=== PATIENT | female | born 1965 | race Caucasian/White ===

== ENCOUNTER 2018-02-12 18:48 | Emergency (ER) | payer MEDICAID, SELFPAY ==
[2018-02-12 18:52] VITALS: BP 155/86; PULSE 90; RESP 16; TEMP 36.7; O2SAT 98
[2018-02-12] MEDS: Tetanus & Diphtheria Tox,ADULT 0.5 ML VIAL IM (19:10)
--- NOTE | 2018-02-12 19:10 | ED.GENADUL_ITS ---
Discharge Plan Disposition Patient Disposition: HOME Condition: Improving Discharge Details Chief Complaint: Laceration Clinical Impression: Laceration of forearm, right Primary Care Provider: Debo Talamantes V ED Provider: Rios Bucio Home Meds and New Rx's Prescriptions: Continue metformin 500 MG tablet 1,000 mg PO BID RF: 0 buprenorphine-naloxone [Suboxone] 1 EACH film 6 mg Sublingual DAILY RF: 0 bupropion HCl 150 MG tablet extended release 12 hr 1 tab PO BID RF: 0 ibuprofen 800 MG tablet 1 tab PO BID PRNRF: 0 gabapentin 300 MG capsule 300 mg PO TID RF: 0 losartan-hydrochlorothiazide 1 TAB tablet 1 tab PO DAILY RF: 0 oxybutynin chloride 5 MG tablet 1 tab PO BID RF: 0 Discharge Instructions Instructions: Laceration (ED) Additional Instructions: You had 4 sutures placed. They should be removed in 7-10 days time. Return to the emergency department make appoint with regular doctors office for removal. Return for fever, redness, discharge from the wound or any other concerns. Continue regular medications. Gentle soap and water cleanse, pat dry daily and replace bandage Medical Decision Making 52-year-old female with right forearm laceration from pruning maurice at home. Her tetanus status is updated, the wound anesthetized, irrigated, examined in a bloodless field without evidence of foreign body. Repaired with 4 interrupted sutures. Discussed home management as well as return precautions. HPI General Mode of arrival: ambulatory . Date/Time Provider Initiated Documentation: 02/12/18 18:48 . Limitations to Documentation: no limitations . Information obtained by: patient . History of Present Illness described as mild, Quality is described as aching, and is localized to the right and upper extremity. Patient started experiencing this minute(s) and it has been constant. No relieving factors improve symptom(s), No exacerbating factors reported . Patient notes no other symptoms.. HPI Narrative: Laceration to right forearm from pruning maurice, hemostasis applied with pressure. No other complaints. Tetanus out of date. Related Data Home Medications Medication Instructions Recorded Confirmed buprenorphine-naloxone [Suboxone] 6 mg SUBLINGUAL DAILY 04/17/13 02/12/18 metformin 1,000 mg PO BID 04/17/13 02/12/18 bupropion HCl 1 tab PO BID 12/17/16 02/12/18 gabapentin 300 mg PO TID 12/17/16 02/12/18 ibuprofen 1 tab PO BID PRN 12/17/16 02/12/18 losartan-hydrochlorothiazide 1 tab PO DAILY 12/17/16 02/12/18 oxybutynin chloride 1 tab PO BID 12/17/16 02/12/18 Allergies Allergy/AdvReac Type Severity Reaction Status Date / Time No Known Allergies Allergy Unverified 02/12/18 18:55 General Stated Complaint: Laceration YASMINE: 4 Review of Systems Review of Systems For systems reviewed and otherwise neg PFSH Social History Smoking/Tobacco Use Status: Current every day Exam Narrative Exam Narrative: GEN: awake, alert.. Pleasant, well groomed, interactive. HEAD: Normocephalic, atraumatic ENT: Mucous membranes moist, oropharynx unremarkable, External ear exam unremarkable EYES: PERRL, EOMI NECK: Full ROM, no POLO, no menigismus EXT: Full ROM, no edema, no rash. Right forearm with 2 cm laceration that is linear, through the dermis of the skin, located mid forearm on the ulnar aspect. No foreign body seen. 2+ radial pulse bilateral upper extremity Neuro: Grossly normal neurologic exam, conversant, interactive. Psych: Speech fluent, thoughts congruent, affect normal Course Vital Signs Temperature 36.7 C 02/12/18 18:52 Pulse 90 02/12/18 18:52 Respiratory Rate 16 02/12/18 18:52 Blood Pressure 155/86 H 02/12/18 18:52 Pulse Oximetry 98 02/12/18 18:52 Temperature 36.7 C 02/12/18 18:52 Temperature Source Temporal Artery Scan 02/12/18 18:52 Pulse 90 02/12/18 18:52 Respiratory Rate 16 02/12/18 18:52 Respiratory Effort 02/12/18 18:52 Blood Pressure 155/86 H 02/12/18 18:52 Blood Pressure Position Sitting 02/12/18 18:52 Pulse Oximetry 98 02/12/18 18:52 Oxygen Delivery Method Room Air 02/12/18 18:52 Oxygen Flow Rate 0 02/12/18 18:52 Procedures Laceration Laceration 1: Site: upper extremity Side (If applicable): right Size (cm): 2 Depth: simple, single layer Local Anesthetic: Lidocaine 1% Amount of anesthesia used (mL): 2 Pre-repair: irrigated extensively and deep structures intact Skin layer closed with: nylon Size (cm): 4-0 Number of sutures: 4
[2018-02-12] MEDS: Lidocaine 1% Multi-Dose 50 ML VIAL (19:12)
== END 2018-02-12 19:27 | disposition home or self-care (01) ==
PROVIDERS: Emergency Provider Emergency Medicine; PCP Family Medicine
DX: S51.811A Laceration without foreign body of right forearm, initial encounter (principal); W27.1XXA Contact with garden tool, initial encounter; D11.9 Benign neoplasm of major salivary gland, unspecified; Z79.84 Long term (current) use of oral hypoglycemic drugs
CPT/HCPCS: 12001; 90471

== ENCOUNTER 2018-02-19 16:09 | Emergency (ER) | payer MEDICAID, SELFPAY ==
[2018-02-19 16:33] VITALS: BP 161/84; PULSE 69; RESP 16; TEMP 36.6; O2SAT 96
--- NOTE | 2018-02-19 16:50 | ED.GENADUL_ITS ---
Discharge Plan Discharge Details Chief Complaint: SutureRem Primary Care Provider: Debo Talamantes V ED Provider: Marcelo Heránndez Home Meds and New Rx's Prescriptions: No Action metformin 500 MG tablet 1,000 mg PO BID RF: 0 buprenorphine-naloxone [Suboxone] 1 EACH film 6 mg Sublingual DAILY RF: 0 bupropion HCl 150 MG tablet extended release 12 hr 1 tab PO BID RF: 0 ibuprofen 800 MG tablet 1 tab PO BID PRNRF: 0 gabapentin 300 MG capsule 300 mg PO TID RF: 0 losartan-hydrochlorothiazide 1 TAB tablet 1 tab PO DAILY RF: 0 oxybutynin chloride 5 MG tablet 1 tab PO BID RF: 0 Discharge Data Discharge Date/Time-TO BE ENTERED AT DEPARTURE: 02/19/18 16:49 Medical Decision Making I removed four sutures without incident. Three steri strips applied. Advised to keep clean and dry. Return to ED if signs of infection develop otherwise with pcp as previously scheduled. HPI General Date/Time Provider Initiated Documentation: 02/19/18 16:35 . Limitations to Documentation: no limitations . Information obtained by: patient and old records reviewed . HPI Narrative: 52 y/o female here to have four sutures removed. Denies any complications. Four sutures placed seven days ago to the right FA. She has kept it clean and dry. Related Data Home Medications Medication Instructions Recorded Confirmed buprenorphine-naloxone [Suboxone] 6 mg SUBLINGUAL DAILY 04/17/13 02/19/18 metformin 1,000 mg PO BID 04/17/13 02/19/18 bupropion HCl 1 tab PO BID 12/17/16 02/19/18 gabapentin 300 mg PO TID 12/17/16 02/19/18 ibuprofen 1 tab PO BID PRN 12/17/16 02/19/18 losartan-hydrochlorothiazide 1 tab PO DAILY 12/17/16 02/19/18 oxybutynin chloride 1 tab PO BID 12/17/16 02/19/18 Allergies Allergy/AdvReac Type Severity Reaction Status Date / Time No Known Allergies Allergy Unverified 02/12/18 18:55 General Stated Complaint: SutureRem YASMINE: 5 Review of Systems Constitutional Reports as per HPI Exam Skin Full body images: 2 1. edges slightly elevated and 1-2mm gaped. No drainage. Inflammatory redness around the wound. No drainage or ascending redness. Edges look to superficial to approximate. However 3 steri strips applied. Course Vital Signs Temperature 36.6 C 02/19/18 16:33 Pulse 69 02/19/18 16:33 Respiratory Rate 16 02/19/18 16:33 Blood Pressure 161/84 H 02/19/18 16:33 Pulse Oximetry 96 02/19/18 16:33 Temperature 36.6 C 02/19/18 16:33 Temperature Source Skin 02/19/18 16:33 Pulse 69 02/19/18 16:33 Respiratory Rate 16 02/19/18 16:33 Respiratory Effort Non-Labored 02/19/18 16:33 Blood Pressure 161/84 H 02/19/18 16:33 Blood Pressure Position Sitting 02/19/18 16:33 Pulse Oximetry 96 02/19/18 16:33 Oxygen Delivery Method Room Air 02/19/18 16:33 Oxygen Flow Rate 0 02/19/18 16:33 Pain Level 0 02/19/18 16:33
== END 2018-02-19 16:49 ==
LOC: ER 16:52
PROVIDERS: Emergency Provider Nurse Practitioner Family; PCP Family Medicine
DX: S51.811D Laceration without foreign body of right forearm, subsequent encounter (principal); W27.1XXD Contact with garden tool, subsequent encounter; Z48.02 Encounter for removal of sutures; E11.9 Type 2 diabetes mellitus without complications; Z79.84 Long term (current) use of oral hypoglycemic drugs

== ENCOUNTER 2018-03-05 00:40 | Outpatient (CLI) | payer MEDICAID, SELFPAY ==
--- NOTE | 2018-03-05 14:55 | DI.MAMMO_ITS ---
SYMPTOM/DIAGNOSIS: SCREENING, Z12.31, FAMILY HX, Z80.3 MAMMOGRAMS: Mammograms were interpreted according to the usual protocol including computer analysis with CAD system, tomosynthesis and C view imaging. Comparison with prior examinations. Breast density B. No masses or microcalcifications are seen. There is nothing to suggest malignancy. IMPRESSION: Negative mammogram. Routine screening is recommended. Category I. MQSA ASSESSMENT OF FINDINGS: Negative. Category 1. Patient will receive a letter notifying them of these results. BI-RADS category B. There are scattered areas of fibroglandular density.
== END 2018-03-05 01:00 ==
PROVIDERS: PCP Family Medicine; Visit Provider Family Medicine
DX: Z12.31 Encounter for screening mammogram for malignant neoplasm of breast (principal); Z80.3 Family history of malignant neoplasm of breast
CPT/HCPCS: 77063; 77067

== ENCOUNTER 2018-05-06 07:57 | Inpatient (IN) | payer MEDICAID, SELFPAY ==
[2018-05-06] VITALS (43 sets, daily range): BP systolic 86–146; BP diastolic 44–98; PULSE 69–120; RESP 16–20; TEMP 35.8–38.5; O2SAT 90–98
[2018-05-06 08:10] LABS: Bilirubin Negative (Negative); Blood Moderate (Negative); Clarity Sl Cloudy; Glucose >=1000 mg/dL (Negative); Ketones Trace mg/dL (Negative); Leukocyte Esterase Small (Negative); Nitrite Positive (Negative); Urobilinogen 0.2 EU/dL (Up TO 0.2); pH 5.5 (5-8)
[2018-05-06 08:19] LABS: Bacteria Moderate HPF (Negative); C & S Indicated? Yes; Crystals Negative HPF (Negative); Epithelial Cells Few HPF (Negative); Mucus Negative (Negative); WBC >50 HPF (0-5)
--- NOTE | 2018-05-06 08:27 | W.ED.GENAD ---
Discharge Plan Disposition Patient Disposition: [facility] INPATIENT Condition: Serious Discharge Details Chief Complaint: Urinary Clinical Impression: Pyelonephritis, Poorly controlled diabetes mellitus Primary Care Provider: Debo Talamantes V ED Provider: Blair Hunter Home Meds and New Rx's Prescriptions: No Action buprenorphine-naloxone [Suboxone] 1 EACH film 6 mg Sublingual DAILY RF: 0 losartan-hydrochlorothiazide 1 TAB tablet 1 tab PO DAILY RF: 0 oxybutynin chloride 5 MG tablet 1 tab PO BID RF: 0 gabapentin 400 mg Capsule 400 mg PO TID RF: 0 ibuprofen [Ibuprofen IB] 200 mg Tablet 800 mg PO QID PRNRF: 0 metformin [Glucophage XR] 500 mg Tablet Extended Release 24 Hr 1,000 mg PO DAILY RF: 0 bupropion HCl [Wellbutrin XL] 300 mg Tablet Extended Release 24 Hr 300 mg PO QAM RF: 0 Chantix Starting Month Box 0.5 mg (11)- 1 mg (42) Tablets,Dose Pack DAILY RF: 0 Victoza 2-Preston 0.6 mg/0.1 mL (18 mg/3 mL) Pen Injector 1.2 mg subcut DAILY RF: 0 Chantix Continuing Month Box 1 mg Tablet DAILY RF: 0 Medical Decision Making 8:30 -- 52yo f with non insulin dep DM here with freq urination, subjective fever, nausea/vomiting and left flank pain. She is noncompliant with diabetic regimen and has not been taking her thiazolidinedione as prescribed. Tachcardic and borderline hypotensive. Concern for pyelonephritis. Consider DKA. UA reviewed and consistent with UTI - trace ketones noted. Will give ceftriaxone 1 g IV. IVF bolus. Check chemistry. Plan to reassess. 9:35 -- Labs reviewed. Leukocytosis 17K noted. Lactate nl. Hyperglycemia noted, no anion gap. Patient reassessed: BP and HR improved. Will continue IVF and repeat 1L bolus. Plan to admit for continued IV abx and DM management. Nicotine patch ordered. 10:30 -- Dr. Loco to admit patient. Care transitioned to Dr. Loco. HPI General Mode of arrival: ambulatory. Date/Time Provider Initiated Documentation: 05/06/18 08:09. Limitations to Documentation: no limitations. Information obtained by: patient. HPI Narrative: 52-year-old female with history of diabetes, presents with chief complaint of frequent urination. Patient notes that she is having to run to the bathroom frequently over the past 3 days. She has had some urinary incontinence. No hematuria. Symptoms are severe. No modifiers. She has associated subjective fever last night as well as some nausea and vomiting and left flank pain. No abdominal pain. She has not been taking her actos as prescribed. Related Data Home Medications Medication Instructions Recorded Confirmed buprenorphine-naloxone [Suboxone] 6 mg SUBLINGUAL DAILY 04/17/13 05/06/18 losartan-hydrochlorothiazide 1 tab PO DAILY 12/17/16 05/06/18 oxybutynin chloride 1 tab PO BID 12/17/16 05/06/18 bupropion HCl [Wellbutrin XL] 300 mg PO QAM 05/06/18 05/06/18 gabapentin 400 mg PO TID 05/06/18 05/06/18 ibuprofen [Ibuprofen IB] 800 mg PO QID PRN 05/06/18 05/06/18 liraglutide [Victoza 2-Preston] 1.2 mg SUBCUT DAILY 05/06/18 05/06/18 metformin [Glucophage XR] 1,000 mg PO DAILY 05/06/18 05/06/18 varenicline [Chantix Continuing DAILY 05/06/18 Month Box] varenicline [Chantix Starting DAILY 05/06/18 Month Box] Allergies Allergy/AdvReac Type Severity Reaction Status Date / Time No Known Allergies Allergy Unverified 05/06/18 08:17 General Stated Complaint: Urinary YASMINE: 3 Review of Systems Review of Systems All systems reviewed & are unremarkable except as noted in HPI and below Constitutional Reports fever(s) Genitourinary Reports urinary frequency, Reports urinary incontinence and Reports urinary urgency PFSH Medical History Diabetes (Chronic) Hypertension (Chronic) Social History Smoking/Tobacco Use Status: Current every day Exam Const General: cooperative and no acute distress HENVT Head: normocephalic and atraumatic Mouth: moist mucous membranes Eyes Conjunctivae: normal conjunctivae Sclera: normal sclerae EOM: EOM intact bilaterally Neck Neck: no JVD Resp Auscultation: clear to auscultation bilaterally, no rales, no rhonchi and no wheezes Cardio Jugular venous pressure: no JVD Rate: regular rate and not tachycardic Rhythm: regular rhythm GI Palpation: soft, not firm, no guarding, no masses, not rigid and nontender General: No CVA tenderness Skin General skin exam: no rashes or lesions noted Neuro General: alert, awake, oriented x3 and tone normal Extrem General: no edema Psych Appearance: grossly normal Mental Status: mental status grossly normal Speech and Movement: speech and movement normal Course Vital Signs Temperature 36.8 C 05/06/18 08:11 Pulse 104 H 05/06/18 08:11 Respiratory Rate 18 05/06/18 08:11 Blood Pressure 95/64 L 05/06/18 08:11 Pulse Oximetry 95 05/06/18 08:11 Temperature 36.8 C 05/06/18 08:11 Temperature Source Temporal Artery Scan 05/06/18 08:11 Pulse 104 H 05/06/18 08:11 Respiratory Rate 18 05/06/18 08:11 Respiratory Effort 05/06/18 08:16 Blood Pressure 95/64 L 05/06/18 08:11 Blood Pressure Position Sitting 05/06/18 08:11 Pulse Oximetry 95 05/06/18 08:11 Oxygen Delivery Method Room Air 05/06/18 08:11 Oxygen Flow Rate 0 05/06/18 08:11 Pain Level 0 05/06/18 08:15 Lab/Test Results Lab/Test Results: 05/06/18 08:05 Urine - Reflex from Ua Urine Culture - Pending Laboratory Tests Range/Units 05/06/18 08:05 Urine Color (Yellow) Yellow Urine Clarity Sl cloudy Urine pH (5-8) 5.5 Ur Specific [place] (1.005-1.025) 1.010 Urine Protein (Negative) mg/dL 30 H Urine Ketones (Negative) mg/dL Trace H Urine Blood (Negative) Moderate H Urine Nitrite (Negative) Positive H Urine Bilirubin (Negative) Negative Urine Urobilinogen (Up TO 0.2) EU/dL 0.2 Ur Leukocyte Esterase (Negative) Small H Urine RBC Not Applicable Urine WBC (0-5) HPF >50 Ur Epithelial Cells (Negative) HPF Few Urine Crystals (Negative) HPF Negative Urine Bacteria (Negative) HPF Moderate Urine Mucus (Negative) Negative Ur Culture Indicated? Yes Urine Glucose (Negative) mg/dL >=1000 H
--- NOTE | 2018-05-06 08:37 | ED.GENADUL_ITS ---
Discharge Plan Disposition Patient Disposition: [facility] INPATIENT Condition: Serious Discharge Details Chief Complaint: Urinary Clinical Impression: Pyelonephritis, Poorly controlled diabetes mellitus Primary Care Provider: Debo Talamantes V ED Provider: Blair Hunter Home Meds and New Rx's Prescriptions: No Action buprenorphine-naloxone [Suboxone] 1 EACH film 6 mg Sublingual DAILY RF: 0 losartan-hydrochlorothiazide 1 TAB tablet 1 tab PO DAILY RF: 0 oxybutynin chloride 5 MG tablet 1 tab PO BID RF: 0 gabapentin 400 mg Capsule 400 mg PO TID RF: 0 ibuprofen [Ibuprofen IB] 200 mg Tablet 800 mg PO QID PRNRF: 0 metformin [Glucophage XR] 500 mg Tablet Extended Release 24 Hr 1,000 mg PO DAILY RF: 0 bupropion HCl [Wellbutrin XL] 300 mg Tablet Extended Release 24 Hr 300 mg PO QAM RF: 0 Chantix Starting Month Box 0.5 mg (11)- 1 mg (42) Tablets,Dose Pack DAILY RF: 0 Victoza 2-Preston 0.6 mg/0.1 mL (18 mg/3 mL) Pen Injector 1.2 mg subcut DAILY RF: 0 Chantix Continuing Month Box 1 mg Tablet DAILY RF: 0 Medical Decision Making 8:30 -- 52yo f with non insulin dep DM here with freq urination, subjective fever, nausea/vomiting and left flank pain. She is noncompliant with diabetic regimen and has not been taking her thiazolidinedione as prescribed. Tachcardic and borderline hypotensive. Concern for pyelonephritis. Consider DKA. UA reviewed and consistent with UTI - trace ketones noted. Will give ceftriaxone 1 g IV. IVF bolus. Check chemistry. Plan to reassess. 9:35 -- Labs reviewed. Leukocytosis 17K noted. Lactate nl. Hyperglycemia noted, no anion gap. Patient reassessed: BP and HR improved. Will continue IVF and repeat 1L bolus. Plan to admit for continued IV abx and DM management. Nicotine patch ordered. 10:30 -- Dr. Loco to admit patient. Care transitioned to Dr. Loco. HPI General Mode of arrival: ambulatory . Date/Time Provider Initiated Documentation: 05/06/18 08:09 . Limitations to Documentation: no limitations . Information obtained by: patient . HPI Narrative: 52-year-old female with history of diabetes, presents with chief complaint of frequent urination. Patient notes that she is having to run to the bathroom frequently over the past 3 days. She has had some urinary incontinence. No hematuria. Symptoms are severe. No modifiers. She has associated subjective fever last night as well as some nausea and vomiting and left flank pain. No abdominal pain. She has not been taking her actos as prescribed. Related Data Home Medications Medication Instructions Recorded Confirmed buprenorphine-naloxone [Suboxone] 6 mg SUBLINGUAL DAILY 04/17/13 05/06/18 losartan-hydrochlorothiazide 1 tab PO DAILY 12/17/16 05/06/18 oxybutynin chloride 1 tab PO BID 12/17/16 05/06/18 bupropion HCl [Wellbutrin XL] 300 mg PO QAM 05/06/18 05/06/18 gabapentin 400 mg PO TID 05/06/18 05/06/18 ibuprofen [Ibuprofen IB] 800 mg PO QID PRN 05/06/18 05/06/18 liraglutide [Victoza 2-Preston] 1.2 mg SUBCUT DAILY 05/06/18 05/06/18 metformin [Glucophage XR] 1,000 mg PO DAILY 05/06/18 05/06/18 varenicline [Chantix Continuing DAILY 05/06/18 Month Box] varenicline [Chantix Starting DAILY 05/06/18 Month Box] Allergies Allergy/AdvReac Type Severity Reaction Status Date / Time No Known Allergies Allergy Unverified 05/06/18 08:17 General Stated Complaint: Urinary YASMINE: 3 Review of Systems Review of Systems All systems reviewed & are unremarkable except as noted in HPI and below Constitutional Reports fever(s) Genitourinary Reports urinary frequency, Reports urinary incontinence and Reports urinary urgency PFSH Medical History Diabetes (Chronic) Hypertension (Chronic) Social History Smoking/Tobacco Use Status: Current every day Exam Const General: cooperative and no acute distress HENWI Head: normocephalic and atraumatic Mouth: moist mucous membranes Eyes Conjunctivae: normal conjunctivae Sclera: normal sclerae EOM: EOM intact bilaterally Neck Neck: no JVD Resp Auscultation: clear to auscultation bilaterally, no rales, no rhonchi and no wheezes Cardio Jugular venous pressure: no JVD Rate: regular rate and not tachycardic Rhythm: regular rhythm GI Palpation: soft, not firm, no guarding, no masses, not rigid and nontender General: No CVA tenderness Skin General skin exam: no rashes or lesions noted Neuro General: alert, awake, oriented x3 and tone normal Extrem General: no edema Psych Appearance: grossly normal Mental Status: mental status grossly normal Speech and Movement: speech and movement normal Course Vital Signs Temperature 36.8 C 05/06/18 08:11 Pulse 104 H 05/06/18 08:11 Respiratory Rate 18 05/06/18 08:11 Blood Pressure 95/64 L 05/06/18 08:11 Pulse Oximetry 95 05/06/18 08:11 Temperature 36.8 C 05/06/18 08:11 Temperature Source Temporal Artery Scan 05/06/18 08:11 Pulse 104 H 05/06/18 08:11 Respiratory Rate 18 05/06/18 08:11 Respiratory Effort 05/06/18 08:16 Blood Pressure 95/64 L 05/06/18 08:11 Blood Pressure Position Sitting 05/06/18 08:11 Pulse Oximetry 95 05/06/18 08:11 Oxygen Delivery Method Room Air 05/06/18 08:11 Oxygen Flow Rate 0 05/06/18 08:11 Pain Level 0 05/06/18 08:15 Lab/Test Results Lab/Test Results: 05/06/18 08:05 Urine - Reflex from Ua Urine Culture - Pending Laboratory Tests Range/Units 05/06/18 08:05 Urine Color (Yellow) Yellow Urine Clarity Sl cloudy Urine pH (5-8) 5.5 Ur Specific [place] (1.005-1.025) 1.010 Urine Protein (Negative) mg/dL 30 H Urine Ketones (Negative) mg/dL Trace H Urine Blood (Negative) Moderate H Urine Nitrite (Negative) Positive H Urine Bilirubin (Negative) Negative Urine Urobilinogen (Up TO 0.2) EU/dL 0.2 Ur Leukocyte Esterase (Negative) Small H Urine RBC Not Applicable Urine WBC (0-5) HPF >50 Ur Epithelial Cells (Negative) HPF Few Urine Crystals (Negative) HPF Negative Urine Bacteria (Negative) HPF Moderate Urine Mucus (Negative) Negative Ur Culture Indicated? Yes Urine Glucose (Negative) mg/dL >=1000 H
[2018-05-06] MEDS: Normal Saline 1,000 ML 1000 ML IV ×3 (08:50→21:08)
[2018-05-06 08:58] LABS: Lactate-non-spesis 1.3 mmol/L (0.6-1.4)
[2018-05-06 09:00] LABS: Abs Immature Grans 0.09 k/cumm (0.0-0.09); HCT 43.2 % (36.0-46.0); HGB 14.5 g/dL (12.0-15.5); Mean Corp. HGB Concentration 33.6 g/dL (32.0-36.0); Mean Corpuscular Hemoglobin 28.3 pg (27.0-33.0); Mean Corpuscular Volume 84.4 fL (80-95); Mean Platelet Volume 10.1 fL (8.0-11.0); Platelet Count 201 x1000/uL (130-400); RBC 5.12 m/cumm (4.00-5.20); White Blood Cell Count 17.13 k/cumm (4.4-10.8)
[2018-05-06 09:13] LABS: Absolute Lymphocyte Count 0.51 k/cumm (1.2-3.4); Absolute Monocyte Count 1.54 k/cumm (0.11-0.7); Absolute Neutrophil Count 15.07 k/cumm (1.2-6.7)
[2018-05-06 09:14] LABS: Diff Comment Manual Differential; RBC Morphology Normal
[2018-05-06 09:21] LABS: ALT 27 U/L (12-78); AST 15 U/L (15-37); Albumin 3.4 g/dL (3.4-5.0); Alkaline Phosphatase 135 U/L (46-116); Anion Gap 8.7 mmol/L (3-11); BUN 20 mg/dL (7-18); Bilirubin, Total 0.5 mg/dL (0.2-1.0); CO2 27.3 mmol/L (21.0-32.0); CREATININE 0.95 mg/dL (0.55-1.02); Calcium 9.2 mg/dL (8.5-10.1); Chloride 95 mmol/L (98-107); Potassium 3.7 mmol/L (3.5-5.1); Sodium 131 mmol/L (136-145); Total Protein 7.4 g/dL (6.4-8.2)
[2018-05-06 09:23] LABS: Glucose 543 mg/dL (70-100)
[2018-05-06] MEDS: Nicotine 14 MG/24 HR PATCH TD (09:47)
[2018-05-06] MEDS: POTASSIUM CHLORIDE 20 MEQ, POTASSIUM CHLORIDE 10 MEQ 30 MEQ PO (10:57)
[2018-05-06] MEDS: Normal Saline 1,000 ML 175 ML IV (11:07)
--- NOTE | 2018-05-06 12:05 | DI.CT_ITS ---
SYMPTOMS/DIAGNOSIS: UTI, POTENTIAL PYELONEPHRITIS, ? STONE CT OF THE ABDOMEN AND PELVIS: Comparison is made with [id number]. No urinary tract calculi are seen. There is bilateral perinephritic stranding and some patchy areas of decreased attenuation which could indicate pyelonephritis. The bladder is unremarkable. The uterus and ovaries are within normal limits. There is no bowel dilatation or inflammatory changes. There is no free air or free fluid. There are diverticula. There is an area of scarring in the lower anterior abdominal wall. The liver again shows fatty infiltration. There is a stable small nodule of the left adrenal gland. The pancreas and gallbladder are unremarkable. The lung bases are clear. IMPRESSION: Bilateral perinephric stranding and patchy renal attenuation could indicate pyelonephritis. No obstructing or nonobstructing stones are seen.
[2018-05-06] MEDS: Insulin Aspart 300 UNITS/3 ML PEN SC ×2 (12:33→17:08)
[2018-05-06] MEDS: Omnipaque 350 MG/ML 100 ML BTL IJ (12:36)
--- NOTE | 2018-05-06 12:42 | DI.VRAD_ITS ---
Addendum created by Sangita Atkins MD on 05/06/2018 12:45:46 PM EST THIS REPORT CONTAINS FINDINGS THAT MAY BE CRITICAL TO PATIENT CARE. The findings were verbally communicated via telephone conference with JUAN CASTELLANOS at 12:45 PM EST on 05/06/2018. The findings were acknowledged and understood. Initial report created on 05/06/2018 12:42:20 PM EST EXAM: CT Abdomen and Pelvis Without and With Contrast EXAM DATE/TIME: 05/06/2018 11:23 AM CLINICAL HISTORY: 52 years old, female; Signs and symptoms; Other: Uti; Patient HX: Uti, potential pyelonephritis, R/O stone as well. TECHNIQUE: Axial computed tomography images of the abdomen and pelvis without and with intravenous contrast. All CT scans at this facility use at least one of these dose optimization techniques: automated exposure control; mA and/or kV adjustment per patient size (includes targeted exams where dose is matched to clinical indication); or iterative reconstruction. Coronal and sagittal reformatted images were created and reviewed. CONTRAST: 100 ml of OMNI-PAQUE 350 administered intravenously. COMPARISON: CT ABD PELVIS WITH CONTRAST 02/22/2017 1:17 AM FINDINGS: Lower thorax: No acute findings. ABDOMEN: Liver: Hepatic steatosis Gallbladder and bile ducts: Normal. No calcified stones. No ductal dilation. Pancreas: Normal. No ductal dilation. Spleen: Normal. No splenomegaly. Adrenals: Left adrenal nodule 3 x 2 cm. 13 Hounsfield units. Not adrenal adenoma. Kidneys and ureters: Mild dilatation of both collecting systems and both ureters. There are periureteral inflammatory changes. However no ureteral calculus . Both kidneys are edematous. Patchy hypoattenuation in both kidneys may represent pyelonephritis. 6 mm nodule in the left kidney 22 Hounsfield units. Stomach and bowel: Findings consistent with constipation. Appendix: No evidence of appendicitis. PELVIS: Bladder: Unremarkable as visualized. Reproductive: Unremarkable as visualized. ABDOMEN and PELVIS: Intraperitoneal space: Normal. No free air. No significant fluid collection. Bones/joints: No acute fracture. No dislocation. Soft tissues: Ventral hernia in the pelvis contains fat and inflammatory changes and fluid. 2 x 1.2 cm fluid collection within the hernia (4:70). Differential includes abscess, hematoma, seroma. Vasculature: Normal. No abdominal aortic aneurysm. Lymph nodes: Enlarged left retroperitoneal nodes. 2 x 1.3 cm and 1.2 x 1.2 cm. Additional smaller nodes are Other findings: Cysts in the beto bilaterally IMPRESSION: 1. Mild dilatation of both collecting systems and both ureters. There are periureteral inflammatory changes. However no ureteral calculus . Both kidneys are edematous. Patchy hypoattenuation in both kidneys may represent pyelonephritis. 2. Left adrenal nodule 3 x 2 cm. 13 Hounsfield units. Not adrenal adenoma. 3. 6 mm nodule in the left kidney 22 Hounsfield units. 4. Ventral hernia in the pelvis contains fat and inflammatory changes and fluid. 2 x 1.2 cm fluid collection within the hernia (4:70) . Differential includes abscess, hematoma, seroma. Dictated and Authenticated by: Sangita Atkins MD. Ordering:LUIS Soto MD
[2018-05-06] MEDS: Enoxaparin 40 MG/0.4 ML SYR SC (13:10)
[2018-05-06] MEDS: Gabapentin 400 MG CAP PO ×2 (13:10→20:48)
[2018-05-06] MEDS: ACETAMINOPHEN 1,000 MG/100 ML BTL 400 MG IVPB (14:28)
[2018-05-06] MEDS: MEROPENEM 1 GM in Normal Saline 100 ML IVPB ×2 (14:45→22:19)
[2018-05-06] MEDS: Ibuprofen 800 MG TAB PO (16:40)
--- NOTE | 2018-05-06 17:03 | HPE_ITS ---
Date of service: 05/06/18 Time of Service: 17:28 Assessment and Plan (1) Sepsis: Current visit: Yes Status: Acute Evidence of sepsis based on fever, tachycardia, tachypnea, and leukocytosis with urine as the likely source. Currently without evidence of endorgan damage, and with a normal lactate -maintaining blood pressure well. Continue aggressive IV fluids, and given evidence of pyelonephritis with sepsis will cover broadly with vancomycin and meropenem while awaiting both blood and urine cultures. Currently not at ICU level will need to be monitored. (2) Pyelonephritis: Current visit: Yes Status: Acute Evidence of pyelonephritis with treatment as above. (3) History of intravenous drug abuse: Current visit: Yes Status: Chronic In remission. (4) Anxiety: Current visit: Yes Status: Chronic Noted. Patient on is on chronic therapy with bupropion. (5) Diabetes mellitus: Current visit: Yes Status: Chronic Continue to hold metformin. Patient is also on Victoza. Sliding scale coverage initiated. Current significant hyperglycemia is in the setting of active infection and sepsis. Continue to monitor blood sugars carefully, and continue aggressive IV fluid. (6) Hepatitis C: Current visit: Yes Status: Chronic Noted. Noted hepatic steatosis without overt cirrhotic findings by imaging today. LFTs are normal. (7) Obesity: Current visit: Yes Status: Chronic (8) Tobacco abuse: Current visit: Yes Status: Chronic Approximate [id number] history of smoking. History is noted. Encourage abstinence. Nicotine replacement therapy on as-needed basis. (9) History of alcohol abuse: Current visit: Yes Status: Chronic Reportedly in remission for 16 years. (10) Hypertension: Current visit: Yes Status: Chronic Given current sepsis picture will hold combination ARB/HCTZ, and reinitiate when patient's clinical picture is improved. Monitor blood pressures carefully. Currently remains with aggressive IV fluid resuscitation (11) SHARAN (obstructive sleep apnea): Current visit: Yes Status: Chronic Continue home CPAP therapy. (12) Adrenal nodule: Current visit: Yes Status: Chronic Noted left 3 x 2 cm adrenal nodule, specifically noted not to be an adrenal adenoma, as well as a 6 mm nodule in the left kidney. These will need to be monitored and further worked up as an outpatient. (13) Ventral hernia: Current visit: Yes Status: Chronic Evidence of a ventral hernia in the pelvis that contains fat but no bowel, with inflammatory changes and a fluid collection approximately 2 x 1 cm, uncertain whether this represents an abscess, seroma, or hematoma. Unsure the clinical significance of this. Requested further evaluation by surgery -input is appreciated. (14) DVT prophylaxis: Current visit: Yes Status: Chronic SC Lovenox. History of Present Illness Chief Complaint: Dysuria Narrative: Very pleasant 52-year-old woman with a past medical history significant for diabetes and obesity, presented to [facility] emergency department with complaints of dysuria. Mrs. Srivastava has a past medical history significant for diabetes, ongoing tobacco use, hypertension, obesity, and SHARAN on CPAP therapy. She has a remote history of IVDA as well as alcohol abuse now in remission for 16 years. She carries a diagnosis of hepatitis C as well. The patient reports onset of a suprapubic pressure sensation with urination approximately 5-6 days ago, accompanied by urinary frequency and urgency. Following this she had development of left flank pain 2-3 days ago. Last evening she describes onset of Rigors while in bed, with subjective fevers, urinary incontinence, one-time episode of vomiting. Upon presentation to the emergency department she was noted to have fevers, and tachycardia without overt hypotension, and was also noted to have a leukocytosis with a left shift and mild bandemia. Her lactate was checked and normal. Her urinalysis was positive for likely infection. . She was also significantly hyperglycemic but with a normal anion gap. Following her admission a CT scan was obtained showing evidence of pyelonephritis. Is initiated on broad-spectrum antibiotics and aggressive IV fluid resuscitation. Review of Systems Review of Systems All systems reviewed & are unremarkable except as noted in HPI and below [facility] Medical History Sepsis (Acute) Ventral hernia (Chronic) Adrenal nodule (Chronic) Pyelonephritis (Acute) DVT prophylaxis (Chronic) SHARAN (obstructive sleep apnea) (Chronic) HPV (human papilloma virus) infection (Chronic) Hypertension (Chronic) History of alcohol abuse (Chronic) Tobacco abuse (Chronic) Obesity (Chronic) Hepatitis C (Chronic) Diabetes mellitus (Chronic) Anxiety (Chronic) History of intravenous drug abuse (Chronic) Diabetes (Chronic) Hypertension (Chronic) Surgical History History of hernia repair (Chronic) History of (Chronic) History of appendectomy (Chronic) Social History Smoking/Tobacco Use Status: Current every day additional social history: Patient is . She has 2 children, and one grandson. 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 Reports daily tobacco use, with an approximate 53-[id number]-sces history of smoking. Reports both alcohol and illicit drug use in remission. Meds Home Medications Medication Instructions Recorded Confirmed Type buprenorphine-naloxone [Suboxone] 6 mg SUBLINGUAL DAILY 04/17/13 05/06/18 History losartan-hydrochlorothiazide 1 tab PO DAILY 12/17/16 05/06/18 History oxybutynin chloride 1 tab PO BID 12/17/16 05/06/18 History bupropion HCl [Wellbutrin XL] 300 mg PO QAM 05/06/18 05/06/18 History gabapentin 400 mg PO TID 05/06/18 05/06/18 History ibuprofen [Ibuprofen IB] 800 mg PO QID PRN 05/06/18 05/06/18 History liraglutide [Victoza 2-Preston] 1.2 mg SUBCUT DAILY 05/06/18 05/06/18 History metformin [Glucophage XR] 1,000 mg PO DAILY 05/06/18 05/06/18 History varenicline [Chantix Continuing DAILY 05/06/18 History Month Box] varenicline [Chantix Starting DAILY 05/06/18 History Month Box] Allergies Allergy/AdvReac Type Severity Reaction Status Date / Time exenatide [From Byetta] AdvReac Mild Unverified 05/06/18 11:15 lisinopril AdvReac Mild Unverified 05/06/18 11:15 Exam Narrative Exam Narrative: General: Patient appears comfortable, AAOX3, NAD - not toxic appearing Neck: Supple CV: Regular, tachycardic, S1S2. 3/6 LLSB murmur appreciated. Pulmonary: Clear to auscultation bilaterally, no crackles, wheezing, or rhonchi Abdomen: + Bowel Sounds, soft, nontender, nondistended, obese in contour Vascular: No lower extremity edema Neurologic: CN II-XII grossly intact. No focal deficits. Psych: Normal mood and affect. Results Imaging Additional studies: Exam(s) Addendum created by Sangita Atkins MD on 05/06/2018 12:45:46 PM EST THIS REPORT CONTAINS FINDINGS THAT MAY BE CRITICAL TO PATIENT CARE. The findings were verbally communicated via telephone conference with CHARLES CASTELLANOS at 12:45 PM EST on 05/06/2018. The findings were acknowledged and understood. Initial report created on 05/06/2018 12:42:20 PM EST EXAM: CT Abdomen and Pelvis Without and With Contrast EXAM DATE/TIME: 05/06/2018 11:23 AM CLINICAL HISTORY: 52 years old, female; Signs and symptoms; Other: Uti; Patient HX: Uti, potential pyelonephritis, R/O stone as well. TECHNIQUE: Axial computed tomography images of the abdomen and pelvis without and with intravenous contrast. All CT scans at this facility use at least one of these dose optimization techniques: automated exposure control; mA and/or kV adjustment per patient size (includes targeted exams where dose is matched to clinical indication); or iterative reconstruction. Coronal and sagittal reformatted images were created and reviewed. CONTRAST: 100 ml of OMNI-PAQUE 350 administered intravenously. COMPARISON: CT ABD PELVIS WITH CONTRAST 02/22/2017 1:17 AM FINDINGS: Lower thorax: No acute findings. ABDOMEN: Liver: Hepatic steatosis Gallbladder and bile ducts: Normal. No calcified stones. No ductal dilation. Pancreas: Normal. No ductal dilation. Spleen: Normal. No splenomegaly. Adrenals: Left adrenal nodule 3 x 2 cm. 13 Hounsfield units. Not adrenal adenoma. Kidneys and ureters: Mild dilatation of both collecting systems and both ureters. There are periureteral inflammatory changes. However no ureteral calculus . Both kidneys are edematous. Patchy hypoattenuation in both kidneys may represent pyelonephritis. 6 mm nodule in the left kidney 22 Hounsfield units. Stomach and bowel: Findings consistent with constipation. Appendix: No evidence of appendicitis. PELVIS: Bladder: Unremarkable as visualized. Reproductive: Unremarkable as visualized. ABDOMEN and PELVIS: Intraperitoneal space: Normal. No free air. No significant fluid collection. Bones/joints: No acute fracture. No dislocation. Soft tissues: Ventral hernia in the pelvis contains fat and inflammatory changes and fluid. 2 x 1.2 cm fluid collection within the hernia (4:70). Differential includes abscess, hematoma, seroma. Vasculature: Normal. No abdominal aortic aneurysm. Lymph nodes: Enlarged left retroperitoneal nodes. 2 x 1.3 cm and 1.2 x 1.2 cm. Additional smaller nodes are Other findings: Cysts in the beto bilaterally IMPRESSION: 1. Mild dilatation of both collecting systems and both ureters. There are periureteral inflammatory changes. However no ureteral calculus . Both kidneys are edematous. Patchy hypoattenuation in both kidneys may represent pyelonephritis. 2. Left adrenal nodule 3 x 2 cm. 13 Hounsfield units. Not adrenal adenoma. 3. 6 mm nodule in the left kidney 22 Hounsfield units. 4. Ventral hernia in the pelvis contains fat and inflammatory changes and fluid. 2 x 1.2 cm fluid collection within the hernia (4:70). Differential includes abscess, hematoma, seroma. Labs : 05/06/18 08:50 05/06/18 08:50 Laboratory Results - last 24 hr 05/06/18 05/06/18 05/06/18 08:05 08:50 08:50 WBC 17.13 H RBC 5.12 Hgb 14.5 Hct 43.2 MCV 84.4 MCH 28.3 MCHC 33.6 RDW 14.0 Plt Count 201 MPV 10.1 Immature Gran % 0.0 Neutrophils % 85.0 Lymphocytes % 3.0 Monocytes % 9.0 Eosinophils % 0.0 Basophils % 0.0 Absolute Neutrophils 15.07 H Band Neutrophils 3.0 Absolute Lymphocytes 0.51 L Absolute Monocytes 1.54 H Absolute Eosinophils 0.00 Absolute Basophils 0.00 Differential Comment Manual differential RBC Morphology Normal Sodium 131 L Potassium 3.7 Chloride 95 L Carbon Dioxide 27.3 Anion Gap 8.7 BUN 20 H Creatinine 0.95 Estimated GFR/1.73 m2 >= 60.00 Glucose 543 H* Lactate Calcium 9.2 Total Bilirubin 0.5 AST 15 ALT 27 Alkaline Phosphatase 135 H Total Protein 7.4 Albumin 3.4 Urine Color Yellow Urine Clarity Sl cloudy Urine pH 5.5 Ur Specific [place] 1.010 Urine Protein 30 H Urine Ketones Trace H Urine Blood Moderate H Urine Nitrite Positive H Urine Bilirubin Negative Urine Urobilinogen 0.2 Ur Leukocyte Esterase Small H Urine RBC Not Applicable Urine WBC >50 Ur Epithelial Cells Few Urine Crystals Negative Urine Bacteria Moderate Urine Mucus Negative Ur Culture Indicated? Yes Urine Glucose >=1000 H 05/06/18 08:50 WBC RBC Hgb Hct MCV MCH MCHC RDW Plt Count MPV Immature Gran % Neutrophils % Lymphocytes % Monocytes % Eosinophils % Basophils % Absolute Neutrophils Band Neutrophils Absolute Lymphocytes Absolute Monocytes Absolute Eosinophils Absolute Basophils Differential Comment RBC Morphology Sodium Potassium Chloride Carbon Dioxide Anion Gap BUN Creatinine Estimated GFR/1.73 m2 Glucose Lactate 1.3 Calcium Total Bilirubin AST ALT Alkaline Phosphatase Total Protein Albumin Urine Color Urine Clarity Urine pH Ur Specific [place] Urine Protein Urine Ketones Urine Blood Urine Nitrite Urine Bilirubin Urine Urobilinogen Ur Leukocyte Esterase Urine RBC Urine WBC Ur Epithelial Cells Urine Crystals Urine Bacteria Urine Mucus Ur Culture Indicated? Urine Glucose Last Vital Signs Temp 38.5 C H 05/06/18 16:00 Pulse 100 H 05/06/18 16:00 Resp 18 05/06/18 16:00 BP 112/65 05/06/18 16:00 Pulse Ox 96 05/06/18 16:00
[2018-05-06] MEDS: Normal Saline 1,000 ML 250 ML IV (17:59)
[2018-05-06] MEDS: Oxybutynin 5 MG TAB PO (20:47)
[2018-05-06] MEDS: Normal Saline 500 ML IV (22:21)
[2018-05-07] VITALS (9 sets, daily range): BP systolic 82–155; BP diastolic 44–85; PULSE 73–89; RESP 16–20; TEMP 36.1–39.1; O2SAT 95–99
[2018-05-07] MEDS: Nicotine 14 MG/24 HR PATCH TD ×2 (00:26→21:20)
[2018-05-07] MEDS: Ibuprofen 800 MG TAB PO (00:28)
[2018-05-07] MEDS: Normal Saline 1,000 ML 250 ML IV ×3 (03:24→12:04)
[2018-05-07] MEDS: MEROPENEM 1 GM in Normal Saline 100 ML IVPB ×3 (05:52→21:19)
[2018-05-07 07:36] LABS: Abs Immature Grans 0.04 k/cumm (0.0-0.09); Absolute Basophil Count 0.01 k/cumm (0.0-0.2); Absolute Eosinophil Count 0.14 k/cumm (0.0-0.7); Absolute Monocyte Count 1.02 k/cumm (0.11-0.7); Absolute Neutrophil Count 9.28 k/cumm (1.2-6.7); Basophils % 0.1; Eosinophils % 1.2; HCT 37.1 % (36.0-46.0); Immature Grans % 0.3; Lymphocytes % 10.3; Mean Corp. HGB Concentration 32.3 g/dL (32.0-36.0); Mean Corpuscular Volume 86.7 fL (80-95); Mean Platelet Volume 10.1 fL (8.0-11.0); Monocytes % 8.7; Neutrophils % 79.4; Platelet Count 171 x1000/uL (130-400); RBC 4.28 m/cumm (4.00-5.20); RBC Distribution Width 14.1 % (11.7-14.6); White Blood Cell Count 11.69 k/cumm (4.4-10.8)
[2018-05-07 07:45] LABS: BUN 15 mg/dL (7-18); CREATININE 0.64 mg/dL (0.55-1.02); Chloride 107 mmol/L (98-107); Glucose 256 mg/dL (70-100); Magnesium 1.9 mg/dL (1.8-2.4); Potassium 3.8 mmol/L (3.5-5.1); Sodium 140 mmol/L (136-145)
[2018-05-07] MEDS: VANCOMYCIN 1,000 MG in Normal Saline 250 ML 166.667 MG IVPB ×2 (08:24→17:42)
[2018-05-07] MEDS: Oxybutynin 5 MG TAB PO ×2 (08:25→19:38)
[2018-05-07] MEDS: Insulin Aspart 300 UNITS/3 ML PEN SC ×3 (08:25→16:47)
[2018-05-07] MEDS: Gabapentin 400 MG CAP PO ×3 (08:25→19:38)
[2018-05-07] MEDS: buPROPion-XL 150 MG TABCR 300 MG PO (08:25)
[2018-05-07] MEDS: Acetaminophen 325 MG TAB PO ×3 (08:46→19:38)
[2018-05-07] MEDS: Potassium Chloride 20 MEQ TABCR PO (08:46)
[2018-05-07] MEDS: Magnesium Oxide 400 MG TAB PO (10:17)
[2018-05-07] MEDS: Enoxaparin 40 MG/0.4 ML SYR SC (12:03)
--- NOTE | 2018-05-07 13:29 | CHAPLAIN ---
Evi and I know each other from her work at the [employer] [facility]. Evi said her discomfort kept getting worse and her roommate suggested she come to the hospital, but she is feeling better know. Evi has been sober and drug free for more than 15 years. She is worried now about her diabetes and getting that under control. She said she had a talk with the man upstairs last night and she knows now that she needs to spend time caring for herself.
[2018-05-07] MEDS: Normal Saline Flush 10 ML SYR IVP (13:50)
--- NOTE | 2018-05-07 14:37 | PHARADMIT ---
Addendum entered by Hamzah Marion III 05/09/18 16:37: Pharmacy Note Subjective Patient continues to have intermittent fevers, delaying her discharge. noted patient has bad case of pyelo. Objective VS-OK BP-172/94 Labs-OK FSBS-279 BM today Assessment ABX- to PO Cipro for pansensitive e.coli, Home Hyzaar restarted (Losartan/hctz) Plan Still awaiting [employer] Victoza Original Note: Addendum entered by Kristin Mata 05/08/18 11:55: Pharmacy Note Subjective improving per morning report Objective HR-97 Tmax-38.1 this morning other VS okay FSBG-299 WBC-5.90(down) Assessment urine culture sensitivities are back; meropenem and vanco changed to PO cipro (day#1 of cipro/day#3 abx) pt's own victoza has not been given/is not available Plan continue to watch VS, labs and for med changes Original Note: Admission Pharmacy Clinical Review UTI Code Status Full Code Current Weight 113.398 kg Renally Cleared and Narrow Therapeutic Index Meds Crcl ~123.5 mL/min using adjusted body weight QTc Value / Action Taken n/a BP Control, Fever BP 141/70 Tmax 39.1 Electrolytes reviewed within normal limits DVT Prophylaxis enoxaparin Opiate Usage / Scheduled Bowel Regimen Ordered no/prn Plt/SCr for Heparin / Enoxaparin plt 171 SCr 0.64 INR for Warfarin n/a H/H stable, WBC/Bands h/h 12.0/37.1 wbc 11.69 Antibiotic appropriateness vanco and meropenem Cultures and Sensitivities blood cultures pending urine culture growing gram negative rods Surgical ABX d/c within 24 hr n/a DM control / Insulin Dosing BG 256 sliding scale insulin aspart and scheduled victoza Heart Failure (Check EF%) (ROBERTO's, B-Block, Diuretics) losartan/HCTZ (home meds) IV to PO Switch n/a Home Meds Reviewed multiple PEER EDUCATOR depressants- buprenorphine, gabapentin Home Meds Not Ordered losartan/HCTZ, metformin, varenicline Comments watch for narrowing of abx with culture results, vanco trough ordered for 1300 tomorrow
--- NOTE | 2018-05-07 14:49 | PDOC.CMIN ---
- If Service Date Differs Date of service: 05/07/18 Time of Service: 14:49 Care Management Initial Assess REASON FOR HOSPITALIZATION:: Pylelonephritis PAST MEDICAL HISTORY/PAST SURGICAL HISTORY:: Medical hx, sepsis, ventral hernia, adrenal nodule, SHARAN, HPV, HTN, ETOH abuse, obesity, DM, anxiety, intravenous drug abuse. PREVIOUS FUNCTIONAL STATUS/SOCIAL/FAMILY SUPPORTS:: Evi lives in [place], [place] with her cousin in a house that she rents. She has two grown children her daughter is in [place] and her son is in the [employer]. 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 Evi is indepedent with ADL's and transportation. CURRENT FUNCTIONAL STATUS:: Evi is sitting up in bed she is alert and engaged. She does have a fever at this time of 39.1 which is being treated. She states she has not been taking care of herself well. She has not been managing her DM and knows that her blood sugars have been elevated. She reports a good relationship with her provider and states she would like to particpate in education related to DM management. ADVANCE DIRECTIVES:: None on file. CM offered to complete she would like the paperwork and will complete at home. CM reviewed instructions with the patient. Has patient been provided with information about the portal?: Yes Did the patient sign up for the portal?: No INSURANCE COVERAGE / FINANCIAL ISSUES:: Medicaid CURRENT HOME/COMMUNITY SERVICES/EQUIPMENT:: CPAP through [facility]. CM to refer lisha to [facility] for community case management, and community resource for DM education. PRIMARY CARE PHYSICIAN:: POTENTIAL DISCHARGE NEEDS:: Follow up appointment with PCP, referral sent to [facility] and referral to DM educator for next DM class in the community. PATIENT/FAMILY EDUCATION NEEDS:: Discharge education, limitaitons and follow up plan of care including ask me three education and self management. ANTICIPATED BARRIERS TO DISCHARGE:: None identified TRANSPORTATION:: Private car with family PLAN:: Evi is receiving IV antibiotics, she currently requires IV fluids and antibiotics. She will discharged home when medically ready per provider. CM faxed a referral to [facility] for community case management. CM to continue to provide support discharge planning and disposition.
--- NOTE | 2018-05-07 15:44 | INITIAL_ITS ---
- If Service Date Differs Date of service: 05/07/18 Time of Service: 14:49 Care Management Initial Assess REASON FOR HOSPITALIZATION:: Pylelonephritis PAST MEDICAL HISTORY/PAST SURGICAL HISTORY:: Medical hx, sepsis, ventral hernia, adrenal nodule, SHARAN, HPV, HTN, ETOH abuse, obesity, DM, anxiety, intravenous drug abuse. PREVIOUS FUNCTIONAL STATUS/SOCIAL/FAMILY SUPPORTS:: Evi lives in [place], [place] with her cousin in a house that she rents. She has two grown children her daughter is in [place] and her son is in the [employer]. 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 Evi is indepedent with ADL's and transportation. CURRENT FUNCTIONAL STATUS:: Evi is sitting up in bed she is alert and engaged. She does have a fever at this time of 39.1 which is being treated. She states she has not been taking care of herself well. She has not been managing her DM and knows that her blood sugars have been elevated. She reports a good relationship with her provider and states she would like to particpate in education related to DM management. ADVANCE DIRECTIVES:: None on file. CM offered to complete she would like the paperwork and will complete at home. CM reviewed instructions with the patient. Has patient been provided with information about the portal?: Yes Did the patient sign up for the portal?: No INSURANCE COVERAGE / FINANCIAL ISSUES:: Medicaid CURRENT HOME/COMMUNITY SERVICES/EQUIPMENT:: CPAP through [facility]. CM to refer lisha to [facility] for community case management, and community resource for DM education. PRIMARY CARE PHYSICIAN:: POTENTIAL DISCHARGE NEEDS:: Follow up appointment with PCP, referral sent to [facility] and referral to DM educator for next DM class in the community. PATIENT/FAMILY EDUCATION NEEDS:: Discharge education, limitaitons and follow up plan of care including ask me three education and self management. ANTICIPATED BARRIERS TO DISCHARGE:: None identified TRANSPORTATION:: Private car with family PLAN:: Evi is receiving IV antibiotics, she currently requires IV fluids and antibiotics. She will discharged home when medically ready per provider. CM faxed a referral to [facility] for community case management. CM to continue to provide support discharge planning and disposition.
--- NOTE | 2018-05-07 17:21 | DM INPTCON_ITS ---
Date of service: 05/07/18 Time of Service: 17:01 Diabetes Inpatient Consult DESCRIPTION/ASSESSMENT: Appreciate diabetes consult for Evi Srivastava who is hospitalized with pyelonephritis. She has type 2 diabetes treated with Victoza and Metformin. She self-reports her last and recent A1c 13. BMI 45 Blood sugars this hospitalization initially 320-423 today in the 200s. She is treated with moderate insulin correction which is keeping her blood sugars in a steady range eating 49-68 grams carbohydrate at a meal. At home she states she forgets her Victoza. She keeps it in the refrigerator. She eats 3 meals a day and attempts to avoid carbohydrates. She does love fruit and ice cream. SHe admits to poor self care. She puts others first and does not take time to care well for herself. She admits to high stress. She has enjoyed water aerobics but that ended. INTERVENTION: Evi states she would like help managing her diabetes. Discussed physical activity support at the pool and participating in Diabetes Exercise Program. Discussed stress management and she is interested in participating in the WRAP classes as one option. She is given phone contact for [employer] to get information on the next group. She knows deep breathing technique and states she will do this when she is aware of her stressors, and before bed. Regarding diabetes management as an inpatient, blood sugars are inadequately controlled. Given her A1c she may benefit from more than Victoza to manage blood sugars. She may need basal insulin for a short time period while she puts lifestyle changes in place. Even for here she may benefit form an introduction of basal insulin starting at an introductory dosage of 10units and assess the impact. PLAN: Will follow up tomorrow with Evi regarding resources and to initiate food discussion for managing diabetes. Suggest addition of basal insulin at 10units initially. Time Spent in Nutritional Counseling and Treatment: 25 minutes face to face inpatient/no charge
--- NOTE | 2018-05-07 19:24 | PGE_ITS ---
Date of Service Date of service: 05/07/18 Time of Service: 19:22 Assessment and Plan (1) Sepsis: Current visit: Yes Status: Acute Evidence of sepsis based on fever, tachycardia, tachypnea, and leukocytosis with urine as the likely source. Currently without evidence of end-organ damage, and with a normal lactate -blood pressure improved following aggressive fluid resuscitation. Continue IV fluids, and given evidence of pyelonephritis with sepsis will continue broad coverage with vancomycin and meropenem, now day #2, while awaiting both blood and urine cultures. Urine cultures with growth of gram-negative rods not yet speciated. (2) Pyelonephritis: Current visit: Yes Status: Acute Evidence of pyelonephritis with treatment as above. (3) History of intravenous drug abuse: Current visit: Yes Status: Chronic In remission. (4) Anxiety: Current visit: Yes Status: Chronic Noted. Patient on is on chronic therapy with bupropion. (5) Diabetes mellitus: Current visit: Yes Status: Chronic Continue to hold metformin. Patient is also on Victoza. Sliding scale coverage initiated. Current significant hyperglycemia is in the setting of active infection and sepsis -still with elevated blood sugars but improved. Continue to monitor blood sugars carefully, and continue aggressive IV fluid. (6) Hepatitis C: Current visit: Yes Status: Chronic Noted. Noted hepatic steatosis without overt cirrhotic findings by imaging. LFTs are normal. (7) Obesity: Current visit: Yes Status: Chronic (8) Tobacco abuse: Current visit: Yes Status: Chronic Approximate [id number] history of smoking. History is noted. Encourage abstinence. Nicotine replacement therapy on as-needed basis. (9) History of alcohol abuse: Current visit: Yes Status: Chronic Reportedly in remission for 16 years. (10) Hypertension: Current visit: Yes Status: Chronic Given current sepsis picture will hold combination ARB/HCTZ, and reinitiate when patient's clinical picture is improved. Monitor blood pressures carefully. Hypotension appears to be resolved. (11) SHARAN (obstructive sleep apnea): Current visit: Yes Status: Chronic Continue home CPAP therapy. (12) Adrenal nodule: Current visit: Yes Status: Chronic Noted left 3 x 2 cm adrenal nodule, specifically noted not to be an adrenal adenoma, as well as a 6 mm nodule in the left kidney. These will need to be monitored and further worked up as an outpatient. (13) Ventral hernia: Current visit: Yes Status: Chronic Evidence of a ventral hernia in the pelvis that contains fat but no bowel, with inflammatory changes and a fluid collection approximately 2 x 1 cm, uncertain whether this represents an abscess, seroma, or hematoma. Unsure the clinical significance of this. Requested further evaluation by surgery - input is appreciated. (14) DVT prophylaxis: Current visit: Yes Status: Chronic SC Lovenox. Subjective Interval history since last seen: Very pleasant 52-year-old woman with a past medical history significant for diabetes and obesity, admitted from [facility] emergency department with diagnosis of pyelonephritis. Mrs. Srivastava has a past medical history significant for diabetes, ongoing tobacco use, hypertension, obesity, and SHARAN on CPAP therapy. She has a remote history of IVDA as well as alcohol abuse now in remission for 16 years. She carries a diagnosis of hepatitis C as well. The patient reported onset of a suprapubic pressure sensation with urination approximately 5-6 days prior to admission, accompanied by urinary frequency and urgency. Following this she had development of left flank pain 2-3 days later. On evening prior to her presentation she described onset of Rigors while in bed, with subjective fevers, urinary incontinence, and a one-time episode of vomiting. Upon presentation to the emergency department she was noted to have fevers, and tachycardia without overt hypotension, and was also noted to have a leukocytosis with a left shift and mild bandemia. Her lactate was checked and normal. Her urinalysis was positive for likely infection She was also significantly hyperglycemic but with a normal anion gap. Following her admission a CT scan was obtained showing evidence of pyelonephritis. He also began displaying signs of hypotension and worsening tachycardia prompting significant increase in her IV fluids, and broadening of her antibiotic therapy. She has remained stable, with resolution of her tachycardia, but continued fevers. She reports overall improvement in her symptoms overall however, including improvement in her urinary symptoms, but still feeling ill. Exam Narrative Exam Narrative: General: Patient appears comfortable, AAOX3, NAD - not toxic appearing Neck: Supple CV: Regular, tachycardic, S1S2. 3/6 LLSB murmur appreciated. Pulmonary: Clear to auscultation bilaterally, no crackles, wheezing, or rhonchi Abdomen: + Bowel Sounds, soft, nontender, nondistended, obese in contour Vascular: No lower extremity edema Psych: Normal mood and affect. Objective Objective Clinical Data: Abnormal lab results 12/31/18 12/31/18 Range/Units 07:00 07:00 WBC 11.69 H D (4.4-10.8) k/cumm Absolute Neutrophils 9.28 H (1.2-6.7) k/cumm Absolute Monocytes 1.02 H (0.11-0.7) k/cumm Glucose 256 H D (70-100) mg/dL Calcium 8.0 L (8.5-10.1) mg/dL Vital Signs Temperature 37.9 C H 05/07/18 16:52 Temperature Source Tympanic 05/07/18 16:52 Pulse 88 05/07/18 16:52 Pulse Rhythm Regular 05/07/18 08:25 Respiratory Rate 20 05/07/18 16:52 Respiratory Effort Non-Labored 05/07/18 08:25 Respiratory Depth Normal 05/07/18 08:25 Respiratory Pattern Normal 05/07/18 08:25 Blood Pressure 131/84 05/07/18 16:52 Blood Pressure Mean 90 05/06/18 11:16 Blood Pressure Position Sitting 05/06/18 08:11 Pulse Oximetry 95 05/07/18 16:52 Oxygen Delivery Method Room Air 05/07/18 16:52 Oxygen Flow Rate 0 05/07/18 16:52 Pain Level 0 05/07/18 16:52 Comment 05/06/18 13:55 Intake & Output 05/06/18 05/07/18 05/07/18 23:59 11:59 23:59 Intake Total 5130.000 / 7180.000 4652.500 / 5410.000 757.5 / 5410.000 Output Total 750 / 750 1050 / 1050 Balance 4380.000 / 6430.000 3602.500 / 4360.000 757.5 / 4360.000 Weight 113.398 kg Intake: IV 4150.000 / 6200.000 3862.500 / 4140.000 277.5 / 4140.000 Oral 980 / 980 790 / 1270 480 / 1270 Output: Urine 750 / 750 1050 / 1050 Other: Urine Color Light Liliana Light Liliana Urine Appearance Clear Cloudy Urine Odor Normal Normal Comment Pt voiding independently in toilet. Voiding Methods Toilet Toilet Laboratory Results WBC 11.69 k/cumm (4.4-10.8) H D 05/07/18 07:00 RBC 4.28 m/cumm (4.00-5.20) 05/07/18 07:00 Hgb 12.0 g/dL (12.0-15.5) D 05/07/18 07:00 Hct 37.1 % (36.0-46.0) 05/07/18 07:00 MCV 86.7 fL (80-95) 05/07/18 07:00 MCH 28.0 pg (27.0-33.0) 05/07/18 07:00 MCHC 32.3 g/dL (32.0-36.0) 05/07/18 07:00 RDW 14.1 % (11.7-14.6) 05/07/18 07:00 Plt Count 171 x1000/uL (130-400) 05/07/18 07:00 MPV 10.1 fL (8.0-11.0) 05/07/18 07:00 Immature Gran % 0.3 05/07/18 07:00 Neutrophils % 79.4 05/07/18 07:00 Lymphocytes % 10.3 05/07/18 07:00 Monocytes % 8.7 05/07/18 07:00 Eosinophils % 1.2 05/07/18 07:00 Basophils % 0.1 05/07/18 07:00 Absolute Neutrophils 9.28 k/cumm (1.2-6.7) H 05/07/18 07:00 Band Neutrophils 3.0 % 05/06/18 08:50 Absolute Lymphocytes 1.20 k/cumm (1.2-3.4) 05/07/18 07:00 Absolute Monocytes 1.02 k/cumm (0.11-0.7) H 05/07/18 07:00 Absolute Eosinophils 0.14 k/cumm (0.0-0.7) 05/07/18 07:00 Absolute Basophils 0.01 k/cumm (0.0-0.2) 05/07/18 07:00 Differential Comment Manual differential 05/06/18 08:50 RBC Morphology Normal 05/06/18 08:50 Sodium 140 mmol/L (136-145) 05/07/18 07:00 Potassium 3.8 mmol/L (3.5-5.1) 05/07/18 07:00 Chloride 107 mmol/L (98-107) 05/07/18 07:00 Carbon Dioxide 25.0 mmol/L (21.0-32.0) 05/07/18 07:00 Anion Gap 8.0 mmol/L (3-11) 05/07/18 07:00 BUN 15 mg/dL (7-18) 05/07/18 07:00 Creatinine 0.64 mg/dL (0.55-1.02) 05/07/18 07:00 Estimated GFR/1.73 m2 >= 60.00 (mL/min/1.73m2) 05/07/18 07:00 Glucose 256 mg/dL (70-100) H D 05/07/18 07:00 Lactate 1.3 mmol/L (0.6-1.4) 05/06/18 08:50 Calcium 8.0 mg/dL (8.5-10.1) L 05/07/18 07:00 Magnesium 1.9 mg/dL (1.8-2.4) 05/07/18 07:00 Total Bilirubin 0.5 mg/dL (0.2-1.0) 05/06/18 08:50 AST 15 U/L (15-37) 05/06/18 08:50 ALT 27 U/L (12-78) 05/06/18 08:50 Alkaline Phosphatase 135 U/L (46-116) H 05/06/18 08:50 Total Protein 7.4 g/dL (6.4-8.2) 05/06/18 08:50 Albumin 3.4 g/dL (3.4-5.0) 05/06/18 08:50 Urine Color Yellow (Yellow) 05/06/18 08:05 Urine Clarity Sl cloudy 05/06/18 08:05 Urine pH 5.5 (5-8) 05/06/18 08:05 Ur Specific [place] 1.010 (1.005-1.025) 05/06/18 08:05 Urine Protein 30 mg/dL (Negative) H 05/06/18 08:05 Urine Ketones Trace mg/dL (Negative) H 05/06/18 08:05 Urine Blood Moderate (Negative) H 05/06/18 08:05 Urine Nitrite Positive (Negative) H 05/06/18 08:05 Urine Bilirubin Negative (Negative) 05/06/18 08:05 Urine Urobilinogen 0.2 EU/dL (Up TO 0.2) 05/06/18 08:05 Ur Leukocyte Esterase Small (Negative) H 05/06/18 08:05 Urine RBC Not Applicable 05/06/18 08:05 Urine WBC >50 HPF (0-5) 05/06/18 08:05 Ur Epithelial Cells Few HPF (Negative) 05/06/18 08:05 Urine Crystals Negative HPF (Negative) 05/06/18 08:05 Urine Bacteria Moderate HPF (Negative) 05/06/18 08:05 Urine Mucus Negative (Negative) 05/06/18 08:05 Ur Culture Indicated? Yes 05/06/18 08:05 Urine Glucose >=1000 mg/dL (Negative) H 05/06/18 08:05 Objective Narrative Objective Narrative: Urine Culture Preliminary 05/07/18-0959 Day 1 Result ISOLATES BELOW ISOLATE 1 COLONY COUNT >100,000 COLONIES/ML ISOLATE 1 APPEARANCE Gram Negative Joel ISOLATE 1 ACTION ID AND SUSCEPTIBILITY TO FOLLOW ISOLATE 2 COLONY COUNT 50,000 - 100,000 COLONIES/ML ISOLATE 2 APPEARANCE Gram Positive Susana ISOLATE 2 ACTION IDENTIFICATION TO FOLLOW Organism 1 GRAM NEGATIVE JOEL COLONY COUNT >100,000 COLONIES/ML Organism 2 GRAM POSITIVE SUSANA COLONY COUNT 50,000 - 100,000 COLONIES/ML
[2018-05-07] MEDS: Normal Saline 1,000 ML 150 ML IV (21:18)
[2018-05-08] VITALS (11 sets, daily range): BP systolic 118–183; BP diastolic 67–93; PULSE 73–97; RESP 18–24; TEMP 36.2–38.5; O2SAT 94–95
[2018-05-08] MEDS: Ibuprofen 800 MG TAB PO (00:37)
[2018-05-08] MEDS: VANCOMYCIN 1,000 MG in Normal Saline 250 ML 166.667 MG IVPB (03:47)
[2018-05-08] MEDS: Normal Saline Flush 10 ML SYR IVP (03:48)
[2018-05-08] MEDS: Normal Saline 1,000 ML 150 ML IV (03:51)
[2018-05-08] MEDS: MEROPENEM 1 GM in Normal Saline 100 ML IVPB (06:05)
[2018-05-08] MEDS: Insulin Aspart 300 UNITS/3 ML PEN SC ×3 (08:22→17:05)
[2018-05-08] MEDS: Gabapentin 400 MG CAP PO ×3 (08:23→20:12)
[2018-05-08] MEDS: buPROPion-XL 150 MG TABCR 300 MG PO (08:23)
[2018-05-08] MEDS: Oxybutynin 5 MG TAB PO ×2 (08:23→20:12)
[2018-05-08 08:27] LABS: Abs Immature Grans 0.03 k/cumm (0.0-0.09); Absolute Basophil Count 0.02 k/cumm (0.0-0.2); Absolute Eosinophil Count 0.14 k/cumm (0.0-0.7); Absolute Lymphocyte Count 1.09 k/cumm (1.2-3.4); Absolute Monocyte Count 0.75 k/cumm (0.11-0.7); Absolute Neutrophil Count 3.87 k/cumm (1.2-6.7); Basophils % 0.3; Eosinophils % 2.4; HCT 36.3 % (36.0-46.0); HGB 11.7 g/dL (12.0-15.5); Immature Grans % 0.5; Lymphocytes % 18.5; Mean Corp. HGB Concentration 32.2 g/dL (32.0-36.0); Mean Corpuscular Hemoglobin 28.1 pg (27.0-33.0); Mean Corpuscular Volume 87.3 fL (80-95); Monocytes % 12.7; Neutrophils % 65.6; Platelet Count 148 x1000/uL (130-400); RBC 4.16 m/cumm (4.00-5.20)
[2018-05-08 08:32] LABS: Anion Gap 10.4 mmol/L (3-11); BUN 10 mg/dL (7-18); CO2 22.6 mmol/L (21.0-32.0); CREATININE 0.54 mg/dL (0.55-1.02); Calcium 8.4 mg/dL (8.5-10.1); Chloride 107 mmol/L (98-107); Glucose 228 mg/dL (70-100); Magnesium 2.1 mg/dL (1.8-2.4); Sodium 140 mmol/L (136-145)
--- NOTE | 2018-05-08 11:47 | W.INDIABCONS ---
Date of service: 05/08/18 Time of Service: 11:48 Diabetes Inpatient Consult DESCRIPTION/ASSESSMENT: Follow up visit with Evi to focus on food choices to control diabetes with possible weight loss. INTERVENTION: Reviewed diabetes food guide, mindful eating including hunger/fullness, distracted eating, new possibilities to satisfy need for comfort. PLAN: Will f/u tomorrow. SHe has an outpatient appointment for 05/15/18. Time Spent in Nutritional Counseling and Treatment: 40 minutes face to face; inpatient
[2018-05-08] MEDS: Enoxaparin 40 MG/0.4 ML SYR SC (11:50)
[2018-05-08 12:07] LABS: Ferritin 242 ng/mL (8-388); Folate 19.1 ng/mL (8.6-20.0); TSH 1.17 uIU/mL (0.358-3.74); Vitamin B12 380 pg/mL (193-986)
[2018-05-08 12:22] LABS: Iron 23 ug/dL (50-175); Total Iron Binding Capacity 187 ug/dL (250-450); Transferrin Sat 12 % (15-50)
[2018-05-08] MEDS: Normal Saline 1,000 ML 100 ML IV ×2 (13:14→22:50)
[2018-05-08 13:34] LABS: Vancomycin, Trough 6.4 ug/mL (10.0-20.0)
--- NOTE | 2018-05-08 13:55 | CHAPLAIN ---
Evi asked me to stop in and visit with her. She is waiting for her daughter and daughter's boyfriend to arrive with Evi's son and his girlfriend. She hasn't seen her son in a year. He's in the [employer], stationed in [place]. Evi is open about her previous drug use and addiction and has many years of being clean behind her. She often helps out others who are dealing with addiction. She prays and easily discusses her relationship with God. It's a mix of trusting in God to help her, and also taking responsibility to help herself.
--- NOTE | 2018-05-08 14:59 | PDOC.CMPRO ---
- If Service Date Differs Date of service: 05/08/18 Time of Service: 14:59 Care Management Progress Note S/O: CM met with Evi at the bedside she is sitting up in the bed she states she is feeling better. She is transitioning to oral medication and hopes that she will be able to return home in the next day. CM faxed referral to [facility] and will provide community dietitian with discharge date once Pt goes home. DM educator met with patient and provided recommendations. CM reviewed advance directives with patient and provided the forms she does not want to complete today. A:Evi is a 52 year old female admitted with Pyelonephritis with a history of DM. P: Evi will transition to oral antibiotics today. She will discharge home with follow up with primary care and [facility] when medically ready. CM faxed a referral to [facility] for community case management. CM to continue to provide support discharge planning and disposition.
--- NOTE | 2018-05-08 15:07 | CMPROGNOTE_ITS ---
- If Service Date Differs Date of service: 05/08/18 Time of Service: 14:59 Care Management Progress Note S/O: CM met with Evi at the bedside she is sitting up in the bed she states she is feeling better. She is transitioning to oral medication and hopes that she will be able to return home in the next day. CM faxed referral to [facility] and will provide community relations advisor with discharge date once Pt goes home. DM educator met with patient and provided recommendations. CM reviewed advance directives with patient and provided the forms she does not want to complete today. A:Evi is a 52 year old female admitted with Pyelonephritis with a history of DM. P: Evi will transition to oral antibiotics today. She will discharge home with follow up with primary care and [facility] when medically ready. CM faxed a referral to [facility] for community case management. CM to continue to provide support discharge planning and disposition.
[2018-05-08] MEDS: Acetaminophen 325 MG TAB PO (18:19)
[2018-05-08] MEDS: Ciprofloxacin 500 MG TAB PO (20:12)
--- NOTE | 2018-05-08 20:41 | PGE_ITS ---
Date of Service Date of service: 05/08/18 Time of Service: 20:34 Assessment and Plan (1) Sepsis: Current visit: Yes Status: Acute Appears resolved. Continue IV fluids given continued fevers, but at a decreased rate. Given evidence of pyelonephritis with sepsis initially maintained on vancomycin and meropenem, for 2 days, will change to Cipro today. Urine culture showing pansensitive E. coli, and blood cultures with no growth X 48 hours. (2) Pyelonephritis: Current visit: Yes Status: Acute Evidence of pyelonephritis with treatment as above. (3) History of intravenous drug abuse: Current visit: Yes Status: Chronic In remission. (4) Anxiety: Current visit: Yes Status: Chronic Noted. Patient on is on chronic therapy with bupropion. (5) Diabetes mellitus: Current visit: Yes Status: Chronic Continue to hold metformin. Patient is also on Victoza. Sliding scale coverage initiated. Current significant hyperglycemia is in the setting of active infection and sepsis - still with elevated blood sugars but improved. Continue to monitor blood sugars carefully, and continue aggressive IV fluid. (6) Hepatitis C: Current visit: Yes Status: Chronic Noted. Noted hepatic steatosis without overt cirrhotic findings by imaging. LFTs are normal. (7) Obesity: Current visit: Yes Status: Chronic (8) Tobacco abuse: Current visit: Yes Status: Chronic Approximate [id number] history of smoking. History is noted. Encourage abstinence. Nicotine replacement therapy on as-needed basis. (9) History of alcohol abuse: Current visit: Yes Status: Chronic Reportedly in remission for 16 years. (10) Hypertension: Current visit: Yes Status: Chronic Given initial sepsis picture held combination ARB/HCTZ. Will reinitiate when patient's clinical picture is improved. Monitor blood pressures carefully. Hypotension appears to be resolved. (11) SHARAN (obstructive sleep apnea): Current visit: Yes Status: Chronic Continue home CPAP therapy. (12) Adrenal nodule: Current visit: Yes Status: Chronic Noted left 3 x 2 cm adrenal nodule, specifically noted not to be an adrenal adenoma, as well as a 6 mm nodule in the left kidney. These will need to be monitored and further worked up as an outpatient. (13) Ventral hernia: Current visit: Yes Status: Chronic Official CT read with evidence of a ventral hernia in the pelvis that contains fat but no bowel, with inflammatory changes and a fluid collection approximately 2 x 1 cm, uncertain whether this represents an abscess, seroma, or hematoma. Unsure the clinical significance of this. Requested further evaluation by surgery - no area of concern by review of films by Dr. Simeon and in detail. No intervention required. (14) DVT prophylaxis: Current visit: Yes Status: Chronic SC Lovenox. Subjective Interval history since last seen: Very pleasant 52-year-old woman with a past medical history significant for diabetes and obesity, admitted from [facility] emergency department with diagnosis of pyelonephritis. Ms. Srivastava has a past medical history significant for diabetes, ongoing tobacco use, hypertension, obesity, and SHARAN on CPAP therapy. She has a remote history of IVDA as well as alcohol abuse now in remission for 16 years. She carries a diagnosis of hepatitis C as well. The patient reported onset of a suprapubic pressure sensation with urination approximately 5-6 days prior to admission, accompanied by urinary frequency and urgency. Following this she had development of left flank pain 2-3 days later. On evening prior to her presentation she described onset of Rigors while in bed, with subjective fevers, urinary incontinence, and a one-time episode of vomiting. Upon presentation to the emergency department she was noted to have fevers, and tachycardia without overt hypotension, and was also noted to have a leukocytosis with a left shift and mild bandemia. Her lactate was checked and normal. Her urinalysis was positive for likely infection She was also significantly hyperglycemic but with a normal anion gap. Following her admission a CT scan was obtained showing evidence of pyelonephritis. He also began displaying signs of hypotension and worsening tachycardia prompting significant increase in her IV fluids, and broadening of her antibiotic therapy. She has remained stable, with resolution of her tachycardia, but continued fevers. Her urine culture shows an essentially pansensitive E. coli. Despite the fever she reports overall improvement in her symptoms, including improvement in her urinary symptoms. No overnight events reported. Exam Narrative Exam Narrative: General: Patient appears comfortable, AAOX3, NAD - not toxic appearing Neck: Supple CV: Regular, nontachycardic, S1S2. 3/6 LLSB murmur appreciated. Pulmonary: Clear to auscultation bilaterally, no crackles, wheezing, or rhonchi Abdomen: + Bowel Sounds, soft, nontender, nondistended, obese in contour Vascular: No lower extremity edema Psych: Normal mood and affect. Objective Objective Clinical Data: Abnormal lab results 01/01/19 01/01/19 01/01/19 Range/Units 07:45 07:45 11:15 Hgb 11.7 L (12.0-15.5) g/dL Absolute Lymphocytes 1.09 L (1.2-3.4) k/cumm Absolute Monocytes 0.75 H (0.11-0.7) k/cumm Creatinine 0.54 L (0.55-1.02) mg/dL Glucose 228 H (70-100) mg/dL Calcium 8.4 L (8.5-10.1) mg/dL Iron 23 L (50-175) ug/dL TIBC 187 L (250-450) ug/dL Transferrin % Sat 12 L (15-50) % Vancomycin Trough (10.0-20.0) ug/mL 05/08/18 Range/Units 13:09 Hgb (12.0-15.5) g/dL Absolute Lymphocytes (1.2-3.4) k/cumm Absolute Monocytes (0.11-0.7) k/cumm Creatinine (0.55-1.02) mg/dL Glucose (70-100) mg/dL Calcium (8.5-10.1) mg/dL Iron (50-175) ug/dL TIBC (250-450) ug/dL Transferrin % Sat (15-50) % Vancomycin Trough 6.4 L (10.0-20.0) ug/mL Vital Signs Temperature 38.5 C H 05/08/18 20:27 Temperature Source Tympanic 05/08/18 20:27 Pulse 80 05/08/18 20:27 Pulse Rhythm Regular 05/08/18 08:20 Respiratory Rate 20 05/08/18 20:27 Respiratory Effort Non-Labored 05/08/18 08:20 Respiratory Depth Normal 05/08/18 08:20 Respiratory Pattern Normal 05/08/18 08:20 Blood Pressure 141/71 H 05/08/18 20:27 Blood Pressure Mean 90 05/06/18 11:16 Blood Pressure Position Sitting 05/06/18 08:11 Pulse Oximetry 95 05/08/18 20:27 Oxygen Delivery Method Room Air 05/08/18 20:27 Oxygen Flow Rate 0 05/08/18 20:27 Pain Level 7 05/08/18 00:37 Comment 05/08/18 08:20 Intake & Output 05/07/18 05/08/18 05/08/18 23:59 11:59 23:59 Intake Total 2506.667 / 7159.167 3222.5 / 5290.833 2068.333 / 5290.833 Output Total 999 / 2900 1900 / 2900 Balance 1506.667 / 5109.167 2222.5 / 2390.833 168.333 / 2390.833 Intake: IV 1386.667 / 5249.167 2332.5 / 2870.833 538.333 / 2870.833 Oral 1120 / 1910 890 / 2420 1530 / 2420 Output: Urine 999 1000 / 2900 1900 / 2900 Other: Urine Color Dark Liliana Straw Yellow Urine Appearance Clear Clear Comment voiding independently in toilet. Pt voiding independently in toilet. Stool Size Moderate Stool Characteristics Formed Voiding Methods Toilet Toilet Laboratory Results WBC 5.90 k/cumm (4.4-10.8) D 05/08/18 07:45 RBC 4.16 m/cumm (4.00-5.20) 05/08/18 07:45 Hgb 11.7 g/dL (12.0-15.5) L 05/08/18 07:45 Hct 36.3 % (36.0-46.0) 05/08/18 07:45 MCV 87.3 fL (80-95) 05/08/18 07:45 MCH 28.1 pg (27.0-33.0) 05/08/18 07:45 MCHC 32.2 g/dL (32.0-36.0) 05/08/18 07:45 RDW 14.0 % (11.7-14.6) 05/08/18 07:45 Plt Count 148 x1000/uL (130-400) 05/08/18 07:45 MPV 10.0 fL (8.0-11.0) 05/08/18 07:45 Immature Gran % 0.5 05/08/18 07:45 Neutrophils % 65.6 05/08/18 07:45 Lymphocytes % 18.5 05/08/18 07:45 Monocytes % 12.7 05/08/18 07:45 Eosinophils % 2.4 05/08/18 07:45 Basophils % 0.3 05/08/18 07:45 Absolute Neutrophils 3.87 k/cumm (1.2-6.7) 05/08/18 07:45 Band Neutrophils 3.0 % 05/06/18 08:50 Absolute Lymphocytes 1.09 k/cumm (1.2-3.4) L 05/08/18 07:45 Absolute Monocytes 0.75 k/cumm (0.11-0.7) H 05/08/18 07:45 Absolute Eosinophils 0.14 k/cumm (0.0-0.7) 05/08/18 07:45 Absolute Basophils 0.02 k/cumm (0.0-0.2) 05/08/18 07:45 Differential Comment Manual differential 05/06/18 08:50 RBC Morphology Normal 05/06/18 08:50 Sodium 140 mmol/L (136-145) 05/08/18 07:45 Potassium 4.0 mmol/L (3.5-5.1) 05/08/18 07:45 Chloride 107 mmol/L (98-107) 05/08/18 07:45 Carbon Dioxide 22.6 mmol/L (21.0-32.0) 05/08/18 07:45 Anion Gap 10.4 mmol/L (3-11) 05/08/18 07:45 BUN 10 mg/dL (7-18) 05/08/18 07:45 Creatinine 0.54 mg/dL (0.55-1.02) L 05/08/18 07:45 Estimated GFR/1.73 m2 >= 60.00 (mL/min/1.73m2) 05/08/18 07:45 Glucose 228 mg/dL (70-100) H 05/08/18 07:45 Lactate 1.3 mmol/L (0.6-1.4) 05/06/18 08:50 Calcium 8.4 mg/dL (8.5-10.1) L 05/08/18 07:45 Magnesium 2.1 mg/dL (1.8-2.4) 05/08/18 07:45 Iron 23 ug/dL (50-175) L 05/08/18 11:15 TIBC 187 ug/dL (250-450) L 05/08/18 11:15 Transferrin % Sat 12 % (15-50) L 05/08/18 11:15 Ferritin 242 ng/mL (8-388) 05/08/18 11:15 Total Bilirubin 0.5 mg/dL (0.2-1.0) 05/06/18 08:50 AST 15 U/L (15-37) 05/06/18 08:50 ALT 27 U/L (12-78) 05/06/18 08:50 Alkaline Phosphatase 135 U/L (46-116) H 05/06/18 08:50 Total Protein 7.4 g/dL (6.4-8.2) 05/06/18 08:50 Albumin 3.4 g/dL (3.4-5.0) 05/06/18 08:50 Vitamin B12 380 pg/mL (193-986) 05/08/18 11:15 Folate 19.1 ng/mL (8.6-20.0) 05/08/18 11:15 TSH 1.17 uIU/mL (0.358-3.74) 05/08/18 11:15 Urine Color Yellow (Yellow) 05/06/18 08:05 Urine Clarity Sl cloudy 05/06/18 08:05 Urine pH 5.5 (5-8) 05/06/18 08:05 Ur Specific Alexander 1.010 (1.005-1.025) 05/06/18 08:05 Urine Protein 30 mg/dL (Negative) H 05/06/18 08:05 Urine Ketones Trace mg/dL (Negative) H 05/06/18 08:05 Urine Blood Moderate (Negative) H 05/06/18 08:05 Urine Nitrite Positive (Negative) H 05/06/18 08:05 Urine Bilirubin Negative (Negative) 05/06/18 08:05 Urine Urobilinogen 0.2 EU/dL (Up TO 0.2) 05/06/18 08:05 Ur Leukocyte Esterase Small (Negative) H 05/06/18 08:05 Urine RBC Not Applicable 05/06/18 08:05 Urine WBC >50 HPF (0-5) 05/06/18 08:05 Ur Epithelial Cells Few HPF (Negative) 05/06/18 08:05 Urine Crystals Negative HPF (Negative) 05/06/18 08:05 Urine Bacteria Moderate HPF (Negative) 05/06/18 08:05 Urine Mucus Negative (Negative) 05/06/18 08:05 Ur Culture Indicated? Yes 05/06/18 08:05 Urine Glucose >=1000 mg/dL (Negative) H 05/06/18 08:05 Vancomycin Trough 6.4 ug/mL (10.0-20.0) L 05/08/18 13:09 Objective Narrative Objective Narrative: Blood Culture ( Age => 10 Yrs) Preliminary 05/08/18 NO GROWTH 48 HOURS Urine Culture Final 05/08/18-08 Day 1 Result ISOLATES BELOW ISOLATE 1 COLONY COUNT >100,000 COLONIES/ML ISOLATE 1 APPEARANCE Gram Negative Ned ISOLATE 1 ACTION ID AND SUSCEPTIBILITY TO FOLLOW ISOLATE 2 COLONY COUNT 10,000 - 50,000 COLONIES/ML ISOLATE 2 APPEARANCE Gram Positive Susana Day 2 Result ISOLATES BELOW ISOLATE 1 COLONY COUNT >100,000 COLONIES/ML ISOLATE 1 APPEARANCE Gram Negative Ned ISOLATE 2 COLONY COUNT 10,000 - 50,000 COLONIES/ML ISOLATE 2 APPEARANCE Mixed Gram Positive Susana Organism 1 Escherichia coli COLONY COUNT >100,000 COLONIES/ML Organism 2 GRAM POSITIVE SUSANA,MIXED COLONY COUNT 10,000 - 50,000 COLONIES/ML Esch coli RESULT Ampicillin R Ampicillin/Sulbactam S Cefazolin S Ceftazidime S CEFTRIAXONE S Ciprofloxacin S Gentamicin S Nitrofurantoin S Imipenem S Levofloxacin S Tobramycin S Trimethoprim/Sulfamethoxazole S Piperacillin/Tazobactam S
[2018-05-08] MEDS: Nicotine 14 MG/24 HR PATCH TD (21:43)
[2018-05-09] VITALS (7 sets, daily range): BP systolic 149–191; BP diastolic 73–94; PULSE 64–82; RESP 18–20; TEMP 36.4–37.1; O2SAT 96–97
[2018-05-09] MEDS: Ibuprofen 800 MG TAB PO (00:12)
[2018-05-09 07:33] LABS: Abs Immature Grans 0.05 k/cumm (0.0-0.09); Absolute Basophil Count 0.03 k/cumm (0.0-0.2); Absolute Eosinophil Count 0.15 k/cumm (0.0-0.7); Absolute Lymphocyte Count 1.14 k/cumm (1.2-3.4); Absolute Monocyte Count 0.86 k/cumm (0.11-0.7); Absolute Neutrophil Count 4.24 k/cumm (1.2-6.7); Basophils % 0.5; Eosinophils % 2.3; HCT 37.2 % (36.0-46.0); HGB 12.3 g/dL (12.0-15.5); Immature Grans % 0.8; Lymphocytes % 17.6; Mean Corp. HGB Concentration 33.1 g/dL (32.0-36.0); Mean Corpuscular Hemoglobin 28.1 pg (27.0-33.0); Mean Corpuscular Volume 85.1 fL (80-95); Mean Platelet Volume 9.5 fL (8.0-11.0); Monocytes % 13.3; Neutrophils % 65.5; Platelet Count 175 x1000/uL (130-400); RBC 4.37 m/cumm (4.00-5.20); RBC Distribution Width 13.7 % (11.7-14.6); White Blood Cell Count 6.47 k/cumm (4.4-10.8)
[2018-05-09 07:50] LABS: Anion Gap 6.8 mmol/L (3-11); BUN 10 mg/dL (7-18); CO2 27.2 mmol/L (21.0-32.0); CREATININE 0.57 mg/dL (0.55-1.02); Calcium 8.7 mg/dL (8.5-10.1); Chloride 106 mmol/L (98-107); Glucose 235 mg/dL (70-100); Magnesium 1.9 mg/dL (1.8-2.4); Potassium 4.1 mmol/L (3.5-5.1); Sodium 140 mmol/L (136-145)
[2018-05-09] MEDS: Normal Saline 1,000 ML 100 ML IV (08:23)
[2018-05-09] MEDS: Insulin Aspart 300 UNITS/3 ML PEN SC ×3 (08:25→17:15)
[2018-05-09] MEDS: Ciprofloxacin 500 MG TAB PO ×2 (08:27→20:19)
[2018-05-09] MEDS: buPROPion-XL 150 MG TABCR 300 MG PO (08:27)
[2018-05-09] MEDS: Gabapentin 400 MG CAP PO ×3 (08:27→20:19)
[2018-05-09] MEDS: Oxybutynin 5 MG TAB PO ×2 (08:27→20:19)
[2018-05-09] MEDS: Enoxaparin 40 MG/0.4 ML SYR SC (11:45)
[2018-05-09] MEDS: Losartan 25 MG TAB 50 MG PO (11:45)
[2018-05-09] MEDS: Acetaminophen 325 MG TAB PO ×2 (13:21→20:18)
[2018-05-09] MEDS: Normal Saline Flush 10 ML SYR IVP (13:21)
--- NOTE | 2018-05-09 15:38 | CHAPLAIN ---
Evi had a good visit with her son and his girlfriend yesterday. They are staying at her house and she hopes to be discharged soon so she can spend time with them. Evi asked for a daily devotional book and I was able to give her a couple. She is involved in the recovery community in [facility] and has been drug free for several years. After this hospitalization she is hoping to take better care of herself by following a more healthy , and eventually stopping smoking.
--- NOTE | 2018-05-09 16:14 | PDOC.CMPRO ---
- If Service Date Differs Date of service: 05/09/18 Time of Service: 16:14 Care Management Progress Note S/O: Evi is not ready for discharge today she continues to have intermittent fevers. She was transition to oral antibiotics yesterday.CM was contacted by CI today Evi is not eligible for VCCI through Medicaid. Evi is part of the ACO and will need to receive supports through Chronic respite care provider at [facility] and outpatient DM educator. Evi is considering participating with [facility] group and DM support group. A:Evi is a 52 year old female admitted with Pyelonephritis with a history of DM. P: Evi will transition to oral antibiotics today. She will discharge home with follow up with primary care and DM educator as outpatient. CM to continue to provide support discharge planning and disposition.
--- NOTE | 2018-05-09 16:21 | CMPROGNOTE_ITS ---
- If Service Date Differs Date of service: 05/09/18 Time of Service: 16:14 Care Management Progress Note S/O: Evi is not ready for discharge today she continues to have intermittent fevers. She was transition to oral antibiotics yesterday.CM was contacted by CI today Evi is not eligible for VCCI through Medicaid. Evi is part of the ACO and will need to receive supports through Chronic senior care provider at [facility] and outpatient DM educator. Evi is considering participating with [facility] group and DM support group. A:Evi is a 52 year old female admitted with Pyelonephritis with a history of DM. P: Evi will transition to oral antibiotics today. She will discharge home with follow up with primary care and DM educator as outpatient. CM to continue to provide support discharge planning and disposition.
--- NOTE | 2018-05-09 18:50 | PGE_ITS ---
Date of Service Date of service: 05/09/18 Time of Service: 18:46 Assessment and Plan (1) Sepsis: Current visit: Yes Status: Acute Appears resolved. Discontinue IV fluids given apparent resolution of fevers. Given evidence of pyelonephritis with sepsis initially maintained on vancomycin and meropenem, for 2 days, changed to Cipro yesterday. Urine culture showing pansensitive E. coli, and blood cultures with no growth X 72 hours. Given planned use of Fluoroquinolone therapy, lack of stone or other apparent nidus, and negative blood cultures plan on 5-7 total days of therapy with Cipro. (2) Pyelonephritis: Current visit: Yes Status: Acute Evidence of pyelonephritis with treatment as above. (3) History of intravenous drug abuse: Current visit: Yes Status: Chronic In remission. (4) Anxiety: Current visit: Yes Status: Chronic Noted. Patient on is on chronic therapy with bupropion. (5) Diabetes mellitus: Current visit: Yes Status: Chronic Continue to hold metformin. Patient is also on Victoza. Sliding scale coverage initiated. Current significant hyperglycemia is in the setting of active infection and sepsis - still with elevated blood sugars but improved. Continue to monitor blood sugars. (6) Hepatitis C: Current visit: Yes Status: Chronic Noted. Noted hepatic steatosis without overt cirrhotic findings by imaging. LFTs are normal. (7) Obesity: Current visit: Yes Status: Chronic (8) Tobacco abuse: Current visit: Yes Status: Chronic Approximate [id number] history of smoking. History is noted. Encourage abstinence. Nicotine replacement therapy on as-needed basis. (9) History of alcohol abuse: Current visit: Yes Status: Chronic Reportedly in remission for 16 years. (10) Hypertension: Current visit: Yes Status: Chronic Given initial sepsis picture held combination ARB/HCTZ. Restart today. (11) SHARAN (obstructive sleep apnea): Current visit: Yes Status: Chronic Continue home CPAP therapy. (12) Adrenal nodule: Current visit: Yes Status: Chronic Noted left 3 x 2 cm adrenal nodule, specifically noted not to be an adrenal adenoma, as well as a 6 mm nodule in the left kidney. These will need to be monitored and further worked up as an outpatient. (13) Ventral hernia: Current visit: Yes Status: Chronic Official CT read with evidence of a ventral hernia in the pelvis that contains fat but no bowel, with inflammatory changes and a fluid collection approximately 2 x 1 cm, uncertain whether this represents an abscess, seroma, or hematoma. Unsure the clinical significance of this. Requested further evaluation by surgery - no area of concern by review of films by Dr. Simeon and in detail. No intervention required. (14) DVT prophylaxis: Current visit: Yes Status: Chronic SC Lovenox. Subjective Interval history since last seen: Very pleasant 52-year-old woman with a past medical history significant for diabetes and obesity, admitted from [facility] emergency department with diagnosis of pyelonephritis. Ms. Srivastava has a past medical history significant for diabetes, ongoing tobacco use, hypertension, obesity, and SHARAN on CPAP therapy. She has a remote history of IVDA as well as alcohol abuse now in remission for 16 years. She carries a diagnosis of hepatitis C as well. The patient reported onset of a suprapubic pressure sensation with urination approximately 5-6 days prior to admission, accompanied by urinary frequency and urgency. Following this she had development of left flank pain 2-3 days later. On evening prior to her presentation she described onset of Rigors while in bed, with subjective fevers, urinary incontinence, and a one-time episode of vomiting. Upon presentation to the emergency department she was noted to have fevers, and tachycardia without overt hypotension, and was also noted to have a leukocytosis with a left shift and mild bandemia. Her lactate was checked and normal. Her urinalysis was positive for likely infection She was also significantly hyperglycemic but with a normal anion gap. Following her admission a CT scan was obtained showing evidence of pyelonephritis. He also began displaying signs of hypotension and worsening tachycardia prompting significant increase in her IV fluids, and broadening of her antibiotic therapy. She has remained stable, with resolution of her tachycardia and hypotension. She has now been afebrile for approximately 24 hours. Her urine culture shows an essentially pansensitive E. coli. She reports overall improvement in her symptoms, including resolution of her urinary symptoms. No overnight events reported. Exam Narrative Exam Narrative: General: Patient appears comfortable, AAOX3, NAD - not toxic appearing Neck: Supple CV: Regular, nontachycardic, S1S2. 3/6 LLSB murmur appreciated. Pulmonary: Clear to auscultation bilaterally, no crackles, wheezing, or rhonchi Abdomen: + Bowel Sounds, soft, nontender, nondistended, obese in contour Vascular: No lower extremity edema Psych: Normal mood and affect. Objective Objective Clinical Data: Abnormal lab results 05/09/18 05/09/18 Range/Units 07:05 07:05 Absolute Lymphocytes 1.14 L (1.2-3.4) k/cumm Absolute Monocytes 0.86 H (0.11-0.7) k/cumm Glucose 235 H (70-100) mg/dL Vital Signs Temperature 36.4 C L 05/09/18 16:17 Temperature Source Tympanic 05/09/18 16:17 Pulse 82 05/09/18 16:17 Pulse Rhythm Regular 05/09/18 08:30 Respiratory Rate 20 05/09/18 16:17 Respiratory Effort 05/09/18 08:30 Respiratory Depth Normal 05/09/18 08:30 Respiratory Pattern Normal 05/09/18 08:30 Blood Pressure 172/94 H 05/09/18 16:17 Blood Pressure Mean 90 05/06/18 11:16 Blood Pressure Position Sitting 05/06/18 08:11 Pulse Oximetry 96 05/09/18 16:17 Oxygen Delivery Method Room Air 05/09/18 16:17 Oxygen Flow Rate 0 05/09/18 16:17 Pain Level 3 05/09/18 13:21 Comment 05/09/18 14:51 Intake & Output 05/08/18 05/09/18 05/09/18 23:59 11:59 23:59 Intake Total 2490.000 / 5712.500 1555 / 2395 840 / 2395 Output Total 1900 / 2900 450 / 1350 900 / 1350 Balance 590.000 / 2812.500 1105 / 1045 -60 / 1045 Intake: IV 960.000 / 3292.500 955 / 955 Oral 1530 / 2420 600 / 1440 840 / 1440 Output: Urine 1900 / 2900 450 / 1350 900 / 1350 Other: Urine Color Yellow Yellow Yellow Urine Appearance Clear Urine Odor Normal Comment pt reports voiding 3-4 tmes this shift. hat taken out earlier because per pt it was full. Stool Size Moderate Large Stool Characteristics Formed Soft Formed Voiding Methods Toilet Toilet Toilet Laboratory Results WBC 6.47 k/cumm (4.4-10.8) 05/09/18 07:05 RBC 4.37 m/cumm (4.00-5.20) 05/09/18 07:05 Hgb 12.3 g/dL (12.0-15.5) 05/09/18 07:05 Hct 37.2 % (36.0-46.0) 05/09/18 07:05 MCV 85.1 fL (80-95) 05/09/18 07:05 MCH 28.1 pg (27.0-33.0) 05/09/18 07:05 MCHC 33.1 g/dL (32.0-36.0) 05/09/18 07:05 RDW 13.7 % (11.7-14.6) 05/09/18 07:05 Plt Count 175 x1000/uL (130-400) 05/09/18 07:05 MPV 9.5 fL (8.0-11.0) 05/09/18 07:05 Immature Gran % 0.8 05/09/18 07:05 Neutrophils % 65.5 05/09/18 07:05 Lymphocytes % 17.6 05/09/18 07:05 Monocytes % 13.3 05/09/18 07:05 Eosinophils % 2.3 05/09/18 07:05 Basophils % 0.5 05/09/18 07:05 Absolute Neutrophils 4.24 k/cumm (1.2-6.7) 05/09/18 07:05 Band Neutrophils 3.0 % 05/06/18 08:50 Absolute Lymphocytes 1.14 k/cumm (1.2-3.4) L 05/09/18 07:05 Absolute Monocytes 0.86 k/cumm (0.11-0.7) H 05/09/18 07:05 Absolute Eosinophils 0.15 k/cumm (0.0-0.7) 05/09/18 07:05 Absolute Basophils 0.03 k/cumm (0.0-0.2) 05/09/18 07:05 Differential Comment Manual differential 05/06/18 08:50 RBC Morphology Normal 05/06/18 08:50 Sodium 140 mmol/L (136-145) 05/09/18 07:05 Potassium 4.1 mmol/L (3.5-5.1) 05/09/18 07:05 Chloride 106 mmol/L (98-107) 05/09/18 07:05 Carbon Dioxide 27.2 mmol/L (21.0-32.0) 05/09/18 07:05 Anion Gap 6.8 mmol/L (3-11) 05/09/18 07:05 BUN 10 mg/dL (7-18) 05/09/18 07:05 Creatinine 0.57 mg/dL (0.55-1.02) 05/09/18 07:05 Estimated GFR/1.73 m2 >= 60.00 (mL/min/1.73m2) 05/09/18 07:05 Glucose 235 mg/dL (70-100) H 05/09/18 07:05 Lactate 1.3 mmol/L (0.6-1.4) 05/06/18 08:50 Calcium 8.7 mg/dL (8.5-10.1) 05/09/18 07:05 Magnesium 1.9 mg/dL (1.8-2.4) 05/09/18 07:05 Iron 23 ug/dL (50-175) L 05/08/18 11:15 TIBC 187 ug/dL (250-450) L 05/08/18 11:15 Transferrin % Sat 12 % (15-50) L 05/08/18 11:15 Ferritin 242 ng/mL (8-388) 05/08/18 11:15 Total Bilirubin 0.5 mg/dL (0.2-1.0) 05/06/18 08:50 AST 15 U/L (15-37) 05/06/18 08:50 ALT 27 U/L (12-78) 05/06/18 08:50 Alkaline Phosphatase 135 U/L (46-116) H 05/06/18 08:50 Total Protein 7.4 g/dL (6.4-8.2) 05/06/18 08:50 Albumin 3.4 g/dL (3.4-5.0) 05/06/18 08:50 Vitamin B12 380 pg/mL (193-986) 05/08/18 11:15 Folate 19.1 ng/mL (8.6-20.0) 05/08/18 11:15 TSH 1.17 uIU/mL (0.358-3.74) 05/08/18 11:15 Urine Color Yellow (Yellow) 05/06/18 08:05 Urine Clarity Sl cloudy 05/06/18 08:05 Urine pH 5.5 (5-8) 05/06/18 08:05 Ur Specific [place] 1.010 (1.005-1.025) 05/06/18 08:05 Urine Protein 30 mg/dL (Negative) H 05/06/18 08:05 Urine Ketones Trace mg/dL (Negative) H 05/06/18 08:05 Urine Blood Moderate (Negative) H 05/06/18 08:05 Urine Nitrite Positive (Negative) H 05/06/18 08:05 Urine Bilirubin Negative (Negative) 05/06/18 08:05 Urine Urobilinogen 0.2 EU/dL (Up TO 0.2) 05/06/18 08:05 Ur Leukocyte Esterase Small (Negative) H 05/06/18 08:05 Urine RBC Not Applicable 05/06/18 08:05 Urine WBC >50 HPF (0-5) 05/06/18 08:05 Ur Epithelial Cells Few HPF (Negative) 05/06/18 08:05 Urine Crystals Negative HPF (Negative) 05/06/18 08:05 Urine Bacteria Moderate HPF (Negative) 05/06/18 08:05 Urine Mucus Negative (Negative) 05/06/18 08:05 Ur Culture Indicated? Yes 05/06/18 08:05 Urine Glucose >=1000 mg/dL (Negative) H 05/06/18 08:05 Vancomycin Trough 6.4 ug/mL (10.0-20.0) L 05/08/18 13:09
[2018-05-09] MEDS: Nicotine 14 MG/24 HR PATCH TD (22:02)
[2018-05-10] MEDS: Acetaminophen 325 MG TAB PO ×2 (03:39→08:22)
[2018-05-10] MEDS: Ibuprofen 800 MG TAB PO (07:01)
[2018-05-10 08:15] LABS: Anion Gap 7.6 mmol/L (3-11); BUN 9 mg/dL (7-18); CO2 30.4 mmol/L (21.0-32.0); Chloride 103 mmol/L (98-107); Glucose 259 mg/dL (70-100); Magnesium 1.8 mg/dL (1.8-2.4); Potassium 4.1 mmol/L (3.5-5.1); Sodium 141 mmol/L (136-145)
[2018-05-10] MEDS: Insulin Aspart 300 UNITS/3 ML PEN SC (08:17)
[2018-05-10] MEDS: buPROPion-XL 150 MG TABCR 300 MG PO (08:19)
[2018-05-10] MEDS: Gabapentin 400 MG CAP PO (08:21)
[2018-05-10] MEDS: Losartan 25 MG TAB 50 MG PO (08:21)
[2018-05-10] MEDS: Ciprofloxacin 500 MG TAB PO (08:21)
[2018-05-10] MEDS: Oxybutynin 5 MG TAB PO (08:21)
[2018-05-10 08:26] VITALS: BP 102/82; PULSE 64; RESP 20; TEMP 36; O2SAT 94
[2018-05-10 08:27] LABS: Absolute Basophil Count 0.03 k/cumm (0.0-0.2); Absolute Eosinophil Count 0.15 k/cumm (0.0-0.7); Absolute Lymphocyte Count 1.24 k/cumm (1.2-3.4); Absolute Monocyte Count 1.16 k/cumm (0.11-0.7); Absolute Neutrophil Count 4.86 k/cumm (1.2-6.7); Basophils % 0.4; HCT 39.4 % (36.0-46.0); HGB 12.7 g/dL (12.0-15.5); Immature Grans % 1.3; Lymphocytes % 16.4; Mean Corp. HGB Concentration 32.2 g/dL (32.0-36.0); Mean Corpuscular Hemoglobin 27.4 pg (27.0-33.0); Mean Corpuscular Volume 85.1 fL (80-95); Mean Platelet Volume 9.8 fL (8.0-11.0); Monocytes % 15.4; Neutrophils % 64.5; Platelet Count 202 x1000/uL (130-400); RBC 4.63 m/cumm (4.00-5.20); RBC Distribution Width 13.8 % (11.7-14.6); White Blood Cell Count 7.54 k/cumm (4.4-10.8)
--- NOTE | 2018-05-10 11:19 | DSE_ITS ---
Date of service: 05/10/18 Time of Service: 11:13 DS: Diagnosis Discharge Diagnosis (1) Sepsis: Status: Acute (2) Pyelonephritis: Status: Acute (3) Hypertension: Status: Chronic (4) SHARAN (obstructive sleep apnea): Status: Chronic (5) Adrenal nodule: Status: Chronic (6) Ventral hernia: Status: Chronic Discharge Plan Disposition Patient Disposition: HOME Condition: Serious Discharge Details Reason For Visit: UTI Admit Date/Time: 05/06/18 10:32 Admit Provider: Charles Loco Attending Provider: Charles Loco Primary Care Provider: Debo Talamantes V Hospital Course Hospital Course: CC: Fever, dysuria HPI: Very pleasant 52-year-old woman with a past medical history significant for diabetes and obesity, admitted from [facility] emergency department with diagnosis of pyelonephritis. Ms. Srivastava has a past medical history significant for diabetes, ongoing tobacco use, hypertension, obesity, and SHARAN on CPAP therapy. She has a remote history of IVDA as well as alcohol abuse now in remission for 16 years. She carries a diagnosis of hepatitis C as well. The patient reported onset of a suprapubic pressure sensation with urination approximately 5-6 days prior to admission, accompanied by urinary frequency and urgency. Following this she had development of left flank pain 2-3 days later. On evening prior to her presentation she described onset of Rigors while in bed, with subjective fevers, urinary incontinence, and a one-time episode of vomiting. Upon presentation to the emergency department she was noted to have fevers, and tachycardia without overt hypotension, and was also noted to have a leukocytosis with a left shift and mild bandemia. Her lactate was checked and normal. Her urinalysis was positive for likely infection. She was also significantly hyperglycemic but with a normal anion gap. Following her admission a CT scan was obtained showing evidence of pyelonephritis. He also began displaying signs of hypotension and worsening tachycardia prompting significant increase in her IV fluids, and broadening of her antibiotic therapy. She has remained stable, with resolution of her tachycardia and hypotension. She has now been afebrile for over 24 hours. Her urine culture shows an essentially pansensitive E. coli. She reports overall improvement in her symptoms, including resolution of her urinary symptoms. No overnight events reported. Hospital Course: Assessment and Plan (1) Sepsis: Resolved. Pyelonephritis initially maintained on vancomycin and meropenem for 2 days, changed to Cipro 2 days ago. Urine culture showing pansensitive E. coli, and blood cultures with no growth X 72 hours. Given planned use of Fluoroquinolone therapy, lack of stone or other apparent nidus, and negative blood cultures plan on 5-7 total days of therapy with Cipro. (2) Pyelonephritis: Evidence of pyelonephritis with treatment as above. (3) History of intravenous drug abuse: In remission. (4) Anxiety: Noted. Patient on is on chronic therapy with bupropion. (5) Diabetes mellitus: Restart metformin. Patient is also on Victoza. Sliding scale coverage provided as inpatient - Ms. Srivastava's blood sugars displayed significant hyperglycemia is in the setting of active infection and sepsis - still with elevated blood sugars but improved. Continue to monitor blood sugars at home. (6) Hepatitis C: Noted. Noted hepatic steatosis without overt cirrhotic findings by imaging. LFTs are normal. (7) Obesity: (8) Tobacco abuse: Approximate [id number] history of smoking. History is noted. Encourage abstinence. Nicotine replacement therapy on as-needed basis. (9) History of alcohol abuse: Reportedly in remission for 16 years. (10) Hypertension: Given initial sepsis picture held combination ARB/HCTZ, restarted later in hospitalization. She will continue this medication upon discharge. (11) SHARAN (obstructive sleep apnea): Continue home CPAP therapy. (12) Adrenal nodule: Noted left 3 x 2 cm adrenal nodule, specifically noted not to be an adrenal adenoma, as well as a 6 mm nodule in the left kidney by virtual radiology read - confirmed by in-house radiology to be 'stable' small nodule of left adrenal gland. Monitor. (13) Ventral hernia: Official CT read with evidence of a ventral hernia in the pelvis that contains fat but no bowel, with inflammatory changes and a fluid collection approximately 2 x 1 cm, uncertain whether this represents an abscess, seroma, or hematoma. Unsure the clinical significance of this. Requested further evaluation by surgery - no area of concern by review of films by surgery in detail. No intervention required. Home Meds and New Rx's Prescriptions: New ciprofloxacin HCl 500 mg Tablet 500 mg PO BID Qty: 10 RF: 0 Continued buprenorphine-naloxone [Suboxone] 1 EACH film 6 mg Sublingual DAILY RF: 0 losartan-hydrochlorothiazide 1 TAB tablet 1 tab PO DAILY RF: 0 oxybutynin chloride 5 MG tablet 1 tab PO BID RF: 0 gabapentin 400 mg Capsule 400 mg PO TID RF: 0 ibuprofen [Ibuprofen IB] 200 mg Tablet 800 mg PO QID PRNRF: 0 metformin [Glucophage XR] 500 mg Tablet Extended Release 24 Hr 1,000 mg PO DAILY RF: 0 bupropion HCl [Wellbutrin XL] 300 mg Tablet Extended Release 24 Hr 300 mg PO QAM RF: 0 Chantix Starting Month Box 0.5 mg (11)- 1 mg (42) Tablets,Dose Pack DAILY RF: 0 Victoza 2-Preston 0.6 mg/0.1 mL (18 mg/3 mL) Pen Injector 1.2 mg subcut DAILY RF: 0 Chantix Continuing Month Box 1 mg Tablet DAILY RF: 0 Discharge Instructions Instructions: Urinary Tract Infection in Women (DC) Additional Instructions: Please see your doctor within 1 week of discharge Stand Alone Forms: Nursing Discharge Form Referrals: Debo Talamantes MD [Primary Care Provider] - 05/17/18 3:15 pm Activity:: No Strenuous Activity Equipment/Supplies:: No Equipment Needed Diet:: Carb Counting Discharge Orders Discharge Orders: Discharge Order (Routine); Ordered 05/10/18 Ordered By: Charles Loco Exam Narrative Exam Narrative: General: Patient appears comfortable, AAOX3, NAD - not toxic appearing Neck: Supple CV: Regular, nontachycardic, S1S2. 3/6 LLSB murmur appreciated. Pulmonary: Clear to auscultation bilaterally, no crackles, wheezing, or rhonchi Abdomen: + Bowel Sounds, soft, nontender, nondistended, obese in contour Vascular: No lower extremity edema Psych: Normal mood and affect. DS: Data Vitals/I&O Vitals and I&O: Vital Signs Temperature 36 C L 05/10/18 08:26 Temperature Source Tympanic 05/10/18 08:26 Pulse 64 05/10/18 08:26 Pulse Rhythm Regular 05/10/18 08:05 Respiratory Rate 20 05/10/18 08:26 Respiratory Effort Non-Labored 05/10/18 08:05 Respiratory Depth Normal 05/10/18 08:05 Respiratory Pattern Normal 05/10/18 08:05 Blood Pressure 102/82 05/10/18 08:26 Blood Pressure Mean 90 05/06/18 11:16 Blood Pressure Position Sitting 05/06/18 08:11 Pulse Oximetry 94 L 05/10/18 08:26 Oxygen Delivery Method Room Air 05/10/18 08:26 Oxygen Flow Rate 0 05/10/18 08:26 Pain Level 3 05/10/18 08:26 Comment 05/10/18 08:26 Intake & Output 05/09/18 05/09/18 05/10/18 11:59 23:59 11:59 Intake Total 1555 / 2395 840 / 2395 490 / 490 Output Total 450 / 1950 1500 / 1950 3850 / 3850 Balance 1105 / 445 -660 / 445 -3360 / -3360 Intake: IV 955 / 955 Oral 600 / 1440 840 / 1440 490 / 490 Output: Urine 450 / 1950 1500 / 1950 3850 / 3850 Other: Urine Color Yellow Yellow Yellow Urine Appearance Clear Clear Clear Urine Odor Normal Normal Comment post void residual after patient urinated 600 Stool Size Large Stool Characteristics Soft Formed Voiding Methods Toilet Toilet Toilet Labs on day of discharge: Labs from last 24 hours 05/10/18 05/10/18 07:30 07:30 WBC 7.54 RBC 4.63 Hgb 12.7 Hct 39.4 MCV 85.1 MCH 27.4 MCHC 32.2 RDW 13.8 Plt Count 202 MPV 9.8 Immature Gran % 1.3 Neutrophils % 64.5 Lymphocytes % 16.4 Monocytes % 15.4 Eosinophils % 2.0 Basophils % 0.4 Absolute Neutrophils 4.86 Absolute Lymphocytes 1.24 Absolute Monocytes 1.16 H Absolute Eosinophils 0.15 Absolute Basophils 0.03 Sodium 141 Potassium 4.1 Chloride 103 Carbon Dioxide 30.4 Anion Gap 7.6 BUN 9 Creatinine 0.70 Estimated GFR/1.73 m2 >= 60.00 Glucose 259 H Calcium 9.0 Magnesium 1.8 Preliminary micro results at discharge 05/06/18 14:23 Blood Culture - Preliminary Blood NO GROWTH 72 HOURS 05/06/18 14:52 Blood Culture - Preliminary Blood NO GROWTH 72 HOURS Urine Culture Final 05/08/18-08 Day 1 Result ISOLATES BELOW ISOLATE 1 COLONY COUNT >100,000 COLONIES/ML ISOLATE 1 APPEARANCE Gram Negative Ned ISOLATE 1 ACTION ID AND SUSCEPTIBILITY TO FOLLOW ISOLATE 2 COLONY COUNT 10,000 - 50,000 COLONIES/ML ISOLATE 2 APPEARANCE Gram Positive Susana Day 2 Result ISOLATES BELOW ISOLATE 1 COLONY COUNT >100,000 COLONIES/ML ISOLATE 1 APPEARANCE Gram Negative Ned ISOLATE 2 COLONY COUNT 10,000 - 50,000 COLONIES/ML ISOLATE 2 APPEARANCE Mixed Gram Positive Susana Organism 1 Escherichia coli COLONY COUNT >100,000 COLONIES/ML Organism 2 GRAM POSITIVE SUSANA,MIXED COLONY COUNT 10,000 - 50,000 COLONIES/ML Esch coli RESULT Ampicillin R Ampicillin/Sulbactam S Cefazolin S Ceftazidime S CEFTRIAXONE S Ciprofloxacin S Gentamicin S Nitrofurantoin S Imipenem S Levofloxacin S Tobramycin S Trimethoprim/Sulfamethoxazole S Piperacillin/Tazobactam S Additional Comments EXAM: CT Abdomen and Pelvis Without and With Contrast EXAM DATE/TIME: 05/06/2018 11:23 AM CLINICAL HISTORY: 52 years old, female; Signs and symptoms; Other: Uti; Patient HX: Uti, potential pyelonephritis, R/O stone as well. TECHNIQUE: Axial computed tomography images of the abdomen and pelvis without and with intravenous contrast. All CT scans at this facility use at least one of these dose optimization techniques: automated exposure control; mA and/or kV adjustment per patient size (includes targeted exams where dose is matched to clinical indication); or iterative reconstruction. Coronal and sagittal reformatted images were created and reviewed. CONTRAST: 100 ml of OMNI-PAQUE 350 administered intravenously. COMPARISON: CT ABD PELVIS WITH CONTRAST 02/22/2017 1:17 AM FINDINGS: Lower thorax: No acute findings. ABDOMEN: Liver: Hepatic steatosis Gallbladder and bile ducts: Normal. No calcified stones. No ductal dilation. Pancreas: Normal. No ductal dilation. Spleen: Normal. No splenomegaly. Adrenals: Left adrenal nodule 3 x 2 cm. 13 Hounsfield units. Not adrenal adenoma. Kidneys and ureters: Mild dilatation of both collecting systems and both ureters. There are periureteral inflammatory changes. However no ureteral calculus . Both kidneys are edematous. Patchy hypoattenuation in both kidneys may represent pyelonephritis. 6 mm nodule in the left kidney 22 Hounsfield units. Stomach and bowel: Findings consistent with constipation. Appendix: No evidence of appendicitis. PELVIS: Bladder: Unremarkable as visualized. Reproductive: Unremarkable as visualized. ABDOMEN and PELVIS: Intraperitoneal space: Normal. No free air. No significant fluid collection. Bones/joints: No acute fracture. No dislocation. Soft tissues: Ventral hernia in the pelvis contains fat and inflammatory changes and fluid. 2 x 1.2 cm fluid collection within the hernia (4:70). Differential includes abscess, hematoma, seroma. Vasculature: Normal. No abdominal aortic aneurysm. Lymph nodes: Enlarged left retroperitoneal nodes. 2 x 1.3 cm and 1.2 x 1.2 cm. Additional smaller nodes are Other findings: Cysts in the beto bilaterally IMPRESSION: 1. Mild dilatation of both collecting systems and both ureters. There are periureteral inflammatory changes. However no ureteral calculus . Both kidneys are edematous. Patchy hypoattenuation in both kidneys may represent pyelonephritis. 2. Left adrenal nodule 3 x 2 cm. 13 Hounsfield units. Not adrenal adenoma. 3. 6 mm nodule in the left kidney 22 Hounsfield units. 4. Ventral hernia in the pelvis contains fat and inflammatory changes and fluid. 2 x 1.2 cm fluid collection within the hernia (4:70) . Differential includes abscess, hematoma, seroma. Exam(s) a CT:CT abdomen & pelvis wo/w SYMPTOMS/DIAGNOSIS: UTI, POTENTIAL PYELONEPHRITIS, ? STONE CT OF THE ABDOMEN AND PELVIS: Comparison is made with . No urinary tract calculi are seen. There is bilateral perinephritic stranding and some patchy areas of decreased attenuation which could indicate pyelonephritis. The bladder is unremarkable. The uterus and ovaries are within normal limits. There is no bowel dilatation or inflammatory changes. There is no free air or free fluid. There are diverticula. There is an area of scarring in the lower anterior abdominal wall. The liver again shows fatty infiltration. There is a stable small nodule of the left adrenal gland. The pancreas and gallbladder are unremarkable. The lung bases are clear. IMPRESSION: Bilateral perinephric stranding and patchy renal attenuation could indicate pyelonephritis. No obstructing or nonobstructing stones are seen. [facility] Medical History Sepsis (Acute) Ventral hernia (Chronic) Adrenal nodule (Chronic) Pyelonephritis (Acute) DVT prophylaxis (Chronic) SHARAN (obstructive sleep apnea) (Chronic) HPV (human papilloma virus) infection (Chronic) Hypertension (Chronic) History of alcohol abuse (Chronic) Tobacco abuse (Chronic) Obesity (Chronic) Hepatitis C (Chronic) Diabetes mellitus (Chronic) Anxiety (Chronic) History of intravenous drug abuse (Chronic) Diabetes (Chronic) Hypertension (Chronic) Surgical History History of hernia repair (Chronic) History of (Chronic) History of appendectomy (Chronic) Social History Smoking/Tobacco Use Status: Current every day additional social history: Patient is . She has 2 children, and one grandson. 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 Reports daily tobacco use, with an approximate [id number] history of smoking. Reports both alcohol and illicit drug use in remission.
[2018-05-10] MEDS: Docusate Sodium 100 MG CAP PO (12:00)
--- NOTE | 2018-05-10 12:31 | PDOC.CMDIS ---
- If Service Date Differs Date of service: 05/10/18 Time of Service: 12:31 LACE Index Scoring Tool - Questions: Length of Stay (in days): 4 - 6 Acuity (Admit via E.D.?): Yes Comorbidities: Diabetes w/o Complication E.D. Visits: 3 - Answers: Total Score: 11 Risk of Readmission: High Risk Care Management Discharge Reason for Hospitalization: Pylelonephritis Discharge Plan: Evi is being discharged home today she feels ready for discharge. She states her son will pick her up from the hospital. Evi will complete course of oral antibioitcs and follow up with primary care as scheduled 05/17/18. She will continue to receive support from DM educator she states she is ready to make a change related to her weight and DM management. Patient/Family Education Needs: Discharge education, limitations and follow up plan of care including ask me three education and self management.
== END 2018-05-10 12:12 | disposition home or self-care (01) | DRG 690 ==
LOC: ER 11:15 → MS 11:41
PROVIDERS: Admitting Provider Internal Medicine; Emergency Provider Student in an Organized Health Care Education/Training Program; PCP Family Medicine; Visit Provider Internal Medicine
DX: N10 Acute pyelonephritis (principal); B96.20 Unspecified Escherichia coli [E. coli] as the cause of diseases classified elsewhere; R00.0 Tachycardia, unspecified; E11.65 Type 2 diabetes mellitus with hyperglycemia; Z79.84 Long term (current) use of oral hypoglycemic drugs; R93.422 Abnormal radiologic findings on diagnostic imaging of left kidney; K43.9 Ventral hernia without obstruction or gangrene; G47.33 Obstructive sleep apnea (adult) (pediatric); I10 Essential (primary) hypertension; F19.21 Other psychoactive substance dependence, in remission; F41.9 Anxiety disorder, unspecified; F17.210 Nicotine dependence, cigarettes, uncomplicated; F10.21 Alcohol dependence, in remission; Z86.19 Personal history of other infectious and parasitic diseases; Z71.3 Dietary counseling and surveillance
CPT/HCPCS: 36415; 80048; 80053; 87040; 87077; 96361; 96365; 99223; 99232; 99239; 99285; J1650; 74178; 80202; 81003; 81015; 82607; 82728; 82746; 83540; 83550; 83605; 83735; 84443; 85025; 87086; 87186; 94660; J0131; J0696; J3490

== ENCOUNTER 2018-05-23 16:01 | Outpatient (CLI) | payer MEDICAID, SELFPAY ==
--- NOTE | 2018-05-23 14:00 | NS.NUTBLAN_ITS ---
DESCRIPTION/ASSESSMENT: Evi Srivastava presents for diabetes self management follow up after inpatient discharge. She admitted she had not been taking her diabetes injection medication Victoza prior to admission to hospital and A1c was very high. Evi states her downfall has been ice cream and eating whatever there was without regard to quality or quantity of food choices. She was not monitoring her blood sugars regularly. Since discharge, she has been paying attention to how much she eats and the quality of her choices. She just won't eat the carbohydrate food offered. She states she has lost 14 pounds since March. Blood sugars since discharge fasting 159-234 (today), pre-meal blood sugars 108- 268, mostly less than 180. It is difficult to figure out blood sugars in relation to food intake. Evi is excited to resume pool PT twice a week. She has found it exhausting to move, but states it is getting a little easier. She uses a C-pap machine which is effective, but she states she throws it off because of some claustrophobia. INTERVENTION: Discussed food intake with review of mindful eating principles including sources of hunger, the hunger scale and normal portions as a start. Discussed and demonstrated chair exercises for strength building to prepare for increased physical activity. Supportive listening regarding stressors. She describes good coping mechanisms for stress including deep breathing. PLAN: Evi will: begin with normal portions of meat and vegetables; have seconds after assessing hunger/fullness scale; identify source of hunger Use viet to track chair exercises MNT 3 UNITS In: 1400 OUT: 1450 No group education available
== END 2018-05-23 16:21 ==
PROVIDERS: PCP Family Medicine; Visit Provider Dietitian, Registered
DX: E11.9 Type 2 diabetes mellitus without complications (principal); Z71.3 Dietary counseling and surveillance
CPT/HCPCS: 97802

== ENCOUNTER 2018-06-14 12:44 | Outpatient (REF) | payer MEDICAID, SELFPAY ==
[2018-06-14 21:25] LABS: Cholesterol 164 mg/dL (50-200); HDL Cholesterol 35 mg/dL (40-60); LDL CHOLESTEROL 108 mg/dL (<100); Triglyceride 82 mg/dL (30-150)
== END 2018-06-14 13:04 ==
LOC: NCHCN 12:44
PROVIDERS: PCP Family Medicine; Visit Provider Family Medicine
DX: E11.9 Type 2 diabetes mellitus without complications (principal)
CPT/HCPCS: 80061; 83721

== ENCOUNTER 2018-11-01 10:16 | Outpatient (REF) | payer MEDICAID, SELFPAY ==
[2018-11-01 22:13] LABS: C-Reactive Protein 0.66 mg/dL (0.0-0.3); Uric Acid 4.8 mg/dL (2.6-6.0)
[2018-11-01 22:45] LABS: ESR 20 MM/HR (0-30)
[2018-11-05 10:58] LABS: Rheumatoid Factor 14 IU/mL (<12.5)
[2018-11-05 12:05] LABS: ANA Interpretation Positive (NEGAT); ANA Titer Pattern 1:320 Speckled
== END 2018-11-01 10:36 ==
LOC: NCHCN 10:16
PROVIDERS: PCP Family Medicine; Visit Provider Family Medicine
DX: M25.572 Pain in left ankle and joints of left foot (principal); M19.90 Unspecified osteoarthritis, unspecified site; R76.0 Raised antibody titer
CPT/HCPCS: 85652; 84550; 86038; 86140; 86431

== ENCOUNTER 2018-11-08 21:47 | Emergency (ER) | payer MEDICAID, SELFPAY ==
[2018-11-08 21:57] VITALS: BP 138/65; PULSE 84; RESP 16; TEMP 36.7; O2SAT 95
--- NOTE | 2018-11-08 22:39 | ED.GENADUL_ITS ---
Discharge Plan Disposition Patient Disposition: HOME Condition: Good Discharge Details Chief Complaint: Orthopedic Clinical Impression: Left ankle sprain Primary Care Provider: Debo Talamantes V ED Provider: Santy Arango Home Meds and New Rx's Prescriptions: No Action buprenorphine-naloxone [Suboxone] 1 EACH film 6 mg Sublingual DAILY RF: 0 losartan-hydrochlorothiazide 1 TAB tablet 1 tab PO DAILY RF: 0 oxybutynin chloride 5 MG tablet 1 tab PO BID RF: 0 gabapentin 400 mg Capsule 400 mg PO TID RF: 0 ibuprofen [Ibuprofen IB] 200 mg Tablet 800 mg PO QID PRNRF: 0 metformin [Glucophage XR] 500 mg Tablet Extended Release 24 Hr 1,000 mg PO DAILY RF: 0 bupropion HCl [Wellbutrin XL] 300 mg Tablet Extended Release 24 Hr 300 mg PO QAM RF: 0 Chantix Starting Month Box 0.5 mg (11)- 1 mg (42) Tablets,Dose Pack DAILY RF: 0 Victoza 2-Preston 0.6 mg/0.1 mL (18 mg/3 mL) Pen Injector 1.2 mg subcut DAILY RF: 0 Chantix Continuing Month Box 1 mg Tablet DAILY RF: 0 ciprofloxacin HCl 500 mg Tablet 500 mg PO BID Qty: 10 RF: 0 Discharge Instructions Instructions: Ankle Sprain (ED) Additional Instructions: Please use the lace up ankle splint to help reduce swelling, stay off your ankle for the next 1 to 2 weeks with the crutches. Please keep the leg elevated as often as possible, use ice, Tylenol and Motrin for swelling and pain. If you notice any worsening of your symptoms, or any new symptoms such as vomiting, diarrhea, fever, chills, shortness of breath, chest pain, numbness, weakness, or fainting , please return immediately to the emergency department for reevaluation. Please follow up with your primary care provider as soon as possible for reassessment and reevaluation. As always, it was a pleasure participating in your medical care today. Referrals: Debo Talamantes MD [Primary Care Provider] - Medical Decision Making This is a 53-year-old female who presents for 1 week of left ankle pain. 1 week ago she noticed hearing some pops in her left ankle while walking. She saw her PCP about this who ordered outpatient x-rays but unfortunately she was not able to get those x-ray. Since then she has had continued mild swelling and pain in the left ankle. No history of DVT, she does have subjective decrease in sensation on the left lower foot compared to the right. She does have a history of peripheral neuropathy secondary to diabetes. Exam demonstrates mild to moderate swelling around the ankle, however no severe pain with plantar flexion, dorsiflexion, eversion or inversion. Notable pain when she tries to bear weight though. Vascular exam is normal. I suspect mild ligamentous injury. We will give crutches, get x-rays to rule out acute fracture which I feel less likely, reassess. At this time there is no clinical evidence of vascular compromise, deformity, or DVT. No calf tenderness. 11:46 PM X-ray results show no evidence of acute fracture dislocation. There is mild to moderate arthritis, as well as a plantar calcaneal sphere, no other significant abnormalities. Signs and symptoms appear consistent with a ligamentous sprain. We will give a lace up ankle boot, recommend nonweightbearing for the next 1 to 2 weeks, and give crutches. Recommend NSAIDs, elevation, and close follow-up with her primary care provider. I have extensively reviewed the treatment plan and discharge instructions with the patient. I have addressed all patient concerns at this time. The patient was made aware of what symptoms to monitor for that would warrant a return to the emergency department. Discussed the plan with the patient, they demonstrate verbal understanding and agreement with our assessment and plan at this time. FINDINGS: Bones/joints: No acute fracture or subluxation. Plantar calcaneal spur. Posterior calcaneal spur. Soft tissues: Generalized soft tissue swelling. Benign calcifications in the soft tissues. IMPRESSION: No acute bony pathology. Dictated and Authenticated by: Akila Cadena MD. Ordering:SUZI Madera MD HPI General Date/Time Provider Initiated Documentation: 11/08/18 21:54 . HPI Narrative: This is a pleasant 53-year-old female who presents today for evaluation of left ankle pain. She states that one week ago she was walking she heard some pop in her left ankle while ambulating. She did see her primary care provider about this who ordered outpatient x-rays however because of a in the family she was unable to get these. She is noticed continued pain and swelling around her left ankle, now has some mild numbness and tingling in her left foot. She has a history of diabetes, and some chronic peripheral neuropathy. She states this is slightly worse than that. Pain is made worse with movement, and was improved with ibuprofen but less so now as her symptoms have persisted. She denies any history of DVT or blood clot. She denies any calf pain, knee pain or any other trauma or pain. No other modifying factors. No other complaints at this time. Related Data Home Medications Medication Instructions Recorded Confirmed buprenorphine-naloxone [Suboxone] 6 mg SUBLINGUAL DAILY 04/17/13 11/08/18 losartan-hydrochlorothiazide 1 tab PO DAILY 12/17/16 11/08/18 oxybutynin chloride 1 tab PO BID 12/17/16 11/08/18 Chantix Continuing Month Box DAILY 05/06/18 Chantix Starting Month Box DAILY 05/06/18 Victoza 2-Preston 1.2 mg SUBCUT DAILY 05/06/18 11/08/18 bupropion HCl [Wellbutrin XL] 300 mg PO QAM 05/06/18 11/08/18 gabapentin 400 mg PO TID 05/06/18 11/08/18 ibuprofen [Ibuprofen IB] 800 mg PO QID PRN 05/06/18 11/08/18 metformin [Glucophage XR] 1,000 mg PO DAILY 05/06/18 11/08/18 ciprofloxacin HCl 500 mg PO BID #10 tab 05/10/18 11/08/18 Previous Rx's Medication Instructions Recorded ciprofloxacin HCl 500 mg PO BID #10 tab 05/10/18 Allergies Allergy/AdvReac Type Severity Reaction Status Date / Time exenatide [From Byetta] AdvReac Mild Unverified 11/08/18 22:05 lisinopril AdvReac Mild Unverified 11/08/18 22:05 General Stated Complaint: Orthopedic YASMINE: 4 Review of Systems Review of Systems All systems reviewed & are unremarkable except as noted in HPI and below PFSH Social History Smoking/Tobacco Use Status: Current every day Tobacco Type: cigarettes Alcohol Intake: former Drug use: Current Sobriety Do you feel safe at home: Yes Do you feel safe in your relationship?: Yes Additional Social history: Patient is . She has 2 children, and one grandson. 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 Reports daily tobacco use, with an approximate 28-[id number] history of smoking. Reports both alcohol and illicit drug use in remission. Exam Narrative Exam Narrative: 1.Const: Well-nourished, Well-developed, appearing stated age 2.Eyes: PERRL, no conjunctival injection, and symmetrical lids. 3.ENT: Atraumatic external nose and ears. Moist MM. Neck: Symmetric, trachea midline, No thyromegaly. 4.CVS: +S1/S2, No murmurs or gallops. Peripheral pulses 2+ and equal in all extremities. Brisk capillary refill in all extremities. 5.RESP: Unlabored respiratory effort. Clear to auscultation bilaterally. No wheezes rales or rhonchi 6.GI: Soft, Nontender/Nondistended, No hepatosplenomegaly. No guarding or rebound. 7.MSK: Normocephalic/Atraumatic, Extremities w/o deformity. No cyanosis or clubbing, mild edema of the left ankle, mild tenderness throughout the ankle and the lateral and medial component. No significant calf tenderness. No pain with eversion, inversion, plantar dorsiflexion of the left foot, however when bearing weight she does develop notable pain in the ankle. Sensation is intact throughout her left foot, however subjectively it is decreased when compared to the right. Light touch and pinprick are both present. Brisk capillary refill and +2 dorsalis pedis pulses present bilaterally 8.Skin: Warm, Dry. No rashes or lesions. 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 Sensation grossly intact, please see musculoskeletal, no focal neurologic deficits. 10.Psych: (AAO) x3. Appropriate mood and affect Course Vital Signs Temperature 36.7 C 11/08/18 21:57 Pulse 84 11/08/18 21:57 Respiratory Rate 16 11/08/18 21:57 Blood Pressure 138/65 11/08/18 21:57 Pulse Oximetry 95 11/08/18 21:57 Temperature 36.7 C 11/08/18 21:57 Temperature Source Temporal Artery Scan 11/08/18 21:57 Pulse 84 11/08/18 21:57 Respiratory Rate 16 11/08/18 21:57 Respiratory Effort 11/08/18 21:57 Blood Pressure 138/65 11/08/18 21:57 Pulse Oximetry 95 11/08/18 21:57 Oxygen Delivery Method Room Air 11/08/18 21:57 Oxygen Flow Rate 0 11/08/18 21:57 Pain Level 7 11/08/18 22:02
--- NOTE | 2018-11-08 23:06 | DI.RAD_ITS ---
SYMPTOM/DIAGNOSIS: LEFT ANKLE PAIN X 1 WEEK LEFT ANKLE: No fracture or ankle mortise widening is seen. The talar dome appears intact. There is prominent calcaneal spur. Degenerative changes are also seen at the ankle joint. There is some soft tissue swelling. No bony erosions are seen. IMPRESSION: Degenerative changes in heel spurs. No acute abnormality.
--- NOTE | 2018-11-08 23:39 | DI.VRAD_ITS ---
EXAM: XR Left Ankle EXAM DATE/TIME: 11/08/2018 22:31 CLINICAL HISTORY: 53 years old, female; Ankle; Left; Patient HX: S/P fall pain in heel. TECHNIQUE: Imaging protocol: XR Left ankle. Views: 3 or more views. COMPARISON: No relevant prior studies available. FINDINGS: Bones/joints: No acute fracture or subluxation. Plantar calcaneal spur. Posterior calcaneal spur. Soft tissues: Generalized soft tissue swelling. Benign calcifications in the soft tissues. IMPRESSION: No acute bony pathology. Dictated and Authenticated by: Akila Cadena MD. Ordering:SUZI Madera MD
== END 2018-11-09 00:01 | disposition home or self-care (01) ==
PROVIDERS: Emergency Provider Student in an Organized Health Care Education/Training Program; PCP Family Medicine
DX: S93.402A Sprain of unspecified ligament of left ankle, initial encounter (principal); X58.XXXA Exposure to other specified factors, initial encounter; E11.40 Type 2 diabetes mellitus with diabetic neuropathy, unspecified; Z79.84 Long term (current) use of oral hypoglycemic drugs; I10 Essential (primary) hypertension
CPT/HCPCS: 99283; 73610; E0114; L1902

== ENCOUNTER 2018-11-30 01:47 | Emergency (ER) | payer MEDICAID, SELFPAY ==
[2018-11-30 01:53] VITALS: BP 204/92; PULSE 77; RESP 20; TEMP 36.9; O2SAT 99
--- NOTE | 2018-11-30 01:58 | W.ED.GENAD ---
Discharge Plan Disposition Patient Disposition: HOME Condition: Good Discharge Details Chief Complaint: GenMedical Clinical Impression: Dry socket, Alveolitis of left jaw Primary Care Provider: Debo Talamantes V ED Provider: Juan Rogers [place] Meds and New Rx's Prescriptions: New penicillin V potassium 500 mg tablet 500 mg PO TID Qty: 14 RF: 0 Continued buprenorphine-naloxone [Suboxone] 1 EACH film 6 mg Sublingual DAILY RF: 0 losartan-hydrochlorothiazide 1 TAB tablet 1 tab PO DAILY RF: 0 oxybutynin chloride 5 MG tablet 1 tab PO BID RF: 0 gabapentin 400 mg Capsule 400 mg PO TID RF: 0 ibuprofen [Ibuprofen IB] 200 mg Tablet 800 mg PO QID PRNRF: 0 metformin [Glucophage XR] 500 mg Tablet Extended Release 24 Hr 1,000 mg PO DAILY RF: 0 bupropion HCl [Wellbutrin XL] 300 mg Tablet Extended Release 24 Hr 300 mg PO QAM RF: 0 Victoza 2-Preston 0.6 mg/0.1 mL (18 mg/3 mL) Pen Injector 1.2 mg subcut DAILY RF: 0 Discharge Instructions Additional Instructions: Please call your dentist in the morning to be seen. Suspect that you have dry socket with associated infection. Antibiotic as prescribed. Ibuprofen alternating with acetaminophen for pain. Benzocaine may be used as well. Return to ED for increased facial pain swelling, fever, difficulty breathing, inability to swallow. Medical Decision Making Patient with increasing pain now radiating up into the maxillary sinus status post left upper teeth extraction. Appears to have dry socket with no clot present. Has significant swelling around the site. Concern for infection. Patient started on penicillin. 20% benzocaine applied in the gingival buccal space with some pain relief. Toradol injection given. Patient to call her dentist in the morning to be seen. Continue penicillin. Ibuprofen and acetaminophen for pain. May take benzocaine home and use as well. Return to ED for increased facial swelling and pain, fever, difficulty breathing, inability to swallow. HPI General Mode of arrival: ambulatory. Date/Time Provider Initiated Documentation: 11/30/18 01:57. Limitations to Documentation: no limitations. Information obtained by: patient and RN notes reviewed. HPI Narrative: Patient presents to ED with complaint of increasing pain status post tooth extraction 4 days ago. She had 3 of her left upper teeth removed on Monday. Initially seemed to be doing fine. Over the last 36 hours has had increasing pain. Now has pain up into the left maxillary sinus. Has been taking Tylenol and Motrin without relief. Has not seen a call the dentist. No fever that she is aware of. Related Data Home Medications Medication Instructions Recorded Confirmed buprenorphine-naloxone [Suboxone] 6 mg SUBLINGUAL DAILY 04/17/13 11/30/18 losartan-hydrochlorothiazide 1 tab PO DAILY 12/17/16 11/30/18 oxybutynin chloride 1 tab PO BID 12/17/16 11/30/18 Victoza 2-Preston 1.2 mg SUBCUT DAILY 05/06/18 11/30/18 bupropion HCl [Wellbutrin XL] 300 mg PO QAM 05/06/18 11/30/18 gabapentin 400 mg PO TID 05/06/18 11/30/18 ibuprofen [Ibuprofen IB] 800 mg PO QID PRN 05/06/18 11/30/18 metformin [Glucophage XR] 1,000 mg PO DAILY 05/06/18 11/30/18 penicillin V potassium 500 mg PO TID #14 tab 11/30/18 Previous Rx's Medication Instructions Recorded penicillin V potassium 500 mg PO TID #14 tab 11/30/18 Allergies Allergy/AdvReac Type Severity Reaction Status Date / Time exenatide [From Byetta] AdvReac Mild Unverified 11/08/18 22:05 lisinopril AdvReac Mild Unverified 11/08/18 22:05 General YASMINE: 4 Review of Systems Constitutional Denies fever(s) ENT Reports facial pain, Reports mouth pain and Reports sinus pain Cardiovascular Denies dyspnea Respiratory Denies dyspnea Integumentary/Breasts Denies erythema [facility] Medical History Adrenal nodule (Chronic) Anxiety (Chronic) Diabetes mellitus (Chronic) Hepatitis C (Chronic) History of alcohol abuse (Chronic) History of intravenous drug abuse (Chronic) HPV (human papilloma virus) infection (Chronic) Hypertension (Chronic) Obesity (Chronic) SHARAN (obstructive sleep apnea) (Chronic) Pyelonephritis (Acute) Sepsis (Acute) Tobacco abuse (Chronic) Ventral hernia (Chronic) Surgical History History of appendectomy (Chronic) History of (Chronic) History of hernia repair (Chronic) Social History Smoking/Tobacco Use Status: Current every day Tobacco Type: cigarettes Alcohol Intake: former Drug use: Current Sobriety Substance use type: marijuana Do you feel safe at home: Yes Do you feel safe in your relationship?: Yes Additional Social history: Patient is . She has 2 children, and one grandson. 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 Reports daily tobacco use, with an approximate 38-[id number]-hlcs history of smoking. Reports both alcohol and illicit drug use in remission. Exam Const General: no acute distress Nutritional Appearance: obese Orientation: alert and oriented x3 HENMT Head: normocephalic and atraumatic Face and sinus: no erythema and sinus tenderness maxillary (left) Mouth: oral mucosae normal Teeth and gingiva: other (Left upper sockets w/ no clot seen; swelling of the gum around area) Throat: posterior oropharynx normal Neck Neck: trachea midline and supple Resp Effort & Inspection: normal respiratory effort
[2018-11-30] MEDS: Penicillin V POTASSIUM 500 MG TAB PO (02:14)
[2018-11-30] MEDS: Benzocaine 20% Gel 30 GM JAR MM (02:14)
== END 2018-11-30 02:45 | disposition home or self-care (01) ==
PROVIDERS: Emergency Provider Emergency Medicine; PCP Family Medicine
DX: M27.3 Alveolitis of jaws (principal); Y84.8 Other medical procedures as the cause of abnormal reaction of the patient, or of later complication, without mention of misadventure at the time of the procedure; K08.409 Partial loss of teeth, unspecified cause, unspecified class; E11.9 Type 2 diabetes mellitus without complications; Z79.84 Long term (current) use of oral hypoglycemic drugs; I10 Essential (primary) hypertension
CPT/HCPCS: 99283; J1885

== ENCOUNTER 2019-01-30 15:18 | Outpatient (CLI) | payer MEDICAID, SELFPAY ==
[2019-01-30 17:45] LABS: ALT 31 U/L (14-59); AST 10 U/L (15-37); Albumin 3.7 g/dL (3.4-5.0); Alkaline Phosphatase 116 U/L (46-116); Anion Gap 9.8 mmol/L (3-11); BUN 16 mg/dL (7-18); Bilirubin, Total 0.2 mg/dL (0.2-1.0); CO2 27.2 mmol/L (21.0-32.0); CREATININE 0.81 mg/dL (0.55-1.02); Calcium 8.8 mg/dL (8.5-10.1); Calculated LDL 58 mg/dL; Chloride 100 mmol/L (98-107); Cholesterol 136 mg/dL (50-200); Glucose 423 mg/dL (70-100); HDL Cholesterol 30 mg/dL (40-60); Hemoglobin A1C 10.9 % (4.5-6.2); Potassium 4.4 mmol/L (3.5-5.1); Sodium 137 mmol/L (136-145); Total Protein 6.8 g/dL (6.4-8.2); Triglyceride 244 mg/dL (30-150)
[2019-02-05 11:52] LABS: dsDNA Ab, IgG <12.3 IU/mL (<30)
[2019-02-05 12:20] LABS: SS-A Antibody 2.5 Units (<20); SS-B (La) Ab, IgG 2.6 Units (<20)
[2019-02-05 13:16] LABS: RNP Ab, IgG 1.1 Units (<20); Sm (Smith) Ab, IgG 1.7 Units (<20)
== END 2019-01-30 15:38 ==
PROVIDERS: PCP Family Medicine; Visit Provider Family Medicine
DX: R89.9 Unspecified abnormal finding in specimens from other organs, systems and tissues (principal); E11.9 Type 2 diabetes mellitus without complications; I10 Essential (primary) hypertension; E78.5 Hyperlipidemia, unspecified
CPT/HCPCS: 36415; 80053; 80061; 83036; 86225; 86235

== ENCOUNTER 2019-05-05 13:55 | Inpatient (IN) | payer MEDICAID, SELFPAY ==
[2019-05-05] VITALS (41 sets, daily range): BP systolic 108–175; BP diastolic 55–118; PULSE 79–115; RESP 10–31; TEMP 36.1–40.3; O2SAT 75–97
--- NOTE | 2019-05-05 14:58 | W.ED.GENAD ---
Discharge Plan Disposition Patient Disposition: [facility] INPATIENT Condition: Serious Discharge Details Chief Complaint: GenMedical Clinical Impression: Acute hyperglycemia, Pyelonephritis, Cardiac murmur Admit Date/Time: 05/05/19 16:57 Admit Provider: Marcelo Ng Attending Provider: Marcelo Ng Primary Care Provider: Debo Talamantes V ED Provider: Blair Hunter Medical Decision Making 53-year-old female with poorly controlled diabetes, noncompliant with diabetic meds, here with generalized fatigue, myalgias, fever and chills. Rapid flu testing negative. Npoqm-yr-vphf glucose elevated. Initial concern for potential DKA. Will initiate IV fluid bolus. -- Chest x-ray reviewed and interpreted by radiology: No acute findings. -- Screening ECG was reviewed and interpreted by me: Sinus rhythm 88 bpm, normal axis, poor R wave progression, nonspecific. -- Labs reviewed and no leukocytosis, lactate normal, mild anion gap acidosis of 11.7 with hyperglycemia. Patient has received 2 L of crystalloid. Repeat fingerstick is now in the 300s. Urinalysis reviewed and consistent with UTI. Suspect pyelonephritis. Patient is been given a dose of ceftriaxone 1g. -- Plan to repeat chemistry. Consider also endocarditis although less likely given murmur that was not previously noted. We will add vancomycin IV. 3 sets of blood cultures have been sent prior to antibiotic administration. Patient will need echocardiogram while hospitalized. I called and spoke with Dr. Ng who will admit the patient. Bridging orders will be placed to the floor. -- Patient febrile - tylenol ordered. -- Notified by nursing that patient vomiting. I responded to room and found patient confused, febrile and having just vomited. Nursing to establish second IV. Will give zofran IV and toradol IV for fever. I called and updated Dr. Ng as to course. He responded to ED to evaluate the patient and upgraded admission to ICU based on change in status. Repeat labs notable for improved glucose and anion gap. HPI General Mode of arrival: ambulatory. Date/Time Provider Initiated Documentation: 05/05/19 14:30. Limitations to Documentation: no limitations. Information obtained by: patient. HPI Narrative: 53-year-old female with history of nfy-[id number] diabetes, noncompliant with diabetic meds in the past, history of hepatitis C, history of alcohol abuse, presents with chief complaint of generally not feeling well. Patient notes that for the past 3 days she has had body aches, subjective fever, chills, and has been generally feeling unwell. Symptoms are moderate to severe. Patient states that her whole body hurts. She has had some headache. No neck stiffness or neck pain. She is concerned that she may have a kidney infection. Patient does note that she has not been taking her Victoza as prescribed. Related Data Home Medications Medication Instructions Recorded Confirmed buprenorphine-naloxone [Suboxone] 8 mg SUBLINGUAL DAILY 04/17/13 05/05/19 losartan-hydrochlorothiazide 1 tab PO DAILY 12/17/16 05/05/19 oxybutynin chloride 1 tab PO BID 12/17/16 05/05/19 Victoza 2-Preston 1.2 mg SUBCUT DAILY 05/06/18 05/05/19 bupropion HCl [Wellbutrin XL] 300 mg PO QAM 05/06/18 05/05/19 gabapentin 400 mg PO TID 05/06/18 05/05/19 ibuprofen [Ibuprofen IB] 800 mg PO QID PRN 05/06/18 05/05/19 metformin [Glucophage XR] 1,000 mg PO DAILY 05/06/18 05/05/19 Allergies Allergy/AdvReac Type Severity Reaction Status Date / Time exenatide [From Byetta] AdvReac Mild Unverified 05/05/19 14:09 lisinopril AdvReac Mild Unverified 05/05/19 14:09 General Stated Complaint: GenMedical YASMINE: 3 Review of Systems All systems reviewed & are unremarkable except as noted in HPI and below Constitutional Constitutional: Reports body ache(s), Reports fever(s) and Reports headache(s) ENT Ears, Nose, Mouth, and Throat: Reports headache(s) Cardiovascular Cardiovascular: Denies chest pain and Denies dyspnea Respiratory Respiratory: Denies dyspnea Gastrointestinal Gastrointestinal: Denies abdominal pain Genitourinary Genitourinary: Reports urinary frequency Neurologic Neurologic: Reports headache(s) [facility] Medical History Adrenal nodule (Chronic) Anxiety (Chronic) Diabetes mellitus (Chronic) Hepatitis C (Chronic) History of alcohol abuse (Chronic) History of intravenous drug abuse (Chronic) HPV (human papilloma virus) infection (Chronic) Hypertension (Chronic) Obesity (Chronic) SHARAN (obstructive sleep apnea) (Chronic) Pyelonephritis (Acute) Sepsis (Acute) Tobacco abuse (Chronic) Ventral hernia (Chronic) Surgical History History of appendectomy (Chronic) History of (Chronic) History of hernia repair (Chronic) Social History Smoking/Tobacco Use Status: Current every day Tobacco Type: cigarettes Alcohol Intake: former Drug use: Current Sobriety Substance use type: marijuana Do you feel safe at home: Yes Do you feel safe in your relationship?: Yes Additional Social history: Patient is . She has 2 children, and one grandson. 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 Reports daily tobacco use, with an approximate 49-[id number]-[id number] history of smoking. Reports both alcohol and illicit drug use in remission. Exam Const General: cooperative and no acute distress HENMT Head: normocephalic Mouth: moist mucous membranes Eyes Conjunctivae: normal conjunctivae Sclera: normal sclerae Neck Neck: full ROM, no meningeal signs, trachea midline and supple Resp Auscultation: clear to auscultation bilaterally, no rales, no rhonchi and no wheezes Cardio Jugular venous pressure: no JVD Rate: regular rate and not tachycardic Rhythm: regular rhythm GI Palpation: soft, not firm, no guarding, no masses, not rigid and nontender Skin General skin exam: no rashes or lesions noted Neuro General: alert, awake, oriented x3 and tone normal Extrem General: no edema Psych Appearance: grossly normal Mental Status: mental status grossly normal Course Vital Signs Vital signs: Vital Signs Temperature 37 C 05/05/19 14:05 Pulse 97 H 05/05/19 14:05 Respiratory Rate 16 05/05/19 14:05 Blood Pressure 147/61 H 05/05/19 14:05 Pulse Oximetry 94 L 05/05/19 14:05 Temperature 37 C 05/05/19 14:05 Temperature Source Skin 05/05/19 14:05 Pulse 97 H 05/05/19 14:05 Respiratory Rate 16 05/05/19 14:22 Respiratory Effort Non-Labored 05/05/19 14:22 Respiratory Depth Normal 05/05/19 14:22 Respiratory Pattern Normal 05/05/19 14:22 Blood Pressure 147/61 H 05/05/19 14:05 Blood Pressure Position Sitting 05/05/19 14:05 Pulse Oximetry 94 L 05/05/19 14:05 Oxygen Delivery Method Room Air 05/05/19 14:05 Oxygen Flow Rate 0 05/05/19 14:05 Pain Level 7 05/05/19 14:05 Lab/Test Results Lab/Test Results: 05/05/19 14:34 Nasopharynx Influenza Types A,B Antigen - Pending
[2019-05-05] MEDS: Normal Saline 1,000 ML 1000 ML IV ×2 (15:03)
[2019-05-05 15:11] LABS: Lactate 1.3 mmol/L (0.6-1.4)
[2019-05-05 15:13] LABS: Abs Immature Grans 0.03 k/cumm (0.0-0.09); Absolute Basophil Count 0.01 k/cumm (0.0-0.2); Absolute Eosinophil Count 0.01 k/cumm (0.0-0.7); Absolute Lymphocyte Count 0.69 k/cumm (1.2-3.4); Absolute Monocyte Count 1.35 k/cumm (0.11-0.7); Absolute Neutrophil Count 8.03 k/cumm (1.2-6.7); Basophils % 0.1; Eosinophils % 0.1; HGB 13.3 g/dL (12.0-15.5); Immature Grans % 0.3; Lymphocytes % 6.8; Mean Corp. HGB Concentration 33.3 g/dL (32.0-36.0); Mean Corpuscular Hemoglobin 28.1 pg (27.0-33.0); Mean Corpuscular Volume 84.4 fL (80-95); Mean Platelet Volume 9.6 fL (8.0-11.0); Monocytes % 13.3; Neutrophils % 79.4; Platelet Count 181 x1000/uL (130-400); RBC 4.74 m/cumm (4.00-5.20); RBC Distribution Width 13.6 % (11.7-14.6); White Blood Cell Count 10.12 k/cumm (4.4-10.8)
[2019-05-05 15:32] LABS: ALT 23 U/L (14-59); AST 17 U/L (15-37); Alkaline Phosphatase 97 U/L (46-116); Anion Gap 11.7 mmol/L (3-11); BUN 15 mg/dL (7-18); Bilirubin, Total 0.4 mg/dL (0.2-1.0); CO2 27.3 mmol/L (21.0-32.0); CREATININE 0.79 mg/dL (0.55-1.02); Chloride 95 mmol/L (98-107); Glucose 408 mg/dL (74-106); Potassium 3.8 mmol/L (3.5-5.1); Sodium 134 mmol/L (136-145); Total Protein 7.3 g/dL (6.4-8.2)
--- NOTE | 2019-05-05 15:32 | DI.RAD_ITS ---
EXAM: XR CHEST 2V PA LATERAL CLINICAL HISTORY: fever. TECHNIQUE: 2D digital imaging was performed. COMPARISON: No exams were available for comparison FINDINGS: LUNGS: Clear. No pleural abnormality seen. HEART: Normal. MEDIASTINUM: Normal. OTHER FINDINGS:Normal. IMPRESSION: No acute pulmonary findings.
[2019-05-05 15:41] LABS: Troponin I < 0.05 ng/Ml (<0.06)
[2019-05-05 15:55] LABS: Bilirubin Negative (Negative); Blood Moderate (Negative); Clarity Sl Cloudy (Clear); Glucose 500 mg/dL (Negative); Ketones Negative (Negative); Leukocyte Esterase Negative (Negative); Nitrite Negative (Negative); Specific Gravity 1.015 (1.005-1.025); Urobilinogen 0.2 EU/dL (Up TO 0.2); pH 5.5 (5-8)
--- NOTE | 2019-05-05 15:55 | DI.VRAD_ITS ---
PROCEDURE INFORMATION: Exam: XR Chest, 2 Views Exam date and time: 05/05/2019 3:37 PM Age: 53 years old Clinical indication: Other: Fever/ cough x 3 days TECHNIQUE: Imaging protocol: XR of the chest Views: 2 views. COMPARISON: No relevant prior studies available. FINDINGS: Lungs: Unremarkable. No consolidation. Pleural space: Unremarkable. No pleural effusion. No pneumothorax. Heart/Mediastinum: Unremarkable. No cardiomegaly. Bones/joints: Unremarkable. IMPRESSION: No acute findings. Dictated and Authenticated by: Sangita Atkins MD. Ordering:LIANG Pinto MD
[2019-05-05 16:11] LABS: Bacteria Many HPF (Negative); C & S Indicated? Yes; Casts Negative LPF (Negative); Crystals Negative HPF (Negative); Epithelial Cells Negative HPF (Negative); Mucus Negative (Negative); Other Cells Negative (Negative); RBC Negative HPF (0-2); WBC >50 HPF (0-5)
[2019-05-05] MEDS: cefTRIAXone 1 GM/50 ML BAG IVPB (16:40)
[2019-05-05] MEDS: VANCOMYCIN 1,500 MG in Normal Saline 250 ML 166.6666 MG IVPB (16:53)
[2019-05-05 17:00] LABS: Anion Gap 9.8 mmol/L (3-11); BUN 15 mg/dL (7-18); CO2 28.2 mmol/L (21.0-32.0); CREATININE 0.71 mg/dL (0.55-1.02); Calcium 8.5 mg/dL (8.5-10.1); Chloride 100 mmol/L (98-107); Glucose 322 mg/dL (74-106); Potassium 4.1 mmol/L (3.5-5.1); Sodium 138 mmol/L (136-145)
[2019-05-05] MEDS: Acetaminophen 325 MG TAB PO (17:19)
--- NOTE | 2019-05-05 17:47 | W.PM.HP.N ---
Date of service: 05/05/19 Time of Service: 17:47 Assessment and Plan Assessment and plan (1) Endocarditis: Status: Acute Assessment and plan: New heart murmur in the setting of high fever and potential bacteremia. She has a history of IV drug use but none currently. We will check an echocardiogram. Empiric therapy with vancomycin and ceftriaxone. (2) Pyelonephritis: Status: Acute Assessment and plan: Presents with a picture of sepsis, high fever, pyuria. She does not have CVA tenderness. Empiric coverage with ceftriaxone and vancomycin. (3) Sepsis: Status: Acute Assessment and plan: Patient now has developed high fever with delirium. She does not have a markedly elevated white count but there is concern that she could have bacteremia. Will monitor in the intensive care unit. Ceftriaxone and vancomycin as empiric therapy for endocarditis. (4) Diabetes mellitus: Status: Chronic Assessment and plan: Poorly controlled diabetes. We will hold her current meds and start basal and bolus insulin therapy. IV fluids. Monitor for diabetic ketoacidosis. (5) History of alcohol abuse: Status: Chronic Assessment and plan: Abstain from alcohol for years now. (6) SHARAN (obstructive sleep apnea): Status: Chronic Assessment and plan: Apparently is on home CPAP therapy. Will order that here. (7) Hepatitis C: Status: Chronic Assessment and plan: No evidence of overt liver failure at this time (8) History of intravenous drug abuse: Status: Chronic Assessment and plan: Abstains from current use. Will check urine drug screen. History of Present Illness History of Present Illness Chief Complaint: Pyelonephritis/endocarditis Narrative: This is a 53-year-old woman with a history of poorly controlled diabetes and in remission from history of IV drug abuse that presents with intermittent fevers, generalized fatigue, myalgias. In the emergency room the urinalysis revealed greater than 50 white cells. She had a new heart murmur on exam. Blood cultures were obtained. The initial concern was for potential pyelonephritis and or endocarditis. She was started empirically on vancomycin and ceftriaxone. She is to receive insulin therapy to get her sugars down. She will be on some IV fluids. As she was leaving the emergency room she got sick to her stomach and spiked a fever to 39.4. She is being redirected to the intensive care unit for closer monitoring. Review of Systems Narrative: Patient has been feeling sick for several days now. She had been compliant with her Metformin but not taking the Januvia. She is not been having any chest pain. She was not forthcoming with any other review of systems. [facility] Medical History Adrenal nodule (Chronic) Anxiety (Chronic) Diabetes mellitus (Chronic) Hepatitis C (Chronic) History of alcohol abuse (Chronic) History of intravenous drug abuse (Chronic) HPV (human papilloma virus) infection (Chronic) Hypertension (Chronic) Obesity (Chronic) SHARAN (obstructive sleep apnea) (Chronic) Pyelonephritis (Acute) Sepsis (Acute) Tobacco abuse (Chronic) Ventral hernia (Chronic) Surgical History History of appendectomy (Chronic) History of (Chronic) History of hernia repair (Chronic) Social History Smoking/Tobacco Use Status: Current every day Tobacco Type: cigarettes Alcohol Intake: former Drug use: Current Sobriety Substance use type: marijuana Do you feel safe at home: Yes Do you feel safe in your relationship?: Yes Additional Social history: Patient is . She has 2 children, and one grandson. 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 Reports daily tobacco use, with an approximate [id number] history of smoking. Reports both alcohol and illicit drug use in remission. Meds Home Medications and Allergies Home Medications Medication Instructions Recorded Confirmed Type buprenorphine-naloxone [Suboxone] 8 mg SUBLINGUAL DAILY 04/17/13 05/05/19 History losartan-hydrochlorothiazide 1 tab PO DAILY 12/17/16 05/05/19 History oxybutynin chloride 1 tab PO BID 12/17/16 05/05/19 History Victoza 2-[place]on 1.2 mg SUBCUT DAILY 05/06/18 05/05/19 History bupropion HCl [Wellbutrin XL] 300 mg PO QAM 05/06/18 05/05/19 History gabapentin 400 mg PO TID 05/06/18 05/05/19 History ibuprofen [Ibuprofen IB] 800 mg PO QID PRN 05/06/18 05/05/19 History metformin [Glucophage XR] 1,000 mg PO DAILY 12/30/18 12/29/19 History Allergies Allergy/AdvReac Type Severity Reaction Status Date / Time exenatide [From Byetta] AdvReac Mild Unverified 05/05/19 14:09 lisinopril AdvReac Mild Unverified 05/05/19 14:09 Exam Narrative Exam Narrative: On exam she was warm and diaphoretic. She was not all that talkative. She remembered me from a previous admission 2 years ago. Her lung sounds were clear on the right and left. She did not have CVA tenderness on the right or the left. Her heart sounded regular she had if anything a 1/6 systolic murmur, very soft. Abdomen is quite massively obese but there is no tenderness and any of the 4 quadrants. The lower extremities show no significant edema and are otherwise well perfused. She had no obvious rashes or lesions on her extremities. Neurologically she looked somewhat uncomfortable but was alert and attentive enough. She had no focal neurologic deficits. (Late report from the nurses say that she is now more delirious following the temperature spike to 39.5) Results Labs Result diagrams: 05/05/19 14:50 05/05/19 16:40 Labs: Laboratory Results - last 24 hr 05/05/19 05/05/19 05/05/19 14:50 14:50 14:50 WBC 10.12 RBC 4.74 Hgb 13.3 Hct 40.0 MCV 84.4 MCH 28.1 MCHC 33.3 RDW 13.6 Plt Count 181 MPV 9.6 Immature Gran % 0.3 Neutrophils % 79.4 Lymphocytes % 6.8 Monocytes % 13.3 Eosinophils % 0.1 Basophils % 0.1 Absolute Neutrophils 8.03 H Absolute Lymphocytes 0.69 L Absolute Monocytes 1.35 H Absolute Eosinophils 0.01 Absolute Basophils 0.01 Sodium 134 L Potassium 3.8 Chloride 95 L Carbon Dioxide 27.3 Anion Gap 11.7 H BUN 15 Creatinine 0.79 Estimated GFR/1.73 m2 >= 60.00 Glucose 408 H Lactate 1.3 Calcium 9.0 Total Bilirubin 0.4 AST 17 ALT 23 Alkaline Phosphatase 97 Troponin I < 0.05 Total Protein 7.3 Albumin 3.0 L Urine Color Urine Clarity Urine pH Ur Specific [place] Urine Protein Urine Ketones Urine Blood Urine Nitrite Urine Bilirubin Urine Urobilinogen Ur Leukocyte Esterase Urine RBC Urine WBC Ur Epithelial Cells Urine Crystals Urine Bacteria Urine Casts Urine Mucus Urine Other Ur Culture Indicated? Urine Glucose 05/05/19 05/05/19 15:31 16:40 WBC RBC Hgb Hct MCV MCH MCHC RDW Plt Count MPV Immature Gran % Neutrophils % Lymphocytes % Monocytes % Eosinophils % Basophils % Absolute Neutrophils Absolute Lymphocytes Absolute Monocytes Absolute Eosinophils Absolute Basophils Sodium 138 Potassium 4.1 Chloride 100 Carbon Dioxide 28.2 Anion Gap 9.8 BUN 15 Creatinine 0.71 Estimated GFR/1.73 m2 >= 60.00 Glucose 322 H Lactate Calcium 8.5 Total Bilirubin AST ALT Alkaline Phosphatase Troponin I Total Protein Albumin Urine Color Yellow Urine Clarity Sl cloudy Urine pH 5.5 Ur Specific [place] 1.015 Urine Protein 30 H Urine Ketones Negative Urine Blood Moderate H Urine Nitrite Negative Urine Bilirubin Negative Urine Urobilinogen 0.2 Ur Leukocyte Esterase Negative Urine RBC Negative Urine WBC >50 H Ur Epithelial Cells Negative Urine Crystals Negative Urine Bacteria Many Urine Casts Negative Urine Mucus Negative Urine Other Negative Ur Culture Indicated? Yes Urine Glucose 500 H Last Vital Signs Temp 40.3 C H 05/05/19 17:45 Pulse 109 H 05/05/19 17:41 Resp 22 05/05/19 17:41 BP 175/97 H 05/05/19 17:41 Pulse Ox 97 05/05/19 17:41
[2019-05-05] MEDS: Normal Saline 1,000 ML 100 ML IV ×2 (18:09→20:41)
[2019-05-05] MEDS: Ondansetron 4 MG/2 ML VIAL IVP (18:09)
[2019-05-05] MEDS: Ketorolac 15 MG/ML VIAL IVP ×2 (18:09→21:24)
[2019-05-05 18:54] LABS: *AMPHETAMINES SCREEN URINE Negative (Negative); *BARBITURATES SCREEN URINE Negative (Negative); *BENZODIAZEPINES SCREEN URINE Negative (Negative); Cannabinoids THC Negative (Negative); Cocaine Screen,Urine Negative (Negative); METHADONE URINE SCREEN Negative (Negative); OPIATES URINE SCREEN Negative (Negative)
[2019-05-05 19:07] LABS: Tricyclic Antidepressants Negative (Negative)
[2019-05-05] MEDS: Insulin Glargine 300 UNITS/3 ML PEN 15 UNITS SC (21:21)
[2019-05-05] MEDS: Enoxaparin 40 MG/0.4 ML SYR SC (21:21)
[2019-05-05] MEDS: Insulin Aspart 300 UNITS/3 ML PEN SC (21:22)
[2019-05-05] MEDS: Gabapentin 400 MG CAP PO (21:24)
[2019-05-05] MEDS: Oxybutynin 5 MG TAB PO (21:24)
[2019-05-05] MEDS: Normal Saline Flush 10 ML SYR IVP (22:09)
[2019-05-06] VITALS (8 sets, daily range): BP systolic 112–125; BP diastolic 64–79; PULSE 73–92; RESP 10–27; TEMP 36.4–37.4; O2SAT 9–96
[2019-05-06] MEDS: VANCOMYCIN 1,500 MG in Normal Saline 250 ML 166.6666 MG IVPB (03:21)
[2019-05-06] MEDS: Normal Saline Flush 10 ML SYR IVP ×2 (03:44→07:51)
[2019-05-06] MEDS: Ketorolac 15 MG/ML VIAL IVP ×2 (03:44→20:10)
[2019-05-06 07:28] LABS: Abs Immature Grans 0.03 k/cumm (0.0-0.09); Absolute Basophil Count 0.01 k/cumm (0.0-0.2); Absolute Eosinophil Count 0.07 k/cumm (0.0-0.7); Absolute Lymphocyte Count 1.09 k/cumm (1.2-3.4); Absolute Monocyte Count 0.98 k/cumm (0.11-0.7); Absolute Neutrophil Count 6.53 k/cumm (1.2-6.7); Basophils % 0.1; Eosinophils % 0.8; HCT 37.2 % (36.0-46.0); HGB 12.2 g/dL (12.0-15.5); Immature Grans % 0.3; Lymphocytes % 12.5; Mean Corp. HGB Concentration 32.8 g/dL (32.0-36.0); Mean Corpuscular Hemoglobin 28.2 pg (27.0-33.0); Mean Corpuscular Volume 86.1 fL (80-95); Mean Platelet Volume 9.6 fL (8.0-11.0); Monocytes % 11.3; Platelet Count 193 x1000/uL (130-400); RBC 4.32 m/cumm (4.00-5.20); RBC Distribution Width 13.7 % (11.7-14.6); White Blood Cell Count 8.71 k/cumm (4.4-10.8)
[2019-05-06 07:48] LABS: Calcium 8.5 mg/dL (8.5-10.1); Chloride 102 mmol/L (98-107); Potassium 3.8 mmol/L (3.5-5.1); Sodium 138 mmol/L (136-145)
[2019-05-06] MEDS: Ondansetron 4 MG/2 ML VIAL IVP ×2 (07:49→20:14)
[2019-05-06] MEDS: Acetaminophen 325 MG TAB PO ×2 (07:51→14:31)
[2019-05-06 07:57] LABS: Anion Gap 11.1 mmol/L (3-11); BUN 24 mg/dL (7-18); CO2 24.9 mmol/L (21.0-32.0); CREATININE 0.83 mg/dL (0.55-1.02); Glucose 274 mg/dL (74-106)
[2019-05-06 07:58] LABS: Hemoglobin A1C 12.4 % (3.8-5.6)
[2019-05-06] MEDS: Normal Saline 1,000 ML 100 ML IV ×2 (08:38→20:10)
[2019-05-06] MEDS: Insulin Aspart 300 UNITS/3 ML PEN SC ×4 (08:39→21:51)
[2019-05-06] MEDS: Gabapentin 400 MG CAP PO ×3 (08:39→20:09)
[2019-05-06] MEDS: buPROPion-XL 150 MG TABCR 300 MG PO (08:39)
[2019-05-06] MEDS: Oxybutynin 5 MG TAB PO ×2 (08:39→20:09)
[2019-05-06] MEDS: Buprenorphine/Naloxone 8 mg/2 mg FILM 1 EACH SL (09:15)
--- NOTE | 2019-05-06 10:30 | DI.US_ITS ---
APPROVED REPORT EXAM: Comprehensive 2D, Doppler, and color-flow Echocardiogram Patient Location: [facility]-Patient [facility] Administrative Assistant: Jaqui Chávez RDCS (AE) Rhythm: NSR Indications: sepsis syndrome, new murmur. Conclusion Left Ventricle : The left ventricle is normal size. Mild left ventricular hypertrophy. The left shannon tricular systolic function is normal. The left ventricular ejection fraction is within the normal ran ge. There is normal LV segmental wall motion. LVEF is estimated to be 60-65%. The left ventricular di astolic function is normal. Right Ventricle : The right ventricle appears normal in size. The right ventricular systolic function appears normal. Atria : The left atrium size is normal. The right atrium size is normal. Aortic Valve : Aortic valve is probably trileaflet. No aortic regurgitation is present. There is no a ortic valvular stenosis. Mitral Valve : The mitral valve is normal in structure. Trace mitral regurgitation. No evidence of mi tral valve stenosis. Tricuspid Valve : The tricuspid valve is not well visualized. Mild tricuspid regurgitation. Great Vessels : The aortic root size is normal. The ascending aorta size is dilated (3.4cm). The IVC is dialted in size and collapses >50% with inspiration. Mid RVSP is 28-36 mmHg. There is no prior echocardiogram available for comparison. Wall motion Left Ventricle The left ventricle is normal size. The left ventricular systolic function is normal. The left ventric ular ejection fraction is within the normal range. Mild left ventricular hypertrophy. There is normal LV segmental wall motion. The left ventricular diastolic function is normal. LVEF is estimated to be 60-65%. Right Ventricle The right ventricle appears normal in size. The right ventricular systolic function appears normal. Atria The left atrium size is normal. The right atrium size is normal. Aortic Valve Aortic valve is probably trileaflet. There is no aortic valvular stenosis. No aortic regurgitation is present. Mitral Valve The mitral valve is normal in structure. No evidence of mitral valve stenosis. Trace mitral regurgita tion. Tricuspid Valve The tricuspid valve is not well visualized. Mild tricuspid regurgitation. Pulmonic Valve Pulmonic valve is not well visualized. Great Vessels The aortic root size is normal. The ascending aorta size is dilated (3.4cm). The IVC is dialted in si ze and collapses >50% with inspiration. Mid RVSP is 28-36 mmHg. Pericardium There is no pericardial effusion. 2D Dimensions IVSd 1.10 cm F: 0.6-1.0 LV EDV A4C 157.80 mL PWd 1.20 cm F: 0.6 - 1.0 LA Volume Index A2C 19.88 mL/m2 LVDd 4.90 cm F: 3.8 - 5.2 LA Volume Index A4C 26.16 mL/m2 LVDs 3.35 cm F: 2.2 - 3.5 LA Volume Index Biplane 22.92 mL/m2 Aortic Root 3.10 cm F: 2.7 - 3.3 LA Area A4C 20.36 cm2 RA Area A4C 19.11 cm2 LA Area A2C 17.66 cm2 LVOT 2.25 cm (M/F) 1.5-2.5 EF AP4 68.44 % Ascending Aorta 3.42 cm F: 2.3 - 3.1 LVEF (Teich) 60.19 % LV Volume Index 65.40 mL/m2 F: 29 - 61 FS 32.15 % LV Diastology E/A Ratio 1.4 MED E' 0.11 (>0.07 m/s) LV E/e MED 9.80 (<14) LAT E' 0.12 (>0.1 m/s) LV E/e LAT 9.40 (<14) Aortic Valve LVOT Area 4.11 cm2 LVOT Vmax 1.11 m/s LVOT Mean Michael. 0.76 m/s LVOT Peak Gr. 4.9 mmHg LVOT Mean Gr. 2.6 mmHg AoV Area/ BSA (Vmax) 1.13 cm2/m2 LVOT VTI 0.200 m AoV Vmax 1.68 (0.5-1.3 m/s) LEIDY Mean Michael. Index 1.23 cm2/m2 AoV Mean Michael. 1.05 m/s AoV Peak Grad 11.3 mmHg AoV Mean Grad 5.1 (<5 mmHg) AoV VTI 0.278 (0.18-0.25 m) VTI Ratio 0.78 AoV Area VTI 3.18 (2.5-4.5 cm2) AoV Area/ BSA (VTI) 1.32 cm/m2 Mitral Valve MV E Max Michael. 1.11 (0.4-1.3 m/s) MV A Velocity 0.80 (0.4-1.3 m/s) E/A Ratio 1.37 MV Decel. Time 207.15 (160-240 msec) MV PHT 60.08 msec MVA PHT 3.65 cm2 Pulmonary Valve PV Peak Velocity 1.12 (0.5-1.5 m/s) RVOT Peak Gr. 2.84 mmHg RVOT Peak Michael. 0.84 m/s RVOT Mean Gr. 1.90 mmHg RVOT VTI 0.20 m Tricuspid Valve TR P. Velocity 2.63 m/s TV Regurg Vmax 2.63 m/s RAP Estimate 8.00 mmHg RVSP 36.00 mmHg TR P. Gradient 27.60 mmHg
--- NOTE | 2019-05-06 14:15 | W.PM.PROGNOT ---
Date of Service Date of service: 05/06/19 Time of Service: 14:15 Assessment and Plan Assessment and plan (1) Pyelonephritis: Status: Acute Assessment and plan: no further fevers on ceftriaxone day 2. will continue to await sensitivities. blood and urine cultures are positive for gram negative rods, will discontinue vancomycin (2) Endocarditis: Status: Acute Assessment and plan: echocardiogram results pending. blood and urine culture grew gram negative mar (3) Sepsis: Status: Acute Assessment and plan: resolved and hemodynamically stable. continue to monitor. blood and urine cultures grew gram negative rods. will discontinue vancomycin and repeat blood cultures in am (4) Diabetes mellitus: Status: Chronic Assessment and plan: poorly controlled A1C 12.4, today blood sugars 180-264, will increase lantus to 20 units at bedtime, continue diabetic education, continue diabetic diet, will likely need lantus at discharge. continue sliding sliding as needed ac/hs. metformin and victoza held on admission. (5) History of alcohol abuse: Status: Chronic Assessment and plan: no current use, has been dry for years (6) SHARAN (obstructive sleep apnea): Status: Chronic Assessment and plan: on home CPAP therapy (7) Hepatitis C: Status: Chronic Assessment and plan: no liver failure or issues (8) History of intravenous drug abuse: Status: Chronic Assessment and plan: denies recent use. urine drug screen is negative. continue suboxone. (9) Hypertension: Status: Chronic Assessment and plan: stable, continue home medications (10) DVT prophylaxis: Status: Chronic Assessment and plan: enoxaparin daily (11) Discharge planning issues: Status: Acute Assessment and plan: anticipate discharge to home with no services Subjective Subjective Patient reports: no new complaints and feels better Interval history since last seen: patient with no further fevers overnight. no cva tenderness. no urinary c/o or chest pain. denies shortness of breath. eating and drinking well. no bm since admission Exam Const General: cooperative, healthy appearing, comfortable, no acute distress, disheveled and other (older than stated age) Nutritional Appearance: obese Orientation: alert, awake and oriented x3 Resp Effort & Inspection: normal respiratory effort Auscultation: clear to auscultation bilaterally Cardio Rate: regular rate Rhythm: regular rhythm Heart Sounds: murmur GI Inspection: normal to inspection and obesity Palpation: soft Auscultation: normal bowel sounds Back/Spine/Pelvis Back: no CVA tenderness Skin General skin exam: no rashes or lesions noted Neuro General: alert, awake and oriented x3 Cranial Nerves: CN's II-XI intact bilaterally Extrem General: normal to inspection and full ROM Psych Speech and Movement: speech and movement normal Mood: congruent mood Affect: normal affect Attitude: cooperative Thought Process: normal Thought Content: normal Objective Objective Clinical Data: Abnormal lab results 05/05/19 05/05/19 05/05/19 Range/Units 14:50 14:50 15:31 Absolute Neutrophils 8.03 H (1.2-6.7) k/cumm Absolute Lymphocytes 0.69 L (1.2-3.4) k/cumm Absolute Monocytes 1.35 H (0.11-0.7) k/cumm Sodium 134 L (136-145) mmol/L Chloride 95 L (98-107) mmol/L Anion Gap 11.7 H (3-11) mmol/L BUN (7-18) mg/dL Glucose 408 H (74-106) mg/dL Hemoglobin A1c (3.8-5.6) % Albumin 3.0 L (3.4-5.0) g/dL Urine Protein 30 H (Negative) mg/dL Urine Blood Moderate H (Negative) Urine WBC >50 H (0-5) HPF Urine Glucose 500 H (Negative) mg/dL 05/05/19 05/06/19 05/06/19 Range/Units 16:40 07:00 07:00 Absolute Neutrophils (1.2-6.7) k/cumm Absolute Lymphocytes 1.09 L (1.2-3.4) k/cumm Absolute Monocytes 0.98 H (0.11-0.7) k/cumm Sodium (136-145) mmol/L Chloride (98-107) mmol/L Anion Gap 11.1 H (3-11) mmol/L BUN 24 H D (7-18) mg/dL Glucose 322 H 274 H (74-106) mg/dL Hemoglobin A1c (3.8-5.6) % Albumin (3.4-5.0) g/dL Urine Protein (Negative) mg/dL Urine Blood (Negative) Urine WBC (0-5) HPF Urine Glucose (Negative) mg/dL 05/06/19 Range/Units 07:00 Absolute Neutrophils (1.2-6.7) k/cumm Absolute Lymphocytes (1.2-3.4) k/cumm Absolute Monocytes (0.11-0.7) k/cumm Sodium (136-145) mmol/L Chloride (98-107) mmol/L Anion Gap (3-11) mmol/L BUN (7-18) mg/dL Glucose (74-106) mg/dL Hemoglobin A1c 12.4 H (3.8-5.6) % Albumin (3.4-5.0) g/dL Urine Protein (Negative) mg/dL Urine Blood (Negative) Urine WBC (0-5) HPF Urine Glucose (Negative) mg/dL Vital Signs Temperature 36.6 C 05/06/19 07:40 Temperature Source Tympanic 05/06/19 07:40 Pulse 73 05/06/19 07:40 Pulse Rhythm Regular 05/06/19 10:05 Pulse 115 H 05/05/19 18:20 Respiratory Rate 20 05/06/19 07:40 Respiratory Effort 05/06/19 10:05 Respiratory Depth Normal 05/06/19 10:05 Respiratory Pattern Normal 05/06/19 10:05 Blood Pressure 125/76 05/06/19 07:40 Blood Pressure Mean 82 05/05/19 23:30 Blood Pressure Position Sitting 05/05/19 14:05 Pulse Oximetry 96 05/06/19 07:40 Oxygen Delivery Method Bi-pap 05/06/19 03:10 Oxygen Flow Rate 2 05/06/19 03:10 Fraction of Inspired Oxygen (FIO2) 21 05/06/19 13:15 Pain Level 4 05/06/19 07:51 Intake & Output 05/05/19 05/06/19 05/06/19 23:59 11:59 23:59 Intake Total 2241.056 / 2241.056 1240 / 1720 480 / 1720 Output Total 125 / 125 450 / 450 Balance 2116.056 / 2116.056 790 / 1270 480 / 1270 Weight 113.2 kg 109.4 kg Intake: IV 2241.056 / 2241.056 1000 / 1000 Oral 240 / 720 480 / 720 Output: Urine 125 / 125 450 / 450 Other: Urine Color Dark Liliana Dark Liliana Urine Appearance Cloudy Cloudy Urine Odor Strong Strong Comment PRN Toradol given for bilat flank pain has had a positive effect. Pain reduced from 6 to 4/10 which pt states is tolerable for her. Pt also states she has urge incontinence. Pt has voided only 125ml this entire shift. Diagnosis of pyelonephritis noted. Voiding Methods Bedside Commode Bedside Commode Laboratory Results WBC 8.71 k/cumm (4.4-10.8) 05/06/19 07:00 RBC 4.32 m/cumm (4.00-5.20) 05/06/19 07:00 Hgb 12.2 g/dL (12.0-15.5) 05/06/19 07:00 Hct 37.2 % (36.0-46.0) 05/06/19 07:00 MCV 86.1 fL (80-95) 05/06/19 07:00 MCH 28.2 pg (27.0-33.0) 05/06/19 07:00 MCHC 32.8 g/dL (32.0-36.0) 05/06/19 07:00 RDW 13.7 % (11.7-14.6) 05/06/19 07:00 Plt Count 193 x1000/uL (130-400) 05/06/19 07:00 MPV 9.6 fL (8.0-11.0) 05/06/19 07:00 Immature Gran % 0.3 05/06/19 07:00 Neutrophils % 75.0 05/06/19 07:00 Lymphocytes % 12.5 05/06/19 07:00 Monocytes % 11.3 05/06/19 07:00 Eosinophils % 0.8 05/06/19 07:00 Basophils % 0.1 05/06/19 07:00 Absolute Neutrophils 6.53 k/cumm (1.2-6.7) 05/06/19 07:00 Absolute Lymphocytes 1.09 k/cumm (1.2-3.4) L 05/06/19 07:00 Absolute Monocytes 0.98 k/cumm (0.11-0.7) H 05/06/19 07:00 Absolute Eosinophils 0.07 k/cumm (0.0-0.7) 05/06/19 07:00 Absolute Basophils 0.01 k/cumm (0.0-0.2) 05/06/19 07:00 Sodium 138 mmol/L (136-145) 05/06/19 07:00 Potassium 3.8 mmol/L (3.5-5.1) 05/06/19 07:00 Chloride 102 mmol/L (98-107) 05/06/19 07:00 Carbon Dioxide 24.9 mmol/L (21.0-32.0) 05/06/19 07:00 Anion Gap 11.1 mmol/L (3-11) H 05/06/19 07:00 BUN 24 mg/dL (7-18) H D 05/06/19 07:00 Creatinine 0.83 mg/dL (0.55-1.02) 05/06/19 07:00 Estimated GFR/1.73 m2 >= 60.00 (mL/min/1.73m2) 05/06/19 07:00 Glucose 274 mg/dL (74-106) H 05/06/19 07:00 Hemoglobin A1c 12.4 % (3.8-5.6) H 05/06/19 07:00 Lactate 1.3 mmol/L (0.6-1.4) 05/05/19 14:50 Calcium 8.5 mg/dL (8.5-10.1) 05/06/19 07:00 Total Bilirubin 0.4 mg/dL (0.2-1.0) 05/05/19 14:50 AST 17 U/L (15-37) 05/05/19 14:50 ALT 23 U/L (14-59) 05/05/19 14:50 Alkaline Phosphatase 97 U/L (46-116) 05/05/19 14:50 Troponin I < 0.05 ng/Ml (<0.06) 05/05/19 14:50 Total Protein 7.3 g/dL (6.4-8.2) 05/05/19 14:50 Albumin 3.0 g/dL (3.4-5.0) L 05/05/19 14:50 Urine Color Yellow (Yellow) 05/05/19 15:31 Urine Clarity Sl cloudy (Clear) 05/05/19 15:31 Urine pH 5.5 (5-8) 05/05/19 15:31 Ur Specific [place] 1.015 (1.005-1.025) 05/05/19 15:31 Urine Protein 30 mg/dL (Negative) H 05/05/19 15:31 Urine Ketones Negative mg/dL (Negative) 05/05/19 15:31 Urine Blood Moderate (Negative) H 05/05/19 15:31 Urine Nitrite Negative (Negative) 05/05/19 15:31 Urine Bilirubin Negative (Negative) 05/05/19 15:31 Urine Urobilinogen 0.2 EU/dL (Up TO 0.2) 05/05/19 15:31 Ur Leukocyte Esterase Negative (Negative) 05/05/19 15:31 Urine RBC Negative HPF (0-2) 05/05/19 15:31 Urine WBC >50 HPF (0-5) H 05/05/19 15:31 Ur Epithelial Cells Negative HPF (Negative) 05/05/19 15:31 Urine Crystals Negative HPF (Negative) 05/05/19 15:31 Urine Bacteria Many HPF (Negative) 05/05/19 15:31 Urine Casts Negative LPF (Negative) 05/05/19 15:31 Urine Mucus Negative (Negative) 05/05/19 15:31 Urine Other Negative (Negative) 05/05/19 15:31 Ur Culture Indicated? Yes 05/05/19 15:31 Urine Glucose 500 mg/dL (Negative) H 05/05/19 15:31 Urine Opiates Screen Negative (Negative) 05/05/19 18:00 Urine Methadone Screen Negative (Negative) 05/05/19 18:00 Ur Barbiturates Screen Negative (Negative) 05/05/19 18:00 Ur Tricyclics Screen Negative (Negative) 05/05/19 18:00 Ur Amphetamines Screen Negative (Negative) 05/05/19 18:00 U Benzodiazepines Scrn Negative (Negative) 05/05/19 18:00 Urine Cocaine Screen Negative (Negative) 05/05/19 18:00 Ur THC Screen Negative (Negative) 05/05/19 18:00
--- NOTE | 2019-05-06 15:17 | W.INDIABCONS ---
Date of service: 05/06/19 Time of Service: 15:18 Diabetes Inpatient Consult DESCRIPTION/ASSESSMENT: Appreciate diabetes consult for Evi Srivastava who is hospitalized with endocarditis and fever. A1c 12.4 BMI 44 Evi has blood sugars at 400 on admission now down to 180mg/dl on resistant insulin correction and 15u Lantus. At home she takes Metformin and Victoza however admits she has not been taking this recently. Evi admits she doesn't eat most of the day, but then eats too large portions. States she is motivated to work on her food issues. Discussed if she needs insulin when discharged. She is recovering nicely with relatively small doses of insulin. INTERVENTION: Given that Evi has not been taking her medication as prescribed always, and her blood sugars have correction with limited effort, discussed importance of taking the medications prescribed prior to adding insulin. At this time suggest watching blood sugars and will review again tomorrow. PLAN: Follow blood sugars and f/u tomorrow. Time Spent in Nutritional Counseling and Treatment: 15 minutes face to face
--- NOTE | 2019-05-06 16:02 | CHAPLAIN ---
Evi and I know each other from previous admissions and from her work at the [employer]. She was teary today during our conversation, saying she is frustrated with her addictive behaviors around eating, that keep her unhealthy because she wants to be around for her two grand children. Evi is very self-reflective and and identifies what her strengths and weaknesses are. She said she currently shares an apartment with a roommate and the situation is working out well, however currently her daughter and two grandchildren are living with her, but she said the plan is for them to move out by June 08.
--- NOTE | 2019-05-06 16:30 | PHARADMIT ---
Addendum entered by Kristin Mata 05/07/19 16:01: Pharmacy Note Subjective improving Objective VS okay h/h-11.5/35.2(down a little) Assessment ceftriaxone continues (day 3) repeat blood cultures pending metformin and victoza restarted by MD today Plan watch for change to PO abx Original Note: Admission Pharmacy Clinical Review pyelonephritis Code Status Full Code Current Weight 109.4 kg Renally Cleared and Narrow Therapeutic Index Meds Crcl ~91.3 mL/min using adjusted body weight current meds okay QTc Value / Action Taken QTc 452 BP Control, Fever BP 112/64 Tmax 40.3 yesterday Electrolytes reviewed within normal limits DVT Prophylaxis enoxaparin Opiate Usage / Scheduled Bowel Regimen Ordered umm/prn Plt/SCr for Heparin / Enoxaparin plt 193 SCr 0.83 INR for Warfarin n/a H/H stable, WBC/Bands h/h 12.2/37.2 wbc 8.71 Antibiotic appropriateness ceftriaxone Cultures and Sensitivities urine and blood cultures growing gram negative rods rapid flu negative Surgical ABX d/c within 24 hr n/a DM control / Insulin Dosing A1C 12.4 BG 274 scheduled glargine and sliding scale aspart Heart Failure (Check EF%) (ROBERTO's, B-Block, Diuretics) none IV to PO Switch n/a Home Meds Reviewed multiple [employer] depressants- gabapentin, buprenorphine/naloxone Home Meds Not Ordered ibuprofen, losartan/hydrochlorothiazide, metformin, victoza Comments ECHO today vanco discontinued due to cultures
[2019-05-06] MEDS: cefTRIAXone 2 GM/50 ML BAG IVPB (16:35)
[2019-05-06] MEDS: Enoxaparin 40 MG/0.4 ML SYR SC (17:42)
--- NOTE | 2019-05-06 20:30 | INITIAL_ITS ---
- If Service Date Differs Date of service: 05/06/19 Time of Service: 20:30 Care Management Initial Assess REASON FOR HOSPITALIZATION:: Endocarditis PAST MEDICAL HISTORY/PAST SURGICAL HISTORY:: Medical History . Adrenal nodule (Chronic). Anxiety (Chronic). Diabetes mellitus (Chronic). Hepatitis C (Chronic). History of alcohol abuse (Chronic). History of intravenous drug abuse (Chronic). HPV (human papilloma virus) infection (Chronic). Hypertension (Chronic). Obesity (Chronic). SHARAN (obstructive sleep apnea) (Chronic). Pyelonephritis (Acute). Sepsis (Acute). Tobacco abuse (Chronic). Ventral hernia (Chronic). Surgical History . History of appendectomy (Chronic). History of (Chronic). History of hernia repair (Chronic) PREVIOUS FUNCTIONAL STATUS/SOCIAL/FAMILY SUPPORTS:: Evi lives in [place] in a single family home with her roomate Mayo , daughter and her daughters 2 sons. She also has a son in [facility] who is in the [employer]. 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 and is independent with all care and activities. She identifies her roomate and close friend Selena as her strongest supports in the community. CURRENT FUNCTIONAL STATUS:: Evi was sitting up in a chair when CM met with her. She was pleasant and engaged readily in conversation. Evi shared the course of her recent illness and concerns about her health. ADVANCE DIRECTIVES:: Provided with a copy of [place]. State AD forms by CM at her request Has patient been provided with information about the portal?: Yes Did the patient sign up for the portal?: Yes (previously) CODE STATUS:: Full Code INSURANCE COVERAGE / FINANCIAL ISSUES:: Medicaid CURRENT HOME/COMMUNITY SERVICES/EQUIPMENT:: none currently PRIMARY CARE PHYSICIAN:: Debo Talamantes POTENTIAL DISCHARGE NEEDS:: follow up with PCP and discharge plan of care. PATIENT/FAMILY EDUCATION NEEDS:: Discharge plan, limitations, follow up plan, Ask Me Three TRANSPORTATION:: via private vehicle with family PLAN:: Evi is being treated with V antibiotics for bacteremia with gram negative rods, with urine as a likely source, since she also has a positive urine culture. She may need IV antibiotics post-discharge if endocarditis is confirmed. Evi will follow up with her PCP and discharge plan of care. CM will continue to support patient, family and discharge planning needs.
[2019-05-06] MEDS: Insulin Glargine 300 UNITS/3 ML PEN 20 UNITS SC (21:49)
[2019-05-06] MEDS: Calcium Carbonate *TUMS* 500 MG CHEW PO (21:57)
[2019-05-07 03:47] VITALS: BP 156/66; PULSE 88; RESP 18; TEMP 36.6; O2SAT 93
[2019-05-07] MEDS: Normal Saline 1,000 ML 100 ML IV (06:01)
[2019-05-07 07:44] VITALS: BP 123/73; PULSE 84; RESP 18; TEMP 37.6; O2SAT 93
[2019-05-07 08:27] LABS: Abs Immature Grans 0.03 k/cumm (0.0-0.09); Absolute Basophil Count 0.02 k/cumm (0.0-0.2); Absolute Eosinophil Count 0.08 k/cumm (0.0-0.7); Absolute Lymphocyte Count 0.92 k/cumm (1.2-3.4); Absolute Monocyte Count 0.99 k/cumm (0.11-0.7); Absolute Neutrophil Count 4.48 k/cumm (1.2-6.7); Basophils % 0.3; Eosinophils % 1.2; HCT 35.2 % (36.0-46.0); HGB 11.5 g/dL (12.0-15.5); Immature Grans % 0.5; Lymphocytes % 14.1; Mean Corp. HGB Concentration 32.7 g/dL (32.0-36.0); Mean Corpuscular Hemoglobin 27.8 pg (27.0-33.0); Mean Corpuscular Volume 85.2 fL (80-95); Mean Platelet Volume 9.8 fL (8.0-11.0); Monocytes % 15.2; Neutrophils % 68.7; Platelet Count 195 x1000/uL (130-400); RBC 4.13 m/cumm (4.00-5.20); RBC Distribution Width 13.5 % (11.7-14.6); White Blood Cell Count 6.52 k/cumm (4.4-10.8)
[2019-05-07 08:44] LABS: Anion Gap 7.1 mmol/L (3-11); BUN 17 mg/dL (7-18); CO2 25.9 mmol/L (21.0-32.0); CREATININE 0.75 mg/dL (0.55-1.02); Calcium 8.4 mg/dL (8.5-10.1); Chloride 103 mmol/L (98-107); Glucose 204 mg/dL (74-106); Potassium 3.9 mmol/L (3.5-5.1); Sodium 136 mmol/L (136-145)
[2019-05-07] MEDS: Gabapentin 400 MG CAP PO ×3 (08:53→19:55)
[2019-05-07] MEDS: Buprenorphine/Naloxone 8 mg/2 mg FILM 1 EACH SL (08:53)
[2019-05-07] MEDS: Oxybutynin 5 MG TAB PO ×2 (08:53→19:55)
[2019-05-07] MEDS: buPROPion-XL 150 MG TABCR 300 MG PO (08:53)
[2019-05-07] MEDS: Insulin Aspart 300 UNITS/3 ML PEN SC ×4 (08:53→21:24)
[2019-05-07 11:30] VITALS: BP 128/62; PULSE 78; RESP 17; TEMP 37.4; O2SAT 94
--- NOTE | 2019-05-07 11:57 | CHAPLAIN ---
Evi said she is feeling better today and will likely be discharged tomorrow. She said she will be asking her daughter and two kids to move out. She is happy with her living situation with her current roommate. Evi asked about having Rerandal and the emergency medical service coordinator called Reiki provider Phillip to come in and offer Reiki to Evi.
[2019-05-07] MEDS: Acetaminophen 325 MG TAB PO (14:23)
[2019-05-07] MEDS: cefTRIAXone 2 GM/50 ML BAG IVPB (15:45)
[2019-05-07] MEDS: Ketorolac 15 MG/ML VIAL IVP (15:45)
[2019-05-07] MEDS: Normal Saline Flush 10 ML SYR IVP (15:46)
[2019-05-07 16:03] VITALS: BP 114/67; PULSE 69; RESP 18; TEMP 36.8; O2SAT 93
[2019-05-07] MEDS: Sodium Chloride-Nasal SPRAY-ADULT 44 ML BTL NS (16:33)
--- NOTE | 2019-05-07 17:32 | W.PM.PROGNOT ---
Date of Service Date of service: 05/07/19 Time of Service: 11:30 Assessment and Plan Assessment and plan (1) Pyelonephritis: Status: Acute Assessment and plan: Afebrile and asymptomatic now. Responding to current treatment with ceftriaxone. Blood cultures are still pending. Subsequent blood cultures remain negative and I do not think endocarditis likely. Continue present treatment until we get final ID and sensitivities from blood culture. (2) Sepsis: Status: Acute Assessment and plan: Clinical parameters of sepsis have resolved. (3) Hypertension: Status: Chronic Assessment and plan: Blood pressure remains fine off of her outpatient meds. Monitor and reintroduce medications as blood pressure goes up. (4) Diabetes mellitus: Status: Chronic Assessment and plan: Acknowledges poor adherence to outpatient management. Continue insulin now. I am restarting metformin and Victoza. Hopefully she will not need to go home on insulin. Subjective Subjective Interval history since last seen: Feels much better. No dysuria. No cough. No abdominal pain. No shortness of breath. Afebrile. Blood culture still pending, just have gram-negative mar, no ID or sensitivities. Urine with E. coli resistant to ampicillin, sensitive to all other antibiotics. Acknowledges that she has not been compliant with her diabetes regimen, has not been using Victoza but has been taking metformin. Blood sugars ranging from 200-1 50. No bowel movement since admission. Exam Narrative Exam Narrative: Just out from the shower, looks well. Afebrile, blood pressure in the 1 teens over 60s. Lungs are clear. No heart murmur S3 or S4. Abdomen obese with active bowel sounds. No calf tenderness or pitting edema. Objective Objective Clinical Data: Abnormal lab results 05/07/19 05/07/19 Range/Units 07:42 07:42 Hgb 11.5 L (12.0-15.5) g/dL Hct 35.2 L (36.0-46.0) % Absolute Lymphocytes 0.92 L (1.2-3.4) k/cumm Absolute Monocytes 0.99 H (0.11-0.7) k/cumm Glucose 204 H (74-106) mg/dL Calcium 8.4 L (8.5-10.1) mg/dL Vital Signs Temperature 36.8 C 05/07/19 16:03 Temperature Source Temporal Artery Scan 05/07/19 16:03 Pulse 69 05/07/19 16:03 Pulse Rhythm Regular 05/07/19 10:24 Pulse 115 H 05/05/19 18:20 Respiratory Rate 18 05/07/19 16:03 Respiratory Effort Non-Labored 05/07/19 10:24 Respiratory Depth Normal 05/07/19 10:24 Respiratory Pattern Normal 05/07/19 10:24 Blood Pressure 114/67 05/07/19 16:03 Blood Pressure Mean 82 05/05/19 23:30 Blood Pressure Position Sitting 05/05/19 14:05 Pulse Oximetry 93 L 05/07/19 16:03 Oxygen Delivery Method Room Air 05/07/19 16:03 Oxygen Flow Rate 0 05/07/19 16:03 Fraction of Inspired Oxygen (FIO2) 21 05/07/19 10:08 Pain Level 4 05/07/19 16:03 Intake & Output 05/06/19 05/07/19 05/07/19 23:59 11:59 23:59 Intake Total 1780 / 3020 1235 / 2103.333 868.333 / 2103.333 Output Total 600 / 1250 2100 / 2900 800 / 2900 Balance 1180 / 1770 -865 / -796.667 68.333 / -796.667 Intake: IV 1050 / 2050 985 / 1603.333 618.333 / 1603.333 Oral 730 / 970 250 / 500 250 / 500 Output: Urine 600 / 1250 2100 / 2900 800 / 2900 Other: Urine Color Light Liliana Light Liliana Yellow Urine Appearance Clear Clear Clear Urine Odor None None Comment patient denies having any urinary issues Voiding Methods Toilet Toilet Toilet Laboratory Results WBC 6.52 k/cumm (4.4-10.8) 05/07/19 07:42 RBC 4.13 m/cumm (4.00-5.20) 05/07/19 07:42 Hgb 11.5 g/dL (12.0-15.5) L 05/07/19 07:42 Hct 35.2 % (36.0-46.0) L 05/07/19 07:42 MCV 85.2 fL (80-95) 05/07/19 07:42 MCH 27.8 pg (27.0-33.0) 05/07/19 07:42 MCHC 32.7 g/dL (32.0-36.0) 05/07/19 07:42 RDW 13.5 % (11.7-14.6) 05/07/19 07:42 Plt Count 195 x1000/uL (130-400) 05/07/19 07:42 MPV 9.8 fL (8.0-11.0) 05/07/19 07:42 Immature Gran % 0.5 05/07/19 07:42 Neutrophils % 68.7 05/07/19 07:42 Lymphocytes % 14.1 05/07/19 07:42 Monocytes % 15.2 05/07/19 07:42 Eosinophils % 1.2 05/07/19 07:42 Basophils % 0.3 05/07/19 07:42 Absolute Neutrophils 4.48 k/cumm (1.2-6.7) 05/07/19 07:42 Absolute Lymphocytes 0.92 k/cumm (1.2-3.4) L 05/07/19 07:42 Absolute Monocytes 0.99 k/cumm (0.11-0.7) H 05/07/19 07:42 Absolute Eosinophils 0.08 k/cumm (0.0-0.7) 05/07/19 07:42 Absolute Basophils 0.02 k/cumm (0.0-0.2) 05/07/19 07:42 Sodium 136 mmol/L (136-145) 05/07/19 07:42 Potassium 3.9 mmol/L (3.5-5.1) 05/07/19 07:42 Chloride 103 mmol/L (98-107) 05/07/19 07:42 Carbon Dioxide 25.9 mmol/L (21.0-32.0) 05/07/19 07:42 Anion Gap 7.1 mmol/L (3-11) 05/07/19 07:42 BUN 17 mg/dL (7-18) D 05/07/19 07:42 Creatinine 0.75 mg/dL (0.55-1.02) 05/07/19 07:42 Estimated GFR/1.73 m2 >= 60.00 (mL/min/1.73m2) 05/07/19 07:42 Glucose 204 mg/dL (74-106) H 05/07/19 07:42 Hemoglobin A1c 12.4 % (3.8-5.6) H 05/06/19 07:00 Lactate 1.3 mmol/L (0.6-1.4) 05/05/19 14:50 Calcium 8.4 mg/dL (8.5-10.1) L 05/07/19 07:42 Total Bilirubin 0.4 mg/dL (0.2-1.0) 05/05/19 14:50 AST 17 U/L (15-37) 05/05/19 14:50 ALT 23 U/L (14-59) 05/05/19 14:50 Alkaline Phosphatase 97 U/L (46-116) 05/05/19 14:50 Troponin I < 0.05 ng/Ml (<0.06) 05/05/19 14:50 Total Protein 7.3 g/dL (6.4-8.2) 05/05/19 14:50 Albumin 3.0 g/dL (3.4-5.0) L 05/05/19 14:50 Urine Color Yellow (Yellow) 05/05/19 15:31 Urine Clarity Sl cloudy (Clear) 05/05/19 15:31 Urine pH 5.5 (5-8) 05/05/19 15:31 Ur Specific [place] 1.015 (1.005-1.025) 05/05/19 15:31 Urine Protein 30 mg/dL (Negative) H 05/05/19 15:31 Urine Ketones Negative mg/dL (Negative) 05/05/19 15:31 Urine Blood Moderate (Negative) H 05/05/19 15:31 Urine Nitrite Negative (Negative) 05/05/19 15:31 Urine Bilirubin Negative (Negative) 05/05/19 15:31 Urine Urobilinogen 0.2 EU/dL (Up TO 0.2) 05/05/19 15:31 Ur Leukocyte Esterase Negative (Negative) 05/05/19 15:31 Urine RBC Negative HPF (0-2) 05/05/19 15:31 Urine WBC >50 HPF (0-5) H 05/05/19 15:31 Ur Epithelial Cells Negative HPF (Negative) 05/05/19 15:31 Urine Crystals Negative HPF (Negative) 05/05/19 15:31 Urine Bacteria Many HPF (Negative) 05/05/19 15:31 Urine Casts Negative LPF (Negative) 05/05/19 15:31 Urine Mucus Negative (Negative) 05/05/19 15:31 Urine Other Negative (Negative) 05/05/19 15:31 Ur Culture Indicated? Yes 05/05/19 15:31 Urine Glucose 500 mg/dL (Negative) H 05/05/19 15:31 Urine Opiates Screen Negative (Negative) 05/05/19 18:00 Urine Methadone Screen Negative (Negative) 05/05/19 18:00 Ur Barbiturates Screen Negative (Negative) 05/05/19 18:00 Ur Tricyclics Screen Negative (Negative) 05/05/19 18:00 Ur Amphetamines Screen Negative (Negative) 05/05/19 18:00 U Benzodiazepines Scrn Negative (Negative) 05/05/19 18:00 Urine Cocaine Screen Negative (Negative) 05/05/19 18:00 Ur THC Screen Negative (Negative) 05/05/19 18:00
[2019-05-07] MEDS: Enoxaparin 40 MG/0.4 ML SYR SC (17:48)
--- NOTE | 2019-05-07 18:05 | CMPROGNOTE_ITS ---
- If Service Date Differs Date of service: 05/07/19 Time of Service: 18:05 Care Management Progress Note S/O: Evi was sitting up in a chair applying lotion to her legs when CM met with her. She stated that she is feeling much better and has heard that she is possibly going to be discharged home tomorrow. When queried, she stated that she does not feel she needs any services when she goes home. A: Yary is a 53 year old woman admitted to [facility] on 05/05/19 with pyelonephritis and bacteremia. P:Evi is being treated with IV antibiotics for bacteremia and a UTI. She will likely discharge home with no new services. Evi will follow up with her PCP and discharge plan of care. CM will continue to support patient, family and discharge planning needs.
[2019-05-07] MEDS: Docusate Sodium 100 MG CAP PO (20:01)
[2019-05-07 20:38] VITALS: BP 134/76; PULSE 64; RESP 19; TEMP 36.7; O2SAT 96
[2019-05-07] MEDS: Insulin Glargine 300 UNITS/3 ML PEN 20 UNITS SC (21:25)
[2019-05-08 00:20] VITALS: BP 137/86; PULSE 82; RESP 19; TEMP 37.8; O2SAT 95
[2019-05-08] MEDS: Ketorolac 15 MG/ML VIAL IVP (00:20)
[2019-05-08] MEDS: Acetaminophen 325 MG TAB PO (00:20)
[2019-05-08] MEDS: Normal Saline Flush 10 ML SYR IVP (00:21)
[2019-05-08 03:45] VITALS: BP 141/74; PULSE 68; RESP 18; TEMP 36.8; O2SAT 95
[2019-05-08 07:40] VITALS: BP 149/78; PULSE 78; RESP 17; TEMP 36.6; O2SAT 96
[2019-05-08] MEDS: metFORMIN C.R. 500 MG TABCR 1000 MG PO (09:03)
[2019-05-08] MEDS: Buprenorphine/Naloxone 8 mg/2 mg FILM 1 EACH SL (09:03)
[2019-05-08] MEDS: Gabapentin 400 MG CAP PO (09:04)
[2019-05-08] MEDS: buPROPion-XL 150 MG TABCR 300 MG PO (09:04)
[2019-05-08] MEDS: Oxybutynin 5 MG TAB PO (09:04)
[2019-05-08 11:56] VITALS: BP 159/76; PULSE 84; RESP 18; TEMP 37.1; O2SAT 93
[2019-05-08] MEDS: Insulin Aspart 300 UNITS/3 ML PEN SC (12:15)
--- NOTE | 2019-05-08 12:16 | DSE_ITS ---
Date of service: 05/08/19 Time of Service: 12:16 DS: Diagnosis Discharge Diagnosis (1) Pyelonephritis: Status: Acute Asessment and Plan: Febrile to as high as 40 degrees with associated tachycardia. E. coli first growing from urine then from blood, same sensitivity patterns?resistant to ampicillin, sensitive to all other antibiotics. Progressive defervesced and overall clinical improvement with initiation of IV ceftriaxone. Transitioned to oral Keflex on the day of discharge to complete a 10-day treatment course. Due to her bacteremia she had an echocardiogram to assess for signs of endocarditis. Echocardiogram showed mild LVH, normal systolic function and diastolic function. No evidence of valvular abnormalities. Mild dilatation of the aortic root at 3.4 cm an incidental finding. Subsequent blood cultures after the initial set were negative. She had pyelonephritis a year ago, at which time CT scan did not show any evidence of obstruction or stone. She did not have repeat imaging during this admission. The cause of her recurrent pyelonephritis attributed to poorly controlled diabetes. However, if there are recurrent urinary tract infections, urology consultation may be indicated. (2) Sepsis: Status: Acute Asessment and Plan: Never hypotensive. Was quite febrile and tachycardic. Temperature and pulse rate normalized within 36 hours of admission. Initially started on IV vancomycin and ceftriaxone until blood cultures returned with gram-negative rods at which point vancomycin was discontinued. Remainder of hospital course as noted above and below. (3) E. coli bacteremia: Status: Acute Asessment and Plan: As above, blood cultures positive for the same organism in her urine. Echocardiogram negative for endocarditis. Subsequent blood cultures were negative. (4) Hypertension: Status: Chronic Asessment and Plan: Outpatient blood pressure medicines were held during her hospitalization with normal to then slowly increasing blood pressures through the her hospitalization. Her usual antihypertensive medications are being reinitiated at discharge. (5) Diabetes mellitus: Status: Chronic Asessment and Plan: Patient admitted to poor medication and diet adherence as an outpatient. She was placed on a diabetic diet as well as glargine insulin and sliding scale aspart. Her blood sugars range from the upper 100s to as high as 400, slowly dropping and more consistently in the upper 100 to low 200 range by discharge. She states that she will do a much better job with medication adherence and diet after discharge. I did not make any changes to her outpatient diabetes regimen. (6) SHARAN (obstructive sleep apnea): Status: Chronic Asessment and Plan: Treated with hospital BiPAP unit as she did not bring in her home CPAP unit. She had no problems referrable to sleep apnea during this hospitalization. Discharge Plan Disposition Patient Disposition: HOME Condition: Good Discharge Details Chief Complaint: GenMedical Clinical Impression: Acute hyperglycemia, Pyelonephritis, Cardiac murmur Reason For Visit: PYELONEPHRITIS Admit Date/Time: 05/07/19 16:57 Admit Provider: Marcelo Ng Attending Provider: Marcelo Ng Primary Care Provider: Debo Talamantes V ED Provider: Blair Hunter Hospital Course Hospital Course: 53-year-old former IV drug user doing well in recovery on medically assisted therapy with Suboxone, poorly controlled diabetes presented to the emergency room with fevers fatigue myalgias. No focus of infection found on her initial exam except for a heart murmur that had not been documented before prompting concern for endocarditis. She also had pyuria raising concern for pyelonephritis. She had an episode of pyelonephritis 1 year ago that she attributes to poorly controlled diabetes. Evaluation during that hospitalization did not reveal any evidence of an obstructive uropathy. She was admitted for treatment of infection with a sepsis syndrome. Please see diagnosis section for hospital course by problem. Home Meds and New Rx's Prescriptions: New cephalexin 750 mg capsule 750 mg PO BID Qty: 14 RF: 0 Continued buprenorphine-naloxone [Suboxone] 1 EACH film 8 mg Sublingual DAILY RF: 0 losartan-hydrochlorothiazide 1 TAB tablet 1 tab PO DAILY RF: 0 oxybutynin chloride 5 MG tablet 1 tab PO BID RF: 0 gabapentin 400 mg Capsule 400 mg PO TID RF: 0 ibuprofen [Ibuprofen IB] 200 mg Tablet 800 mg PO QID PRNRF: 0 metformin [Glucophage XR] 500 mg Tablet Extended Release 24 Hr 1,000 mg PO DAILY RF: 0 bupropion HCl [Wellbutrin XL] 300 mg Tablet Extended Release 24 Hr 300 mg PO QAM RF: 0 Victoza 2-Prest[place] 0.6 mg/0.1 mL (18 mg/3 mL) Pen Injector 1.2 mg subcut DAILY RF: 0 Discharge Instructions Instructions: Diabetes Mellitus Type 2 in Adults (DC), Kidney Infection (DC) Additional Instructions: Check your blood sugars once a day alternating the time between fasting and 2 hours after the largest meal of the day and bring the results with you to your follow-up office visit. Call your doctor or return to the emergency room if you have recurrent fever, burning with urination, nausea or vomiting. Stand Alone Forms: Nursing Discharge Form Referrals: Debo Talamantes MD [Primary Care Provider] - (The office will call you with an appointment) Activity:: Activity as Tolerated Equipment/Supplies:: No Equipment Needed Diet:: Carb Counting Discharge Orders Discharge Orders: Discharge Order (Routine); Ordered 05/08/19 Ordered By: Juan F Che DS: Summary Status at Discharge Functional status at discharge: independent ambulation Overall status at discharge: patient is back to baseline Mental Status: mental status grossly normal Speech and Movement: speech and movement normal Mood: congruent mood Affect: normal affect Time Spent with Patient providing and/or coordinating discharge services: Greater than 30 minutes Exam Narrative Exam Narrative: On the morning of admission she looks well. Temperature 37.1, blood pressure 159/76, SaO2 93% on room air. Most recent weight 109.4 kg. She is animated and in no distress. Lungs are clear. No heart murmur heard on my exam. No flank pain to palpation. Ambulating independently. Psych Mental Status: mental status grossly normal Speech and Movement: speech and movement normal Mood: congruent mood Affect: normal affect DS: Data Vitals/I&O Vitals and I&O: Vital Signs Temperature 37.1 C 05/08/19 11:56 Temperature Source Temporal Artery Scan 05/08/19 11:56 Pulse 84 05/08/19 11:56 Pulse Rhythm Regular 05/08/19 00:20 Pulse 115 H 05/05/19 18:20 Respiratory Rate 18 05/08/19 11:56 Respiratory Effort Non-Labored 05/08/19 00:20 Respiratory Depth Normal 05/08/19 00:20 Respiratory Pattern Normal 05/08/19 00:20 Blood Pressure 159/76 H 05/08/19 11:56 Blood Pressure Mean 82 05/05/19 23:30 Blood Pressure Position Sitting 05/05/19 14:05 Pulse Oximetry 93 L 05/08/19 11:56 Oxygen Delivery Method Room Air 05/08/19 11:56 Oxygen Flow Rate 0 05/08/19 11:56 Fraction of Inspired Oxygen (FIO2) 21 05/07/19 10:08 Pain Level 3 05/08/19 11:56 Comment 05/08/19 07:40 Intake & Output 05/07/19 05/08/19 05/08/19 23:59 11:59 23:59 Intake Total 1108.333 / 2343.333 260 / 260 Output Total 1100 / 3200 2400 / 2400 Balance 8.333 / -856.667 -2140 / -2140 Intake: IV 618.333 / 1603.333 Oral 490 / 740 240 / 240 Output: Urine 1100 / 3200 2400 / 2400 Other: Urine Color Yellow Yellow Urine Appearance Clear Clear Urine Odor Normal Normal Voiding Methods Toilet Toilet Data Completed and Pending Labs on day of discharge: Preliminary micro results at discharge BUN 17 creatinine 0.75. White count 6.52. Hemoglobin 11.5 hematocrit 35.2. 05/07/19 07:50 Blood Culture - Preliminary Blood NO GROWTH 24 HOURS 05/07/19 07:42 Blood Culture - Preliminary Blood NO GROWTH 24 HOURS 05/05/19 16:40 Blood Culture - Preliminary Blood Escherichia coli 05/05/19 16:20 Blood Culture - Preliminary Blood Escherichia coli 05/05/19 14:10 Blood Culture - Preliminary Blood NO GROWTH 48 HOURS [facility] Medical History Adrenal nodule (Chronic) Anxiety (Chronic) Diabetes mellitus (Chronic) Hepatitis C (Chronic) History of alcohol abuse (Chronic) History of intravenous drug abuse (Chronic) HPV (human papilloma virus) infection (Chronic) Hypertension (Chronic) Obesity (Chronic) SHARAN (obstructive sleep apnea) (Chronic) Pyelonephritis (Acute) Sepsis (Acute) Tobacco abuse (Chronic) Ventral hernia (Chronic) Surgical History History of appendectomy (Chronic) History of (Chronic) History of hernia repair (Chronic) Social History Smoking/Tobacco Use Status: Current every day Tobacco Type: cigarettes Alcohol Intake: former Drug use: Current Sobriety Substance use type: marijuana Do you feel safe at home: Yes Do you feel safe in your relationship?: Yes Additional Social history: Patient is . She has 2 children, and one grandson. 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 Reports daily tobacco use, with an approximate [id number] history of smoking. Reports both alcohol and illicit drug use in remission.
--- NOTE | 2019-05-08 12:46 | PDOC.CMDIS ---
LACE Index Scoring Tool - Questions: Length of Stay (in days): 1 Acuity (Admit via E.D.?): Yes Comorbidities: Diabetes w/o Complication, Mild Liver/Renal Disease E.D. Visits: 3 - Answers: Total Score: 10 Risk of Readmission: High Risk Care Management Discharge Reason for Hospitalization: Endocarditis Discharge Plan: Evi will discharge home with no new services at this time. She will follow up with her PCP and discharge plan of care. She will transport via private vehicle with family. Patient/Family Education Needs: Review discharge instructions, discuss Ask Me Three to ensure patient understanding of self care needs upon discharge.
--- NOTE | 2019-05-08 12:59 | W.DIABETESNO ---
Date of service: 05/08/19 Time of Service: 13:00 Diabetes Note NOTE: Follow up diabetes consult for Evi Srivastava who is hospitalized with fever. Blood sugars have been elevated 156-213 yesterday now 136mg/dl this AM taking 20u Lantus and resistant insulin correction. The plan is to resume Victoza upon discharge. Evi is interested in managing diabetes with lifestyle changes. Reviewed diabetes food guide with her; discussed portions, getting a scale to weigh food, ways to eat to satisfaction rather than discomfort. SHe describes many circumstantial stressors which may be getting better. States she needs a new glucometer. PLAN: She plans to walk twice a week at the mall. She will begin cooking enough for 2 for meals; bagging leftovers; getting her housemate to take them to work. She will ask her PCP for prescription for new glucometer and supplies. Time Spent in Nutritional Counseling and Treatment: 20 minutes face to face
== END 2019-05-08 14:05 | disposition home or self-care (01) | DRG 689 ==
LOC: ER 16:39 → ICU 18:56 → MS 05-06 07:40
PROVIDERS: Nurse Practitioner Acute Care; Admitting Provider Family Medicine; Emergency Provider Student in an Organized Health Care Education/Training Program; PCP Family Medicine; Visit Provider Internal Medicine
DX: N10 Acute pyelonephritis (principal); A41.51 Sepsis due to Escherichia coli [E. coli]; Z16.11 Resistance to penicillins; F11.20 Opioid dependence, uncomplicated; Z68.41 Body mass index [BMI] 40.0-44.9, adult; B96.20 Unspecified Escherichia coli [E. coli] as the cause of diseases classified elsewhere; E11.65 Type 2 diabetes mellitus with hyperglycemia; I10 Essential (primary) hypertension; I51.7 Cardiomegaly; Z87.440 Personal history of urinary (tract) infections; Z79.84 Long term (current) use of oral hypoglycemic drugs; B19.20 Unspecified viral hepatitis C without hepatic coma; Z91.11 Patient's noncompliance with dietary regimen; Z91.19 Patient's noncompliance with other medical treatment and regimen; G47.33 Obstructive sleep apnea (adult) (pediatric); F10.11 Alcohol abuse, in remission; F19.11 Other psychoactive substance abuse, in remission; R01.1 Cardiac murmur, unspecified; E66.9 Obesity, unspecified; F17.210 Nicotine dependence, cigarettes, uncomplicated; F12.90 Cannabis use, unspecified, uncomplicated; Z71.3 Dietary counseling and surveillance
CPT/HCPCS: 36415; 36416; 80048; 80053; 80307; 82962; 87040; 87077; 87449; 93005; 96361; 96365; 96368; 96375; 99223; 99232; 99233; 99239; 99285; J1650; 71046; 81003; 81015; 83036; 83605; 84484; 85025; 87086; 87186; 93010; 93306; 94660; 99220; 99225; G0378; J0696; J1885; J2405

== ENCOUNTER 2019-08-30 09:22 | Outpatient (CLI) | payer MEDICAID, SELFPAY ==
[2019-08-31 13:57] LABS: COVID-19 RT-PCR UVMMC Result Negative (Negative)
== END 2019-08-30 09:42 ==
PROVIDERS: PCP Family Medicine; Visit Provider Student in an Organized Health Care Education/Training Program
DX: Z11.59 Encounter for screening for other viral diseases (principal)
CPT/HCPCS: U0003

== ENCOUNTER 2019-12-05 00:46 | Outpatient (CLI) | payer MEDICAID, SELFPAY ==
--- NOTE | 2019-12-05 12:54 | DI.MAMMO_ITS ---
EXAM: MAMMO SCREENING CLINICAL HISTORY: SCREENING, PREVENTATIVE CARE, Z12.31, Z00.00 TECHNIQUE: Mammograms were interpreted according to the usual protocol including computer analysis w [employer] CAD system, tomosynthesis and C-view imaging. COMPARISON: 2013 through 2017 FINDINGS: The breasts are composed of scattered fibroglandular densities, Breast Density category B. No suspicious masses or suspicious microcalcifications are seen. No skin thickening or abnormal axillary lymph nodes are seen. There has been no significant change from prior exams. IMPRESSION: BI-RADS Category 1 - Negative Yearly screening mammography is recommended. Breast Density Category B, scattered fibroglandular densities.
== END 2019-12-05 01:06 ==
PROVIDERS: PCP Family Medicine; Visit Provider Family Medicine
DX: Z12.31 Encounter for screening mammogram for malignant neoplasm of breast (principal); Z00.00 Encounter for general adult medical examination without abnormal findings; R92.2 Inconclusive mammogram
CPT/HCPCS: 77063; 77067

== ENCOUNTER 2020-01-21 22:18 | Outpatient (REF) | payer MEDICAID, SELFPAY ==
[2020-01-21 21:22] LABS: Bacteria Many HPF (Negative); C & S Indicated? Yes; Casts Negative LPF (Negative); Crystals Negative HPF (Negative); Epithelial Cells Few HPF (Negative); Mucus Negative (Negative); Other Cells Negative (Negative); RBC Negative HPF (0-2); WBC 0-2 HPF (0-5)
== END 2020-01-21 22:38 ==
LOC: NCHCN 22:18
PROVIDERS: PCP Family Medicine; Visit Provider Family Medicine
DX: E11.9 Type 2 diabetes mellitus without complications (principal); I10 Essential (primary) hypertension; F17.210 Nicotine dependence, cigarettes, uncomplicated
CPT/HCPCS: 87077; 81015; 87086; 87186

== ENCOUNTER 2020-12-10 17:29 | Emergency (ER) | payer MEDICAID, SELFPAY ==
[2020-12-10 17:56] VITALS: BP 141/76; PULSE 83; RESP 16; TEMP 36.5; O2SAT 98
--- NOTE | 2020-12-10 19:02 | W.ED.GENAD ---
Discharge Plan Disposition Patient Disposition: HOME Condition: Improving Discharge Details Clinical Impression: Bleeding from varicose vein Primary Care Provider: Debo Talamantes V ED Provider: Rios Bucio Home Meds and New Rx's Prescriptions: Continued buprenorphine-naloxone [Suboxone] 1 EACH film 8 mg Sublingual DAILY RF: 0 losartan-hydrochlorothiazide 1 TAB tablet 1 tab PO DAILY RF: 0 oxybutynin chloride 5 MG tablet 1 tab PO BID RF: 0 gabapentin 400 mg Capsule 400 mg PO TID RF: 0 ibuprofen [Ibuprofen IB] 200 mg Tablet 800 mg PO QID PRNRF: 0 metformin [Glucophage XR] 500 mg Tablet Extended Release 24 Hr 1,000 mg PO DAILY RF: 0 bupropion HCl [Wellbutrin XL] 300 mg Tablet Extended Release 24 Hr 300 mg PO QAM RF: 0 Victoza 2-Preston 0.6 mg/0.1 mL (18 mg/3 mL) Pen Injector 1.2 mg subcut DAILY RF: 0 cephalexin 750 mg capsule 750 mg PO BID Qty: 14 RF: 0 Discharge Instructions Additional Instructions: Please leave dressing in place 5 to 7 days time and then gently removed. Return if you have recurrent bleeding that does not respond to local pressure or any other acute concerns. Continue your regularly prescribed medications. Medical Decision Making 55-year-old male presents with left anterior ramirez bleeding varicose vein. She had caused cessation of bleeding with pressure application, it recurred once I removed her home dressing, I placed Surgicel and covered with Mepilex with cessation of bleeding. She will leave the dressing in place 5 to 7 days time and then removed. She is stable and improved. HPI General Mode of arrival: ambulatory. Date/Time Provider Initiated Documentation: 12/10/20 18:40. Limitations to Documentation: no limitations. Information obtained by: patient. History of Present Illness 55 year old F presents to the emergency department with the chief complaint of Left anterior lower leg bleeding, described as mild, Quality is described as dull, and is localized to the left and lower extremity. Patient reports no radiation. Patient started experiencing this minute(s) and it has been intermittent. other things that improve symptom(s), (Pressure dressing) Patient notes denies syncope and weakness. Patient did receive the following treatments prior to arrival, none Related Data Home Medications Medication Instructions Recorded Confirmed buprenorphine-naloxone [Suboxone] 8 mg SUBLINGUAL DAILY 04/17/13 05/05/19 losartan-hydrochlorothiazide 1 tab PO DAILY 12/17/16 05/05/19 oxybutynin chloride 1 tab PO BID 12/17/16 05/05/19 Victoza 2-Preston 1.2 mg SUBCUT DAILY 05/06/18 05/05/19 bupropion HCl [Wellbutrin XL] 300 mg PO QAM 05/06/18 05/05/19 gabapentin 400 mg PO TID 05/06/18 05/05/19 ibuprofen [Ibuprofen IB] 800 mg PO QID PRN 05/06/18 05/05/19 metformin [Glucophage XR] 1,000 mg PO DAILY 05/06/18 05/05/19 cephalexin 750 mg PO BID #14 cap 05/08/19 Previous Rx's Medication Instructions Recorded cephalexin 750 mg PO BID #14 cap 05/08/19 Allergies Allergy/AdvReac Type Severity Reaction Status Date / Time exenatide [From Byetta] AdvReac Mild Vomited Unverified 12/10/20 17:59 lisinopril AdvReac Mild Cough Unverified 12/10/20 17:59 General Stated Complaint: GenMedical YASMINE: 4 Review of Systems Narrative: No other injury. She has otherwise been well. [facility]LY [facility] Medical History Adrenal nodule Anxiety Diabetes mellitus Flu-like symptoms Sudden onset upset stomach, vomiting, diarrhea. 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 Atypical symptoms, but reasonable. Hepatitis C History of alcohol abuse History of intravenous drug abuse HPV (human papilloma virus) infection Hypertension Obesity SHARAN (obstructive sleep apnea) Sepsis Tobacco abuse Ventral hernia Surgical History History of appendectomy History of History of hernia repair Social History Smoking/Tobacco Use Status: Current every day Tobacco Type: cigarettes Smoking risk assessment performed?: Yes Alcohol Intake: former Drug use: Current Sobriety Substance use type: marijuana Do you feel safe at home: Yes Do you feel safe in your relationship?: Yes Additional Social history: Patient is . She has 2 children, and one grandson. 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 Reports daily tobacco use, with an approximate [id number] history of smoking. Reports both alcohol and illicit drug use in remission. Exam Narrative Exam Narrative: GEN: awake, alert, oriented 3. Pleasant, well groomed, interactive. HEAD: Normocephalic, atraumatic ENT: Mucous membranes moist, oropharynx unremarkable, External ear exam unremarkable EXT: Full ROM, no edema, no rash. Bleeding varicosity left distal third anterior ramirez, ceases with pressure. No mass. Neuro: Grossly normal neurologic exam, conversant, interactive. Psych: Speech fluent, thoughts congruent, affect normal Course Vital Signs Vital signs: Vital Signs Temperature 36.5 C 12/10/20 17:56 Pulse 83 12/10/20 17:56 Respiratory Rate 16 12/10/20 17:56 Blood Pressure 141/76 H 12/10/20 17:56 Pulse Oximetry 98 12/10/20 17:56 Temperature 36.5 C 12/10/20 17:56 Temperature Source Tympanic 12/10/20 17:56 Pulse 83 12/10/20 17:56 Respiratory Rate 16 12/10/20 17:56 Blood Pressure 141/76 H 12/10/20 17:56 Pulse Oximetry 98 12/10/20 17:56 Oxygen Delivery Method Room Air 12/10/20 17:56 Oxygen Flow Rate 0 12/10/20 17:56 Pain Level 0 12/10/20 17:56
== END 2020-12-10 19:15 | disposition home or self-care (01) ==
PROVIDERS: Emergency Provider Emergency Medicine; PCP Family Medicine
DX: I83.892 Varicose veins of left lower extremity with other complications (principal)
CPT/HCPCS: 99281

== ENCOUNTER 2021-02-05 09:35 | Emergency (ER) | payer MEDICAID, SELFPAY ==
[2021-02-05 09:42] VITALS: BP 152/118; PULSE 88; RESP 16; TEMP 36.2; O2SAT 95
--- OUTSIDE RECORDS SUMMARY | 2021-02-05 09:43 | XMS_ITS ---
:1965 Author Care Team Providers Name Role Phone DR. SCAR TRACEY Referring Provider [phone] SCAR TRACEY MD Primary Care Provider [phone] Allergies Code Code System Name Reaction Severity Status Onset NKDA ? Medications Name Status Start Date Stop Date ? ? Afluria Quad 4323-3290 (PF) 60 Active ? N ot available mcg (15 mcg x 4)/0.5 mL IM syringe alcohol swabs Active ? Not available BD Ultra-Fine Mini Pen Needle Active ? No t available 31 gauge x 3/16 bupropion HCl SR 150 mg Active ? Not avai lable tablet,12 hr sustained-release Celebrex Active ? Not available 100 mg tablet Chantix Starting Month Box 0.5 Active ? N ot available mg (11)-1 mg (42) tablets in dose pack Fluarix Quad 9222-8796 (PF) 60 Active ? N ot available mcg (15 mcg x 4)/0.5 mL IM syringe gabapentin 300 mg capsule Completed ? 2019 Take 2 capsules twice a day by oral route. gabapentin 400 mg capsule Active ? Not av ailable ibuprofen 800 mg tablet Active ? Not avai lable lisinopril 10 mg tablet Active ? Not avai lable Take 1 tablet every day by oral route. losartan 50 Active ? Not available mg-hydrochlorothiazide 12.5 mg tablet metformin 500 mg tablet Active ? Not avai lable Take 2 tablets twice a day by oral route. Mirena 20 mcg/24 hours (7 yrs) 52 mg intrauterine device Complet ed 02/22/2011 02/17/2012 1 IUD: Continuous oxybutynin chloride 5 mg tablet Active ? Not available Take 2 tablets every day by oral route. penicillin V potassium 500 mg Active ? No t available tablet Shingrix (PF) 50 mcg/0.5 mL Completed ? 07/07 intramuscular suspension, kit Suboxone Active ? Not available 6mg once daily Suboxone 2 mg-0.5 mg sublingual Active ? Not available film Victoza 2-Preston 0.6 mg/0.1 mL (18 Active ? Not available mg/3 mL) subcutaneous pen injector Wellbutrin Active ? Not available Problems Name Status Onset Date Source ? Type 2 Diabetes Mellitus without Complication Active ? History Obesity Active ? History Opioid Abuse Active ? History Depressive Disorder Active ? History Obstructive Sleep Apnea Syndrome Active ? History Idiopathic Peripheral Neuropathy Active ? History First Degree Atrioventricular Block Active ? History Urinary Incontinence Active ? History Contraception Care Management Active ? Hi story Aftercare Active ? History Adult Health Examination Active ? History Procedures Date Name Performed by ? ? Appendectomy Information not avai lable ? Hernia Repair Information not avai lable 10/17/2017 Polysomnogram [facility] [address] [place] [address] [place] [address] (Work Place) Results Lab Results None recorded. Past Encounters None recorded. Social History Tobacco Smoking Status Current Every Day Smoker Notes: [facility] age 10, 1/2-1 ppd Vaccine List None recorded. Plan of Care Reminders Provider Appointments None ? ? recorded. Lab None ? ? recorded. Referral None ? ? recorded. Procedures None ? ? recorded. Surgeries None ? ? recorded. Imaging None ? ? recorded. Vitals 08/01/2019 09:30AM Office 30 Weight 107.5 kg 01/09/2018 09:30AM Office 30 Height Weight BMI Blood Pressure 158.24 cm 114.85 kg 45.9 kg/m2 120/72 mm[Hg] 10/17/2017 10:00AM Office 15 Height Weight BMI Blood Pressure 158.24 cm 114.76 kg 45.8 kg/m2 150/86 mm[Hg] 08/07/2014 Blood Pressure 134/76 mm[Hg] 08/07/2014 Height Weight 157.48 cm 122.47 kg 07/10/2014 Height Weight 157.48 cm 121.59 kg 07/10/2014 Blood Pressure 132/76 mm[Hg] 05/29/2014 Height Weight 157.48 cm 122.5 kg 05/29/2014 Blood Pressure 172/92 mm[Hg] 04/19/2012 Height Weight 157.48 cm 121.93 kg 04/19/2012 Blood Pressure 168/90 mm[Hg]
--- NOTE | 2021-02-05 09:47 | ED.GENADUL_ITS ---
Discharge Plan Disposition Patient Disposition: HOME Condition: Stable Discharge Details Clinical Impression: Sciatica of left side Primary Care Provider: Debo Talamantes V ED Provider: Candace Moy Home Meds and New Rx's Prescriptions: New methocarbamol 500 mg tablet 500 mg PO Q6H PRN (Reason: muscle spasm) Qty: 14 RF: 0 prednisone 20 mg tablet See Rx Instructions .ROUTE .COMPLEX Qty: 12 RF: 0 Continued buprenorphine-naloxone [Suboxone] 1 EACH film 8 mg Sublingual DAILY RF: 0 losartan-hydrochlorothiazide 1 TAB tablet 1 tab PO DAILY RF: 0 oxybutynin chloride 5 MG tablet 1 tab PO BID RF: 0 gabapentin 400 mg Capsule 400 mg PO TID RF: 0 ibuprofen [Ibuprofen IB] 200 mg Tablet 800 mg PO QID PRNRF: 0 metformin [Glucophage XR] 500 mg Tablet Extended Release 24 Hr 1,000 mg PO DAILY RF: 0 bupropion HCl [Wellbutrin XL] 300 mg Tablet Extended Release 24 Hr 300 mg PO QAM RF: 0 Victoza 2-Preston 0.6 mg/0.1 mL (18 mg/3 mL) Pen Injector 1.2 mg subcut DAILY RF: 0 cephalexin 750 mg capsule 750 mg PO BID Qty: 14 RF: 0 Discharge Instructions Instructions: Sciatica (ED) Additional Instructions: Alternate ice and heat to the affected area(s) several times daily for 20 minutes at a time. Alternate tylenol and motrin as needed and directed for pain. Follow-up with your primary care doctor in 1 week. Return to the emergency department with any worsening or new concerning symptoms such as loss such as loss of bowel or bladder function, leg weakness or numbness or worsening pain. Discharge Data Discharge Physician: Candace Myo Medical Decision Making 55-year-old female with a history of obesity, anxiety, diabetes, hepatitis C, history of former alcohol and IV drug abuse presents for left-sided buttock pain with radiation to her left thigh for the past week. No cauda equina symptoms. Patient appears slightly uncomfortable but nontoxic. She has reproducible left buttock tenderness but no midline lumbar spine or sacral tenderness. She has neurovascular intact and has no focal deficits. Suspect most likely sciatica. Also consider muscle strain, arthritis. Do not see indication for lab work or imaging. Patient was given a dose of IM Toradol, p.o. prednisone and Valium here with relief. Prescriptions for methocarbamol and prednisone sent electronically to her pharmacy. Advised on the importance of alternating ice and heat, Tylenol Motrin. Apply ice to the affected area several times daily for 20 minutes at a time. Medical Records Medical records reviewed: Yes I reviewed the patient's medical records. HPI General Mode of arrival: ambulatory . Date/Time Provider Initiated Documentation: 02/05/21 09:36 . Limitations to Documentation: no limitations . Information obtained by: patient . HPI Narrative: Pt is a 55 is a 59-year-old female presents with left-sided lower back pain with radiation to her left thigh for the past week. Patient states the pain started in the middle of the day last Monday in her left buttock and has gotten progressively worse since then. She states the pain radiates from her left buttock down the lateral and anterior aspect of her left thigh. She states the pain does not extend below her knee. She states the pain is worse with walking and weightbearing. She has taken Motrin, Tylenol and topical pain patches without relief. She denies fever, abdominal pain, bowel or bladder incontinence, saddle anesthesia, leg weakness or numbness. Related Data Home Medications Medication Instructions Recorded Confirmed buprenorphine-naloxone [Suboxone] 8 mg SUBLINGUAL DAILY 04/17/13 02/05/21 losartan-hydrochlorothiazide 1 tab PO DAILY 12/17/16 02/05/21 oxybutynin chloride 1 tab PO BID 12/17/16 02/05/21 Victoza 2-Preston 1.2 mg SUBCUT DAILY 05/06/18 02/05/21 bupropion HCl [Wellbutrin XL] 300 mg PO QAM 05/06/18 02/05/21 gabapentin 400 mg PO TID 05/06/18 02/05/21 ibuprofen [Ibuprofen IB] 800 mg PO QID PRN 05/06/18 02/05/21 metformin [Glucophage XR] 1,000 mg PO DAILY 05/06/18 02/05/21 cephalexin 750 mg PO BID #14 cap 05/08/19 02/05/21 methocarbamol 500 mg PO Q6H PRN #14 tab 02/05/21 prednisone See Rx Instructions .ROUTE 02/05/21 .COMPLEX #12 tab Previous Rx's Medication Instructions Recorded cephalexin 750 mg PO BID #14 cap 05/08/19 methocarbamol 500 mg PO Q6H PRN #14 tab 02/05/21 prednisone See Rx Instructions .ROUTE 02/05/21 .COMPLEX #12 tab Allergies Allergy/AdvReac Type Severity Reaction Status Date / Time exenatide [From Byetta] AdvReac Mild Vomited Unverified 02/05/21 09:46 lisinopril AdvReac Mild Cough Unverified 02/05/21 09:46 General Stated Complaint: Nk/Back Pain YASMINE: 3 Review of Systems All systems reviewed & are unremarkable except as noted in HPI and below Constitutional Constitutional: Reports as per HPI, Denies chills and Denies fever(s) Eyes Eyes: Denies blurry vision ENT Ears, Nose, Mouth, and Throat: Denies dizziness, Denies sore throat and Denies throat swelling Cardiovascular Cardiovascular: Denies chest pain and Denies dyspnea Respiratory Respiratory: Denies cough and Denies dyspnea Gastrointestinal Gastrointestinal: Denies abdominal pain, Denies diarrhea and Denies vomiting Genitourinary Genitourinary: Denies hematuria and Denies dysuria Musculoskeletal Musculoskeletal: Reports back pain and Denies numbness Integumentary/Breasts Skin/Breast: Denies lesions and Denies rash Neurologic Neurologic: Denies dizziness, Denies localized weakness and Denies numbness Allergic/Immunologic Allergic/Immunologic: Denies throat swelling [facility] Medical History Adrenal nodule Anxiety Diabetes mellitus Flu-like symptoms Sudden onset upset stomach, vomiting, diarrhea. 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 Atypical symptoms, but reasonable. Hepatitis C History of alcohol abuse History of intravenous drug abuse HPV (human papilloma virus) infection Hypertension Obesity SHARAN (obstructive sleep apnea) Sepsis Tobacco abuse Ventral hernia Surgical History History of appendectomy History of History of hernia repair Social History Smoking/Tobacco Use Status: Current every day Tobacco Type: cigarettes Smoking risk assessment performed?: Yes Alcohol Intake: former Drug use: Current Sobriety Substance use type: marijuana Do you feel safe at home: Yes Do you feel safe in your relationship?: Yes Additional Social history: Patient is . She has 2 children, and one grandson. 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 Reports daily tobacco use, with an approximate [id number] history of smoking. Reports both alcohol and illicit drug use in remission. Exam Const General: cooperative, uncomfortable and no acute distress Orientation: alert, awake and oriented x3 HENMT Head: normal to inspection Face and sinus: normal facial exam Eyes General: appearance normal, both eyes and all related structures Pupils: PERRL EOM: EOM intact bilaterally Neck Neck: normal visual inspection and No submandibular swelling Lymphatic: no lymphadenopathy noted Chest Chest: normal inspection of the chest and no tenderness Resp Effort & Inspection: normal respiratory effort and able to speak in complete sentences Auscultation: clear to auscultation bilaterally Cardio Rate: regular rate Rhythm: regular rhythm GI Inspection: normal to inspection Palpation: soft, not firm, not rigid and nontender Auscultation: normal bowel sounds Back/Spine/Pelvis Thoracic/Lumbar Spine: thoracic and lumbar spine normal to inspection Pelvis: no pain with anterior-posterior compression, no buttock ecchymosis and buttock tenderness on the left Skin General skin exam: no rashes or lesions noted Neuro General: patient alert, patient awake and patient oriented x3 Cognition: normal cognition Speech: speech normal Motor: muscle tone normal throughout and strength 5/5 throughout Sensory Exam: no sensory deficits noted DTR's: Rt Patellar: 1+, Lt Patellar: 1+, Rt Ankle: 1+ and Lt Ankle: 1+ Plantar Reflexes: Equivocal: bilateral (Negative babinski b/l ) Other: Muscle strength 5/5 bilateral lower extremities. B/L DP/PT pulses intact. Extrem General: normal to inspection, full ROM, capillary refill normal, no calf tenderness bilaterally and no edema Psych Appearance: grossly normal Mental Status: mental status grossly normal Speech and Movement: speech and movement normal Affect: normal affect Course Vital Signs Vital signs: Vital Signs Temperature 97.2 F L 02/05/21 09:42 Pulse 88 02/05/21 09:42 Respiratory Rate 16 02/05/21 09:42 Blood Pressure 152/118 H 02/05/21 09:42 Pulse Oximetry 88 L 02/05/21 09:42 Temperature 97.2 F L 02/05/21 09:42 Temperature Source Skin 02/05/21 09:42 Pulse 88 02/05/21 09:42 Respiratory Rate 16 02/05/21 09:42 Respiratory Effort Non-Labored 02/05/21 09:42 Blood Pressure 152/118 H 02/05/21 09:42 Blood Pressure Position Sitting 02/05/21 09:42 Pulse Oximetry 88 L 02/05/21 09:42 Pain Level 8 02/05/21 09:42
[2021-02-05] MEDS: Ketorolac 60 MG/2 ML VIAL IM (10:15)
[2021-02-05] MEDS: predniSONE 20 MG TAB 60 MG PO (10:15)
[2021-02-05] MEDS: diazePAM 5 MG TAB PO (10:15)
== END 2021-02-05 10:27 | disposition home or self-care (01) ==
PROVIDERS: Emergency Provider Physician Assistant; PCP Family Medicine
DX: M54.42 Lumbago with sciatica, left side (principal)
CPT/HCPCS: 96372; 99284; 99283; J1885; J7512

== ENCOUNTER 2021-11-25 10:14 | Outpatient (REF) | payer MEDICAID, SELFPAY ==
[2021-11-25 15:14] LABS: HCT 43.9 % (36.0-46.0); HGB 13.8 g/dL (11.2-15.7); MCH 26.8 pg (27.0-33.0); MCHC 31.4 % (32.0-36.0); MCV 85 fL (80-95); MPV 10.2 fL (8.0-11.0); Platelet Count 210 10^3/uL (130-400); RBC 5.15 10^6/uL (3.93-5.22); RDW 13.8 % (11.7-14.6); RDW-SD 42.7 fL; WBC 6.59 10^3/uL (4.4-10.8)
[2021-11-25 15:56] LABS: ALT 33 U/L (14-59); AST 18 U/L (15-37); Albumin 3.8 g/dL (3.4-5.0); Alkaline Phosphatase 106 U/L (46-116); Anion Gap 7.9 mmol/L (3-11); BUN 26 mg/dL (7-18); Bilirubin, Total 0.3 mg/dL (0.2-1.0); CO2 29.1 mmol/L (21.0-32.0); CREATININE 0.9 mg/dL (0.55-1.02); Calcium 9.6 mg/dL (8.5-10.1); Calculated LDL 89 mg/dL (<100); Chloride 103 mmol/L (98-107); Cholesterol 146 mg/dL (<200); Glucose 230 mg/dL (74-106); HDL Cholesterol 36 mg/dL (40-60); Potassium 4.5 mmol/L (3.5-5.1); Sodium 140 mmol/L (136-145); TSH 1.49 uIU/mL (0.36-3.74); Total Protein 7.4 g/dL (6.4-8.2); Triglyceride 108 mg/dL (<150); Vitamin B12 416 pg/mL (193-986)
== END 2021-11-25 10:15 | disposition home or self-care (01) ==
LOC: NCHCN 10:14
PROVIDERS: PCP Family Medicine; Visit Provider Family Medicine
DX: B19.20 Unspecified viral hepatitis C without hepatic coma (principal); E11.9 Type 2 diabetes mellitus without complications; G62.9 Polyneuropathy, unspecified; Z86.2 Personal history of diseases of the blood and blood-forming organs and certain disorders involving the immune mechanism; E78.5 Hyperlipidemia, unspecified
CPT/HCPCS: 80053; 80061; 85027; 82607; 84443

== ENCOUNTER 2022-02-15 07:49 | Emergency (ER) | payer MEDICAID, SELFPAY ==
[2022-02-15 07:50] VITALS: BP 147/74; PULSE 71; RESP 18; TEMP 36.7; O2SAT 96
[2022-02-15 07:52] VITALS: BP 147/74; PULSE 70
[2022-02-15 08:29] LABS: Bilirubin Negative (Negative); Blood Small (Negative); Clarity Cloudy (Clear); Glucose 500 mg/dL (Negative); Ketones Negative (Negative); Leukocyte Esterase Small (Negative); Nitrite Negative (Negative); Urobilinogen 0.2 EU/dL (Up TO 0.2)
--- NOTE | 2022-02-15 08:30 | DI.CT_ITS ---
Exam(s) CT ABDOMEN PELVIS W EXAM: CT ABDOMEN PELVIS W CLINICAL HISTORY: right flank pain, chills, remote ivdu TECHNIQUE: Imaging Protocol: Axial computed tomography images with coronal and sagittal reformatted images were created and reviewed CONTRAST MATERIAL: Intravenous: Omnipaque 350 Contrast volume:100 mL Oral: No COMPARISON: CT CT ABDOMEN PELVIS WO/W from 05/06/2018 FINDINGS: ABDOMEN: Lung Bases: Normal where visualized. Liver: Normal density. No measurable mass. Portal, Superior Mesenteric, and Splenic Veins: Unremarkable. Gallbladder and Biliary Tract: No radiodense calculus or dilation. Pancreas: Normal density, no abnormal calcifications or inflammatory process. Spleen: Normal. Adrenals: The right adrenal gland is unremarkable. There is a stable 3 x 2 cm left adrenal nodule. Kidneys: The left kidney is unremarkable. There is delayed enhancement of the right kidney which is enlarged. No radiopaque stone is identified in the ureter. The ureter is of normal caliber but ther e is mild prominence of the renal pelvis. Stranding is seen around the right kidney and proximal ure ter. No focal fluid collection is seen in the pararenal space. No radiodense stones are seen. No m asses seen. Abdominal Aorta: Abdominal portion non-dilated. Mild atherosclerosis. Bowel: No obstruction or bowel wall thickening. No evidence of appendicitis. There is a moderate shraddha unt of stool throughout the colon which may reflect constipation. Peritoneal Cavity: No ascites, collection or mesenteric inflammatory response. No free air. Lymph Nodes: There are enlarged lymph nodes seen in the upper abdomen. The largest is an aortic cava l lymph node measuring 1.6 x 2.3 cm. Bones: Within normal limits for the patient's age. There is a stable lucency in the L3 vertebral bod y. Degenerative changes are seen throughout the thoracic and lumbar spine resulting in central spina l canal and neural foraminal stenosis. Soft Tissues: Small anterior abdominal wall fat containing hernia are noted. PELVIS: Bladder: Symmetric distention, no gross wall thickening. Reproductive Organs: Unremarkable as visualized. Lymph Nodes: Within normal limits. Bones: Within normal limits for the patient's age. IMPRESSION: 1. The right kidney is enlarged and shows diffuse delayed enhancement. The ureters of normal caliber . There is mild prominence however of the calices. Perinephric stranding is seen. No focal fluid c ollection is seen to suggest an abscess. Differential considerations include a radiolucent stone or pyelonephritis. Mass cannot be entirely excluded. 2. Moderate amount of stool throughout the colon which may reflect constipation. 3. Stable findings in the abdomen and pelvis since 05/06/2018. 4. Findings were discussed with Dr. Hunter at 11:16 a.m. on 02/15/2022. RADIATION DOSE DELIVERED: 1,437.61mGy.cm Total DLP DATA REPOSITORY: All CT scans at this facility are submitted to the National Radiology Data Registry (NRDR) Dose Index Registry (DIR) with the [employer] (A[employer]). RADIATION OPTIMIZATION: All CT scans at this facility use at least one of these dose optimization te chniques: automated exposure control; mA and/or kV adjustment per patient size (includes targeted exa ms where dose is matched to clinical indication); or iterative reconstruction.
[2022-02-15 08:40] LABS: WBC 20-50 HPF (0-5)
[2022-02-15 08:41] LABS: Bacteria Moderate HPF (Negative); C & S Indicated? Yes; Casts Negative LPF (Negative); Crystals Negative HPF (Negative); Epithelial Cells Few HPF (Negative); Mucus Trace (Negative); Other Cells Negative (Negative)
--- NOTE | 2022-02-15 08:48 | ED.GENADUL_ITS ---
Discharge Plan Disposition Patient Disposition: HOME Condition: Stable Discharge Details Clinical Impression: Pyelonephritis of right kidney Primary Care Provider: Debo Talamantes V ED Provider: Blair Hunter Home Meds and New Rx's Prescriptions: New cephalexin 500 mg tablet 500 mg PO QID Qty: 50 0RF ondansetron 4 mg tablet,disintegrating 4 mg PO Q8H PRNQty: 10 0RF Continued losartan-hydrochlorothiazide 1 TAB tablet 1 tab PO DAILY Label Comments: Rx Instructions: 50/12.5 MG oxybutynin chloride 5 MG tablet 1 tab PO BID gabapentin 400 mg Capsule 400 mg PO TID ibuprofen [Ibuprofen IB] 200 mg Tablet 800 mg PO QID PRN bupropion HCl [Wellbutrin XL] 300 mg Tablet Extended Release 24 Hr 300 mg PO QAM buprenorphine-naloxone [Suboxone] 8-2 mg film 2 film sublingual DAILY Label Comments: TAKE TWO FILM UNDER THE TONGUE FILL ON 01/20/22 Held metformin [Glucophage XR] 500 mg Tablet Extended Release 24 Hr 1,000 mg PO DAILY Hold Instructions: Resume on 02/16/22. Discontinued methocarbamol 500 mg tablet 500 mg PO Q6H PRN (Reason: muscle spasm) Qty: 14 0RF Discharge Instructions Instructions: Kidney Infection (ED) Additional Instructions: Please take full course of antibiotic as prescribed. Please drink plenty of fluids to stay hydrated. Allow for plenty of rest. Please contact your primary care physician to arrange follow-up. Return to the ER immediately for any worsening or new concerning symptoms. Referrals: Debo Talamantes MD [Primary Care Provider] - Discharge Data Discharge Date/Time-TO BE ENTERED AT DEPARTURE: 02/15/22 12:22 Medical Decision Making 855 -- 56-year-old female with multiple medical problems including history of diabetes, hypertension, hepatitis C, remote IV drug use, endocarditis, pyelonephritis, here with right flank pain and chills since this morning with associated nausea and vomiting. Patient has CVA tenderness on the right. Dry heaving on initial exam. Concerned about potential pyelonephritis and urosepsis. Patient is quite fatigued and seems slightly confused. Consider acute intra-abdominal surgical pathology. Plan to obtain CT of the abdomen pelvis with IV contrast. Delay in care secondary to IV access. Attempt by nursing unsuccessful. 18- gauge IV catheter placed left AC under ultrasound guidance. 1121 -- CT of the abdomen pelvis was interpreted by radiology: I spoke with Dr. De Jesus, concern for inflammatory process in the right kidney. Urinalysis reviewed and patient has 20-50 WBCs with 5-10 RBCs. Given findings, suspect pyelonephritis. Patient reassessed and notes she is feeling much better after IV Tylenol and Zofran. Patient notes fatigue was likely related to poor sleep last night in combination with Suboxone dosing today. Plan to initiate treatment with ceftriaxone 1 g IV and then continue Keflex over the next 12 days. I will refer her to follow-up with PCP. Should symptoms persist, additional diagnostic testing may be necessary. Lab Data Lab results reviewed: Yes I reviewed the patient's lab results. Labs: 02/15/22 08:15 Urine - Reflex from Ua Urine Culture - Pending Laboratory Tests Range/Units 02/15/22 02/15/22 02/15/22 08:15 08:50 08:50 WBC (4.4-10.8) 10^3/uL 6.18 RBC (3.93-5.22) 10^6/uL 5.38 H Hgb (11.2-15.7) g/dL 15.2 Hct (36.0-46.0) % 46.1 H MCV (80-95) fL 86 MCH (27.0-33.0) pg 28.3 MCHC (32.0-36.0) % 33.0 RDW (11.7-14.6) % 14.0 Plt Count (130-400) 10^3/uL 219 MPV (8.0-11.0) fL 9.5 Immature Gran % 1.0 Neutrophils % 89.5 Lymphocytes % 7.0 Monocytes % 1.1 Eosinophils % 0.6 Basophils % 0.8 Nucleated RBC % (0.0-0.3) % 0.0 Absolute Neutrophils (1.2-6.7) 10^3/uL 5.53 Absolute Lymphocytes (1.2-3.4) 10^3/uL 0.43 L Absolute Monocytes (0.1-0.8) 10^3/uL 0.07 L Absolute Eosinophils (0.0-0.7) 10^3/uL 0.04 Absolute Basophils (0.0-0.2) 10^3/uL 0.05 VBG Lactate (0.6-1.4) mmol/L 1.7 H Sodium (136-145) mmol/L Potassium (3.5-5.1) mmol/L Chloride (98-107) mmol/L Carbon Dioxide (21.0-32.0) mmol/L Anion Gap (3-11) mmol/L BUN (7-18) mg/dL Creatinine (0.55-1.02) mg/dL Est GFR (CKD-EPI 2020) (mL/min/1.73m2) Glucose (74-106) mg/dL Calcium (8.5-10.1) mg/dL Total Bilirubin (0.2-1.0) mg/dL AST (15-37) U/L ALT (14-59) U/L Alkaline Phosphatase (46-116) U/L Ammonia (11-32) umol/L Total Protein (6.4-8.2) g/dL Albumin (3.4-5.0) g/dL Urine Color (Yellow) Yellow Urine Clarity (Clear) Cloudy Urine pH (5-8) 7.0 Ur Specific [place] (1.005-1.025) 1.020 Urine Protein (Negative) mg/dL 30 H Urine Ketones (Negative) mg/dL Negative Urine Blood (Negative) Small H Urine Nitrite (Negative) Negative Urine Bilirubin (Negative) Negative Urine Urobilinogen (Up TO 0.2) EU/dL 0.2 Ur Leukocyte Esterase (Negative) Small H Urine RBC (0-2) HPF 5-10 H Urine WBC (0-5) HPF 20-50 H Ur Epithelial Cells (Negative) HPF Few Urine Crystals (Negative) HPF Negative Urine Bacteria (Negative) HPF Moderate Urine Casts (Negative) LPF Negative Urine Mucus (Negative) Trace Urine Other (Negative) Negative Ur Culture Indicated? Yes Urine Glucose (Negative) mg/dL 500 H Ethyl Alcohol (<10) mg/dL COVID-19 Source SARS-CoV-2 (PCR) (Negative) Range/Units 02/15/22 02/15/22 02/15/22 08:50 08:50 08:50 WBC (4.4-10.8) 10^3/uL RBC (3.93-5.22) 10^6/uL Hgb (11.2-15.7) g/dL Hct (36.0-46.0) % MCV (80-95) fL MCH (27.0-33.0) pg MCHC (32.0-36.0) % RDW (11.7-14.6) % Plt Count (130-400) 10^3/uL MPV (8.0-11.0) fL Immature Gran % Neutrophils % Lymphocytes % Monocytes % Eosinophils % Basophils % Nucleated RBC % (0.0-0.3) % Absolute Neutrophils (1.2-6.7) 10^3/uL Absolute Lymphocytes (1.2-3.4) 10^3/uL Absolute Monocytes (0.1-0.8) 10^3/uL Absolute Eosinophils (0.0-0.7) 10^3/uL Absolute Basophils (0.0-0.2) 10^3/uL VBG Lactate (0.6-1.4) mmol/L Sodium (136-145) mmol/L 139 Potassium (3.5-5.1) mmol/L 4.0 Chloride (98-107) mmol/L 100 Carbon Dioxide (21.0-32.0) mmol/L 29.4 Anion Gap (3-11) mmol/L 9.6 BUN (7-18) mg/dL 23 H Creatinine (0.55-1.02) mg/dL 1.0 Est GFR (CKD-EPI 2020) (mL/min/1.73m2) 66.12 Glucose (74-106) mg/dL 287 H Calcium (8.5-10.1) mg/dL 9.3 Total Bilirubin (0.2-1.0) mg/dL 0.4 AST (15-37) U/L 17 ALT (14-59) U/L 32 Alkaline Phosphatase (46-116) U/L 119 H Ammonia (11-32) umol/L < 10 L Total Protein (6.4-8.2) g/dL 8.3 H Albumin (3.4-5.0) g/dL 4.1 Urine Color (Yellow) Urine Clarity (Clear) Urine pH (5-8) Ur Specific [place] (1.005-1.025) Urine Protein (Negative) mg/dL Urine Ketones (Negative) mg/dL Urine Blood (Negative) Urine Nitrite (Negative) Urine Bilirubin (Negative) Urine Urobilinogen (Up TO 0.2) EU/dL Ur Leukocyte Esterase (Negative) Urine RBC (0-2) HPF Urine WBC (0-5) HPF Ur Epithelial Cells (Negative) HPF Urine Crystals (Negative) HPF Urine Bacteria (Negative) HPF Urine Casts (Negative) LPF Urine Mucus (Negative) Urine Other (Negative) Ur Culture Indicated? Urine Glucose (Negative) mg/dL Ethyl Alcohol (<10) mg/dL < 3.0 COVID-19 Source SARS-CoV-2 (PCR) (Negative) Range/Units 02/15/22 08:53 WBC (4.4-10.8) 10^3/uL RBC (3.93-5.22) 10^6/uL Hgb (11.2-15.7) g/dL Hct (36.0-46.0) % MCV (80-95) fL MCH (27.0-33.0) pg MCHC (32.0-36.0) % RDW (11.7-14.6) % Plt Count (130-400) 10^3/uL MPV (8.0-11.0) fL Immature Gran % Neutrophils % Lymphocytes % Monocytes % Eosinophils % Basophils % Nucleated RBC % (0.0-0.3) % Absolute Neutrophils (1.2-6.7) 10^3/uL Absolute Lymphocytes (1.2-3.4) 10^3/uL Absolute Monocytes (0.1-0.8) 10^3/uL Absolute Eosinophils (0.0-0.7) 10^3/uL Absolute Basophils (0.0-0.2) 10^3/uL VBG Lactate (0.6-1.4) mmol/L Sodium (136-145) mmol/L Potassium (3.5-5.1) mmol/L Chloride (98-107) mmol/L Carbon Dioxide (21.0-32.0) mmol/L Anion Gap (3-11) mmol/L BUN (7-18) mg/dL Creatinine (0.55-1.02) mg/dL Est GFR (CKD-EPI 2020) (mL/min/1.73m2) Glucose (74-106) mg/dL Calcium (8.5-10.1) mg/dL Total Bilirubin (0.2-1.0) mg/dL AST (15-37) U/L ALT (14-59) U/L Alkaline Phosphatase (46-116) U/L Ammonia (11-32) umol/L Total Protein (6.4-8.2) g/dL Albumin (3.4-5.0) g/dL Urine Color (Yellow) Urine Clarity (Clear) Urine pH (5-8) Ur Specific [place] (1.005-1.025) Urine Protein (Negative) mg/dL Urine Ketones (Negative) mg/dL Urine Blood (Negative) Urine Nitrite (Negative) Urine Bilirubin (Negative) Urine Urobilinogen (Up TO 0.2) EU/dL Ur Leukocyte Esterase (Negative) Urine RBC (0-2) HPF Urine WBC (0-5) HPF Ur Epithelial Cells (Negative) HPF Urine Crystals (Negative) HPF Urine Bacteria (Negative) HPF Urine Casts (Negative) LPF Urine Mucus (Negative) Urine Other (Negative) Ur Culture Indicated? Urine Glucose (Negative) mg/dL Ethyl Alcohol (<10) mg/dL COVID-19 Source Nasal/Nares SARS-CoV-2 (PCR) (Negative) Negative HPI General Mode of arrival: ambulatory . Date/Time Provider Initiated Documentation: 02/15/22 08:10 . Limitations to Documentation: no limitations . Information obtained by: patient . HPI Narrative: 56-year-old female with multiple medical problems including remote history of IV drug use, hepatitis C, hypertension, diabetes, endocarditis, pyelonephritis, here with chief complaint of right flank pain. States around 5 AM today and has persisted. Pain is severe. No modifiers. She has associated nausea and vomiting. No abdominal pain. She has chills. No fever. No respiratory symptoms. Related Data Home Medications Medication Instructions Recorded Confirmed losartan 50 mg-hydrochlorothiazide 1 tab PO DAILY 12/17/16 02/15/22 12.5 mg tablet oxybutynin chloride 5 mg tablet 1 tab PO BID 12/17/16 02/15/22 bupropion HCl 300 mg 24 hr tablet, 300 mg PO QAM 05/06/18 02/15/22 extended release (Wellbutrin XL) gabapentin 400 mg capsule 400 mg PO TID 05/06/18 02/15/22 ibuprofen 200 mg tablet (Ibuprofen 800 mg PO QID PRN 05/06/18 02/15/22 IB) metformin 500 mg tablet,extended 1,000 mg PO DAILY 05/06/18 02/15/22 release 24 hr (Glucophage XR) buprenorphine 8 mg-naloxone 2 mg 2 film sublingual DAILY 02/15/22 02/15/22 sublingual film (Suboxone) cephalexin 500 mg tablet 500 mg PO QID #50 tabs 02/15/22 ondansetron 4 mg disintegrating 4 mg PO Q8H PRN #10 tabs 02/15/22 tablet Previous Rx's Medication Instructions Recorded cephalexin 500 mg tablet 500 mg PO QID #50 tabs 02/15/22 ondansetron 4 mg disintegrating 4 mg PO Q8H PRN #10 tabs 02/15/22 tablet Allergies Allergy/AdvReac Type Severity Reaction Status Date / Time exenatide [From Byetta] AdvReac Mild Vomited Unverified 02/05/21 09:46 lisinopril AdvReac Mild Cough Unverified 02/05/21 09:46 General Stated Complaint: Nk/Back Pain YASMINE: 3 Review of Systems All systems reviewed & are unremarkable except as noted in HPI and below Constitutional Constitutional: Reports chills and Denies fever(s) Genitourinary Genitourinary: Denies hematuria and Denies urinary urgency PFSH All Active Problems Bleeding from varicose vein (Acute) Sciatica of left side (Acute) Pyelonephritis of right kidney (Acute) Flu-like symptoms (Acute) Sudden onset upset stomach, vomiting, diarrhea. 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 Atypical symptoms, but reasonable. E. coli bacteremia (Acute) Discharge planning issues (Acute) Endocarditis (Acute) Pyelonephritis (Acute) Sepsis (Acute) Ventral hernia (Chronic) Adrenal nodule (Chronic) Pyelonephritis (Acute) DVT prophylaxis (Chronic) History of hernia repair (Chronic) History of (Chronic) History of appendectomy (Chronic) SHARAN (obstructive sleep apnea) (Chronic) HPV (human papilloma virus) infection (Chronic) Hypertension (Chronic) History of alcohol abuse (Chronic) Tobacco abuse (Chronic) Obesity (Chronic) Hepatitis C (Chronic) Diabetes mellitus (Chronic) Anxiety (Chronic) History of intravenous drug abuse (Chronic) Social History Smoking/Tobacco Use Status: Current every day Tobacco Type: cigarettes Smoking risk assessment performed?: Yes Alcohol Intake: former Drug use: Current Sobriety Substance use type: marijuana Do you feel safe at home: Yes Do you feel safe in your relationship?: Yes Additional Social history: Patient is . She has 2 children, and one g naya. 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 Reports daily tobacco use, with an approximate [id number] history of smoking. Reports both alcohol and illicit drug use in remission. Exam Const General: cooperative, uncomfortable and no acute distress HENVA Mouth: mucous membranes dry Eyes Conjunctivae: normal conjunctivae Sclera: normal sclerae Pupils: PERRL EOM: EOM intact bilaterally Neck Neck: trachea midline and supple Resp Auscultation: clear to auscultation bilaterally, no rales, no rhonchi and no wheezes Cardio Rate: regular rate and not tachycardic Rhythm: regular rhythm GI Palpation: soft, not firm, no guarding, no masses, not rigid and nontender Back/Spine/Pelvis Back: CVA tenderness (rt) Skin General skin exam: no rashes or lesions noted Neuro General: patient awake and tone normal Speech: speech normal Other: intermittently falling asleep Extrem General: no edema Psych Appearance: grossly normal Course Vital Signs Vital signs: Vital Signs Temperature 36.7 C 02/15/22 07:50 Pulse 71 02/15/22 07:50 Respiratory Rate 18 02/15/22 07:50 Blood Pressure 147/74 H 02/15/22 07:50 Pulse Oximetry 96 02/15/22 07:50 Temperature 36.7 C 02/15/22 07:50 Temperature Source Temporal Artery Scan 02/15/22 07:50 Pulse 71 02/15/22 07:50 Respiratory Rate 18 02/15/22 07:50 Blood Pressure 147/74 H 02/15/22 07:50 Blood Pressure Position Sitting 02/15/22 07:50 Pulse Oximetry 96 02/15/22 07:50 Oxygen Delivery Method Room Air 02/15/22 07:50 Oxygen Flow Rate 0 02/15/22 07:50 Lab/Test Results Lab/Test Results: 02/15/22 08:15 Urine - Reflex from Ua Urine Culture - Pending Laboratory Tests Range/Units 02/15/22 08:15 Urine Color (Yellow) Yellow Urine Clarity (Clear) Cloudy Urine pH (5-8) 7.0 Ur Specific [place] (1.005-1.025) 1.020 Urine Protein (Negative) mg/dL 30 H Urine Ketones (Negative) mg/dL Negative Urine Blood (Negative) Small H Urine Nitrite (Negative) Negative Urine Bilirubin (Negative) Negative Urine Urobilinogen (Up TO 0.2) EU/dL 0.2 Ur Leukocyte Esterase (Negative) Small H Urine RBC (0-2) HPF 5-10 H Urine WBC (0-5) HPF 20-50 H Ur Epithelial Cells (Negative) HPF Few Urine Crystals (Negative) HPF Negative Urine Bacteria (Negative) HPF Moderate Urine Casts (Negative) LPF Negative Urine Mucus (Negative) Trace Urine Other (Negative) Negative Ur Culture Indicated? Yes Urine Glucose (Negative) mg/dL 500 H
[2022-02-15 08:56] LABS: Source Nasal/Nares
[2022-02-15 08:56] LABS: Lactate 1.7 mmol/L (0.6-1.4)
[2022-02-15 09:02] LABS: Abs Immature Grans 0.06 10^3/uL (0.0-0.06); Absolute Basophil Count 0.05 10^3/uL (0.0-0.2); Absolute Eosinophil Count 0.04 10^3/uL (0.0-0.7); Absolute Lymphocyte Count 0.43 10^3/uL (1.2-3.4); Absolute Monocyte Count 0.07 10^3/uL (0.1-0.8); Absolute Neutrophil Count 5.53 10^3/uL (1.2-6.7); Basophils % 0.8; Eosinophils % 0.6; HCT 46.1 % (36.0-46.0); HGB 15.2 g/dL (11.2-15.7); MCH 28.3 pg (27.0-33.0); MCV 86 fL (80-95); MPV 9.5 fL (8.0-11.0); Monocytes % 1.1; Neutrophils % 89.5; Platelet Count 219 10^3/uL (130-400); RBC 5.38 10^6/uL (3.93-5.22); RDW-SD 43.8 fL; WBC 6.18 10^3/uL (4.4-10.8)
[2022-02-15 09:19] LABS: ALT 32 U/L (14-59); AST 17 U/L (15-37); Albumin 4.1 g/dL (3.4-5.0); Alkaline Phosphatase 119 U/L (46-116); Anion Gap 9.6 mmol/L (3-11); BUN 23 mg/dL (7-18); Bilirubin, Total 0.4 mg/dL (0.2-1.0); CO2 29.4 mmol/L (21.0-32.0); Calcium 9.3 mg/dL (8.5-10.1); Chloride 100 mmol/L (98-107); Estimated GFR 66.12 (mL/min/1.73m2); Glucose 287 mg/dL (74-106); Sodium 139 mmol/L (136-145); Total Protein 8.3 g/dL (6.4-8.2)
[2022-02-15] MEDS: ACETAMINOPHEN 1,000 MG/100 ML BTL 400 MG IVPB (09:26)
[2022-02-15] MEDS: Ondansetron 4 MG/2 ML VIAL IVP (09:27)
[2022-02-15] MEDS: Normal Saline 1,000 ML 1000 ML IV (09:27)
[2022-02-15 09:36] LABS: ETHANOL BLOOD < 3.0 mg/dL (<10)
[2022-02-15 09:50] VITALS: BP 116/53; PULSE 105
[2022-02-15 09:54] LABS: Ammonia < 10 umol/L (11-32)
[2022-02-15 09:58] LABS: COVID-19 PCR Negative (Negative)
[2022-02-15 10:08] VITALS: BP 121/69; PULSE 113
[2022-02-15] MEDS: Omnipaque 350 MG/ML 500 ML BTL-Imaging package IJ (10:09)
[2022-02-15] MEDS: Normal Saline Flush 10 ML SYR IVP (10:16)
[2022-02-15 11:09] VITALS: BP 130/69; PULSE 109; RESP 16; TEMP 37; O2SAT 95
[2022-02-15] MEDS: cefTRIAXone 1 GM/50 ML BAG IVPB (11:40)
[2022-02-15 12:15] VITALS: BP 130/69; PULSE 109; RESP 16; TEMP 37; O2SAT 95
== END 2022-02-15 12:22 | disposition home or self-care (01) ==
PROVIDERS: Emergency Provider Student in an Organized Health Care Education/Training Program; PCP Family Medicine
DX: N12 Tubulo-interstitial nephritis, not specified as acute or chronic (principal); I10 Essential (primary) hypertension; E11.9 Type 2 diabetes mellitus without complications
CPT/HCPCS: 80053; 87077; 87635; 96361; 96365; 96375; 99285; 74177; 80320; 81003; 81015; 82140; 83605; 85025; 87086; 87186; 99284; J0131; J0696; J2405

== ENCOUNTER 2022-03-09 15:14 | Outpatient (REF) | payer MEDICAID, SELFPAY | END 2022-03-09 15:15 | disposition home or self-care (01) | LOC: NCHCN 15:14 | PROVIDERS: PCP Family Medicine; Visit Provider Family Medicine | DX: R10.9 Unspecified abdominal pain (principal) | CPT/HCPCS: 87077; 87086; 87186 ==

== ENCOUNTER 2022-05-27 14:50 | Outpatient (REF) | payer MEDICAID, SELFPAY ==
--- NOTE | 2022-05-27 14:00 | PAPFT_PTH ---
PATIENT: Evi Srivastava LOC: [facility]#:[id number] AGE/SX: 56/F ROOM: RE05/27/[address]: Debo Talamantes V : 1965 BED: DIS: 05/27/2022 SPEC #: [id number] RECD: 05/27/22 18:33 STATUS: DERIK REBeth #: [id number] KENA: 05/27/22 14:[address]: Debo Talamantes V DEPT: [facility] Cytology RECD BY: Gayathri Ivan Tissues: 1 - CX/ENDOCX FOR PAP SMEARS Procedures: PAP THIN PREP/UVM Screening HPV DNA PROBE Comments: [id number]
[2022-05-27 19:08] LABS: HCT 44.9 % (36.0-46.0); HGB 14.4 g/dL (11.2-15.7); MCH 26.8 pg (27.0-33.0); MCHC 32.1 % (32.0-36.0); MCV 84 fL (80-95); MPV 10.2 fL (8.0-11.0); Platelet Count 247 10^3/uL (130-400); RBC 5.38 10^6/uL (3.93-5.22); RDW 13.9 % (11.7-14.6); RDW-SD 42.5 fL; WBC 8.55 10^3/uL (4.4-10.8)
[2022-05-27 19:25] LABS: ALT 27 U/L (14-59); AST 19 U/L (15-37); Alkaline Phosphatase 126 U/L (46-116); BUN 22 mg/dL (7-18); Bilirubin, Total 0.3 mg/dL (0.2-1.0); CREATININE 0.8 mg/dL (0.55-1.02); Calcium 9.3 mg/dL (8.5-10.1); Chloride 101 mmol/L (98-107); Estimated GFR 86.42 (mL/min/1.73m2); Glucose 310 mg/dL (74-106); Sodium 136 mmol/L (136-145); Total Protein 7.9 g/dL (6.4-8.2)
[2022-05-27 19:28] LABS: Hemoglobin A1C 11.2 % (<5.7)
== END 2022-05-27 14:51 | disposition home or self-care (01) ==
LOC: NCHCN 14:50
PROVIDERS: PCP Family Medicine; Visit Provider Family Medicine
DX: E11.9 Type 2 diabetes mellitus without complications (principal); I10 Essential (primary) hypertension; E78.5 Hyperlipidemia, unspecified; R10.30 Lower abdominal pain, unspecified; Z12.4 Encounter for screening for malignant neoplasm of cervix; R82.998 Other abnormal findings in urine; Z11.51 Encounter for screening for human papillomavirus (HPV)
CPT/HCPCS: 80053; 85027; 87077; 88142; 83036; 87086; 87186; 87624

== ENCOUNTER 2022-06-26 07:52 | Emergency (ER) | payer MEDICAID, SELFPAY ==
[2022-06-26 07:55] VITALS: BP 163/68; PULSE 78; RESP 16; TEMP 35.7; O2SAT 97
--- NOTE | 2022-06-26 08:08 | W.ED.GENAD ---
Discharge Plan Disposition Patient Disposition: Home Condition: Stable Discharge Details Clinical Impression: Second degree burn of back of right hand Primary Care Provider: Debo Talamantes V ED Provider: Pablo Hidalgo Home Meds and New Rx's Prescriptions: New cephalexin 500 mg tablet 500 mg PO QID 5 Days Qty: 20 0RF Continued oxybutynin chloride 5 MG tablet 1 tab PO BID gabapentin 400 mg Capsule 600 mg PO TID metformin [Glucophage XR] 500 mg Tablet Extended Release 24 Hr 1,000 mg PO DAILY Hold Instructions: Resume on 02/16/22. bupropion HCl [Wellbutrin XL] 300 mg Tablet Extended Release 24 Hr 300 mg PO QAM buprenorphine-naloxone [Suboxone] 8-2 mg film 2 film sublingual DAILY Patient Comments: TAKE TWO FILM UNDER THE TONGUE FILL ON 01/20/22 No Action cholecalciferol (vitamin D3) [Vitamin D3] 50 mcg (2,000 unit) capsule 2,000 unit PO DAILY Patient Comments: Take 1 capsule by mouth once a day simvastatin 10 mg tablet 10 mg PO DAILY Patient Comments: 1 tablet by mouth once a day TAKE 1 TABLET BY MOUTH AT BEDTIME losartan 50 mg tablet 50 mg PO DAILY Patient Comments: TAKE 1 TABLET BY MOUTH DAILY hydrochlorothiazide 12.5 mg tablet 12.5 mg PO DAILY Patient Comments: TAKE 1 TABLET BY MOUTH DAILY celecoxib 100 mg capsule 100 mg PO BID Patient Comments: TAKE 1 CAPSULE BY MOUTH TWICE DAILY omeprazole 40 mg capsule,delayed release(DR/EC) 40 mg PO DAILY Patient Comments: Take 1 capsule by mouth once a day glipizide 10 mg tablet extended release 24hr 10 mg PO DAILY Patient Comments: TAKE 1 TABLET BY MOUTH DAILY Jardiance 25 mg tablet 25 mg PO DAILY Patient Comments: TAKE 1 TABLET BY MOUTH ONCE DAILY AFTER FINISHING THE 10 MG TABLET Discharge Instructions Instructions: Second-Degree Burn (ED), Acute Wound Care (ED) Additional Instructions: Please continue to monitor your wound and wash with soap and water and take antibiotics as discussed. If you develop any new or significant worsening of your condition, fever chills, or streaking redness please return immediately to the emergency department for reassessment. It is very important that you follow-up with either your primary care provider or local urgent care for wound recheck to ensure proper healing. Referrals: Debo Talamantes MD [Primary Care Provider] - 3 days (Wound recheck) Medical Decision Making Patient presenting to the emergency department for chief complaint of injury to right middle finger. Patient reports that 2 days ago she was frying some food and may have injured her finger at that time. 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 She did previously have an injury to the same area years ago. Patient denies all other symptoms. Physical exam shows open wound to radial aspect of middle phalanx of right middle finger. There does appear to be some eschar present in the center with generalized swelling to the digit and mild redness but no streaking redness, no movement disability no purulent drainage. At this time differential diagnosis includes typical healing for burn versus early cellulitis secondary to open wound and diabetes. I do not feel any advanced imaging or lab is needed at this time but given patient's significant comorbidities will place patient on Keflex and request a close follow-up for wound recheck. Did discuss with patient monitoring of symptoms along with return precautions for worsening. After discussion of diagnosis and plan of care patient has no further needs, questions, or concerns and states clear understanding to return to the emergency department for any worsening symptoms. This documentation was generated using [employer] dictation system, please disregard any oddities of phrase or misspellings. HPI General Mode of arrival: ambulatory. Date/Time Provider Initiated Documentation: 06/26/22 08:00. Limitations to Documentation: no limitations. Information obtained by: patient. History of Present Illness 56 year old F presents to the emergency department with the chief complaint of Burn right middle finger, Quality is described as other (Denies pain secondary to neuropathy), and is localized to the right and upper extremity. Patient reports no radiation. Patient started experiencing this day(s) (2) and it has been constant. No relieving factors improve symptom(s), No exacerbating factors reported . Patient notes no other symptoms.. Patient did receive the following treatments prior to arrival, other (Topical Neosporin) Related Data Home Medications Medication Instructions Recorded Confirmed oxybutynin chloride 5 mg tablet 1 tab PO BID 12/17/16 06/26/22 bupropion HCl 300 mg 24 hr tablet, 300 mg PO QAM 05/06/18 06/26/22 extended release (Wellbutrin XL) gabapentin 400 mg capsule 600 mg PO TID 05/06/18 06/26/22 metformin 500 mg tablet,extended 1,000 mg PO DAILY 05/06/18 06/26/22 release 24 hr (Glucophage XR) buprenorphine 8 mg-naloxone 2 mg 2 film sublingual DAILY 02/15/22 06/26/22 sublingual film (Suboxone) celecoxib 100 mg capsule 100 mg PO BID 06/26/22 06/26/22 cephalexin 500 mg tablet 500 mg PO QID 5 days #20 tabs 06/26/22 cholecalciferol (vitamin D3) 50 2,000 unit PO DAILY 06/26/22 06/26/22 mcg (2,000 unit) capsule (Vitamin D3) empagliflozin 25 mg tablet 25 mg PO DAILY 06/26/22 06/26/22 (Jardiance) glipizide 10 mg tablet, extended 10 mg PO DAILY 06/26/22 06/26/22 release 24 hr hydrochlorothiazide 12.5 mg tablet 12.5 mg PO DAILY 06/26/22 06/26/22 losartan 50 mg tablet 50 mg PO DAILY 06/26/22 06/26/22 omeprazole 40 mg capsule,delayed 40 mg PO DAILY 06/26/22 06/26/22 release simvastatin 10 mg tablet 10 mg PO DAILY 06/26/22 06/26/22 Previous Rx's Medication Instructions Recorded cephalexin 500 mg tablet 500 mg PO QID 5 days #20 tabs 06/26/22 Allergies Allergy/AdvReac Type Severity Reaction Status Date / Time exenatide [From Byetta] AdvReac Mild Vomited Unverified 06/26/22 08:00 lisinopril AdvReac Mild Cough Unverified 06/26/22 08:00 General Stated Complaint: Burn YASMINE: 4 Review of Systems Narrative: 6 systems reviewed and unremarkable except what is marked below. Musculoskeletal Musculoskeletal: Denies limited range of motion Integumentary/Breasts Skin/Breast: Reports as per HPI and Reports erythema PFSH All Active Problems Bleeding from varicose vein (Acute) Sciatica of left side (Acute) Second degree burn of back of right hand (Acute) Flu-like symptoms (Acute) Sudden onset upset stomach, vomiting, diarrhea. 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 Atypical symptoms, but reasonable. E. coli bacteremia (Acute) Discharge planning issues (Acute) Endocarditis (Acute) Pyelonephritis (Acute) Sepsis (Acute) Ventral hernia (Chronic) Adrenal nodule (Chronic) Pyelonephritis (Acute) DVT prophylaxis (Chronic) History of hernia repair (Chronic) History of (Chronic) History of appendectomy (Chronic) SHARAN (obstructive sleep apnea) (Chronic) HPV (human papilloma virus) infection (Chronic) Hypertension (Chronic) History of alcohol abuse (Chronic) Tobacco abuse (Chronic) Obesity (Chronic) Hepatitis C (Chronic) Diabetes mellitus (Chronic) Anxiety (Chronic) History of intravenous drug abuse (Chronic) Social History Smoking/Tobacco Use Status: Current every day Tobacco Type: cigarettes Smoking risk assessment performed?: Yes Alcohol Intake: former Drug use: Current Sobriety Substance use type: marijuana Do you feel safe at home: Yes Do you feel safe in your relationship?: Yes Additional Social history: Patient is . She has 2 children, and one grandson. 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 Reports daily tobacco use, with an approximate [id number] history of smoking. Reports both alcohol and illicit drug use in remission. Exam Const General: cooperative, no acute distress and not ill appearing Orientation: alert, awake and oriented x3 Resp Effort & Inspection: normal respiratory effort, able to speak in complete sentences and no respiratory distress Neuro General: patient alert, patient awake, patient oriented x3, moves all extremities and no focal motor deficits Extrem Right upper extremity: hand Details: normal to inspection, normal capillary refill, neuromotor exam normal, tendon exam normal, vascular exam Details: normal capillary refill, swelling Location: of the 3rd digit (mild) Location: involving the entire digit and other (1 cm oval open wound secondary to burn); no tenderness Course Vital Signs Vital signs: Vital Signs Temperature 35.7 C L 06/26/22 07:55 Pulse 78 06/26/22 07:55 Respiratory Rate 16 06/26/22 07:55 Blood Pressure 163/68 H 06/26/22 07:55 Pulse Oximetry 97 06/26/22 07:55 Temperature 35.7 C L 06/26/22 07:55 Temperature Source Tympanic 06/26/22 07:55 Pulse 78 06/26/22 07:55 Respiratory Rate 16 06/26/22 07:55 Blood Pressure 163/68 H 06/26/22 07:55 Blood Pressure Position Sitting 06/26/22 07:55 Pulse Oximetry 97 06/26/22 07:55 Oxygen Delivery Method Room Air 06/26/22 07:55 Oxygen Flow Rate 0 06/26/22 07:55 Pain Level 0 06/26/22 08:02
--- NOTE | 2022-06-26 08:15 | NUR.NOTE ---
Referral made to PCP per Thuan Hidalgo in 3-4 days for wound re-check. Put the referral in the urgent care physician's box for follow up assistance.Nursing Note:
[2022-06-26] MEDS: Cephalexin 500 MG CAP PO (08:16)
== END 2022-06-26 08:24 | disposition home or self-care (01) ==
PROVIDERS: Emergency Provider Nurse Practitioner Family; PCP Family Medicine
DX: T23.221A Burn of second degree of single right finger (nail) except thumb, initial encounter (principal); T31.0 Burns involving less than 10% of body surface; I10 Essential (primary) hypertension; Z79.84 Long term (current) use of oral hypoglycemic drugs; X08.8XXA Exposure to other specified smoke, fire and flames, initial encounter; Y93.89 Activity, other specified
CPT/HCPCS: 99283

== ENCOUNTER 2022-12-11 12:32 | Emergency (ER) | payer MEDICAID, SELFPAY ==
[2022-12-11 12:37] VITALS: BP 194/66; PULSE 51; RESP 16; TEMP 36.6; O2SAT 90
--- NOTE | 2022-12-11 14:00 | DI.CT_ITS ---
Exam(s) CT LUMBAR SPINE WO EXAM: CT LUMBAR SPINE WO CLINICAL HISTORY: midline lumbar tenderness after extension injury. TECHNIQUE: Imaging Protocol: Axial computed tomography images with coronal and sagittal reformatted images were created and reviewed COMPARISON: CT CT ABDOMEN PELVIS WO/W from 05/06/[address] ABDOMEN PELVIS W from 02/15/2022 FINDINGS: There are extensive severe degenerative changes in the lower thoracic and lumbar spine. There is mar ked disc space narrowing, prominent endplate osteophytes as well as facet degenerative changes. Dege nerative sclerotic changes again noted. There are stable lucency in L3 vertebral body. There is mil d multilevel spondylolisthesis but no spondylolysis. The findings are greatest at L4-5. Findings ap pear unchanged from prior abdomen pelvic CT. Mild degenerative scoliosis. The visualized SI joints and sacrum are will maintained. prominent subchondral cysts in the anterior acetabula bilaterally. Soft Tissues: The paraspinal soft tissues are unremarkable. Large quantity of stool noted in the r ectum. Bladder and uterus are unremarkable as visualized. Aorta normal in diameter and shows mild a therosclerotic changes. Visualized portions of the kidneys are unremarkable. Adrenals appear normal . Lung bases are clear. Pancreas and gallbladder are unremarkable. IMPRESSION: Severe degenerative changes. No acute abnormality. RADIATION DOSE DELIVERED: 1,025.99mGy.cm Total DLP DATA REPOSITORY: All CT scans at this facility are submitted to the National Radiology Data Registry (NRDR) Dose Index Registry (DIR) with the [employer] ([employer]). RADIATION OPTIMIZATION: All CT scans at this facility use at least one of these dose optimization te chniques: automated exposure control; mA and/or kV adjustment per patient size (includes targeted exa ms where dose is matched to clinical indication); or iterative reconstruction.
--- NOTE | 2022-12-11 14:04 | ED.GENADUL_ITS ---
Discharge Plan Discharge Details Chief Complaint: Nk/Back Pain Primary Care Provider: Debo Talamantes V ED Provider: Shannen Hubbard Home Meds and New Rx's Prescriptions: No Action oxybutynin chloride 5 MG tablet 1 tab PO BID gabapentin 400 mg Capsule 600 mg PO TID metformin [Glucophage XR] 500 mg Tablet Extended Release 24 Hr 1,000 mg PO DAILY Hold Instructions: Resume on 02/16/22. bupropion HCl [Wellbutrin XL] 300 mg Tablet Extended Release 24 Hr 300 mg PO QAM cholecalciferol (vitamin D3) [Vitamin D3] 50 mcg (2,000 unit) capsule 2,000 unit PO DAILY Patient Comments: Take 1 capsule by mouth once a day simvastatin 10 mg tablet 10 mg PO DAILY Patient Comments: 1 tablet by mouth once a day TAKE 1 TABLET BY MOUTH AT BEDTIME losartan 50 mg tablet 50 mg PO DAILY Patient Comments: TAKE 1 TABLET BY MOUTH DAILY hydrochlorothiazide 12.5 mg tablet 12.5 mg PO DAILY Patient Comments: TAKE 1 TABLET BY MOUTH DAILY celecoxib 100 mg capsule 100 mg PO BID Patient Comments: TAKE 1 CAPSULE BY MOUTH TWICE DAILY omeprazole 40 mg capsule,delayed release(DR/EC) 40 mg PO DAILY Patient Comments: Take 1 capsule by mouth once a day glipizide 10 mg tablet extended release 24hr 10 mg PO DAILY Patient Comments: TAKE 1 TABLET BY MOUTH DAILY Jardiance 25 mg tablet 25 mg PO DAILY Patient Comments: TAKE 1 TABLET BY MOUTH ONCE DAILY AFTER FINISHING THE 10 MG TABLET buprenorphine-naloxone [Suboxone] 8-2 mg film 2 film sublingual DAILY Patient Comments: TAKE TWO FILM UNDER THE TONGUE FILL ON 01/20/22 Medical Decision Making 57F with hx of HTN, obesity, presenting with back pain after hyperextending while tripping over a dog. [place] a crunch and had immediate severe midline pain. No neurologic symptoms. Hypertensive on arrival suspect 2/t pain as well as underlying hypertension; given tylenol, toradol, flexril for symptoms and will reassess. Not concerned for cauda equina or cord injury based on history and exam. CT lumbar spine reviewed, no compression fracture or dislocation on my view, agree with radiology read below. Signed out with plan to reassess for symptom control; if improved anticipate dc home. Imaging Data Radiologic Study: Radiologist's impression: IMPRESSION: 1. ? No acute fracture or subluxation. 2. ? Stable advanced multilevel disc and endplates degenerative changes and spondylosis. HPI General Mode of arrival: EMS . Date/Time Provider Initiated Documentation: 12/11/22 13:19 . Limitations to Documentation: no limitations . Information obtained by: patient . HPI Narrative: 57yo F with hx of HTN, obesity, presenting with back pain. Tripped over dog and caught herself with her hand on a nearby sink, as she did this she hyperextended backwards and felt a crunch. Immediate severe low back pain; no numbness, tingling, weakness, or bowel/bladder incontinence. Pain is severe, midline, and radiates bilaterally around her hips. She was in her usual state of health prior to this event. Related Data Home Medications Medication Instructions Recorded Confirmed oxybutynin chloride 5 mg tablet 1 tab PO BID 12/17/16 06/26/22 bupropion HCl 300 mg 24 hr tablet, 300 mg PO QAM 05/06/18 06/26/22 extended release (Wellbutrin XL) gabapentin 400 mg capsule 600 mg PO TID 05/06/18 06/26/22 metformin 500 mg tablet,extended 1,000 mg PO DAILY 05/06/18 06/26/22 release 24 hr (Glucophage XR) buprenorphine 8 mg-naloxone 2 mg 2 film sublingual DAILY 02/15/22 06/26/22 sublingual film (Suboxone) celecoxib 100 mg capsule 100 mg PO BID 06/26/22 06/26/22 cholecalciferol (vitamin D3) 50 2,000 unit PO DAILY 06/26/22 06/26/22 mcg (2,000 unit) capsule (Vitamin D3) empagliflozin 25 mg tablet 25 mg PO DAILY 06/26/22 06/26/22 (Jardiance) glipizide 10 mg tablet, extended 10 mg PO DAILY 06/26/22 06/26/22 release 24 hr hydrochlorothiazide 12.5 mg tablet 12.5 mg PO DAILY 06/26/22 06/26/22 losartan 50 mg tablet 50 mg PO DAILY 06/26/22 06/26/22 omeprazole 40 mg capsule,delayed 40 mg PO DAILY 06/26/22 06/26/22 release simvastatin 10 mg tablet 10 mg PO DAILY 06/26/22 06/26/22 Allergies Allergy/AdvReac Type Severity Reaction Status Date / Time exenatide [From Byetta] AdvReac Mild Vomited Unverified 06/26/22 08:00 lisinopril AdvReac Mild Cough Unverified 06/26/22 08:00 General Stated Complaint: Nk/Back Pain YASMINE: 3 Review of Systems Narrative: see HPI PFSH All Active Problems Bleeding from varicose vein (Acute) Sciatica of left side (Acute) Flu-like symptoms (Acute) Sudden onset upset stomach, vomiting, diarrhea. 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 Atypical symptoms, but reasonable. E. coli bacteremia (Acute) Discharge planning issues (Acute) Endocarditis (Acute) Pyelonephritis (Acute) Sepsis (Acute) Ventral hernia (Chronic) Adrenal nodule (Chronic) Pyelonephritis (Acute) DVT prophylaxis (Chronic) History of hernia repair (Chronic) History of (Chronic) History of appendectomy (Chronic) SHARAN (obstructive sleep apnea) (Chronic) HPV (human papilloma virus) infection (Chronic) Hypertension (Chronic) History of alcohol abuse (Chronic) Tobacco abuse (Chronic) Obesity (Chronic) Hepatitis C (Chronic) Diabetes mellitus (Chronic) Anxiety (Chronic) History of intravenous drug abuse (Chronic) Social History Smoking/Tobacco Use Status: Current every day Tobacco Type: cigarettes Smoking risk assessment performed?: Yes Alcohol Intake: former Drug use: Current Sobriety Substance use type: marijuana Do you feel safe at home: Yes Do you feel safe in your relationship?: Yes Additional Social history: Patient is . She has 2 children, and one grandson. 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 Reports daily tobacco use, with an approximate [id number] history of smoking. Reports both alcohol and illicit drug use in remission. Exam Narrative Exam Narrative: General: Alert, appears uncomfortable. Head: Normocephalic, atraumatic Neck: Trachea midline, Neck supple. ENT: MMM. Cardiac: Regular, no murmurs appreciated Resp: No respiratory distress. CTAB. Abd: Soft, non-distended Extremities: No deformities. No peripheral edema. Neuro: GCS 15. Motor- 5/5 strength symmetric bilateral upper and lower extremities Sensation- Intact to light touch and symmetric multiple dermatomes including upper and lower extremities. No saddle anesthesia. Reflexes- 1+ achilles, no clonus Course Vital Signs Vital signs: Vital Signs Temperature 36.6 C 12/11/22 12:37 Pulse 51 L 12/11/22 12:37 Respiratory Rate 16 12/11/22 12:37 Blood Pressure 194/66 H 12/11/22 12:37 Pulse Oximetry 90 L 12/11/22 12:37 Temperature 36.6 C 12/11/22 12:37 Pulse 51 L 12/11/22 12:37 Respiratory Rate 16 12/11/22 12:37 Respiratory Effort Normal 12/11/22 13:36 Blood Pressure 194/66 H 12/11/22 12:37 Pulse Oximetry 90 L 12/11/22 12:37 Oxygen Delivery Method Room Air 12/11/22 12:37 Oxygen Flow Rate 0 12/11/22 12:37 Pain Level 9 12/11/22 13:25
[2022-12-11] MEDS: Acetaminophen 500 MG TAB 1000 MG PO (15:00)
[2022-12-11] MEDS: Cyclobenzaprine 10 MG TAB PO (15:00)
[2022-12-11] MEDS: Ketorolac 15 MG/ML VIAL IM (15:01)
--- NOTE | 2022-12-11 15:11 | DI.VRAD_ITS ---
PROCEDURE INFORMATION: Exam: CT Lumbar Spine Without Contrast Exam date and time: 12/11/2022 2:44 PM Age: 57 years old Clinical indication: Pain; Other: Midline lumbar tenderness after extension injury TECHNIQUE: Imaging protocol: Computed tomography of the lumbar spine without contrast. COMPARISON: CT ABDOMEN PELVIS W 02/15/2022 10:21 AM FINDINGS: Bones/joints: 4 mm grade 1 anterolisthesis L4 on L5. Stable mild levoscoliosis lumbar spine. There is straightening of lumbar lordosis. Stable mild anterior widening of the disc at L4-L5. There is a 1.2 cm lucency in the L3, unchanged. Disc degenerative changes with severe loss of disc height at L5-S1, L2-L3 and T11-T12 with endplate sclerosis.Moderate loss of disc height at L4-L5 and L1-L2 Stable advanced facet arthropathy at bilateral L4-L5 and L5-S1. Stable degenerative changes in the bilateral hip joints. Stable chronic fracture of the left transverse process of L1, L2 and L4. Stable advanced spondylosis with posterior spurring at L1-L2, L2-L3 , L3-L4 and L5-S1. Soft tissues: Unremarkable. IMPRESSION: 1. No acute fracture or subluxation. 2. Stable advanced multilevel disc and endplates degenerative changes and spondylosis. Dictated and Authenticated by: Gilbert Pratt MD. Ordering:MICHAEL Pride MD
--- NOTE | 2022-12-11 16:20 | NUR.NOTE ---
patient unable to transfer to wheelchair to go to the bathroom cammode brought to room Nursing Note:
[2022-12-11 17:00] VITALS: BP 174/78; PULSE 98; TEMP 36.4; O2SAT 97
--- NOTE | 2022-12-11 17:33 | W.EDPROG ---
Date of service: 12/11/22 Time of Service: 17:33 Medical Decision Making Care transitioned to myself from Dr. Hubbard. Please see her initial note regarding history, presentation and exam. In brief, patient is a 57-year-old female with past medical history significant for IV drug use, anxiety, diabetes, hepatitis C, alcohol abuse, hypertension, SHARAN, sciatica presenting today with back pain after hyperextending her back tripping over the dog. On Dr. Hubbard's exam, no neuro deficits. When I reevaluated the patient, she continues to have no weakness or saddle paresthesias. She was given Toradol, Tylenol, Flexeril. She has been sleeping intermittently but reports that pain continues to be severe. Will augment with Methocarbamol and reassess. CT scan was reviewed by radiologist prior to transition of care and no acute fracture, dislocation or evidence of nerve compression noted at this time. She does have some stable advanced multilevel disc and endplate degenerative changes and spondylosis. Patient's been sleeping. She is easy to arouse but I am hesitant to add any other medications that may cause further sedation for safety purposes. She does appear quite comfortable but continues to report that she has significant pain and would like to be in a hot bathtub. I am not able to give her that in the emergency department today. I did not feel that the patient will benefit from further medications and does not have any evidence of acute emergent pathology such as neurological compromise or cauda equina, I feel patient is safe for discharge home. She continues to have some back pain, we will send her home with a walker to help her with her ambulation and help with safety at home. Advise close follow-up with primary care. Return precautions were discussed. All her questions and concerns were addressed and she is agreement this plan. She is going to have her sister come to pick her up. Patient able to ambulate. Sign Out Sign Out Data: Sign Out Comment: 57yo F presenting after hyperextending low back after tripped over dog. Neurointact, not concerned for cord injury. CT l-spine negative for fracture/dislocation. Needs reassessment for pain control. Last updated by Shannen Hubbard MD at 12/11/22 15:38 Discharge Plan Disposition Patient Disposition: Home Condition: Good Discharge Details Clinical Impression: Back pain Primary Care Provider: Debo Talamantes V ED Provider: Molly Miller Home Meds and New Rx's Prescriptions: New cyclobenzaprine 5 mg tablet 5 mg PO Q8H PRN (Reason: muscle spasm) Qty: 6 0RF Continued oxybutynin chloride 5 MG tablet 1 tab PO BID gabapentin 400 mg Capsule 600 mg PO TID metformin [Glucophage XR] 500 mg Tablet Extended Release 24 Hr 1,000 mg PO DAILY Hold Instructions: Resume on 02/16/22. bupropion HCl [Wellbutrin XL] 300 mg Tablet Extended Release 24 Hr 300 mg PO QAM cholecalciferol (vitamin D3) [Vitamin D3] 50 mcg (2,000 unit) capsule 2,000 unit PO DAILY Patient Comments: Take 1 capsule by mouth once a day simvastatin 10 mg tablet 10 mg PO DAILY Patient Comments: 1 tablet by mouth once a day TAKE 1 TABLET BY MOUTH AT BEDTIME losartan 50 mg tablet 50 mg PO DAILY Patient Comments: TAKE 1 TABLET BY MOUTH DAILY hydrochlorothiazide 12.5 mg tablet 12.5 mg PO DAILY Patient Comments: TAKE 1 TABLET BY MOUTH DAILY celecoxib 100 mg capsule 100 mg PO BID Patient Comments: TAKE 1 CAPSULE BY MOUTH TWICE DAILY omeprazole 40 mg capsule,delayed release(DR/EC) 40 mg PO DAILY Patient Comments: Take 1 capsule by mouth once a day glipizide 10 mg tablet extended release 24hr 10 mg PO DAILY Patient Comments: TAKE 1 TABLET BY MOUTH DAILY Jardiance 25 mg tablet 25 mg PO DAILY Patient Comments: TAKE 1 TABLET BY MOUTH ONCE DAILY AFTER FINISHING THE 10 MG TABLET buprenorphine-naloxone [Suboxone] 8-2 mg film 2 film sublingual DAILY Patient Comments: TAKE TWO FILM UNDER THE TONGUE FILL ON 01/20/22 Discharge Instructions Instructions: Back Pain (ED) Additional Instructions: The CT scan of your back was reassuring here today with no fracture, dislocation or other emergent findings today. You do have some chronic changes in your back. Please continue to encourage hydration. Encourage ambulation. Tylenol and/or Ibuprofen as well as your chronic pain medication as previously prescribed. You may augment this with the Flexeril as prescribed. Please do not drink alcohol while taking this medication. You may also try topical options such as heat/ice, Lidoderm patches to help with pain. We are sending you home with walker to help with ambulation and give you support while your pain persists. Please follow up with your primary care in one week for reevaluation. If you develop weakness, fevers/chills, increased pain, problems with urination or bowel movements, please seek care urgently once again. Referrals: Debo Talamantes MD [Primary Care Provider] - Discharge Data Discharge Date/Time-TO BE ENTERED AT DEPARTURE: 12/11/22 20:57
[2022-12-11] MEDS: Methocarbamol 750 MG TAB 1500 MG PO (18:10)
[2022-12-11] MEDS: Lidocaine 5% Patch 1 PATCH TP (18:10)
[2022-12-11] MEDS: oxyCODONE 5 MG TAB PO (18:35)
[2022-12-11 20:35] VITALS: BP 185/79; PULSE 83; TEMP 36.1; O2SAT 96
[2022-12-11] MEDS: Acetaminophen 325 MG TAB 650 MG PO (20:35)
[2022-12-11 20:36] VITALS: BP 185/79; PULSE 83; RESP 16; TEMP 36.1; O2SAT 96
--- NOTE | 2022-12-12 08:41 | NUR.NOTE ---
Nursing Note: Pt called stating that she was seen in the ED yesterday and was told that she was going to be sent home with an RX for a muscle relaxer but she did not get a prescription and the pharmacy did not receive anything electronically. It does not appear by the discharge instructions that an RX was sent over either. I let her know i would discuss this with one of our providers on today and request that they send one over for her. She asked that it goes to [facility] in [place].
== END 2022-12-11 20:57 | disposition home or self-care (01) ==
PROVIDERS: Emergency Provider Physician Assistant; PCP Family Medicine
DX: M54.50 Low back pain, unspecified (principal)
CPT/HCPCS: 96372; 99284; 72131; J1885

== ENCOUNTER 2023-03-28 23:24 | Emergency (ER) | payer MEDICAID, SELFPAY ==
[2023-03-28 23:28] VITALS: BP 179/87; PULSE 94; RESP 20; TEMP 36.6
--- NOTE | 2023-03-28 23:40 | ED.GENADUL_ITS ---
Discharge Plan Disposition Patient Disposition: Home Condition: Good Discharge Details Clinical Impression: Chronic wound Primary Care Provider: Debo Talamantes V ED Provider: Shannen Hubbard Home Meds and New Rx's Prescriptions: No Action oxybutynin chloride 5 MG tablet 1 tab PO BID gabapentin 400 mg Capsule 600 mg PO TID metformin [Glucophage XR] 500 mg Tablet Extended Release 24 Hr 1,000 mg PO DAILY Hold Instructions: Resume on 02/16/22. bupropion HCl [Wellbutrin XL] 300 mg Tablet Extended Release 24 Hr 300 mg PO QAM cholecalciferol (vitamin D3) [Vitamin D3] 50 mcg (2,000 unit) capsule 2,000 unit PO DAILY Patient Comments: Take 1 capsule by mouth once a day simvastatin 10 mg tablet 10 mg PO DAILY Patient Comments: 1 tablet by mouth once a day TAKE 1 TABLET BY MOUTH AT BEDTIME losartan 50 mg tablet 50 mg PO DAILY Patient Comments: TAKE 1 TABLET BY MOUTH DAILY hydrochlorothiazide 12.5 mg tablet 12.5 mg PO DAILY Patient Comments: TAKE 1 TABLET BY MOUTH DAILY celecoxib 100 mg capsule 100 mg PO BID Patient Comments: TAKE 1 CAPSULE BY MOUTH TWICE DAILY omeprazole 40 mg capsule,delayed release(DR/EC) 40 mg PO DAILY Patient Comments: Take 1 capsule by mouth once a day glipizide 10 mg tablet extended release 24hr 10 mg PO DAILY Patient Comments: TAKE 1 TABLET BY MOUTH DAILY Jardiance 25 mg tablet 25 mg PO DAILY Patient Comments: TAKE 1 TABLET BY MOUTH ONCE DAILY AFTER FINISHING THE 10 MG TABLET buprenorphine-naloxone [Suboxone] 8-2 mg film 2 film sublingual DAILY Patient Comments: TAKE TWO FILM UNDER THE TONGUE FILL ON 01/20/22 cyclobenzaprine 5 mg tablet 5 mg PO Q8H PRN (Reason: muscle spasm) Qty: 6 0RF Discharge Instructions Instructions: Chronic Wound Care (ED) Additional Instructions: Tylenol & ibuprofen over the counter for pain; follow the directions on the bottle. Call your primary care doctor today to schedule an appointment within one week to follow up on your visit here. They will need to advise on wound care. Return to the emergency department for new or worsening symptoms, including thick green or white discharge from the wound, inability to move your finger, or if you have any other concerns. Stand Alone Forms: Work Release Discharge Data Discharge Date/Time-TO BE ENTERED AT DEPARTURE: 03/28/23 23:53 Medical Decision Making 57yo F with diabetes, diabetic neuropathy, presenting for wound to right middle finger, first noted about 1.5 weeks ago. Unclear how injury occurred; she does have diminished sensation at baseline. Vital signs reassuring, on exam she has a chronic appearing wound at the crease of her 1st IP joint on the palmar surface of her right hand, calluses present both proximal and distal to wound. No indication for suture/repair. Most consistent with skin fissure. Distal capillary refill intact. Exam not concerning for infection, flexor tenosynoviits, or neurovascular injury. Would not get labs or xray. Finger immobilized in splint, given ibuprofen for pain. Advised on wound care, instructed to follow up with PCP. Finger immobilized in splint. Discharged home; discharge instructions and return precautions were reviewed with patient who verbalized understanding. All questions were answered and she is in full agreement with the plan. HPI General Mode of arrival: ambulatory . Date/Time Provider Initiated Documentation: 03/28/23 23:31 . Limitations to Documentation: no limitations . Information obtained by: patient . HPI Narrative: 57yo F with diabetes, diabetic neuropathy, presenting for wound to right middle finger. First noticed it around a week and a half ago, today began to hurt more. Is not sure how the injury occurred. No change in sensation in that finger or hand. No discharge from the wound. Pain at the site of the wound with finger flexion and extension, no pain elsewhere in finger. She is otherwise in her usual state of health with no fevers, chills, rash, nausea, vomiting, or other concerns. Related Data Home Medications Medication Instructions Recorded Confirmed oxybutynin chloride 5 mg tablet 1 tab PO BID 12/17/16 03/28/23 bupropion HCl 300 mg 24 hr tablet, 300 mg PO QAM 05/06/18 03/28/23 extended release (Wellbutrin XL) gabapentin 400 mg capsule 600 mg PO TID 05/06/18 03/28/23 metformin 500 mg tablet,extended 1,000 mg PO DAILY 05/06/18 03/28/23 release 24 hr (Glucophage XR) buprenorphine 8 mg-naloxone 2 mg 2 film sublingual DAILY 02/15/22 03/28/23 sublingual film (Suboxone) celecoxib 100 mg capsule 100 mg PO BID 06/26/22 03/28/23 cholecalciferol (vitamin D3) 50 2,000 unit PO DAILY 06/26/22 03/28/23 mcg (2,000 unit) capsule (Vitamin D3) empagliflozin 25 mg tablet 25 mg PO DAILY 06/26/22 03/28/23 (Jardiance) glipizide 10 mg tablet, extended 10 mg PO DAILY 06/26/22 03/28/23 release 24 hr hydrochlorothiazide 12.5 mg tablet 12.5 mg PO DAILY 06/26/22 03/28/23 losartan 50 mg tablet 50 mg PO DAILY 06/26/22 03/28/23 omeprazole 40 mg capsule,delayed 40 mg PO DAILY 06/26/22 03/28/23 release simvastatin 10 mg tablet 10 mg PO DAILY 06/26/22 03/28/23 cyclobenzaprine 5 mg tablet 5 mg PO Q8H PRN muscle spasm #6 12/12/22 03/28/23 tabs Previous Rx's Medication Instructions Recorded cyclobenzaprine 5 mg tablet 5 mg PO Q8H PRN muscle spasm #6 12/12/22 tabs Allergies Allergy/AdvReac Type Severity Reaction Status Date / Time exenatide [From Byetta] AdvReac Mild Vomited Unverified 06/26/22 08:00 lisinopril AdvReac Mild Cough Unverified 06/26/22 08:00 General Stated Complaint: Laceration YASMINE: 5 Review of Systems Narrative: see HPI PFSH All Active Problems Chronic wound (Acute) Sciatica of left side (Acute) Bleeding from varicose vein (Acute) Flu-like symptoms (Acute) Sudden onset upset stomach, vomiting, diarrhea. 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 Atypical symptoms, but reasonable. E. coli bacteremia (Acute) Discharge planning issues (Acute) Endocarditis (Acute) Pyelonephritis (Acute) Sepsis (Acute) Ventral hernia (Chronic) Adrenal nodule (Chronic) Pyelonephritis (Acute) DVT prophylaxis (Chronic) History of hernia repair (Chronic) History of (Chronic) History of appendectomy (Chronic) SHARAN (obstructive sleep apnea) (Chronic) HPV (human papilloma virus) infection (Chronic) Hypertension (Chronic) History of alcohol abuse (Chronic) Tobacco abuse (Chronic) Obesity (Chronic) Hepatitis C (Chronic) Diabetes mellitus (Chronic) Anxiety (Chronic) History of intravenous drug abuse (Chronic) Social History Smoking/Tobacco Use Status: Current every day Tobacco Type: cigarettes Smoking risk assessment performed?: Yes Alcohol Intake: former Drug use: Current Sobriety Substance use type: marijuana Do you feel safe at home: Yes Do you feel safe in your relationship?: Yes Additional Social history: Patient is . She has 2 children, and one grandson. 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 Reports daily tobacco use, with an approximate [id number] history of smoking. Reports both alcohol and illicit drug use in remission. Exam Narrative Exam Narrative: General: Alert, well appearing, well nourished, in no acute distress. Head: Normocephalic, atraumatic Neck: Trachea midline, Neck supple. Cardiac: No cyanosis. Resp: No respiratory distress. Speaking in full sentences. Extremities: Right middle finger with chronic appearing wound at crease of 1st IP joint on the palmar surface. Calluses present both proximal and distal to wound. No discharge. Distal capillary refill intact. Sensation present, diminished but unchanged per patient. Neurologic: GCS 15. Moves all extremities freely against gravity Course Vital Signs Vital signs: Vital Signs Temperature 36.6 C 03/28/23 23:28 Pulse 94 H 03/28/23 23:28 Respiratory Rate 20 03/28/23 23:28 Blood Pressure 179/87 H 03/28/23 23:28 Temperature 36.6 C 03/28/23 23:28 Temperature Source Temporal Artery Scan 03/28/23 23:28 Pulse 94 H 03/28/23 23:28 Respiratory Rate 20 03/28/23 23:28 Blood Pressure 179/87 H 03/28/23 23:28 Blood Pressure Position Sitting 03/28/23 23:28 Oxygen Delivery Method Room Air 03/28/23 23:28 Oxygen Flow Rate 0 03/28/23 23:28 Pain Level 0 03/28/23 23:28
[2023-03-28] MEDS: Ibuprofen 600 MG TAB PO (23:56)
== END 2023-03-28 23:53 | disposition home or self-care (01) ==
LOC: ER 23:57
PROVIDERS: Emergency Provider Student in an Organized Health Care Education/Training Program; PCP Family Medicine
DX: S61.202A Unspecified open wound of right middle finger without damage to nail, initial encounter (principal); X58.XXXA Exposure to other specified factors, initial encounter; E11.21 Type 2 diabetes mellitus with diabetic nephropathy
CPT/HCPCS: 29130; 99284; 99283

== ENCOUNTER 2023-07-04 17:25 | Outpatient (REF) | payer MEDICAID, SELFPAY ==
[2023-07-04 18:55] LABS: ESR 29 mm/hr (0-30)
[2023-07-04 19:13] LABS: ALT 26 U/L (14-59); AST 15 U/L (15-37); Albumin 3.5 g/dL (3.4-5.0); Alkaline Phosphatase 136 U/L (46-116); Anion Gap 8.8 mmol/L (3-11); BUN 17 mg/dL (7-18); Bilirubin, Total 0.2 mg/dL (0.2-1.0); CO2 28.2 mmol/L (21.0-32.0); CREATININE 0.7 mg/dL (0.55-1.02); Calcium 9.3 mg/dL (8.5-10.1); Chloride 103 mmol/L (98-107); Creatine Kinase 63 U/L (26-192); Estimated GFR 100.81 (mL/min/1.73m2); Glucose 189 mg/dL (74-106); Potassium 4.3 mmol/L (3.5-5.1); Sodium 140 mmol/L (136-145)
[2023-07-04 19:35] LABS: Hemoglobin A1C 9.8 % (<5.7)
[2023-07-05 13:52] LABS: C-Reactive Protein 0.86 mg/dL (<or=0.5)
[2023-07-05 22:21] LABS: Rheumatoid Factor 329.8 IU/mL (<12.0)
[2023-07-06 12:29] LABS: ANA Interpretation Positive (Negative); ANA Titer Pattern 1:160 Speckled
== END 2023-07-04 17:26 | disposition home or self-care (01) ==
LOC: NCHCN 17:25
PROVIDERS: PCP Family Medicine; Visit Provider Family Medicine
DX: E11.9 Type 2 diabetes mellitus without complications (principal); M79.604 Pain in right leg; M79.605 Pain in left leg; R79.82 Elevated C-reactive protein (CRP)
CPT/HCPCS: 80053; 82550; 85652; 83036; 86038; 86140; 86431

== ENCOUNTER → 2023-07-19 01:31 | Outpatient (CLI) | payer MEDICAID, SELFPAY ==
--- NOTE | 2023-07-19 | DI.MAMMO_ITS ---
Exam(s) MAMMO SCREENING EXAM: MAMMO SCREENING CLINICAL HISTORY: SCREENING, Z12.31 TECHNIQUE: Bilateral full field digital CC and MLO mammographic images were obtained with 3D tomosyn thesis and utilizing computer aided detection (CAD). COMPARISON: Available for comparison. FINDINGS: Masses/Architectural Distortion: None seen. Microcalcifications: No suspicious pleomorphic-type are seen. Skin Thickening/Nipple Retraction: None. IMPRESSION: 1. No significant interval change with no specific features of malignancy noted. 2. Unless there is more urgent need, screening mammography is recommended, as per [employer] guidelines. BI-RADS Category 1 - Negative Breast Density - Category B - Scattered areas of fibroglandular density Breast density category C or D implies that the patient has dense breast tissue. Dense breast tissue is very common and is not abnormal but dense breast tissue can make it harder to find cancer on a ma mmogram. Also, dense breast tissue may increase their breast cancer risk. This information about the result of the mammogram report was provided to the patient to raise their awareness. Use this report when you speak with the patient about their risks for breast cancer, which includes their family hist ory. At that time, you may recommend for more screening tests (Ultrasound or MRI) as they might be us eful based on their risk. A negative radiographic report should not delay biopsy if a dominant or clinically suspicious mass is present. Up to ten percent of cancers are not identified on mammography. A negative report may reinforce clinical impression. Adenosis and dense breasts may obscure an underlying neoplasm. False positive reports average 6 to 10%. Patient will receive a letter notifying them of these results.
--- NOTE | 2023-07-19 09:14 | DI.RAD_ITS ---
Exam(s) XR HIP PELVIS ADULT BL EXAM: XR HIP PELVIS ADULT BL CLINICAL HISTORY: PAIN BILAT LEGS,M79.604,M79.605. TECHNIQUE: 2D digital imaging was performed of the pelvis and bilateral hips. Three images were obt ained. AP pelvis and lateral views of both hips were obtained. COMPARISON: No exams were available for comparison FINDINGS: BONES: No acute fracture is present. No bony destructive lesion is seen. JOINTS: No dislocation present. The hips are well maintained. There are degenerative changes seen in the sacroiliac joints in the lower lumbar spine. Symphysis pubis is intact. SOFT TISSUE: Vascular calcifications are present. IMPRESSION: 1. Unrmarkable radiographs of bilat hips. 2. Degenerative changes seen in the lower lumbar spine in the sacroiliac joints. DATA REPOSITORY: RADIATION DOSE DELIVERED:
== END ==
PROVIDERS: PCP Family Medicine; Visit Provider Family Medicine
DX: Z12.31 Encounter for screening mammogram for malignant neoplasm of breast (principal); M79.604 Pain in right leg; M79.605 Pain in left leg
CPT/HCPCS: 73521; 77063; 77067

== ENCOUNTER → 2023-08-28 02:46 | Outpatient (CLI) | payer MEDICAID, SELFPAY ==
--- NOTE | 2023-08-28 11:17 | DI.RAD_ITS ---
Exam(s) XR ARTHRITIS SERIES EXAM: XR ARTHRITIS SERIES CLINICAL HISTORY: BILAT MCP/PIP HAND PAIN,SWELLING,? ra,polyarthralgia, m25.50,? inf art with. TECHNIQUE: 2D digital imaging was performed. Two images were obtained. COMPARISON: No exams were available for comparison FINDINGS: BONES: No acute fracture is present. No bony destructive lesion is seen. There is a 1.9 x 0.8 cm cyst in the subchondral medial aspect of the distal right radius. No cortical disruption or periosteal re action is identified. JOINTS: No dislocation present. There are mild degenerative changes seen in the left hand particularl y the DIP joints of the index and middle fingers. No erosions are seen. There is mild soft tissue swe lling of the 2nd and 3rd fingers on the left hand. There are mild degenerative changes seen at the DI P joints of the middle and little fingers of the right hand and the interphalangeal joint of the thum b. No erosions are seen in the right hand. There is also mild narrowing of the medial aspect of the r adiocarpal joint. SOFT TISSUE: Normal. IMPRESSION: Degenerative arthrosis of the hands as described. No erosions are seen. DATA REPOSITORY: RADIATION DOSE DELIVERED:
== END ==
PROVIDERS: PCP Family Medicine; Visit Provider Student in an Organized Health Care Education/Training Program
DX: M25.541 Pain in joints of right hand (principal); M25.542 Pain in joints of left hand; M19.042 Primary osteoarthritis, left hand; M19.041 Primary osteoarthritis, right hand; M25.59 Pain in other specified joint
CPT/HCPCS: 73120

== ENCOUNTER 2023-09-02 12:51 | Emergency (ER) | payer MEDICAID, SELFPAY ==
[2023-09-02] VITALS (11 sets, daily range): BP systolic 122–175; BP diastolic 48–85; PULSE 90–112; RESP 24; TEMP 37.3; O2SAT 92–96
--- NOTE | 2023-09-02 12:15 | RT.EKG_ITS ---
APPROVED REPORT Exam: Resting ECG Reason for Exam: tachycardia Patient Location: E HR:112 bpm ECG Measurements Heart Rate 112 AXIS KS 170 P 45 QRSd 80 QRS 80 QT 321 T 45 QTc 438 Conclusion Sinus tachycardia 112 no stemi
--- NOTE | 2023-09-02 12:45 | DI.RAD_ITS ---
Exam(s) XR CHEST 2V PA LATERAL EXAM: XR CHEST 2V PA LATERAL CLINICAL HISTORY: cough. TECHNIQUE: 2D digital imaging was performed. COMPARISON: CR,XR XR CHEST 2V PA LATERAL from 05/05/2019 FINDINGS: 2 views: Heart size is normal. The mediastinum is not widened. There is significant infiltrate in the left lower lobe. Right lung is clear. No pleural effusions. IMPRESSION: Significant left lower lobe infiltrate. DATA REPOSITORY: RADIATION DOSE DELIVERED:
--- NOTE | 2023-09-02 13:00 | ED.GENADUL_ITS ---
Discharge Plan Disposition Patient Disposition: Home Condition: Stable Discharge Details Clinical Impression: COVID-19, Pneumonia Primary Care Provider: Debo Talamantes V ED Provider: Regla Anguiano Home Meds and New Rx's Prescriptions: New amoxicillin-pot clavulanate 875-125 mg tablet 1 tab PO BID 5 Days Qty: 10 0RF azithromycin 250 mg tablet 250 mg PO DAILY PRN4 Days Qty: 4 0RF Continued oxybutynin chloride 5 MG tablet 1 tab PO BID gabapentin 400 mg Capsule 600 mg PO TID metformin [Glucophage XR] 500 mg Tablet Extended Release 24 Hr 1,000 mg PO DAILY Hold Instructions: Resume on 02/16/22. bupropion HCl [Wellbutrin XL] 300 mg Tablet Extended Release 24 Hr 300 mg PO QAM cholecalciferol (vitamin D3) [Vitamin D3] 50 mcg (2,000 unit) capsule 2,000 unit PO DAILY Patient Comments: Take 1 capsule by mouth once a day simvastatin 10 mg tablet 10 mg PO DAILY Patient Comments: 1 tablet by mouth once a day TAKE 1 TABLET BY MOUTH AT BEDTIME losartan 50 mg tablet 50 mg PO DAILY Patient Comments: TAKE 1 TABLET BY MOUTH DAILY hydrochlorothiazide 12.5 mg tablet 12.5 mg PO DAILY Patient Comments: TAKE 1 TABLET BY MOUTH DAILY celecoxib 100 mg capsule 100 mg PO BID Patient Comments: TAKE 1 CAPSULE BY MOUTH TWICE DAILY omeprazole 40 mg capsule,delayed release(DR/EC) 40 mg PO DAILY Patient Comments: Take 1 capsule by mouth once a day glipizide 10 mg tablet extended release 24hr 10 mg PO DAILY Patient Comments: TAKE 1 TABLET BY MOUTH DAILY Jardiance 25 mg tablet 25 mg PO DAILY Patient Comments: TAKE 1 TABLET BY MOUTH ONCE DAILY AFTER FINISHING THE 10 MG TABLET buprenorphine-naloxone [Suboxone] 8-2 mg film 2 film sublingual DAILY Patient Comments: TAKE TWO FILM UNDER THE TONGUE FILL ON 01/20/22 cyclobenzaprine 5 mg tablet 5 mg PO Q8H PRN (Reason: muscle spasm) Qty: 6 0RF HPI General Date/Time Provider Initiated Documentation: 09/02/23 13:10 . HPI Narrative: Evi is a 58-year-old female with history of hypertension, type II DM, history of IV drug use currently on Suboxone who reports to the emergency department today for evaluation of not feeling well. She was brought to the emergency department by ambulance for driving erratically. Evi attributes this to not sleeping well last night, says she only got 3 hours of sleep, usually needs 5 hours. She reports she has had cold symptoms with congestion, frontal sinus headache, sore throat, and mild cough for the last 3 days. Denies other headache, fever/chills, difficulty breathing, chest pain, nausea/vomiting, change in p.o. intake, change in bowel or bladder function. Says she has been more thirsty than usual since yesterday. She reports she has not taken her insulin since yesterday, though is unclear when she took this or if she was taking her other medications as well. She is not sure of her diabetes medication doses or what type she takes. Denies EtOH use or drug use. Related Data Home Medications Medication Instructions Recorded Confirmed oxybutynin chloride 5 mg tablet 1 tab PO BID 12/17/16 09/02/23 bupropion HCl 300 mg 24 hr tablet, 300 mg PO QAM 05/06/18 09/02/23 extended release (Wellbutrin XL) gabapentin 400 mg capsule 600 mg PO TID 05/06/18 09/02/23 metformin 500 mg tablet,extended 1,000 mg PO DAILY 05/06/18 09/02/23 release 24 hr (Glucophage XR) buprenorphine 8 mg-naloxone 2 mg 2 film sublingual DAILY 02/15/22 09/02/23 sublingual film (Suboxone) celecoxib 100 mg capsule 100 mg PO BID 06/26/22 09/02/23 cholecalciferol (vitamin D3) 50 2,000 unit PO DAILY 06/26/22 09/02/23 mcg (2,000 unit) capsule (Vitamin D3) empagliflozin 25 mg tablet 25 mg PO DAILY 06/26/22 09/02/23 (Jardiance) glipizide 10 mg tablet, extended 10 mg PO DAILY 06/26/22 09/02/23 release 24 hr hydrochlorothiazide 12.5 mg tablet 12.5 mg PO DAILY 06/26/22 09/02/23 losartan 50 mg tablet 50 mg PO DAILY 06/26/22 09/02/23 omeprazole 40 mg capsule,delayed 40 mg PO DAILY 06/26/22 09/02/23 release simvastatin 10 mg tablet 10 mg PO DAILY 06/26/22 09/02/23 cyclobenzaprine 5 mg tablet 5 mg PO Q8H PRN muscle spasm #6 12/12/22 09/02/23 tabs amoxicillin 875 mg-potassium 1 tab PO BID 5 days #10 tabs 09/02/23 clavulanate 125 mg tablet azithromycin 250 mg tablet 250 mg PO DAILY PRN 4 days #4 tabs 09/02/23 Previous Rx's Medication Instructions Recorded cyclobenzaprine 5 mg tablet 5 mg PO Q8H PRN muscle spasm #6 12/12/22 tabs amoxicillin 875 mg-potassium 1 tab PO BID 5 days #10 tabs 09/02/23 clavulanate 125 mg tablet azithromycin 250 mg tablet 250 mg PO DAILY PRN 4 days #4 tabs 09/02/23 Allergies Allergy/AdvReac Type Severity Reaction Status Date / Time exenatide [From Wilbur] AdvReac Mild Vomited Unverified 09/02/23 14:49 lisinopril AdvReac Mild Cough Unverified 09/02/23 14:49 General Stated Complaint: Diabetes YASMINE: 3 Review of Systems Narrative: see HPI Course Vital Signs Vital signs: Vital Signs Temperature 37.3 C 09/02/23 12:40 Pulse 111 H 09/02/23 12:40 Respiratory Rate 24 09/02/23 12:40 Blood Pressure 122/48 L 09/02/23 12:40 Pulse Oximetry 92 09/02/23 12:40 Temperature 37.3 C 09/02/23 12:40 Temperature Source Tympanic 09/02/23 12:40 Pulse 111 H 09/02/23 12:40 Respiratory Rate 24 09/02/23 12:40 Blood Pressure 122/48 L 09/02/23 12:40 Blood Pressure Position Supine 09/02/23 12:40 Pulse Oximetry 92 09/02/23 12:40 Oxygen Delivery Method Room Air 09/02/23 12:40 Oxygen Flow Rate 0 09/02/23 12:40 Medical Decision Making Evi is a 58-year-old female with history of hypertension, type II DM, history of IV drug use currently on Suboxone who reports to the emergency department today for evaluation of not feeling well. She was brought to the emergency department by ambulance for driving erratically. Evi attributes this to not sleeping well last night, says she only got 3 hours of sleep, usually needs 5 hours. She reports she has had cold symptoms with congestion, frontal sinus headache, sore throat, and mild cough for the last 3 days. Denies other headache, fever/chills, difficulty breathing, chest pain, nausea/vomiting, change in p.o. intake, change in bowel or bladder function. Says she has been more thirsty than usual since yesterday. She reports she has not taken her insulin since yesterday, though is unclear when she took this or if she was taking her other medications as well. She is not sure of her diabetes medication doses or what type she takes. Denies EtOH use or drug use. Physical exam reassuring. Patient is alert and oriented x 4, in no acute distress. Moving all extremities equally. Tacky mucous membranes. Easy work of breathing, lung sounds clear bilaterally. Normal heart sounds. Abdomen is soft, nondistended, nontender to palpation. Cranial nerves II through XII intact as tested. PERRL, EOMs intact. 5 out of 5 muscle strength upper and lower extremities. Sensation intact upper and lower extremities. No pronator drift. Normal finger to finger, [id number], gait. DDx includes but is not limited to dehydration, DKA/HHS, acute symptomatic hyperglycemia, electrolyte imbalance, viral illness, ACS. No focal neurodeficits concerning for CVA. I independently interpreted the following tests: CBC, VBG, CMP, troponins reassuring. Glucose elevated at 411. COVID is positive. Chest x-ray remarkable for left lower lobe consolidation consistent with left lower lobe pneumonia. While in the emergency department Evi received IV fluids, azithromycin, and Augmentin for treatment of community-acquired pneumonia. After having a chance to rest and take IV fluids, Evi appears much more alert, has returned to baseline. Normal gait, Romberg, balance. No dizziness with standing. 1545: Repeat glucose performed after IV fluids, 280. Pt to be discharged home to take home dose and diabetes meds as prescribed. Handoff report given to HEIDE Barba. Awaiting repeat troponin Quality:[facility] Health Related Social Needs: No Data to Display PFSH All Active Problems Pneumonia (Acute) COVID-19 (Acute) Sciatica of left side (Acute) Bleeding from varicose vein (Acute) Flu-like symptoms (Acute) Sudden onset upset stomach, vomiting, diarrhea. 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 Atypical symptoms, but reasonable. E. coli bacteremia (Acute) Discharge planning issues (Acute) Endocarditis (Acute) Pyelonephritis (Acute) Sepsis (Acute) Ventral hernia (Chronic) Adrenal nodule (Chronic) Pyelonephritis (Acute) DVT prophylaxis (Chronic) History of hernia repair (Chronic) History of (Chronic) History of appendectomy (Chronic) SHARAN (obstructive sleep apnea) (Chronic) HPV (human papilloma virus) infection (Chronic) Hypertension (Chronic) History of alcohol abuse (Chronic) Tobacco abuse (Chronic) Obesity (Chronic) Hepatitis C (Chronic) Diabetes mellitus (Chronic) Anxiety (Chronic) History of intravenous drug abuse (Chronic) Social History Smoking/Tobacco Use Status: Current every day Tobacco Type: cigarettes Smoking risk assessment performed?: Yes Alcohol Intake: former Drug use: Current Sobriety Substance use type: marijuana Do you feel safe at home: Yes Do you feel safe in your relationship?: Yes Additional Social history: Patient is . She has 2 children, and one grandson. 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 Reports daily tobacco use, with an approximate [id number] history of smoking. Reports both alcohol and illicit drug use in remission. Sign Out Sign Out Data: Sign Out Comment: Evi presented to the emergency department today for evaluation after a being found driving erratically. She was hyperglycemic upon arrival. Workup today largely reassuring, significant for glucose 111, COVID- positive, and left lower lobe infiltrate on chest x-ray. Patient given azithromycin and Augmentin for treatment of pneumonia. 1 L IV fluids given for rehydration, as she had tacky mucous membranes. Awaiting repeat troponin. Last updated by Regla Anguiano at 09/02/23 15:35
[2023-09-02 13:18] LABS: BE (Venous) 4 mmol/L (-2-3); HCO3 (Venous) 29 mmol/L (23-28); O2 Sat (Venous) 92 %; TCO2 (Venous) 26 mmol/L (24-29); pCO2 (Venous) 46 mmHg (41-51); pO2 (Venous) 62 mmHg
[2023-09-02 13:21] LABS: Abs Immature Grans 0.08 10^3/uL (0.0-0.06); Absolute Basophil Count 0.03 10^3/uL (0.0-0.2); Absolute Eosinophil Count 0.04 10^3/uL (0.0-0.7); Absolute Lymphocyte Count 0.93 10^3/uL (1.2-3.4); Absolute Monocyte Count 0.98 10^3/uL (0.1-0.8); Absolute Neutrophil Count 8.22 10^3/uL (1.2-6.7); Basophils % 0.3; Eosinophils % 0.4; HCT 40.5 % (36.0-46.0); HGB 13.2 g/dL (11.2-15.7); Immature Grans % 0.8; MCH 27.3 pg (27.0-33.0); MCHC 32.6 % (32.0-36.0); MCV 84 fL (80-95); MPV 9.2 fL (8.0-11.0); Monocytes % 9.5; Platelet Count 182 10^3/uL (130-400); RBC 4.84 10^6/uL (3.93-5.22); WBC 10.28 10^3/uL (4.4-10.8)
[2023-09-02 13:38] LABS: ALT 27 U/L (14-59); AST 13 U/L (15-37); Albumin 2.9 g/dL (3.4-5.0); Alkaline Phosphatase 103 U/L (46-116); Anion Gap 7.9 mmol/L (3-11); BUN 14 mg/dL (7-18); Bilirubin, Total 0.4 mg/dL (0.2-1.0); CO2 28.1 mmol/L (21.0-32.0); CREATININE 0.6 mg/dL (0.55-1.02); Calcium 8.6 mg/dL (8.5-10.1); Chloride 98 mmol/L (98-107); Estimated GFR 103.98 (mL/min/1.73m2); Glucose 411 mg/dL (74-106); Potassium 4.1 mmol/L (3.5-5.1); Sodium 134 mmol/L (136-145); Total Protein 6.7 g/dL (6.4-8.2); Troponin I < 50 ng/L (< or =60)
--- NOTE | 2023-09-02 14:12 | DI.VRAD_ITS ---
PROCEDURE INFORMATION: Exam: XR Chest Exam date and time: 09/02/2023 1:43 PM Age: 58 years old Clinical indication: Cough TECHNIQUE: Imaging protocol: Radiologic exam of the chest. Views: 2 views. COMPARISON: CR XR CHEST 2V PA LATERAL 05/05/2019 15:32 FINDINGS: Lungs: Left lower lobe consolidation. Prominent central interstitial markings. Peribronchial thickening. Fullness of the left hilum consistent with adenopathy. Pleural spaces: Blunted left lateral costophrenic angle. Heart/Mediastinum: See Lungs finding. Bones/joints: Multilevel degenerative changes in the spine. Degenerative changes of the acromioclavicular joints. IMPRESSION: Left lower lobe pneumonia. Left hilar adenopathy. Dictated and Authenticated by: Ratna Barr MD. Ordering:NOEL Arauz MD
[2023-09-02 14:20] LABS: Influenza A PCR Negative (Negative); Influenza B PCR Negative (Negative); RSV PCR Negative (Negative)
[2023-09-02 14:24] LABS: Source Nasopharynx
[2023-09-02 14:25] LABS: COVID-19 PCR Positive (Negative)
[2023-09-02] MEDS: Normal Saline 1,000 ML 1000 ML IV (14:48)
[2023-09-02] MEDS: Azithromycin 250 MG TAB 500 MG PO (15:01)
[2023-09-02] MEDS: Amoxicillin 875/Clav. 125 TAB PO (15:01)
--- NOTE | 2023-09-02 16:04 | NUR.NOTE ---
Referral faxed to PCP for COVID, poorly controlled DM, PNA, appt in 1 to 2 weeks. Nursing Note:
[2023-09-02 16:12] LABS: Troponin I < 50 ng/L (< or =60)
[2023-09-02 16:40] LABS: Bilirubin Negative (Negative); Blood Trace-intact (Negative); Clarity Sl Cloudy (Clear); Glucose >=1000 mg/dL (Negative); Ketones Negative (Negative); Leukocyte Esterase Negative (Negative); Nitrite Positive (Negative); Specific Gravity 1.015 (1.005-1.025)
[2023-09-02 16:42] LABS: *AMPHETAMINES SCREEN URINE Negative (Negative); *BARBITURATES SCREEN URINE Negative (Negative); *BENZODIAZEPINES SCREEN URINE Negative (Negative); Cannabinoids THC Negative (Negative); Cocaine Screen,Urine Negative (Negative); METHADONE URINE SCREEN Negative (Negative); OPIATES URINE SCREEN Negative (Negative)
[2023-09-02 16:47] LABS: Epithelial Cells Few HPF (Negative); RBC 0-2 HPF (0-2)
[2023-09-02 16:48] LABS: Bacteria Many HPF (Negative); C & S Indicated? Yes; Casts Negative LPF (Negative); Crystals Negative HPF (Negative); Mucus Negative (Negative)
[2023-09-02 16:50] LABS: Tricyclic Antidepressants Negative (Negative)
--- NOTE | 2023-09-02 16:52 | ED.PROG_ITS ---
Date of service: 09/02/23 Time of Service: 16:52 Medical Decision Making This dictation utilizes [id number] dictation software and may contain unedited grammatical errors. Patient seen in sign-out from Regla Brown NP- please see her complete note. Essentially this 58 y/o F presents to ED today with a chief complaint of confusion- was driving erratically and pulled over, brought in for evaluation- had poorly controlled diabetes without DKA on prior providers work-up. Has Covid-19, and a possible superimposed pneumonia on CXR. Patient has had a URI for 3 days, denies UTI symptoms. Prior providers plan was for ABX treatment, and just awaiting UA results. Patients' medical history: Type 2 diabetes mellitus, sciatica, endocarditis, pyelonephritis, history of DVT prophylaxis history of hepatitis C, history of alcohol abuse, history of IV drug use. Pertinent exam findings / vital signs include no respiratory distress, nontoxic vitals, has made arrangements for a ride home, mentating normally at time of sign-out & disposition. Differential / pathologies of concern include Covid-19, PNA, UTI, hyperglycemia. Diagnostic studies of: -Review of the patient's laboratory workup shows no leukocytosis, normal pH, benign CMP, initial glucose was 411, repeat at 280 after 1 L of fluid, tamara sonable for discharge, UA shows positive for nitrites, UDS negative, COVID swab positive. Interventions of: -Changed prior providers plan for dual coverage Augmentin and Azithromycin to Levofloxacin to cover UTI concurrently as well as PNA. Discussed with the patient who is eager to return home, will continue her diabetes medicines at home. Stressed strict return criteria for further respiratory distress, confusion. Findings not consistent with sepsis, respiratory failure, hypoxia, acute emergent abdominal pathology, continued altered mentation. Disposition of Covid-19, Pneumonia, Urinary Tract Infection, Hyperglycemia due to Type 2 Diabetes Mellitus. Patient verbalized understanding of the plan and return to ED criteria and engaged in shared decision making. Medical Records Medical records reviewed: Yes I reviewed the patient's medical records. Imaging Data Radiologic Study: Attestation: I personally reviewed and interpreted this imaging study as follows: Imaging: X-Ray Radiologist's impression: Exam: XR Chest Exam date and time: 09/02/2023 1:43 PM Age: 58 years old Clinical indication: Cough TECHNIQUE: Imaging protocol: Radiologic exam of the chest. Views: 2 views. COMPARISON: CR XR CHEST 2V PA LATERAL 05/05/2019 15:32 FINDINGS: Lungs: Left lower lobe consolidation. Prominent central interstitial markings. Peribronchial thickening. Fullness of the left hilum consistent with adenopathy. Pleural spaces: Blunted left lateral costophrenic angle. Heart/Mediastinum: See Lungs finding. Bones/joints: Multilevel degenerative changes in the spine. Degenerative changes of the acromioclavicular joints. IMPRESSION: Left lower lobe pneumonia. Left hilar adenopathy. Dictated and Authenticated by: Ratna Barr MD. Ordering:NOEL Arauz MD EXAM: XR CHEST 2V PA LATERAL CLINICAL HISTORY: cough. TECHNIQUE: 2D digital imaging was performed. COMPARISON: CR,XR XR CHEST 2V PA LATERAL from 05/05/2019 FINDINGS: 2 views: Heart size is normal. The mediastinum is not widened. There is significant infiltrate in the left lower lobe. Right lung is clear. No pleural effusions. IMPRESSION: Significant left lower lobe infiltrate. Lab Data Lab results reviewed: Yes I reviewed the patient's lab results. Labs: 09/02/23 16:19 Urine - Reflex from Ua Urine Culture - Pending Laboratory Tests Range/Units 09/02/23 09/02/23 09/02/23 12:48 12:57 13:10 WBC Cancelled 10.28 RBC Cancelled 4.84 Hgb Cancelled 13.2 Hct Cancelled 40.5 MCV Cancelled 84 MCH Cancelled 27.3 MCHC Cancelled 32.6 RDW Cancelled 14.0 Plt Count Cancelled 182 MPV Cancelled 9.2 Immature Gran % 0.8 Neutrophils % 80.0 Lymphocytes % 9.0 Monocytes % 9.5 Eosinophils % 0.4 Basophils % 0.3 Nucleated RBC % (0.0-0.3) % 0.0 Absolute Neutrophils (1.2-6.7) 10^3/uL 8.22 H Absolute Lymphocytes (1.2-3.4) 10^3/uL 0.93 L Absolute Monocytes (0.1-0.8) 10^3/uL 0.98 H Absolute Eosinophils (0.0-0.7) 10^3/uL 0.04 Absolute Basophils (0.0-0.2) 10^3/uL 0.03 VBG pH (7.31-7.41) 7.40 VBG pCO2 (41-51) mmHg 46 VBG pO2 mmHg 62 VBG HCO3 (23-28) mmol/L 29 H VBG Total CO2 (24-29) mmol/L 26 VBG O2 Saturation % 92 VBG Base Excess (-2-3) mmol/L 4 H Sodium Cancelled 134 L Potassium Cancelled 4.1 Chloride Cancelled 98 Carbon Dioxide Cancelled 28.1 Anion Gap Cancelled 7.9 BUN Cancelled 14 Creatinine Cancelled 0.6 Est GFR (CKD-EPI 2020) Cancelled 103.98 Glucose Cancelled 411 H Calcium Cancelled 8.6 Magnesium Cancelled Total Bilirubin Cancelled 0.4 AST Cancelled 13 L ALT Cancelled 27 Alkaline Phosphatase Cancelled 103 Troponin I (< or =60) ng/L < 50 Total Protein Cancelled Albumin Cancelled Urine Color (Yellow) Urine Clarity (Clear) Urine pH (5-8) Ur Specific Murray (1.005-1.025) Urine Protein (Neg-Trace) mg/dL Urine Ketones (Negative) mg/dL Urine Blood (Negative) Urine Nitrite (Negative) Urine Bilirubin (Negative) Urine Urobilinogen (Up to 0.2) mg/dL Ur Leukocyte Esterase (Negative) Urine RBC (0-2) HPF Urine WBC (0-5) HPF Ur Epithelial Cells (Negative) HPF Urine Crystals (Negative) HPF Urine Bacteria (Negative) HPF Urine Casts (Negative) LPF Urine Mucus (Negative) Ur Culture Indicated? Urine Glucose (Negative) mg/dL Urine Opiates Screen (Negative) Urine Methadone Screen (Negative) Ur Barbiturates Screen (Negative) Ur Tricyclics Screen (Negative) Ur Amphetamines Screen (Negative) U Benzodiazepines Scrn (Negative) Urine Cocaine Screen (Negative) Ur THC Screen (Negative) COVID-19 Source SARS-CoV-2 (PCR) (Negative) Influenza Type A (PCR) (Negative) Influenza Type B (PCR) (Negative) RSV (PCR) (Negative) Range/Units 09/02/23 09/02/23 09/02/23 13:10 13:37 14:43 WBC RBC Hgb Hct MCV MCH MCHC RDW Plt Count MPV Immature Gran % Neutrophils % Lymphocytes % Monocytes % Eosinophils % Basophils % Nucleated RBC % (0.0-0.3) % Absolute Neutrophils (1.2-6.7) 10^3/uL Absolute Lymphocytes (1.2-3.4) 10^3/uL Absolute Monocytes (0.1-0.8) 10^3/uL Absolute Eosinophils (0.0-0.7) 10^3/uL Absolute Basophils (0.0-0.2) 10^3/uL VBG pH (7.31-7.41) VBG pCO2 (41-51) mmHg VBG pO2 mmHg VBG HCO3 (23-28) mmol/L VBG Total CO2 (24-29) mmol/L VBG O2 Saturation % VBG Base Excess (-2-3) mmol/L Sodium Potassium Chloride Carbon Dioxide Anion Gap BUN Creatinine Est GFR (CKD-EPI 2020) Glucose Calcium Magnesium Total Bilirubin AST ALT Alkaline Phosphatase Troponin I (< or =60) ng/L Cancelled Cancelled Total Protein 6.7 Albumin 2.9 L Urine Color (Yellow) Urine Clarity (Clear) Urine pH (5-8) Ur Specific Murray (1.005-1.025) Urine Protein (Neg-Trace) mg/dL Urine Ketones (Negative) mg/dL Urine Blood (Negative) Urine Nitrite (Negative) Urine Bilirubin (Negative) Urine Urobilinogen (Up to 0.2) mg/dL Ur Leukocyte Esterase (Negative) Urine RBC (0-2) HPF Urine WBC (0-5) HPF Ur Epithelial Cells (Negative) HPF Urine Crystals (Negative) HPF Urine Bacteria (Negative) HPF Urine Casts (Negative) LPF Urine Mucus (Negative) Ur Culture Indicated? Urine Glucose (Negative) mg/dL Urine Opiates Screen (Negative) Urine Methadone Screen (Negative) Ur Barbiturates Screen (Negative) Ur Tricyclics Screen (Negative) Ur Amphetamines Screen (Negative) U Benzodiazepines Scrn (Negative) Urine Cocaine Screen (Negative) Ur THC Screen (Negative) COVID-19 Source Nasopharynx SARS-CoV-2 (PCR) (Negative) Positive A Influenza Type A (PCR) (Negative) Negative Influenza Type B (PCR) (Negative) Negative RSV (PCR) (Negative) Negative Range/Units 09/02/23 09/02/23 15:48 16:19 WBC RBC Hgb Hct MCV MCH MCHC RDW Plt Count MPV Immature Gran % Neutrophils % Lymphocytes % Monocytes % Eosinophils % Basophils % Nucleated RBC % (0.0-0.3) % Absolute Neutrophils (1.2-6.7) 10^3/uL Absolute Lymphocytes (1.2-3.4) 10^3/uL Absolute Monocytes (0.1-0.8) 10^3/uL Absolute Eosinophils (0.0-0.7) 10^3/uL Absolute Basophils (0.0-0.2) 10^3/uL VBG pH (7.31-7.41) VBG pCO2 (41-51) mmHg VBG pO2 mmHg VBG HCO3 (23-28) mmol/L VBG Total CO2 (24-29) mmol/L VBG O2 Saturation % VBG Base Excess (-2-3) mmol/L Sodium Potassium Chloride Carbon Dioxide Anion Gap BUN Creatinine Est GFR (CKD-EPI 2020) Glucose Calcium Magnesium Total Bilirubin AST ALT Alkaline Phosphatase Troponin I (< or =60) ng/L < 50 Total Protein Albumin Urine Color (Yellow) Yellow Urine Clarity (Clear) Sl Cloudy Urine pH (5-8) 7.0 Ur Specific Murray (1.005-1.025) 1.015 Urine Protein (Neg-Trace) mg/dL Trace Urine Ketones (Negative) mg/dL Negative Urine Blood (Negative) Trace-intact H Urine Nitrite (Negative) Positive H Urine Bilirubin (Negative) Negative Urine Urobilinogen (Up to 0.2) mg/dL 1.0 H Ur Leukocyte Esterase (Negative) Negative Urine RBC (0-2) HPF 0-2 Urine WBC (0-5) HPF 5-10 Ur Epithelial Cells (Negative) HPF Few Urine Crystals (Negative) HPF Negative Urine Bacteria (Negative) HPF Many Urine Casts (Negative) LPF Negative Urine Mucus (Negative) Negative Ur Culture Indicated? Yes Urine Glucose (Negative) mg/dL >=1000 H Urine Opiates Screen (Negative) Negative Urine Methadone Screen (Negative) Negative Ur Barbiturates Screen (Negative) Negative Ur Tricyclics Screen (Negative) Negative Ur Amphetamines Screen (Negative) Negative U Benzodiazepines Scrn (Negative) Negative Urine Cocaine Screen (Negative) Negative Ur THC Screen (Negative) Negative COVID-19 Source SARS-CoV-2 (PCR) (Negative) Influenza Type A (PCR) (Negative) Influenza Type B (PCR) (Negative) RSV (PCR) (Negative) Quality:SDOH Health Related Social Needs: No Data to Display Sign Out Sign Out Data: Sign Out Comment: Evi presented to the emergency department today for evaluation after a being found driving erratically. She was hyperglycemic upon arrival. Workup today largely reassuring, significant for glucose 111, COVID- positive, and left lower lobe infiltrate on chest x-ray. Patient given azithromycin and Augmentin for treatment of pneumonia. 1 L IV fluids given for rehydration, as she had tacky mucous membranes. Awaiting repeat troponin. Last updated by Regla Anguiano at 09/02/23 15:35 Discharge Plan Disposition Patient Disposition: Home Condition: Stable Discharge Details Clinical Impression: COVID-19, Pneumonia, Hyperglycemia due to type 2 diabetes mellitus, Urinary tract infection Primary Care Provider: Debo Talamantes V ED Provider: Santy Small Home Meds and New Rx's Prescriptions: New levofloxacin 750 mg tablet 750 mg PO DAILY 5 Days Qty: 5 0RF Continued oxybutynin chloride 5 MG tablet 1 tab PO BID gabapentin 400 mg Capsule 600 mg PO TID metformin [Glucophage XR] 500 mg Tablet Extended Release 24 Hr 1,000 mg PO DAILY Hold Instructions: Resume on 02/16/22. bupropion HCl [Wellbutrin XL] 300 mg Tablet Extended Release 24 Hr 300 mg PO QAM cholecalciferol (vitamin D3) [Vitamin D3] 50 mcg (2,000 unit) capsule 2,000 unit PO DAILY Patient Comments: Take 1 capsule by mouth once a day simvastatin 10 mg tablet 10 mg PO DAILY Patient Comments: 1 tablet by mouth once a day TAKE 1 TABLET BY MOUTH AT BEDTIME losartan 50 mg tablet 50 mg PO DAILY Patient Comments: TAKE 1 TABLET BY MOUTH DAILY hydrochlorothiazide 12.5 mg tablet 12.5 mg PO DAILY Patient Comments: TAKE 1 TABLET BY MOUTH DAILY celecoxib 100 mg capsule 100 mg PO BID Patient Comments: TAKE 1 CAPSULE BY MOUTH TWICE DAILY omeprazole 40 mg capsule,delayed release(DR/EC) 40 mg PO DAILY Patient Comments: Take 1 capsule by mouth once a day glipizide 10 mg tablet extended release 24hr 10 mg PO DAILY Patient Comments: TAKE 1 TABLET BY MOUTH DAILY Jardiance 25 mg tablet 25 mg PO DAILY Patient Comments: TAKE 1 TABLET BY MOUTH ONCE DAILY AFTER FINISHING THE 10 MG TABLET buprenorphine-naloxone [Suboxone] 8-2 mg film 2 film sublingual DAILY Patient Comments: TAKE TWO FILM UNDER THE TONGUE FILL ON 01/20/22 cyclobenzaprine 5 mg tablet 5 mg PO Q8H PRN (Reason: muscle spasm) Qty: 6 0RF Discharge Instructions Instructions: Levofloxacin (By mouth), Urinary Tract Infection in Women (ED), Viral Syndrome (ED), Pneumonia (ED), Diabetic Hyperglycemia (ED) Additional Instructions: Please call your primary care provider first thing Monday to schedule a follow- up appointment for management of your diabetes and COVID-19/pneumonia. Please take your medications as prescribed, including your diabetes medications. Check your blood sugar regularly as advised by your primary care provider. Please take the antibiotics Levofloxacin to treat both UTI and Pneumonia as prescribed for the full course. I recommend that you take these with yogurt, especially Activia. This helps prevent antibiotic associated diarrhea. It is very important that you get plenty of sleep. It is just as dangerous to drive tired as it is to drive drunk or under the influence of other substances such as drugs, so please be sure to get plenty of rest before getting on the road, as this may be very dangerous for you and that was on the road with you. Return to emergency care if you develop new chest pain, difficulty breathing, episodes of passing out, severe abdominal pain, uncontrollable vomiting, or if you are very worried and need to be rechecked again immediately Referrals: Debo Talamantes MD [Primary Care Provider] -
== END 2023-09-02 17:09 | disposition home or self-care (01) ==
PROVIDERS: Nurse Practitioner Family; Emergency Provider Physician Assistant; PCP Family Medicine
DX: U07.1 COVID-19 (principal); J12.82 Pneumonia due to coronavirus disease 2019; E11.65 Type 2 diabetes mellitus with hyperglycemia; N39.0 Urinary tract infection, site not specified; I10 Essential (primary) hypertension; F17.210 Nicotine dependence, cigarettes, uncomplicated; R00.0 Tachycardia, unspecified; Z79.84 Long term (current) use of oral hypoglycemic drugs
CPT/HCPCS: 00123; 80053; 80307; 82805; 85027; 87637; 93005; 96360; 99285; 71046; 81003; 81015; 83735; 84484; 85025; 87086; 93010

== ENCOUNTER 2023-09-20 09:50 | Outpatient (CLI) | payer MEDICAID, SELFPAY ==
[2023-09-20 11:50] LABS: Abs Immature Grans 0.02 10^3/uL (0.0-0.06); Absolute Basophil Count 0.05 10^3/uL (0.0-0.2); Absolute Eosinophil Count 0.12 10^3/uL (0.0-0.7); Absolute Lymphocyte Count 1.72 10^3/uL (1.2-3.4); Absolute Monocyte Count 0.45 10^3/uL (0.1-0.8); Absolute Neutrophil Count 3.69 10^3/uL (1.2-6.7); Basophils % 0.8 %; ESR 30 mm/hr (0-30); HCT 41.7 % (36.0-46.0); HGB 13.4 g/dL (11.2-15.7); Immature Grans % 0.3 %; Lymphocytes % 28.4 %; MCH 27.2 pg (27.0-33.0); MCHC 32.1 % (32.0-36.0); MCV 85 fL (80-95); MPV 9.4 fL (8.0-11.0); Monocytes % 7.4 %; Neutrophils % 61.1 %; Platelet Count 312 10^3/uL (130-400); RBC 4.92 10^6/uL (3.93-5.22); RDW-SD 42.9 fL; WBC 6.05 10^3/uL (4.4-10.8)
[2023-09-20 12:11] LABS: ALT 23 U/L (14-59); AST 9 U/L (15-37); Albumin 3.1 g/dL (3.4-5.0); Alkaline Phosphatase 130 U/L (46-116); Anion Gap 8.8 mmol/L (3-11); BUN 22 mg/dL (7-18); Bilirubin, Total 0.3 mg/dL (0.2-1.0); C-Reactive Protein 0.67 mg/dL (<or=0.5); CO2 28.2 mmol/L (21.0-32.0); CREATININE 0.8 mg/dL (0.55-1.02); Calcium 8.7 mg/dL (8.5-10.1); Chloride 102 mmol/L (98-107); Estimated GFR 85.35 (mL/min/1.73m2); Glucose 271 mg/dL (74-106); Potassium 4.3 mmol/L (3.5-5.1); Sodium 139 mmol/L (136-145); Total Protein 7.2 g/dL (6.4-8.2)
[2023-09-21 08:14] LABS: Cyclic Citrullinated Peptide 59.2 U/mL (<5.0)
[2023-09-21 09:18] LABS: HBs Antibody, Quant 76.7 mIU/mL (See Note); Hepatitis B Surface Ab Positive (See Note)
[2023-09-21 09:37] LABS: C3 Complement 123 mg/dL (81-157); C4 Complement 24 mg/dL (13-39)
[2023-09-21 09:54] LABS: Hepatitis B Surface Ag Negative (Negative)
[2023-09-21 10:22] LABS: Hep B Core Antibody Positive (Negative)
[2023-09-21 11:16] LABS: Hepatitis C Ab w Rflx HCV PCR Reactive (Negative)
[2023-09-21 11:29] LABS: HIV-1/2 Ag & Ab Screen Negative (Negative)
[2023-09-21 12:51] LABS: dsDNA Ab, IgG <22.0 IU/mL (<27.0)
[2023-09-21 12:54] LABS: RNP Ab, IgG <6.0 CU (<20.0); Ro60 Ab, IgG <7.0 CU (<20.0); SS-A/Ro, IgG <2.3 CU (<20.0); SS-B (La) Ab, IgG <3.3 CU (<20.0); Sm (Smith) Ab, IgG <8.0 CU (<20.0)
[2023-09-21 18:11] LABS: Centromere Ab, IgG <0.2 U (<1.0 (Neg)); Scl 70 Antibodies, IgG <0.2 U
[2023-09-22 11:04] LABS: HCV RNA Qualitative Undetected (Undetected)
== END 2023-09-20 09:51 | disposition home or self-care (01) ==
LOC: LBO 09:50
PROVIDERS: PCP Family Medicine; Visit Provider Student in an Organized Health Care Education/Training Program
DX: M25.59 Pain in other specified joint (principal)
CPT/HCPCS: 80053; 85652; 86200; 86704; 86706; 86803; 87340; 87389; 87522; 81003; 82595; 83520; 85025; 86140; 86160; 86225; 86235; 86480

== ENCOUNTER 2023-11-30 15:18 | Emergency (ER) | payer MEDICAID, SELFPAY ==
[2023-11-30 15:27] VITALS: BP 141/92; PULSE 115; RESP 15; TEMP 35.6; O2SAT 96
--- NOTE | 2023-11-30 15:45 | RT.EKG_ITS ---
APPROVED REPORT Exam: Resting ECG Reason for Exam: weakness Patient Location: E HR:98 bpm ECG Measurements Heart Rate 98 AXIS NJ 154 P 51 QRSd 82 QRS 84 QT 354 T 40 QTc 453 Conclusion Sinus rhythm...normal P axis, V-rate 60- 99 Supraventricular bigeminy...bigeminy string>4 w/ SV complexes Probable left atrial enlargement...P >50mS, <-0.10mV V1 Probable left ventricular hypertrophy...(RaVL+SV3)xQRSd >300 Inferior infarct, old...Q >35mS, II III aVF
[2023-11-30 16:19] LABS: Bilirubin Moderate (Negative); Blood Negative (Negative); Clarity Clear (Clear); Glucose 100 mg/dL (Negative); Ketones 80 mg/dL (Negative); Leukocyte Esterase Negative (Negative); Nitrite Negative (Negative); Specific Gravity >= 1.030 (1.005-1.025); Urobilinogen 0.2 mg/dL (Up to 0.2)
[2023-11-30 16:29] LABS: Bacteria Rare HPF (Negative); C & S Indicated? No; Casts 0-2 Hyaline LPF (Negative); Crystals Negative HPF (Negative); Epithelial Cells Moderate HPF (Negative); Mucus Heavy (Negative); Other Cells Few Yeast (Negative); RBC 0-2 HPF (0-2)
--- NOTE | 2023-11-30 16:30 | DI.RAD_ITS ---
Exam(s) XR CHEST 2V PA LATERAL EXAM: XR CHEST 2V PA LATERAL CLINICAL HISTORY: weakness. TECHNIQUE: 2D digital imaging was performed. COMPARISON: CR,XR XR CHEST 2V PA LATERAL from 09/02/2023 FINDINGS: 2 views: Heart size is normal. The mediastinum is not widened. Right lung remains clear. There is persistent infiltrate in the left lower lobe retrocardiac region. No obvious pleural effusions. IMPRESSION: Significant left lower lobe infiltrate. DATA REPOSITORY: RADIATION DOSE DELIVERED:
[2023-11-30 17:06] LABS: BE (Venous) 1 mmol/L (-2-3); HCO3 (Venous) 27 mmol/L (23-28); O2 Sat (Venous) 45 %; TCO2 (Venous) 24 mmol/L (24-29); pCO2 (Venous) 52 mmHg (41-51); pH (Venous) 7.33 (7.31-7.41); pO2 (Venous) 27 mmHg
[2023-11-30 17:07] LABS: Lactate 1.7 mmol/L (0.6-1.4)
[2023-11-30 17:08] LABS: Abs Immature Grans 0.09 10^3/uL (0.0-0.06); Absolute Basophil Count 0.04 10^3/uL (0.0-0.2); Absolute Eosinophil Count 0.01 10^3/uL (0.0-0.7); Absolute Lymphocyte Count 1.18 10^3/uL (1.2-3.4); Absolute Monocyte Count 0.47 10^3/uL (0.1-0.8); Absolute Neutrophil Count 8.68 10^3/uL (1.2-6.7); Basophils % 0.4 %; Eosinophils % 0.1 %; HCT 50.3 % (36.0-46.0); HGB 16.6 g/dL (11.2-15.7); Immature Grans % 0.9 %; Lymphocytes % 11.3 %; MCH 27.3 pg (27.0-33.0); MCV 83 fL (80-95); MPV 9.1 fL (8.0-11.0); Monocytes % 4.5 %; Neutrophils % 82.8 %; Platelet Count 283 10^3/uL (130-400); RBC 6.08 10^6/uL (3.93-5.22); RDW-SD 41.9 fL; WBC 10.47 10^3/uL (4.4-10.8)
[2023-11-30 17:26] LABS: ALT 29 U/L (14-59); AST 14 U/L (15-37); Albumin 3.4 g/dL (3.4-5.0); Alkaline Phosphatase 156 U/L (46-116); Anion Gap 9.9 mmol/L (3-11); BUN 20 mg/dL (7-18); Bilirubin, Total 0.51 mg/dL (0.2-1.0); CO2 29.1 mmol/L (21.0-32.0); CREATININE 0.7 mg/dL (0.55-1.02); Calcium 9.5 mg/dL (8.5-10.1); Chloride 97 mmol/L (98-107); Estimated GFR 100.19 (mL/min/1.73m2); Glucose 236 mg/dL (74-106); Lipase 80 U/L (16-77); Magnesium 1.6 mg/dL (1.8-2.4); Potassium 4.3 mmol/L (3.5-5.1); Sodium 136 mmol/L (136-145); Total Protein 7.7 g/dL (6.4-8.2); Troponin I < 50 ng/L (< or =60)
[2023-11-30 17:40] LABS: Diff Comment RBC Morph Reviewed; RBC Morphology Normal
[2023-11-30] MEDS: Normal Saline 1,000 ML 1000 ML IV ×2 (18:09→18:14)
[2023-11-30] MEDS: Prochlorperazine 10 MG/2 ML VIAL 5 MG IVP (18:14)
[2023-11-30] MEDS: FAMOTIDINE 20 MG/50 ML BAG 200 MG IV (18:14)
[2023-11-30] MEDS: Omnipaque 350 MG/ML 100 ML BTL IJ (19:19)
--- NOTE | 2023-11-30 19:20 | DI.CT_ITS ---
Exam(s) CT CHEST PE CTA EXAM: CT CHEST PE CTA CLINICAL HISTORY: persistent infiltrate, lll. TECHNIQUE: Imaging Protocol: Axial CT angiography was performed with multi-slice acquisition and mu lti-planar and/or 3D reconstructions. CONTRAST MATERIAL: Intravenous: Omnipaque 350 contrast volume:100 mL COMPARISON: CT ABD PELVIS WO CONTRAST from 03/26/2009 CT ABD PELVIS WITH CONTRAST from 02/22/[address] ABDOMEN PELVIS W from 02/15/2022 CR XR CHEST 2V PA LATERAL from 11/30/2023 FINDINGS: Tracheobronchial tree: Patent where visualized. No bronchiectasis. Pulmonary parenchyma: There is an area of consolidation involving the left lower lobe with loss of vo lume. There is narrowing of the airways to the left lower lobe centrally. The lungs are otherwise c lear. Pulmonary Arteries: There is suboptimal opacification of the pulmonary arteries particularly peripher ally. No large central pulmonary embolism is present. Mediastinum and Teressa: There is mediastinal and left hilar adenopathy. The esophagus is grossly unrem arkable. Visualized thyroid gland: Unremarkable. Pleura: No effusion or pneumothorax. Heart: The heart is not dilated. Mild coronary artery calcification is present. No pericardial effus ion. Aorta: Thoracic aorta non-dilated. No evidence of dissection. Mild atherosclerosis. Upper abdomen: There is a stable left adrenal nodule. Soft tissues: Unremarkable. Bones: Within normal limits for the patient's age.There is a subacute healing nondisplaced fracture o f the lateral aspect of the right 7th rib. There is also a subacute healing fracture involving the a nterior aspect of the left 2nd rib. IMPRESSION: 1. There is a persistent area of consolidation involving the left lower lobe. There is narrowing of the airway in the vessels to the right lower lobe suspicious for a central/endobronchial mass in this patient. Neoplasm should be considered. Postobstructive consolidation is suggested. This may repr esent atelectasis or pneumonia. 2. Adenopathy in the mediastinum and left hilum. 3. Subacute healing fractures involving the lateral aspect of the right 7th rib and the anterior aspe ct of the left 2nd rib. Pathologic fracture should be considered. 4. Stable appearance of the left adrenal nodule since the oldest examination dated 2016. It was pres ent but smaller in size on the CT scan of the abdomen and pelvis from 03/26/2009. This likely reflec ts a benign lesion such as an adenoma. 5. There is suboptimal opacification of the pulmonary arteries. No large central pulmonary embolus is seen. 6. No evidence of thoracic aortic dissection or aneurysm. RADIATION DOSE DELIVERED: Total DLP DATA REPOSITORY: All CT scans at this facility are submitted to the National Radiology Data Registry (NRDR) Dose Index Registry (DIR) with the [employer] (A[employer]). RADIATION OPTIMIZATION: All CT scans at this facility use at least one of these dose optimization te chniques: automated exposure control; mA and/or kV adjustment per patient size (includes targeted exa ms where dose is matched to clinical indication); or iterative reconstruction.
[2023-11-30] MEDS: Normal Saline - Diluent 50 ML VIAL IJ (19:21)
--- NOTE | 2023-11-30 20:04 | DI.VRAD_ITS ---
PROCEDURE INFORMATION: Exam: CTA Chest With Contrast Exam date and time: 11/30/2023 19:09 Age: 58 years old Clinical indication: Other: Persistent infiltrate lll TECHNIQUE: Imaging protocol: Computed tomographic angiography of the chest with contrast. Exam focused on the arteries. 3D rendering (Not supervised by radiologist): MIP and/or 3D reconstructed images were created by the technologist. Radiation optimization: All CT scans at this facility use at least one of these dose optimization techniques: automated exposure control; mA and/or kV adjustment per patient size (includes targeted exams where dose is matched to clinical indication); or iterative reconstruction. Contrast material: OMNIPAQUE 350; Contrast volume: 100 ml; Contrast route: INTRAVENOUS (IV); COMPARISON: CR XR CHEST 2V PA LATERAL 11/30/2023 16:25 FINDINGS: Pulmonary arteries: Suboptimal pulmonary artery bolus. Left lower lobe pulmonary arteries narrow due to extrinsic mass effect. No gross emboli are identified. Aorta: No aortic aneurysm. No aortic dissection. Trachea: Occlusion of left lower lobe airway with severe postobstructive consolidation of the left lower lobe. Lungs: Left infrahilar adenopathy appears likely contiguous with a left lower lobe/endobronchial mass. There is probable metastatic subcarinal adenopathy, AP window lymph node is indeterminate. A few small right-sided pulmonary nodules could be metastatic. Similar finding left upper lobe. Pleural spaces: No pneumothorax. No pleural effusion. Heart: Heart size is upper limits of normal. Lymph nodes: See Lungs finding. Adrenal glands: Indeterminate left adrenal nodules or masses. Could be metastases, adenomas among other entities. Follow-up as per institutional protocol. Bones/joints: A right lateral 7th rib fracture may be due to an underlying lytic lesion, appears likely subacute without significant angulation. Severe multilevel thoracic degenerative changes with multilevel stenosis. Soft tissues: No suspicious lesions. IMPRESSION: 1. Occlusion of left lower lobe airway with severe postobstructive consolidation of the left lower lobe, almost certainly malignant. Metastatic disease suspected as above. 2. Additional findings as described. Dictated and Authenticated by: Akila Cadena MD. Ordering:KELY Trinh MD
[2023-11-30 20:40] VITALS: BP 135/75; PULSE 100; RESP 20
[2023-11-30 20:41] LABS: Troponin I < 50 ng/L (< or =60)
--- NOTE | 2023-11-30 20:41 | NUR.NOTE ---
Pt placed on care management referral list to see Pulmonology [facility] for a Lung Mass, pt also need to see PCP.
[2023-11-30 20:51] LABS: COVID-19 PCR Negative (Negative); Influenza A PCR Negative (Negative); Influenza B PCR Negative (Negative); RSV PCR Negative (Negative)
[2023-11-30 20:52] LABS: Source Nasopharynx
[2023-11-30 21:15] VITALS: BP 99/69; TEMP 37; O2SAT 96
--- NOTE | 2023-11-30 21:42 | W.ED.GENAD ---
Discharge Plan Disposition Patient Disposition: Home Condition: Stable Discharge Details Clinical Impression: Nausea & vomiting, Lung mass, Rib lesion Primary Care Provider: Debo Talamantes V ED Provider: Gayathri Chi Home Meds and New Rx's Prescriptions: New prochlorperazine maleate [Compazine] 10 mg tablet 10 mg PO Q6H PRNQty: 14 0RF magnesium 250 mg tablet 250 mg PO DAILY Qty: 10 0RF Continued oxybutynin chloride 5 MG tablet 1 tab PO BID gabapentin 400 mg Capsule 600 mg PO TID metformin [Glucophage XR] 500 mg Tablet Extended Release 24 Hr 1,000 mg PO DAILY bupropion HCl [Wellbutrin XL] 300 mg Tablet Extended Release 24 Hr 300 mg PO QAM cholecalciferol (vitamin D3) [Vitamin D3] 50 mcg (2,000 unit) capsule 2,000 unit PO DAILY Patient Comments: Take 1 capsule by mouth once a day simvastatin 10 mg tablet 10 mg PO DAILY Patient Comments: 1 tablet by mouth once a day TAKE 1 TABLET BY MOUTH AT BEDTIME losartan 50 mg tablet 50 mg PO DAILY Patient Comments: TAKE 1 TABLET BY MOUTH DAILY hydrochlorothiazide 12.5 mg tablet 12.5 mg PO DAILY Patient Comments: TAKE 1 TABLET BY MOUTH DAILY celecoxib 100 mg capsule 100 mg PO BID Patient Comments: TAKE 1 CAPSULE BY MOUTH TWICE DAILY omeprazole 40 mg capsule,delayed release(DR/EC) 40 mg PO DAILY Patient Comments: Take 1 capsule by mouth once a day glipizide 10 mg tablet extended release 24hr 10 mg PO DAILY Patient Comments: TAKE 1 TABLET BY MOUTH DAILY Jardiance 25 mg tablet 25 mg PO DAILY Patient Comments: TAKE 1 TABLET BY MOUTH ONCE DAILY AFTER FINISHING THE 10 MG TABLET buprenorphine-naloxone [Suboxone] 8-2 mg film 2 film sublingual DAILY Patient Comments: TAKE TWO FILM UNDER THE TONGUE FILL ON 01/20/22 cyclobenzaprine 5 mg tablet 5 mg PO Q8H PRN (Reason: muscle spasm) Qty: 6 0RF Discharge Instructions Instructions: Nausea and vomiting in adults Additional Instructions: Please call your doctor tomorrow, I have placed you on the list to have an urgent bronchoscopy with seam steamer at [facility], you will need to have bronchoscopy of the mass in your lungs prior to referral to hematology Should you develop shortness of breath or worsening chest pain please return immediately for reassessment In the interim I recommend taking the Compazine as needed for nausea and vomiting Take the magnesium as prescribed Please also let your doctor know that you need a bronchoscopy to advocate as you will need to be seen as soon as possible with to begin your diagnostic workup Referrals: Debo Talamantes MD [Primary Care Provider] - Elzbieta Quiros MD [ [facility] STAFF PHYSICIAN] - 1 day Discharge Data Discharge Date/Time-TO BE ENTERED AT DEPARTURE: 11/30/23 21:16 HPI General Date/Time Provider Initiated Documentation: 11/30/23 15:40. HPI Narrative: This 58-year-old complex female with history of bacteremia, endocarditis, substance abuse diabetes, hepatitis C presents with report of nausea, vomiting which started on 27 November. Patient states she has had this intermittently. Denies any chest pain or shortness of breath. Denies any dizziness or weakness. Endorses slight headache. Denies any blood in vomitus or stool. Denies any diarrhea. States she was treated for pneumonia secondary to having COVID-19 in August of this year. Denies any calf pain or swelling, recent flights, surgeries, long drives. Has not used alcohol for approximately 24 years. Does endorse using heroin approximately 8 days ago. She is very embarrassed regarding this. Related Data Home Medications ?Medication ?Instructions ?Recorded ?Confirmed oxybutynin chloride 5 mg tablet 1 tab PO BID 12/17/16 11/30/23 bupropion HCl 300 mg 24 hr tablet, 300 mg PO QAM 05/06/18 11/30/23 extended release (Wellbutrin XL) gabapentin 400 mg capsule 600 mg PO TID 05/06/18 11/30/23 metformin 500 mg tablet,extended 1,000 mg PO DAILY 05/06/18 11/30/23 release 24 hr (Glucophage XR) buprenorphine 8 mg-naloxone 2 mg 2 film sublingual DAILY 02/15/22 11/30/23 sublingual film (Suboxone) celecoxib 100 mg capsule 100 mg PO BID 06/26/22 11/30/23 cholecalciferol (vitamin D3) 50 2,000 unit PO DAILY 06/26/22 11/30/23 mcg (2,000 unit) capsule (Vitamin D3) empagliflozin 25 mg tablet 25 mg PO DAILY 06/26/22 11/30/23 (Jardiance) glipizide 10 mg tablet, extended 10 mg PO DAILY 06/26/22 11/30/23 release 24 hr hydrochlorothiazide 12.5 mg tablet 12.5 mg PO DAILY 06/26/22 11/30/23 losartan 50 mg tablet 50 mg PO DAILY 06/26/22 11/30/23 omeprazole 40 mg capsule,delayed 40 mg PO DAILY 06/26/22 11/30/23 release simvastatin 10 mg tablet 10 mg PO DAILY 06/26/22 11/30/23 cyclobenzaprine 5 mg tablet 5 mg PO Q8H PRN muscle spasm #6 12/12/22 11/30/23 tabs magnesium 250 mg tablet 250 mg PO DAILY #10 tabs 11/30/23 prochlorperazine maleate 10 mg 10 mg PO Q6H PRN #14 tabs 11/30/23 tablet (Compazine) Previous Rx's ?Medication ?Instructions ?Recorded cyclobenzaprine 5 mg tablet 5 mg PO Q8H PRN muscle spasm #6 12/12/22 tabs magnesium 250 mg tablet 250 mg PO DAILY #10 tabs 11/30/23 prochlorperazine maleate 10 mg 10 mg PO Q6H PRN #14 tabs 11/30/23 tablet (Compazine) Allergies Allergy/AdvReac Type Severity Reaction Status Date / Time exenatide (From Med ePad) AdvReac Mild Vomited Unverified 09/02/23 14:49 lisinopril AdvReac Mild Cough Unverified 09/02/23 14:49 General Stated Complaint: Abd Prob YASMINE: 3 Exam Narrative Exam Narrative: Calm, cooperative, alert and oriented 58-year-old female in no acute distress, pupils equal round reactive to light and accommodation without scleral icterus or jaundice, no respiratory distress, cardiac rate rhythm regular, no abdominal tenderness, no murmur, no peripheral edema, distal pulses intact alert and oriented x 4, Course Vital Signs Vital signs: Vital Signs Temperature 35.6 C L 11/30/23 15:27 Pulse 115 H 11/30/23 15:27 Respiratory Rate 15 11/30/23 15:27 Blood Pressure 141/92 H 11/30/23 15:27 Pulse Oximetry 96 11/30/23 15:27 Temperature 37.0 C 11/30/23 21:15 Temperature Source Tympanic 11/30/23 21:15 Pulse 100 H 11/30/23 20:40 Pulse Rhythm Regular 11/30/23 20:40 Respiratory Rate 20 11/30/23 20:40 Blood Pressure 99/69 L 11/30/23 21:15 Blood Pressure Mean 95 11/30/23 20:40 Blood Pressure Position Sitting 11/30/23 15:27 Pulse Oximetry 96 11/30/23 21:15 Oxygen Delivery Method Room Air 11/30/23 21:15 Oxygen Flow Rate 0 11/30/23 21:15 Pain Level 4 11/30/23 21:15 Lab/Test Results Lab/Test Results: 11/30/23 17:47 Blood Blood Culture - Pending 11/30/23 16:58 Blood Blood Culture - Pending Laboratory Tests Range/Units 11/30/23 11/30/23 11/30/23 16:08 16:58 20:12 WBC (4.4-10.8) 10^3/uL 10.47 RBC (3.93-5.22) 10^6/uL 6.08 H Hgb (11.2-15.7) g/dL 16.6 H Hct (36.0-46.0) % 50.3 H MCV (80-95) fL 83 MCH (27.0-33.0) pg 27.3 MCHC (32.0-36.0) % 33.0 RDW (11.7-14.6) % 14.0 Plt Count (130-400) 10^3/uL 283 MPV (8.0-11.0) fL 9.1 Immature Gran % % 0.9 Neutrophils % % 82.8 Lymphocytes % % 11.3 Monocytes % % 4.5 Eosinophils % % 0.1 Basophils % % 0.4 Nucleated RBC % (0.0-0.3) % 0.0 Absolute Neutrophils (1.2-6.7) 10^3/uL 8.68 H Absolute Lymphocytes (1.2-3.4) 10^3/uL 1.18 L Absolute Monocytes (0.1-0.8) 10^3/uL 0.47 Absolute Eosinophils (0.0-0.7) 10^3/uL 0.01 Absolute Basophils (0.0-0.2) 10^3/uL 0.04 RBC Morphology Normal VBG pH (7.31-7.41) 7.33 VBG pCO2 (41-51) mmHg 52 H VBG pO2 mmHg 27 VBG HCO3 (23-28) mmol/L 27 VBG Total CO2 (24-29) mmol/L 24 VBG O2 Saturation % 45 VBG Base Excess (-2-3) mmol/L 1 VBG Lactate (0.6-1.4) mmol/L 1.7 H Sodium (136-145) mmol/L 136 Potassium (3.5-5.1) mmol/L 4.3 Chloride (98-107) mmol/L 97 L Carbon Dioxide (21.0-32.0) mmol/L 29.1 Anion Gap (3-11) mmol/L 9.9 BUN (7-18) mg/dL 20 H Creatinine (0.55-1.02) mg/dL 0.7 Est GFR (CKD-EPI 2020) (mL/min/1.73m2) 100.19 Glucose (74-106) mg/dL 236 H Calcium (8.5-10.1) mg/dL 9.5 Magnesium (1.8-2.4) mg/dL 1.6 L Total Bilirubin (0.2-1.0) mg/dL 0.51 AST (15-37) U/L 14 L ALT (14-59) U/L 29 Alkaline Phosphatase (46-116) U/L 156 H Troponin I (< or =60) ng/L < 50 Total Protein (6.4-8.2) g/dL 7.7 Albumin (3.4-5.0) g/dL 3.4 Lipase (16-77) U/L 80 H Urine Color (Yellow) Yellow Urine Clarity (Clear) Clear Urine pH (5-8) 6.0 Ur Specific [place] (1.005-1.025) >= 1.030 H Urine Protein (Neg-Trace) mg/dL 100 H Urine Ketones (Negative) mg/dL 80 H Urine Blood (Negative) Negative Urine Nitrite (Negative) Negative Urine Bilirubin (Negative) Moderate H Urine Urobilinogen (Up to 0.2) mg/dL 0.2 Ur Leukocyte Esterase (Negative) Negative Urine RBC (0-2) HPF 0-2 Urine WBC (0-5) HPF 3-5 Ur Epithelial Cells (Negative) HPF Moderate Urine Crystals (Negative) HPF Negative Urine Bacteria (Negative) HPF Rare Urine Casts (Negative) LPF 0-2 Hyaline Urine Mucus (Negative) Heavy Urine Other (Negative) Few Yeast Ur Culture Indicated? No Urine Glucose (Negative) mg/dL 100 H COVID-19 Source Nasopharynx SARS-CoV-2 (PCR) (Negative) Negative Influenza Type A (PCR) (Negative) Negative Influenza Type B (PCR) (Negative) Negative RSV (PCR) (Negative) Negative Range/Units 11/30/23 20:15 WBC (4.4-10.8) 10^3/uL RBC (3.93-5.22) 10^6/uL Hgb (11.2-15.7) g/dL Hct (36.0-46.0) % MCV (80-95) fL MCH (27.0-33.0) pg MCHC (32.0-36.0) % RDW (11.7-14.6) % Plt Count (130-400) 10^3/uL MPV (8.0-11.0) fL Immature Gran % % Neutrophils % % Lymphocytes % % Monocytes % % Eosinophils % % Basophils % % Nucleated RBC % (0.0-0.3) % Absolute Neutrophils (1.2-6.7) 10^3/uL Absolute Lymphocytes (1.2-3.4) 10^3/uL Absolute Monocytes (0.1-0.8) 10^3/uL Absolute Eosinophils (0.0-0.7) 10^3/uL Absolute Basophils (0.0-0.2) 10^3/uL RBC Morphology VBG pH (7.31-7.41) VBG pCO2 (41-51) mmHg VBG pO2 mmHg VBG HCO3 (23-28) mmol/L VBG Total CO2 (24-29) mmol/L VBG O2 Saturation % VBG Base Excess (-2-3) mmol/L VBG Lactate (0.6-1.4) mmol/L Sodium (136-145) mmol/L Potassium (3.5-5.1) mmol/L Chloride (98-107) mmol/L Carbon Dioxide (21.0-32.0) mmol/L Anion Gap (3-11) mmol/L BUN (7-18) mg/dL Creatinine (0.55-1.02) mg/dL Est GFR (CKD-EPI 2020) (mL/min/1.73m2) Glucose (74-106) mg/dL Calcium (8.5-10.1) mg/dL Magnesium (1.8-2.4) mg/dL Total Bilirubin (0.2-1.0) mg/dL AST (15-37) U/L ALT (14-59) U/L Alkaline Phosphatase (46-116) U/L Troponin I (< or =60) ng/L < 50 Total Protein (6.4-8.2) g/dL Albumin (3.4-5.0) g/dL Lipase (16-77) U/L Urine Color (Yellow) Urine Clarity (Clear) Urine pH (5-8) Ur Specific [place] (1.005-1.025) Urine Protein (Neg-Trace) mg/dL Urine Ketones (Negative) mg/dL Urine Blood (Negative) Urine Nitrite (Negative) Urine Bilirubin (Negative) Urine Urobilinogen (Up to 0.2) mg/dL Ur Leukocyte Esterase (Negative) Urine RBC (0-2) HPF Urine WBC (0-5) HPF Ur Epithelial Cells (Negative) HPF Urine Crystals (Negative) HPF Urine Bacteria (Negative) HPF Urine Casts (Negative) LPF Urine Mucus (Negative) Urine Other (Negative) Ur Culture Indicated? Urine Glucose (Negative) mg/dL COVID-19 Source SARS-CoV-2 (PCR) (Negative) Influenza Type A (PCR) (Negative) Influenza Type B (PCR) (Negative) RSV (PCR) (Negative) Medical Decision Making 58-year-old female presenting in no acute distress with history of polysubstance abuse, endocarditis, hepatitis C presenting with nausea, vomiting and feeling lightheaded. I did place a peripheral line and patient in order chest x-ray. Patient also had diagnostic labs. Diagnostic labs do not show evidence of significant acute abnormality, very mild elevation in lipase at 80, patient given 2 L of fluid, antiemetics and able to tolerate p.o. Chest x-ray was ordered which shows a persistent left lower lobe infiltrate which is concerning as patient did have appropriate treatment for pneumonia in August. CTA was ordered for further evaluation at this time. CTA is concerning for a large lung mass with complete obstruction of bronchial, patient is not exhibiting any respiratory distress at this time, she is not hypoxic and really asymptomatic from a respiratory standpoint. I think she will need an urgent bronchoscopy so she is placed on pulmonology follow-up for bronchoscopy. She is aware she should also call her primary care for physician tomorrow as depending on what the bronchoscopy shows she will need hematology oncology consultation is soon as possible. Patient was given Compazine for the nausea and vomiting and at time of reassessment show symptomatic improvement. She is comfortable and requesting discharge home at this time although she is aware the importance of urgent follow-up. She is encouraged to call PCP tomorrow. Additional return precautions reviewed and patient expressed understanding. Prescription for magnesium supplied for home with magnesium of 1.7. Quality:SDOH Health Related Social Needs: No Data to Display PFSH All Active Problems Rib lesion (Acute) Lung mass (Acute) Nausea & vomiting (Acute) COVID-19 (Acute) Sciatica of left side (Acute) Bleeding from varicose vein (Acute) Flu-like symptoms (Acute) Sudden onset upset stomach, vomiting, diarrhea. 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 Atypical symptoms, but reasonable. E. coli bacteremia (Acute) Discharge planning issues (Acute) Endocarditis (Acute) Pyelonephritis (Acute) Sepsis (Acute) Ventral hernia (Chronic) Adrenal nodule (Chronic) Pyelonephritis (Acute) DVT prophylaxis (Chronic) History of hernia repair (Chronic) History of (Chronic) History of appendectomy (Chronic) SHARAN (obstructive sleep apnea) (Chronic) HPV (human papilloma virus) infection (Chronic) Hypertension (Chronic) History of alcohol abuse (Chronic) Tobacco abuse (Chronic) Obesity (Chronic) Hepatitis C (Chronic) Diabetes mellitus (Chronic) Anxiety (Chronic) History of intravenous drug abuse (Chronic) Social History Smoking/Tobacco Use Status: Current every day Tobacco Type: cigarettes Smoking risk assessment performed?: Yes Alcohol Intake: former Drug use: Current Sobriety Substance use type: marijuana Do you feel safe at home: Yes Do you feel safe in your relationship?: Yes Additional Social history: Patient is . She has 2 children, and one grandson. 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 Reports daily tobacco use, with an approximate 35-etch-dqyt history of smoking. Reports both alcohol and illicit drug use in remission. PAWSS Have you Been Recently Intoxicated or Drunk Within the Last 30 days?: No Have you Ever Experienced Previous Episodes of Alcohol Withdrawal?: No Have you ever Experienced Withdrawal Seizures?: No Have you ever Experienced Delirium Tremens(DT)s?: No Have you ever undergone Alcohol Rehabilitation Treatment (i.e, inpt ot outpatient treatment programs)?: No Have you ever Experienced Blackouts?: No Have you ever Combined Alcohol with other Downers within the last 90 days?: No Have you ever Combined Alcohol with any other Substance of Abuse during the last 90 days?: No Positive Blood Alcohol level on Presentation? [PCS.BAL]: No Evidence of Increased Autonomic Activity (i.e. HR>120, tremor, sweating, agitation, nausea)?: No Result: 0
== END 2023-11-30 21:16 | disposition home or self-care (01) ==
PROVIDERS: Emergency Provider Physician Assistant; PCP Family Medicine
DX: M89.9 Disorder of bone, unspecified (principal); R91.8 Other nonspecific abnormal finding of lung field; E11.9 Type 2 diabetes mellitus without complications; R94.31 Abnormal electrocardiogram [ECG] [EKG]; F17.210 Nicotine dependence, cigarettes, uncomplicated; Z79.84 Long term (current) use of oral hypoglycemic drugs
CPT/HCPCS: 71275; 80053; 82805; 82962; 83690; 87040; 87637; 93005; 96365; 96375; 99285; 71046; 81003; 81015; 83605; 83735; 84484; 85025; 93010; J0780; J3490

== ENCOUNTER 2023-12-08 15:05 | Outpatient (REF) | payer MEDICAID, SELFPAY ==
[2023-12-08 16:49] LABS: ESR 60 mm/hr (0-30)
[2023-12-08 17:09] LABS: ALT 34 U/L (14-59); AST 25 U/L (15-37); Albumin 2.8 g/dL (3.4-5.0); Alkaline Phosphatase 147 U/L (46-116); Anion Gap 9.3 mmol/L (3-11); BUN 15 mg/dL (7-18); Bilirubin, Total 0.33 mg/dL (0.2-1.0); C-Reactive Protein 17.35 mg/dL (<or=0.5); CO2 28.7 mmol/L (21.0-32.0); CREATININE 0.7 mg/dL (0.55-1.02); Calcium 8.7 mg/dL (8.5-10.1); Chloride 97 mmol/L (98-107); Creatine Kinase 48 U/L (26-192); Estimated GFR 100.19 (mL/min/1.73m2); Glucose 404 mg/dL (74-106); Potassium 3.7 mmol/L (3.5-5.1); Sodium 135 mmol/L (136-145); Total Protein 6.3 g/dL (6.4-8.2)
== END 2023-12-08 15:06 | disposition home or self-care (01) ==
LOC: NCHCN 15:05
PROVIDERS: PCP Family Medicine; Visit Provider Family Medicine
DX: M06.9 Rheumatoid arthritis, unspecified (principal)
CPT/HCPCS: 80053; 82550; 85652; 86140

== ENCOUNTER 2023-12-08 19:30 | Emergency (ER) | payer MEDICAID, SELFPAY ==
[2023-12-08 20:12] VITALS: BP 140/90; PULSE 85; RESP 14; TEMP 36.6; O2SAT 98
--- NOTE | 2023-12-08 22:04 | DI.CT_ITS ---
Exam(s) CT PELVIC W EXAM: CT PELVIC W CLINICAL HISTORY: concern for abscess R groin area, h/o IVDU. TECHNIQUE: Imaging Protocol: Axial computed tomography images with coronal and sagittal reformatted images were created and reviewed. CONTRAST MATERIAL: Intravenous: Omnipaque 350 Contrast volume:100 mL contrast route:IV - Oral: / no COMPARISON: CT CT ABDOMEN PELVIS W from 02/15/2022 FINDINGS: Exam somewhat limited by motion, particularly on the upper images. Bladder: No gross wall thickening. No stones.No evidence of mass. Bowel: No obstruction or bowel wall thickening. Large quantity of stool. Peritoneal cavity: No ascites, collection or mesenteric inflammatory response. Reproductive: Unremarkable. Bones: No acute findings. Degenerative changes lower lumbar spine. Soft tissues: Asymmetry of the distal saw os muscles, within large minute edema on the right. No vis ible drainable abscess or other fluid collection. Small amount of fluid in the right iliopsoas bursa . Question of a small right hip joint effusion. Stable appearance of right lower quadrant abdominal wall fat containing hernia. IMPRESSION: Edema in the distal right iliopsoas muscle with small amount of fluid in the iliopsoas bursa. No cinthya inable abscess. RADIATION DOSE DELIVERED: Total DLP DATA REPOSITORY: All CT scans at this facility are submitted to the National Radiology Data Registry (NRDR) Dose Index Registry (DIR) with the [employer] (A[employer]). RADIATION OPTIMIZATION: All CT scans at this facility use at least one of these dose optimization te chniques: automated exposure control; mA and/or kV adjustment per patient size (includes targeted exa ms where dose is matched to clinical indication); or iterative reconstruction.
--- NOTE | 2023-12-08 22:05 | W.ED.GENAD ---
Discharge Plan Discharge Details Chief Complaint: Orthopedic Primary Care Provider: Debo Talamantes V ED Provider: Regla Anguiano Home Meds and New Rx's Prescriptions: No Action methotrexate sodium 2.5 mg tablet 15 mg PO QWEEK nicotine 14 mg/24 hr patch 24 hour 1 patch transdermal DAILY Qty: 28 1RF oxybutynin chloride 5 MG tablet 1 tab PO BID gabapentin 400 mg Capsule 600 mg PO TID metformin [Glucophage XR] 500 mg Tablet Extended Release 24 Hr 1,000 mg PO DAILY bupropion HCl [Wellbutrin XL] 300 mg Tablet Extended Release 24 Hr 300 mg PO QAM cholecalciferol (vitamin D3) [Vitamin D3] 50 mcg (2,000 unit) capsule 2,000 unit PO DAILY Patient Comments: Take 1 capsule by mouth once a day simvastatin 10 mg tablet 10 mg PO DAILY Patient Comments: 1 tablet by mouth once a day TAKE 1 TABLET BY MOUTH AT BEDTIME losartan 50 mg tablet 50 mg PO DAILY Patient Comments: TAKE 1 TABLET BY MOUTH DAILY hydrochlorothiazide 12.5 mg tablet 12.5 mg PO DAILY Patient Comments: TAKE 1 TABLET BY MOUTH DAILY celecoxib 100 mg capsule 100 mg PO BID Patient Comments: TAKE 1 CAPSULE BY MOUTH TWICE DAILY omeprazole 40 mg capsule,delayed release(DR/EC) 40 mg PO DAILY Patient Comments: Take 1 capsule by mouth once a day glipizide 10 mg tablet extended release 24hr 10 mg PO DAILY Patient Comments: TAKE 1 TABLET BY MOUTH DAILY Jardiance 25 mg tablet 25 mg PO DAILY Patient Comments: TAKE 1 TABLET BY MOUTH ONCE DAILY AFTER FINISHING THE 10 MG TABLET prochlorperazine maleate [Compazine] 10 mg tablet 10 mg PO Q6H PRNQty: 14 0RF magnesium 250 mg tablet 250 mg PO DAILY Qty: 10 0RF buprenorphine-naloxone [Suboxone] 8-2 mg film 2 film sublingual DAILY Patient Comments: TAKE TWO FILM UNDER THE TONGUE FILL ON 01/20/22 cyclobenzaprine 5 mg tablet 5 mg PO Q8H PRN (Reason: muscle spasm) Qty: 6 0RF HPI General Date/Time Provider Initiated Documentation: 12/08/23 19:50. HPI Narrative: Evi is a 58-year-old female who presents to the emergency department today for evaluation of right groin pain. She reports that she has blood work done by her PCP today, was told that there was concern for infection because her inflammatory markers were elevated. She reports over the last 3 weeks she has had increasing right groin pain that radiates down her leg, is unable to walk on the leg due to the pain, says it radiates down to the top of her thigh. Mild swelling at the top of her thigh, but no swelling in the groin. No history of surgeries in the groin area. Denies fever/chills, general malaise, change in bowel or bladder function, lower back pain, numbness/tingling in the leg. History of previous IV drug user. No antibiotic allergies. She is unable to actively lift the leg, but does have passive range of motion with minimal pain. Distal pulses intact. No obvious lesions noted. No obvious lymphadenopathy. Abdomen soft, nondistended, nontender to palpation, no rigidity or guarding. DDx includes but is not limited to: Abscess, hernia, muscle or tendon injury, bursitis, lymphadenopathy, malignancy Labs were drawn earlier today, significant for elevated CRP. CBC reassuring, no leukocytosis noted. Urine reassuring, concentrated urine with no signs of infection. Handoff report given to Dr. Rogers, overnight attending. Pending CT pelvis. Related Data Home Medications ?Medication ?Instructions ?Recorded ?Confirmed oxybutynin chloride 5 mg tablet 1 tab PO BID 12/17/16 12/08/23 bupropion HCl 300 mg 24 hr tablet, 300 mg PO QAM 05/06/18 12/08/23 extended release (Wellbutrin XL) gabapentin 400 mg capsule 600 mg PO TID 05/06/18 12/08/23 metformin 500 mg tablet,extended 1,000 mg PO DAILY 05/06/18 12/08/23 release 24 hr (Glucophage XR) buprenorphine 8 mg-naloxone 2 mg 2 film sublingual DAILY 02/15/22 12/08/23 sublingual film (Suboxone) celecoxib 100 mg capsule 100 mg PO BID 06/26/22 12/08/23 cholecalciferol (vitamin D3) 50 2,000 unit PO DAILY 06/26/22 12/08/23 mcg (2,000 unit) capsule (Vitamin D3) empagliflozin 25 mg tablet 25 mg PO DAILY 06/26/22 12/08/23 (Jardiance) glipizide 10 mg tablet, extended 10 mg PO DAILY 06/26/22 12/08/23 release 24 hr hydrochlorothiazide 12.5 mg tablet 12.5 mg PO DAILY 06/26/22 12/08/23 losartan 50 mg tablet 50 mg PO DAILY 06/26/22 12/08/23 omeprazole 40 mg capsule,delayed 40 mg PO DAILY 06/26/22 12/08/23 release simvastatin 10 mg tablet 10 mg PO DAILY 06/26/22 12/08/23 cyclobenzaprine 5 mg tablet 5 mg PO Q8H PRN muscle spasm #6 12/12/22 12/08/23 tabs magnesium 250 mg tablet 250 mg PO DAILY #10 tabs 11/30/23 12/08/23 prochlorperazine maleate 10 mg 10 mg PO Q6H PRN #14 tabs 11/30/23 12/08/23 tablet (Compazine) methotrexate sodium 2.5 mg tablet 15 mg PO QWEEK 12/07/23 12/08/23 nicotine 14 mg/24 hr daily 1 patch transdermal DAILY #28 ea 12/07/23 12/08/23 transdermal patch Previous Rx's ?Medication ?Instructions ?Recorded cyclobenzaprine 5 mg tablet 5 mg PO Q8H PRN muscle spasm #6 12/12/22 tabs magnesium 250 mg tablet 250 mg PO DAILY #10 tabs 11/30/23 prochlorperazine maleate 10 mg 10 mg PO Q6H PRN #14 tabs 11/30/23 tablet (Compazine) nicotine 14 mg/24 hr daily 1 patch transdermal DAILY #28 ea 12/07/23 transdermal patch Allergies Allergy/AdvReac Type Severity Reaction Status Date / Time exenatide (From [facility] [place]) AdvReac Mild Vomited Verified 12/08/23 20:17 lisinopril AdvReac Mild Cough Verified 12/08/23 20:17 General Stated Complaint: Orthopedic YASMINE: 4 Review of Systems Narrative: see HPI Exam Const General: cooperative, healthy appearing, comfortable and no acute distress Nutritional Appearance: average body habitus Resp Effort & Inspection: normal respiratory effort and able to speak in complete sentences GI Inspection: normal to inspection and non-distended Palpation: soft, not firm, no guarding, no pulsatile masses and nontender Other: No obvious swelling noted to inguinal lymph nodes. Mild swelling noted past top of thigh. No overlying erythema or rashes. Extrem Right lower extremity: normal capillary refill, no joint enlargement and hip/thigh Details: swelling Location: at the proximal leg and abnormal ROM (Full passive range of motion, very limited active range of motion due to pain); no abrasions, no lacerations and no ecchymosis Left lower extremity: normal to inspection Course Vital Signs Vital signs: Vital Signs Temperature 36.6 C 12/08/23 20:12 Pulse 85 12/08/23 20:12 Respiratory Rate 14 12/08/23 20:12 Blood Pressure 140/90 12/08/23 20:12 Pulse Oximetry 98 12/08/23 20:12 Temperature 36.6 C 12/08/23 20:12 Temperature Source Temporal Artery Scan 12/08/23 20:12 Pulse 85 12/08/23 20:12 Respiratory Rate 14 12/08/23 20:12 Blood Pressure 140/90 12/08/23 20:12 Blood Pressure Position Sitting 12/08/23 20:12 Pulse Oximetry 98 12/08/23 20:12 Oxygen Delivery Method Room Air 12/08/23 20:12 Oxygen Flow Rate 0 12/08/23 20:12 Pain Level 5 12/08/23 20:12 Medical Decision Making Quality:SDOH Health Related Social Needs: No Data to Display PFSH All Active Problems Rib lesion (Acute) Lung mass (Acute) Nausea & vomiting (Acute) COVID-19 (Acute) Sciatica of left side (Acute) Bleeding from varicose vein (Acute) Flu-like symptoms (Acute) Sudden onset upset stomach, vomiting, diarrhea. 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 Atypical symptoms, but reasonable. E. coli bacteremia (Acute) Discharge planning issues (Acute) Endocarditis (Acute) Pyelonephritis (Acute) Sepsis (Acute) Ventral hernia (Chronic) Adrenal nodule (Chronic) Pyelonephritis (Acute) DVT prophylaxis (Chronic) History of hernia repair (Chronic) History of (Chronic) History of appendectomy (Chronic) SHARAN (obstructive sleep apnea) (Chronic) HPV (human papilloma virus) infection (Chronic) Hypertension (Chronic) History of alcohol abuse (Chronic) Tobacco abuse (Chronic) Obesity (Chronic) Hepatitis C (Chronic) Diabetes mellitus (Chronic) Anxiety (Chronic) History of intravenous drug abuse (Chronic) Social History Smoking/Tobacco Use Status: Current every day Tobacco Type: cigarettes Smoking risk assessment performed?: Yes Alcohol Intake: former Drug use: Occasionally Substance use type: marijuana Housing: house Additional Social history: IDALIA
[2023-12-08] MEDS: Omnipaque 350 MG/ML 100 ML BTL IJ (22:47)
[2023-12-08] MEDS: Normal Saline - Diluent 50 ML VIAL IJ (22:49)
--- NOTE | 2023-12-08 23:51 | DI.VRAD_ITS ---
PROCEDURE INFORMATION: Exam: CT Pelvis With Contrast Exam date and time: 12/08/2023 10:52 PM Age: 58 years old Clinical indication: Other: Concern for abscess R groin area, h/o ivdu TECHNIQUE: Imaging protocol: Computed tomography of the pelvis with contrast. Contrast material: 350; Contrast volume: 100 ml; Contrast route: INTRAVENOUS (IV); COMPARISON: CT ABDOMEN PELVIS W 02/15/2022 10:21 AM FINDINGS: Intestine: Incompletely visualized distension of much of the colon with formed stool, suspicious for constipation. Appendix: No evidence of appendicitis. Intraperitoneal space: Unremarkable. No free air. No significant fluid collection. Vasculature: No pelvic vein thrombosis. Lymph nodes: Unremarkable. No enlarged lymph nodes. Reproductive: Normal as visualized. Urinary bladder: Normal. No mass. Bones/joints: There is a small right hip joint effusion which could be sterile or septic. Soft tissues: There is mild inflammation and thickening the right ileo psoas muscle the anterosuperior right adductor musculature which could signify myositis or muscle strain. There is trace fluid in the iliopsoas bursa compatible with iliopsoas bursitis. Equivocal mild low anterior abdominal wall cellulitis. No soft tissue gas. IMPRESSION: 1. Incompletely visualized distension of much of the colon with formed stool, suspicious for constipation. 2. There is a small right hip joint effusion which could be sterile or septic. 3. There is mild inflammation and thickening the right ileo psoas muscle the anterosuperior right adductor musculature which could signify myositis or muscle strain. There is trace fluid in the iliopsoas bursa compatible with iliopsoas bursitis. 4. Equivocal mild low anterior abdominal wall cellulitis. No soft tissue gas. Dictated and Authenticated by: Jason Benítez MD. Ordering:NOEL Arauz MD
--- NOTE | 2023-12-09 00:42 | ED.PROG_ITS ---
Date of service: 12/09/23 Time of Service: 01:45 Medical Decision Making Patient signed out to me pending results of abdominal pelvic CT scan. Patient presenting from primary care referral for worsening right hip and groin pain. Per the patient and her cousin this has been an ongoing problem that has just be en worsening over weeks if not months. Patient has difficulty ambulating and standing because of pain in the right hip and groin. On exam she has pretty decent passive range of motion. She actually has okay active range of motion but it does cause pain. Biggest issue is external rotation or abduction of her right lower extremity. She does not have a leukocytosis. She does have elevated sed rate and CRP. She does have history of rheumatoid arthritis. She is on methotrexate weekly but did not take it today as she was supposed to. She has been taken off NSAIDs pending bronchoscopy on Monday of this coming week. CT scan shows a small hip effusion on the right as well as iliopsoas muscle swelling likely consistent with strain and iliopsoas bursitis. The CPK done outpatient is normal. Given the patient's chronicity of symptoms with no fever and no white count as well as normal passive range of motion I do not feel that the hip effusion is likely septic at all. This is all likely right iliopsoas bursitis and strain. She does have a history of opiate abuse. Cannot currently be on NSAIDs. Family member is present. Patient will be given 1 [place] here. She is given for to go for the weekend to take twice a day. These are provided to her cousin who will supply them to the patient when scheduled. Patient to have her bronchoscopy on Monday. 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 We did give her her methotrexate dose which was due. She already has a walker which she is encouraged to continue to use. Return precautions provided. Lab Data Lab results reviewed: Yes I reviewed the patient's lab results. Lab results narrative: From previous ED visit as well as outpatient labs just performed Sign Out Sign Out Data: Sign Out Comment: Evi is a 58-year-old female sent in by PCP for concern of abscess to right groin. She reports she has had pain with lifting of her leg last couple weeks, has recently progressed to the point where she is no longer to able to ambulate. Awaiting CT scan. Former IV drug user. Last updated by Regla Anguiano at 12/08/23 23:47 Discharge Plan Disposition Patient Disposition: Home Condition: Stable Discharge Details Clinical Impression: Iliopsoas bursitis of right hip, Strain of right iliopsoas muscle, Right hip joint effusion Primary Care Provider: Debo Talamantes V ED Provider: Juan Rogers [place] Meds and New Rx's Prescriptions: New Hydrocodone/Apap 5/325, 4 Tab [[place] 5/325, 4 Tabs/Btl] 1 tab PO BID Qty: 4 0RF Continued methotrexate sodium 2.5 mg tablet 15 mg PO QWEEK nicotine 14 mg/24 hr patch 24 hour 1 patch transdermal DAILY Qty: 28 1RF oxybutynin chloride 5 MG tablet 1 tab PO BID gabapentin 400 mg Capsule 600 mg PO TID metformin [Glucophage XR] 500 mg Tablet Extended Release 24 Hr 1,000 mg PO DAILY bupropion HCl [Wellbutrin XL] 300 mg Tablet Extended Release 24 Hr 300 mg PO QAM cholecalciferol (vitamin D3) [Vitamin D3] 50 mcg (2,000 unit) capsule 2,000 unit PO DAILY Patient Comments: Take 1 capsule by mouth once a day simvastatin 10 mg tablet 10 mg PO DAILY Patient Comments: 1 tablet by mouth once a day TAKE 1 TABLET BY MOUTH AT BEDTIME losartan 50 mg tablet 50 mg PO DAILY Patient Comments: TAKE 1 TABLET BY MOUTH DAILY hydrochlorothiazide 12.5 mg tablet 12.5 mg PO DAILY Patient Comments: TAKE 1 TABLET BY MOUTH DAILY omeprazole 40 mg capsule,delayed release(DR/EC) 40 mg PO DAILY Patient Comments: Take 1 capsule by mouth once a day glipizide 10 mg tablet extended release 24hr 10 mg PO DAILY Patient Comments: TAKE 1 TABLET BY MOUTH DAILY prochlorperazine maleate [Compazine] 10 mg tablet 10 mg PO Q6H PRNQty: 14 0RF magnesium 250 mg tablet 250 mg PO DAILY Qty: 10 0RF buprenorphine-naloxone [Suboxone] 8-2 mg film 2 film sublingual DAILY Patient Comments: TAKE TWO FILM UNDER THE TONGUE FILL ON 01/20/22 cyclobenzaprine 5 mg tablet 5 mg PO Q8H PRN (Reason: muscle spasm) Qty: 6 0RF Held celecoxib 100 mg capsule 100 mg PO BID Hold Instructions: Resume on 12/12/23. Patient Comments: TAKE 1 CAPSULE BY MOUTH TWICE DAILY Jardiance 25 mg tablet 25 mg PO DAILY Hold Instructions: Resume on 12/12/23. Patient Comments: TAKE 1 TABLET BY MOUTH ONCE DAILY AFTER FINISHING THE 10 MG TABLET Discharge Instructions Instructions: Hip Bursitis, Using Cold for Pain, Muscle Strain ED Additional Instructions: You were seen for worsening right hip and groin pain. Your CT scan shows a small hip effusion as well as evidence of bursitis and iliopsoas muscle strain. I have provided you a family member with hydrocodone/acetaminophen which you may take morning and night for pain over the weekend. You need to hold any type of nonsteroidal until after your procedure on Monday. You should contact Dr. Chino for further management of your pain. You should likely also reach out to your database security administrator at [facility]. Return to ED for fever, inability to ambulate or bear weight at all, numbness or weakness to the distal leg, other concerns. Referrals: Debo Talamantes MD [Primary Care Provider] -
[2023-12-09] MEDS: HYDROcodone 5/Acetaminophen 325 TAB PO (01:05)
== END 2023-12-09 01:40 | disposition home or self-care (01) ==
PROVIDERS: Emergency Provider Emergency Medicine; PCP Family Medicine
DX: M70.71 Other bursitis of hip, right hip (principal); S76.011A Strain of muscle, fascia and tendon of right hip, initial encounter; M25.451 Effusion, right hip; I10 Essential (primary) hypertension; E11.9 Type 2 diabetes mellitus without complications; R91.8 Other nonspecific abnormal finding of lung field; F17.210 Nicotine dependence, cigarettes, uncomplicated; Z79.84 Long term (current) use of oral hypoglycemic drugs; Z79.631 Long term (current) use of antimetabolite agent; X58.XXXA Exposure to other specified factors, initial encounter
CPT/HCPCS: 123; 36415; 87040; 99285; 00123; 72193; 99284; J3490

== ENCOUNTER 2023-12-11 07:55 | Day surgery (SDC) | payer MEDICAID, SELFPAY ==
[2023-12-11] VITALS (8 sets, daily range): BP systolic 95–178; BP diastolic 47–87; PULSE 61–87; RESP 17–20; TEMP 36.5–36.8; O2SAT 90–97; BMI 36.8
--- NOTE | 2023-12-11 | DI.RAD_ITS ---
Exam(s) XR PORTABLE CHEST AP EXAM: XR PORTABLE CHEST AP CLINICAL HISTORY: post bronch LLL biopsy. TECHNIQUE: 2D digital imaging was performed. COMPARISON: CR XR CHEST 2V PA LATERAL from 11/30/[address] CHEST PE CTA from 11/30/2023 FINDINGS: Single AP portable view. Heart size is upper normal. The mediastinum is not widened. There is persistent infiltrate in the left lower lobe retrocardiac region. This was also evident on CT scan 11/30/2023. Possible small left pleural effusion. IMPRESSION: Significant persistent left lower lobe infiltrate. Cannot exclude malignancy. DATA REPOSITORY: RADIATION DOSE DELIVERED:
--- NOTE | 2023-12-11 06:39 | ANES.PREOP_ITS ---
General Info Date of Service Date Performed: 12/11/23 Height: 5 ft 1.02 in Weight: 88.564 kg Body Mass Index (BMI): 36.8 Surgical Procedure: Operation Date: 12/11/23 09:55 Proposed Procedure Side Surgeon p Bronchoscopy w/BAL, Biopsy and Brushing Left Roxanne Greenberg MD Meds Allergies and Home Medications Allergies Allergy/AdvReac Type Severity Reaction Status Date / Time exenatide (From [place]) AdvReac Mild Vomited Verified 12/11/23 08:28 lisinopril AdvReac Mild Cough Verified 12/11/23 08:28 Home Medication ?Medication ?Instructions ?Recorded oxybutynin chloride 5 mg tablet 1 tab PO BID 12/17/16 bupropion HCl 300 mg 24 hr tablet, 300 mg PO QAM 05/06/18 extended release (Wellbutrin XL) gabapentin 400 mg capsule 600 mg PO TID 05/06/18 metformin 500 mg tablet,extended 1,000 mg PO DAILY 05/06/18 release 24 hr (Glucophage XR) buprenorphine 8 mg-naloxone 2 mg 2 film sublingual DAILY 02/15/22 sublingual film (Suboxone) celecoxib 100 mg capsule 100 mg PO BID 06/26/22 cholecalciferol (vitamin D3) 50 2,000 unit PO DAILY 06/26/22 mcg (2,000 unit) capsule (Vitamin D3) empagliflozin 25 mg tablet 25 mg PO DAILY 06/26/22 (Jardiance) glipizide 10 mg tablet, extended 10 mg PO DAILY 06/26/22 release 24 hr hydrochlorothiazide 12.5 mg tablet 12.5 mg PO DAILY 06/26/22 losartan 50 mg tablet 50 mg PO DAILY 06/26/22 omeprazole 40 mg capsule,delayed 40 mg PO DAILY 06/26/22 release simvastatin 10 mg tablet 10 mg PO DAILY 06/26/22 cyclobenzaprine 5 mg tablet 5 mg PO Q8H PRN muscle spasm #6 12/12/22 tabs magnesium 250 mg tablet 250 mg PO DAILY #10 tabs 11/30/23 prochlorperazine maleate 10 mg 10 mg PO Q6H PRN #14 tabs 11/30/23 tablet (Compazine) methotrexate sodium 2.5 mg tablet 15 mg PO QWEEK 12/07/23 nicotine 14 mg/24 hr daily 1 patch transdermal DAILY #28 ea 12/07/23 transdermal patch HYDROcodone/APAP 5/325, 4 tab 1 tab PO BID #4 caps 12/09/23 [[place] 5/325, 4 tabs/btl] Current Visit Medications: Current Medications Generic Name Dose Route Start Last Admin Trade Name Danielle PRN Reason Stop Dose Admin Ringer's Solution 1,000 mls @ 30 mls/hr 12/11/23 06:00 IV 01/07/24 23:59 INFUSION MARIA EUGENIA IV Miscellaneous Supplies 1 each 12/11/23 06:00 Iv Access IV 01/07/24 23:59 DIRECTED MARIA EUGENIA Sodium Chloride 0 ml 12/11/23 06:00 Normal Saline Flush 10 Ml Syr IV 01/07/24 23:59 PRN PRN Sodium Chloride 0 ml 12/11/23 06:00 Normal Saline 10 Ml Vial IJ 01/07/24 23:59 DIRECTED PRN Sterile Water 0 ml 12/11/23 06:00 Water,Injection,Sterile 10 Ml Vial IJ 01/07/24 23:59 DIRECTED PRN PFSH Active Problems Active Problems: Problem Status Onset Code Right hip joint effusion Acute M25.451 Strain of right iliopsoas muscle Acute S76.811A Iliopsoas bursitis of right hip Acute M70.71 Rib lesion Acute M89.9 Lung mass Acute R91.8 Nausea & vomiting Acute R11.2 COVID-19 Acute U07.1 Sciatica of left side Acute M54.32 Bleeding from varicose vein Acute I83.899 Flu-like symptoms Acute R68.89 E. coli bacteremia Acute R78.81 Discharge planning issues Acute Z02.9 Endocarditis Acute I38 Pyelonephritis Acute N12 Sepsis Acute A41.9 Ventral hernia Chronic K43.9 Adrenal nodule Chronic E27.9 Pyelonephritis Acute N12 DVT prophylaxis Chronic History of hernia repair Chronic Z98.890, Z87.19 History of Chronic Z98.891 History of appendectomy Chronic Z90.49 SHARAN (obstructive sleep apnea) Chronic G47.33 HPV (human papilloma virus) infection Chronic B97.7 Hypertension Chronic I10 History of alcohol abuse Chronic Z87.898 Tobacco abuse Chronic Z72.0 Obesity Chronic E66.9 Hepatitis C Chronic B19.20 Diabetes mellitus Chronic E11.9 Anxiety Chronic F41.9 History of intravenous drug abuse Chronic Z87.898 Tobacco Smoking/Tobacco Use Status: Current every day Tobacco Type: cigarettes Alcohol Alcohol Intake: former Substance Use Substance use: Occasionally Substance use type: marijuana Vital Signs and Lab Results Vital Signs Most Recent Vital Signs in EMR: Temp Pulse Resp BP Pulse Ox 36.5 C 81 20 178/79 H 97 12/11/23 08:31 12/11/23 08:31 12/11/23 08:31 12/11/23 08:31 12/11/23 08:31 Lab Results Blood Type / Crossmatch: No Data to Display Complete Blood Count: White Blood Count 10.47 10^3/uL (4.4-10.8) 11/30/23 16:58 Red Blood Count 6.08 10^6/uL (3.93-5.22) H 11/30/23 16:58 Hemoglobin 16.6 g/dL (11.2-15.7) H 11/30/23 16:58 Hematocrit 50.3 % (36.0-46.0) H 11/30/23 16:58 Platelet Count 283 10^3/uL (130-400) 11/30/23 16:58 Venous Blood Lactate 1.7 mmol/L (0.6-1.4) H 11/30/23 16:58 Complete Metabolic Panel: Sodium 135 mmol/L (136-145) L 12/08/23 11:10 Potassium 3.7 mmol/L (3.5-5.1) 12/08/23 11:10 Chloride 97 mmol/L (98-107) L 12/08/23 11:10 Carbon Dioxide 28.7 mmol/L (21.0-32.0) 12/08/23 11:10 BUN 15 mg/dL (7-18) 12/08/23 11:10 Creatinine 0.7 mg/dL (0.55-1.02) 12/08/23 11:10 Est GFR (CKD-EPI 2020) 100.19 (mL/min/1.73m2) 12/08/23 11:10 Magnesium 1.6 mg/dL (1.8-2.4) L 11/30/23 16:58 Calcium 8.7 mg/dL (8.5-10.1) 12/08/23 11:10 Albumin 2.8 g/dL (3.4-5.0) L 12/08/23 11:10 Glucose 404 mg/dL (74-106) H 12/08/23 11:10 C-Reactive Protein 17.35 mg/dL (<or=0.5) H 12/08/23 11:10 Liver Function Panel: Alanine Aminotransferase (ALT/SGPT) 34 U/L (14-59) 12/08/23 11: 10 Aspartate Amino Transf (AST/SGOT) 25 U/L (15-37) 12/08/23 11:10 Coagulation Panel: No Data to Display Cardiac Panel: Troponin I < 50 ng/L (< or =60) 11/30/23 Creatine Kinase 48 U/L (26-192) 12/08/23 Arterial Blood Gas: No Data to Display Venous Blood Gas: Venous Blood pH 7.33 (7.31-7.41) 11/30/23 16:58 Venous Blood Partial Pressure O2 27 mmHg 11/30/23 16:58 Venous Blood Partial Pressure CO2 52 mmHg (41-51) H 11/30/23 16 :58 Venous Blood Oxygen Saturation 45 % 11/30/23 16:58 Venous Blood HCO3 27 mmol/L (23-28) 11/30/23 16:58 Venous Blood Base Excess 1 mmol/L (-2-3) 11/30/23 16:58 Venous Blood Total Carbon Dioxide 24 mmol/L (24-29) 11/30/23 16 :58 Pancreas Panel: Lipase 80 U/L (16-77) H 11/30/23 16:58 Thyroid Panel: No Data to Display Infectious Disease: Coronavirus (COVID-19)(PCR) Negative (Negative) 11/30/23 20:12 Coronavirus 2019 Source Nasopharynx 11/30/23 20:12 Influenza Virus Type A (PCR) Negative (Negative) 11/30/23 20:1 2 Influenza Virus Type B (PCR) Negative (Negative) 11/30/23 20:1 2 Respiratory Syncytial Virus (PCR) Negative (Negative) 11/30/23 20:12 Blood Cultures: No Data to Display Toxicology Panel: No Data to Display Imaging and Studies Imaging and Studies Study information below may be from another EMR and interpreted by another provider. Please see original notes in EMR for more complete details. EKG Summary: 11/28: sinus, supraventricular bigem. ? LAE. prob LVH. Echocardiogram Summary: 04/25: mild LVH, LVEF 60-65%. trace MR. mild TR. RVSP 28-36 mmhg. Anesthesia Assessment and Plan Anesthesia History Personal History: No History of Anesthesia Complications Family History: No Family History of Anesthesia Complications Exercise Tolerance Exercise Tolerance: Metabolic Equivalents>4 Cardiac & Pulmonary Exam Cardiac Exam: Normal S1/S2 Heart Sounds Pulmonary Exam: Clear Bilateral Breath Sounds Implantable Cardiac Device Does patient have a Pacemaker or an ICD?: No Airway Exam Known Difficult Airway: No Mallampati Class: 2 Mouth Opening: Normal (> 3cm) Thyromental Distance: Greater than 3 cm Neck Range of Motion: Full ROM Neck Circumference: Normal Teeth Condition: Generalized Poor Dentition and Edentulous ASA Classification ASA Score: ASA 3 Emergency Case?: No NPO Status NPO Status: NPO Clears >2 hours, Solids >8 hours Anesthesia Plan Resuscitation Status: Full Code Anesthesia Technique: General Anesthesia Airway Planned: Natural Airway Monitors Used: Standard Monitors Preoperative Comments:: 58 yo female for bronch. Sig PMHx: HTN (losartan, HCTZ), lung mass, GERD (omeprazole), SHARAN, DM (empagliflozin, glipizide, metformin. last A1c in [facility] 9.8%), RA (methotrexate), anxiety, smoker, occ cannabis. Suboxone. Not compliant with routine meds. Took Suboxone this am. Fabricio Estrada CRNA
[2023-12-11] MEDS: Lactated Ringers 1,000 ML 30 ML IV (10:30)
--- NOTE | 2023-12-11 10:37 | W.ANESVAS ---
Midline Placement Date Performed: 12/11/23 Procedure Time: 10:20 Requesting Provider: Marcelo Estrada Procedure Location: Operating Room Sedation Given (Indicate Dose Given): No Sedation given Patient Mental Status: Awake Sterility: Hand Hygiene, Surgical Cap, Surgical Mask and Chlorhexidine Laterality: Left Insertion Site: Brachial Midline Device: PowerGlide Pro 20G Catheter Length: 10 cm Midline Procedure Procedure: Catheter placed without resistance Dressing: Tegaderm Applied and Statlock Applied Blood Return: Present Flushes: Easily Ultrasound: Sterile probe cover and gel used Ultrasound Image Saved?: No Number of Attempts (See previous attempts in note section): 1 Procedure Tolerated: No Complications Procedure Outcome: Successful Procedure Comment:: Primary IV infiltrated on induction. Line placed in OR without US order placed so no picture was captured. Performed By: Erasto Flores
--- NOTE | 2023-12-11 10:47 | LUN_PTH ---
PATIENT: Evi Srivastava LOC: [facility] U#:[id number] AGE/SX: 58/F ROOM: RE12/11/[address]: Roxanne Greenberg : 1965 BED: DIS: 12/11/2023 SPEC #: [id number] RECD: 12/11/23 12:09 STATUS: DERIK REBeth #: [id number] KENA: 12/11/23 10:[address]: Roxanne Greenberg DEPT: Surgical Specimen RECD BY: Gladys Alonso ENTERED: 12/11/23 12:11 SP TYPE: NEIL VILLAFUERTE DR: Debo Talamantes V Tissues: 1 - LUNG BIOPSY Procedures: GROSS AND MICRO LEVEL 4 IMMUNOPEROXIDASE STAIN Comments: [id number]
--- NOTE | 2023-12-11 10:47 | PAPNONF_PTH ---
PATIENT: Evi Srivastava LOC: [facility] U#:[id number] AGE/SX: 58/F ROOM: RE12/11/[address]: Roxanne Greenberg : 1965 BED: DIS: 12/11/2023 SPEC #: [id number] RECD: 12/11/23 12:04 STATUS: DERIK GOMEZ #: [id number] KENA: 12/11/23 10:[address]: Roxanne Greenberg DEPT: [facility] Cytology RECD BY: Gladys Alonso ENTERED: 12/11/23 12:05 SP TYPE: IGNACIO VILLAFUERTE DR: Debo Talamantes V Tissues: 1 - BODY FLUID CYTO(NOT S/U/N/EM)[facility] 2 - BODY FLUID CYTO(SPUTUM/URINE)[facility] Procedures: BODY FLUID CYTO(NOT SPU/UR/NIP/ENDOM)[facility] BODY FLUID CYTO(URINE/SPUTUM) Comments: [id number] (SENT FRESH) (REFRIGERATED)
--- NOTE | 2023-12-11 11:00 | DI.RAD_ITS ---
Exam(s) XR FLOURO OR C-ARM <1 HR EXAM: XR FLOURO OR C-ARM <1 HR CLINICAL HISTORY: LUNG MASS. TECHNIQUE: 2D and realtime digital imaging was performed. COMPARISON: No exams were available for comparison FINDINGS: Please see procedure note for details. Fluoro time: 49.7seconds RADIATION DOSE DELIVERED: becca Jeffery=8.66 mGy
--- NOTE | 2023-12-11 11:31 | W.PM.DSUDISC ---
Date of service: 12/11/23 Time of Service: 11:31 Discharge Plan Disposition Patient Disposition: Home Condition: Stable Discharge Details Reason For Visit: LLL mass s/p Bronchoscopy Attending Provider: Roxanne Greenberg Primary Care Provider: Debo Talamantes V Home Meds and New Rx's Prescriptions: No Action methotrexate sodium 2.5 mg tablet 15 mg PO QWEEK nicotine 14 mg/24 hr patch 24 hour 1 patch transdermal DAILY Qty: 28 1RF oxybutynin chloride 5 MG tablet 1 tab PO BID gabapentin 400 mg Capsule 600 mg PO TID metformin [Glucophage XR] 500 mg Tablet Extended Release 24 Hr 1,000 mg PO DAILY bupropion HCl [Wellbutrin XL] 300 mg Tablet Extended Release 24 Hr 300 mg PO QAM cholecalciferol (vitamin D3) [Vitamin D3] 50 mcg (2,000 unit) capsule 2,000 unit PO DAILY Patient Comments: Take 1 capsule by mouth once a day simvastatin 10 mg tablet 10 mg PO DAILY Patient Comments: 1 tablet by mouth once a day TAKE 1 TABLET BY MOUTH AT BEDTIME losartan 50 mg tablet 50 mg PO DAILY Patient Comments: TAKE 1 TABLET BY MOUTH DAILY hydrochlorothiazide 12.5 mg tablet 12.5 mg PO DAILY Patient Comments: TAKE 1 TABLET BY MOUTH DAILY celecoxib 100 mg capsule 100 mg PO BID Patient Comments: TAKE 1 CAPSULE BY MOUTH TWICE DAILY omeprazole 40 mg capsule,delayed release(DR/EC) 40 mg PO DAILY Patient Comments: Take 1 capsule by mouth once a day glipizide 10 mg tablet extended release 24hr 10 mg PO DAILY Patient Comments: TAKE 1 TABLET BY MOUTH DAILY Jardiance 25 mg tablet 25 mg PO DAILY Patient Comments: TAKE 1 TABLET BY MOUTH ONCE DAILY AFTER FINISHING THE 10 MG TABLET prochlorperazine maleate [Compazine] 10 mg tablet 10 mg PO Q6H PRNQty: 14 0RF magnesium 250 mg tablet 250 mg PO DAILY Qty: 10 0RF Hydrocodone/Apap 5/325, 4 Tab [[place] 5/325, 4 Tabs/Btl] 1 tab PO BID Qty: 4 0RF buprenorphine-naloxone [Suboxone] 8-2 mg film 2 film sublingual DAILY Patient Comments: TAKE TWO FILM UNDER THE TONGUE FILL ON 01/20/22 cyclobenzaprine 5 mg tablet 5 mg PO Q8H PRN (Reason: muscle spasm) Qty: 6 0RF Discharge Instructions Stand Alone Forms: DSU Bronchoscopy Post-Op, Corazon Jacques (DSU) Activity:: Activity as Tolerated Diet:: As Tolerated Discharge Orders Discharge Orders: Discharge Order (Routine); Ordered 12/11/23 Ordered By: Roxanne Greenberg DS: Diagnosis Discharge Diagnosis (1) Lung mass: Status: Acute
--- NOTE | 2023-12-11 11:39 | W.ANESPOSTOP ---
Postoperative Evaluation Date, Time and Location Date Performed: 12/11/23 Time Performed: 11:39 Patient Location: PACU Vital Signs Most Recent Imported Vital Signs: Most Recent Vital Signs Temp Pulse Resp BP Pulse Ox 36.6 C 64 18 111/54 L 93 12/11/23 11:21 12/11/23 11:21 12/11/23 11:21 12/11/23 11:21 12/11/23 11:21 Assessment Mental Status: Awake (Alert & Oriented to Patient Baseline) Airway and Respiratory Function: Patent airway with normal (patient baseline) respiratory exam Cardiovascular Function: Hemodynamically Stable Hydration Status: Adequately Hydrated Nausea & Vomiting: No Nausea or Vomiting Pain: Pt. Denies Any Pain Peripheral Nerve Block: Patient did not receive a nerve block
[2023-12-11] MEDS: Albuterol/Ipratropium 3 ML UPD VIAL UPD (12:25)
--- NOTE | 2023-12-11 13:53 | W.PM.OP ---
Date of service: 12/11/23 Time of Service: 10:00 Operative Note Operative Note PRE-OP DIAGNOSIS: LLL collapse POST-OP DIAGNOSIS: other LLL obstruciton from endobronchial amss PROCEDURE: Bronchoscopy BAL, brushing and transbronchial biopsies LLL SURGEON: Roxanne Greenberg ANESTHESIA TYPE: General LMA/ETT Refer to Anesthesia Record ESTIMATED BLOOD LOSS: 0 PATHOLOGY: other (LLL cytology, LLL transbronchial biopsies) Procedure Description: The benefits, risks, and were discussed and informed consent was obtained from the patient. The bronchoscope was passed with ease through the endotracheal tube and extending into the trachea right bronchial tree and left bronchial tree. Right May upper lobe middle and lower lobes were inspected and were free of secretions and masses. And the left mainstem a endobronchial mass was visualized completely occluding the left lower lobe takeoff. The scope could not be introduced into the left lower lobe. 50 mL of saline was then lavaged into the left lower lobe with return of about 25 to 30 mL. Cytology brushings was then introduced into the left lower lobe and samples were obtained at that way. Transbronchial/endobronchial biopsies were then obtained under fluoroscopy guidance. Patient tolerated the procedure well. Follow-up chest x-ray in PACU showed no pneumothorax. Samples will be sent for cytology and pathology
== END 2023-12-11 12:48 | disposition home or self-care (01) ==
PROVIDERS: PCP Family Medicine; Visit Provider Internal Medicine Critical Care Medicine
PROC: 0BJ08ZZ Inspection of Tracheobronchial Tree, Via Natural or Artificial Opening Endoscopic (ICD-10-PCS; CPT 31622; principal; 2023-12-11 09:45)
DX: C34.32 Malignant neoplasm of lower lobe, left bronchus or lung (principal); F17.210 Nicotine dependence, cigarettes, uncomplicated; F19.10 Other psychoactive substance abuse, uncomplicated; F11.20 Opioid dependence, uncomplicated; E11.9 Type 2 diabetes mellitus without complications
CPT/HCPCS: 31624; 31628; 00123; 76000; 88305; 71045; 88104; 88361; J1100; J2405; J2704; J7620

== ENCOUNTER 2023-12-28 00:59 | Emergency (ER) | payer MEDICAID, SELFPAY ==
[2023-12-28] VITALS (9 sets, daily range): BP systolic 172–173; BP diastolic 88–106; PULSE 82–98; RESP 18–20; TEMP 36.6; O2SAT 96–97
[2023-12-28] MEDS: MORPHine 4 MG/ML SYR IVP (01:20)
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
[2023-12-28] MEDS: Gabapentin 300 MG CAP 600 MG PO (01:29)
--- NOTE | 2023-12-28 01:30 | RT.EKG_ITS ---
APPROVED REPORT Exam: Resting ECG Reason for Exam: right arm pain Patient Location: E HR:97 bpm ECG Measurements Heart Rate 97 AXIS OR 170 P 53 QRSd 81 QRS 15 QT 349 T 28 QTc 445 Conclusion Sinus rhythm...normal P axis, V-rate 60- 99 Probable left atrial enlargement...P >50mS, <-0.10mV V1 Probable left ventricular hypertrophy...multiple LVH criteria Physician: no stemi
[2023-12-28 01:47] LABS: Abs Immature Grans 0.06 10^3/uL (0.0-0.06); Absolute Basophil Count 0.05 10^3/uL (0.0-0.2); Absolute Eosinophil Count 0.08 10^3/uL (0.0-0.7); Absolute Lymphocyte Count 1.26 10^3/uL (1.2-3.4); Absolute Neutrophil Count 4.41 10^3/uL (1.2-6.7); Basophils % 0.8 %; Eosinophils % 1.3 %; HCT 42.9 % (36.0-46.0); HGB 13.9 g/dL (11.2-15.7); Immature Grans % 0.9 %; Lymphocytes % 19.8 %; MCH 27.1 pg (27.0-33.0); MCHC 32.4 % (32.0-36.0); MCV 84 fL (80-95); MPV 8.8 fL (8.0-11.0); Monocytes % 7.9 %; Neutrophils % 69.3 %; Platelet Count 244 10^3/uL (130-400); RBC 5.12 10^6/uL (3.93-5.22); RDW 15.1 % (11.7-14.6); WBC 6.36 10^3/uL (4.4-10.8)
[2023-12-28 02:06] LABS: ALT 56 U/L (14-59); AST 28 U/L (15-37); Albumin 3.3 g/dL (3.4-5.0); Alkaline Phosphatase 190 U/L (46-116); Anion Gap 6.7 mmol/L (3-11); BUN 17 mg/dL (7-18); Bilirubin, Total 0.29 mg/dL (0.2-1.0); CO2 28.3 mmol/L (21.0-32.0); CREATININE 0.6 mg/dL (0.55-1.02); Calcium 9.3 mg/dL (8.5-10.1); Chloride 101 mmol/L (98-107); Creatine Kinase 43 U/L (26-192); Estimated GFR 103.98 (mL/min/1.73m2); Glucose 317 mg/dL (74-106); Potassium 3.9 mmol/L (3.5-5.1); Sodium 136 mmol/L (136-145); Total Protein 7.4 g/dL (6.4-8.2)
[2023-12-28] MEDS: Lidocaine 5% Patch 1 PATCH TP (02:14)
[2023-12-28 02:16] LABS: Uric Acid 4.1 mg/dL (2.6-6.0)
[2023-12-28] MEDS: Diclofenac 1% Gel 100 GM TUBE TP (03:59)
== END 2023-12-28 03:57 | disposition home or self-care (01) ==
PROVIDERS: Emergency Provider Student in an Organized Health Care Education/Training Program; PCP Family Medicine
DX: M25.521 Pain in right elbow (principal); M79.631 Pain in right forearm; I10 Essential (primary) hypertension; E11.9 Type 2 diabetes mellitus without complications; C34.90 Malignant neoplasm of unspecified part of unspecified bronchus or lung; E78.00 Pure hypercholesterolemia, unspecified; F17.210 Nicotine dependence, cigarettes, uncomplicated; Z79.84 Long term (current) use of oral hypoglycemic drugs
CPT/HCPCS: 36415; 80053; 82550; 93005; 93971; 96374; 99284; 84550; 85025; 93010; J2270

== ENCOUNTER 2024-01-10 00:43 | Outpatient (CLI) | payer MEDICAID, SELFPAY ==
--- NOTE | 2024-01-10 | DI.RAD_ITS ---
Exam(s) XR HIP RT COMPLETE AP PELVIS EXAM: XR HIP RT COMPLETE AP PELVIS CLINICAL HISTORY: PAIN IN R HIP, M25.551. TECHNIQUE: 2D digital imaging was performed. COMPARISON: CT CT PELVIC W from 12/08/2023 FINDINGS: Two views. No evidence of pelvic nor hip fracture. Additional lateral view of the right hip does not reveal ost eophytes nor prominent joint space narrowing. There is advanced disc space narrowing at L5-S1 level. Moderate narrowing at L4-5 level. There are no osseous lesions in the pelvis and hips. IMPRESSION: No acute osseous findings. Degenerative disc disease in the lumbar spine. Please note recent CT sca n of 12/08/2023 revealed abnormality in the right iliopsoas muscle intended. DATA REPOSITORY: RADIATION DOSE DELIVERED:
== END 2024-01-10 01:03 ==
LOC: DI 00:43
PROVIDERS: PCP Family Medicine; Visit Provider Family Medicine
DX: M51.36 Other intervertebral disc degeneration, lumbar region (principal); M25.551 Pain in right hip
CPT/HCPCS: 73502

== ENCOUNTER 2024-01-10 00:43 | Outpatient (CLI) | payer MEDICAID, SELFPAY ==
[2024-01-10] MEDS: Gadoterate meglumine 20 ML SYRINGE IVP (13:49)
--- NOTE | 2024-01-10 14:00 | DI.MRI_ITS ---
Exam(s) MR BRAIN WO/W EXAM: MR BRAIN WO/W CLINICAL HISTORY: headaches,small cell ca,c80.1 TECHNIQUE: Multiplanar multisequence MRI of the brain was performed. CONTRAST MATERIAL: IV Contrast: 19 mL of Dotarem contrast administered. COMPARISON: No priors for comparison. FINDINGS: The examination is limited due to patient motion artifact. VENTRICLES AND EXTRA AXIAL SPACES: There is irregular enhancement of the dura. The findings are most marked along the left convexity. The findings are most suggestive of metastatic disease. There is bony involvement with a soft tissue mass in the left parietal bone (series [id number], image 13). This dawson ggest osseous metastatic disease. HEMORRHAGE: None. CEREBRAL PARENCHYMA: No focus of restricted diffusion to suggest acute infarct. No space-occupying le almas identified. There are areas of hyperintense signal seen in the white matter on the FLAIR and T2 weighted images most consistent with chronic microvascular ischemic disease. MIDLINE SHIFT: None. BRAINSTEM/CEREBELLUM: Normal. CALVARIUM: Normal. ENHANCEMENT: Please see the above section under ventricles and extra-axial spaces. VISUALIZED PARANASAL SINUSES/MASTOIDS: Clear. [place]: Normal flow void. PITUITARY GLAND: Unremarkable. OTHER FINDINGS: IMPRESSION: 1. The examination is limited due to patient motion artifact. 2. 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 A whole-body bone scan should be considered for further evaluation. 3. No evidence of an intraparenchymal mass/metastasis. 4. Multiple foci of increased signal in the white matter suggesting chronic microvascular ischemic di sease. Unexpected findings DATA REPOSITORY:
== END 2024-01-10 01:03 ==
LOC: DI 00:43
PROVIDERS: PCP Family Medicine; Visit Provider Internal Medicine Critical Care Medicine
DX: C34.90 Malignant neoplasm of unspecified part of unspecified bronchus or lung (principal); C79.51 Secondary malignant neoplasm of bone
CPT/HCPCS: 70553